=== PATIENT | female | born 1940 | race Caucasian/White ===

== ENCOUNTER 2020-03-24 19:03 | Emergency (ER) | payer MEDICARE, SELFPAY ==
--- NOTE | ~2020-03-24 | XR_ITS ---
EXAMINATION: XR ribs RT 2V w CXR 2V DATE: 03/24/2020 20:25 INDICATION: Right-sided rib pain after fall onto a table TECHNIQUE: PA and lateral views of the chest and 3 views of the right ribs were obtained. COMPARISON: None FINDINGS: Acute appearing mildly displaced fracture at the anterior right eighth and ninth ribs. Right lung is clear with no airspace opacities, pulmonary edema, pleural effusion or pneumothorax. Patchy airspace opacities throughout the left mid to lower lung zone which could represent atelectasis, pneumonia or less likely asymmetric pulmonary edema. No left-sided pleural effusion or pneumothorax. Cardiomediast inal silhouette is within normal limits for AP technique. Mild thoracic kyphosis with mild anterior w edging of a few mid thoracic vertebral bodies. Severe lumbar spondylosis. IMPRESSION: 1. Mildly displaced anterior right eighth and ninth rib fractures. No associated right pleural effusi on or pneumothorax. 2. Patchy airspace opacities in the left mid and lower lung zones which could represent atelectasis, pneumonia or less likely asymmetric pulmonary edema. Reviewed, dictated and finalized at location A. IMPRESSION: 1. Mildly displaced anterior right eighth and ninth rib fractures. No associate d right pleural effusion or pneumothorax. 2. Patchy airspace opacities in the left mid and lower lung zones which could r epresent atelectasis, pneumonia or less likely asymmetric pulmonary edema.
[2020-03-24 19:08] VITALS: BP 140/64; PULSE 70; RESP 21; TEMP 36.6; O2SAT 96
--- NOTE | 2020-03-24 19:33 | ED.GENADULT ---
HPI - General Adult General Chief complaint: Fall Stated complaint: fall/ rib pain Time Seen by Provider: 03/24/20 19:20 Source: patient Mode of arrival: EMS Limitations: no limitations History of Present Illness HPI narrative: Patient is 79-year-old female who presents to emergency department after having a ground-level fall after miss stepping at home today patient fell into a dresser injuring the right ribs where she has moderate aching pain for which she has taken Tylenol with relief. Patient denies other injuries or complaints. Patient denies dyspnea or URI symptoms. Patient presents per EMS in no distress Review of Systems Review of Systems: All systems reviewed & are unremarkable except as noted in HPI and below PMFSH Past Medical History Medical History (Updated 03/24/20 @ 20:40 by Horacio Biswas PA-C) COPD (chronic obstructive pulmonary disease) Obese Surgical History Surgical History (Updated 03/24/20 @ 19:36 by Horacio Biswas PA-C) History of orthopedic surgery Social History Social History (Updated 03/24/20 @ 19:36 by Horacio Biswas PA-C) Smoking status: Never smoker Exam Narrative: Exam Narrative: GENERAL: Well-appearing, obese, and in no acute distress. HEAD: Normocephalic, atraumatic. EYES: PERRLA and EOMI. ENT: Nares clear, no rhinorrhea or epistaxis. Mucous membranes moist. NECK: Supple. No adenopathy or masses. CHEST: Clear to auscultation. No respiratory distress. No wheezes rales or rhonchi. Right lateral rib pain no deformity noted HEART: Regular rate and rhythm. No murmur heard. Normal peripheral pulses. ABDOMEN: Soft, nontender, nondistended EXTREMITIES: Normal range of motion. No edema. No cervical thoracic or lumbar tenderness SKIN: Warm, dry, no rash. NEURO: No focal deficits. Alert and oriented x3. Cranial nerves II through XII grossly intact PSYCH: Normal mood and affect. Course Course Emergency Course: Patient in the room at this time aware of case findings treatment plan and diagnosis family present patient is following with primary care and specialist and is felt appropriate to be discharged home family feels comfortable with this plan provided with reasons to return Vital Signs Vital signs: Vital Signs Temperature 98 F 03/24/20 19:08 Pulse Rate 70 03/24/20 19:08 Respiratory Rate 21 H 03/24/20 19:08 Blood Pressure 140/64 03/24/20 19:08 Pulse Oximetry 96 03/24/20 19:08 Temperature 98 F 03/24/20 19:08 Pulse Rate 70 03/24/20 19:08 Respiratory Rate 21 H 03/24/20 19:08 Blood Pressure 140/64 03/24/20 19:08 Pulse Oximetry 96 03/24/20 19:08 Medical Decision Making MDM Narrative Medical decision making narrative: Patient with rib fractures seen on x-ray no other high risk changes or findings in the room in no distress pain well-tolerated hemodynamically stable will be discharged home with follow-up with primary care family feels comfortable with this plan Vital Signs Vital Signs: Vital Signs Temperature 98 F 03/24/20 19:08 Pulse Rate 70 03/24/20 19:08 Respiratory Rate 21 H 03/24/20 19:08 Blood Pressure 140/64 03/24/20 19:08 Pulse Oximetry 96 03/24/20 19:08 Temperature 98 F 03/24/20 19:08 Pulse Rate 70 03/24/20 19:08 Respiratory Rate 21 H 03/24/20 19:08 Blood Pressure 140/64 03/24/20 19:08 Pulse Oximetry 96 03/24/20 19:08 Lab Data Result diagrams: 03/24/20 20:16 03/24/20 20:16 Labs: Lab Results 03/24/20 03/24/20 Range/Units 20:16 20:16 WBC 11.4 H (4.5-10.0) K/mm3 RBC 3.28 L (4.2-5.4) M/mm3 Hgb 10.5 L (12.0-15.0) g/dL Hct 32.8 L (37.0-47.0) % MCV 100.0 (80-100) fl MCH 32.0 (26-34) pg MCHC 32.0 (32-36) g/dl RDW 15.5 H (11.5-14.5) % Plt Count 128 L (150-375) k/mm3 MPV 12.1 H (7.4-10.4) fl Immature Gran % (Auto) 0.5 (0-0.5) % Neut % (Auto) 85.2 H (45.5-73.1) % Lymph % (Auto) 6.5 L (18.3-44.2) %
[2020-03-24 20:25] LABS: Basophils Percent Auto 0.4 % (0.2-1.2); Eosinophils Absolute Auto 0.1 K/mm3 (0-0.3); Eosinophils Percent Auto 0.9 % (0-4.4); Hematocrit 32.8 % (37.0-47.0); Hemoglobin 10.5 g/dL (12.0-15.0); Immature Granulocyte Absolute 0.06 K/mm3 (0.00-0.031); Immature Granulocyte Percent A 0.5 % (0-0.5); Lymphocytes Absolute Auto 0.74 K/mm3 (0.9-3.2); Lymphocytes Percent Auto 6.5 % (18.3-44.2); Mean Platelet Volume 12.1 fl (7.4-10.4); Monocytes Absolute Auto 0.7 K/mm3 (0.1-0.6); Monocytes Percent Auto 6.5 % (2.6-8.5); Neutrophils Absolute Auto 9.7 K/mm3 (1.3-6.7); Neutrophils Percent Auto 85.2 % (45.5-73.1); Platelet Count Result 128 k/mm3 (150-375); Red Blood Count 3.28 M/mm3 (4.2-5.4); Red Cell Distribution Width 15.5 % (11.5-14.5); White Blood Count 11.4 K/mm3 (4.5-10.0)
[2020-03-24 20:34] LABS: Alanine Aminotransferase 15 U/L (4-35); Albumin Level 3.9 g/dL (3.5-5.1); Alkaline Phosphatase 89 U/L (38-126); Anion Gap 8 mmol/L (8-16); Aspartate Amino Transferase 21 U/L (14-36); Bilirubin,Total 0.4 mg/dL (0.2-1.3); Blood Urea Nitrogen 48 mg/dL (7-17); Calcium 8.7 mg/dL (8.4-10.2); Carbon Dioxide 20 mmol/L (22-30); Chloride 108 mmol/L (98-107); Estimated CRCL calculation 24 ml/min; Estimated Glomerular Filt Rate 26; Glucose 86 mg/dL (65-105); Sodium 136 mmol/L (137-145)
[2020-03-24 20:40] VITALS: BP 136/57; PULSE 78; RESP 19; O2SAT 96
[2020-03-24 21:00] LABS: Add Urine Microscopic? NO; Appearance Urine Clear (Clear); Bilirubin Urine Negative (Negative); Blood Urine Negative (Negative); Color Urine Yellow (Yellow); Glucose Urine UA Negative (Negative); Ketones Urine Negative (Negative); Leukocyte Esterase Ur Negative LEU/UL (Negative); Nitrate Urine Negative (Negative); Protein Urine Negative (Negative); Specific Grav Ur 1.012 (1.001-1.035); Urobilinogen Urine Negative mg/dL (<2.0)
[2020-03-24 21:35] VITALS: BP 119/51; PULSE 77; RESP 20; TEMP 36.8; O2SAT 96
== END 2020-03-24 21:46 | disposition home or self-care (01) ==
PROVIDERS: Emergency Medicine Emergency Medical Services; Emergency Provider Emergency Medicine; PCP Internal Medicine
DX: J44.9 Chronic obstructive pulmonary disease, unspecified (principal); E66.9 Obesity, unspecified; Z68.39 Body mass index [BMI] 39.0-39.9, adult; S22.41XA Multiple fractures of ribs, right side, initial encounter for closed fracture; R91.8 Other nonspecific abnormal finding of lung field; W01.190A Fall on same level from slipping, tripping and stumbling with subsequent striking against furniture, initial encounter
CPT/HCPCS: 36415; 51701; 71046; 71100; 80053; 81003; 85025; 99284

== ENCOUNTER 2020-08-08 05:55 | Emergency (ER) | payer MEDICARE, SELFPAY ==
--- NOTE | ~2020-08-08 | XR_ITS ---
[XR ribs LT 2V w CXR 2V ] INDICATION: Left rib pain TECHNIQUE: Frontal projection of the upper left ribs, frontal projection of the lower left ribs, obli que projection of all the left ribs, frontal inspiratory chest x-ray for interpretation. FINDINGS: There is a probable age-indeterminate left eighth rib fracture seen on one image only. Patc hy bilateral airspace disease. There are no soft tissue abnormality seen. The lungs are clear. IMPRESSION: 1: Probable age-indeterminate left eighth rib fracture. 2: Bilateral patchy airspace disease, compatible with pneumonia Reviewed, dictated and finalized at location A. [employer]
[2020-08-08 05:54] VITALS: TEMP 36.5
[2020-08-08 06:00] VITALS: BP 147/76; PULSE 67; RESP 21; O2SAT 96
--- NOTE | 2020-08-08 06:32 | ED.FALL ---
HPI - Fall General Chief Complaint: Fall <Antonino Bowles MD - Last Filed: 08/08/20 07:29> Stated Complaint: Fall, Chest pain <Antonino Bowles MD - Last Filed: 08/08/20 07:29> Time Seen by Provider: 08/08/20 06:10 <Antonino Bowles MD - Last Filed: 08/08/20 07:29> History of Present Illness HPI Narrative: Patient is a 79-year-old female who presents ER with left anterior chest wall pain. Patient had a trip and fall this morning and struck her chest. Did not strike her head or lose consciousness. Has history of rib fracture in the past and is concerned she may have suffered the same fate. She is not having any difficulty breathing at this time. No cough. Has minor discomfort when twisting or moving. Mild discomfort with palpation. <Antonino Bowles MD - Last Filed: 08/08/20 07:29> Related Data Allergies/Adverse Reactions: Allergies Allergy/AdvReac Type Severity Reaction Status Date / Time Sulfa (Sulfonamide Allergy Hives Verified 08/08/20 06:02 Antibiotics) codeine AdvReac Other Verified 08/08/20 06:02 <Antonino Bowles MD - Last Filed: 08/08/20 07:29> Review of Systems Cardiovascular: Cardiovascular: Reports chest pain (chest wall), Denies diaphoresis and Denies palpitations <Antonino Bowles MD - Last Filed: 08/08/20 07:29> Respiratory: Respiratory: Denies cough, Denies pain on inspiration and Denies dyspnea <Antonino Bowles MD - Last Filed: 08/08/20 07:29> Neurologic: Denies syncope, Denies focal weakness, Denies numbness and Denies tingling <Antonino Bowles MD - Last Filed: 08/08/20 07:29> [facility] Past Medical History Medical History: Medical History (Updated 08/08/20 @ 08:21 by Primitivo Cadena MD) COPD (chronic obstructive pulmonary disease) Obese <Antonino Bowles MD - Last Filed: 08/08/20 07:29> Surgical History Surgical History: Surgical History (Updated 03/24/20 @ 19:36 by Horacio Biswas PA-C) History of orthopedic surgery <Antonino Bowles MD - Last Filed: 08/08/20 07:29> Social History Social History: Social History (Updated 03/24/20 @ 19:36 by Horacio Biswas PA-C) Smoking status: Never smoker <Antonino Bowles MD - Last Filed: 08/08/20 07:29> Exam Narrative: Exam Narrative: GENERAL: Well-appearing, well-nourished, and in no acute distress. HEAD: Normocephalic, atraumatic. CHEST: Clear to auscultation. No respiratory distress. Mild tenderness inferior to the left breast. HEART: Regular rate and rhythm. Normal peripheral pulses. ABDOMEN: Soft, nontender, nondistended. EXTREMITIES: Normal range of motion. No edema. SKIN: Warm, dry, no rash. NEURO: Alert and oriented x3. <Antonino Bowles MD - Last Filed: 08/08/20 07:29> Course Vital Signs Vital signs: Vital Signs Temperature 36.5 C 08/08/20 05:54 Temperature 36.6 C 08/08/20 07:54 Pulse Rate 57 L 08/08/20 07:54 Respiratory Rate 14 08/08/20 07:54 Blood Pressure 126/62 08/08/20 07:54 Pulse Oximetry 98 08/08/20 07:54 <Antonino Bowles MD - Last Filed: 08/08/20 07:29> Vital Signs Temperature 36.5 C 08/08/20 05:54 Temperature 36.6 C 08/08/20 07:54 Pulse Rate 57 L 08/08/20 07:54 Respiratory Rate 14 08/08/20 07:54 Blood Pressure 126/62 08/08/20 07:54 Pulse Oximetry 98 08/08/20 07:54 <Primitivo Cadena MD - Last Filed: 08/08/20 08:21> MDM - Fall MDM Narrative Medical decision making narrative: CXR shows no new fracture. Bilateral infiltrates, no significant change from previous x-ray 4 months ago. She denies cough, congestion, fever, SOB. Pneumonia unlikely. <Primitivo Cadena MD - Last Filed: 08/08/20 08:21> Imaging Data Radiologist's impression: ITS Impressions Ribs w/Chest X-Ray 08/08/20 07:42 IMPRESSION: 1: Probable age-indeterminate left eighth rib fracture. 2: Bilateral patchy airspace disease, compatible with pneumonia <Gran
[2020-08-08 07:54] VITALS: BP 126/62; PULSE 57; RESP 14; TEMP 36.6; O2SAT 98
[2020-08-08 08:28] VITALS: BP 117/56; PULSE 60; RESP 18
== END 2020-08-08 08:30 | disposition home or self-care (01) ==
PROVIDERS: Emergency Provider Emergency Medicine; PCP Internal Medicine
DX: S20.212A Contusion of left front wall of thorax, initial encounter (principal); W01.0XXA Fall on same level from slipping, tripping and stumbling without subsequent striking against object, initial encounter; J44.9 Chronic obstructive pulmonary disease, unspecified
CPT/HCPCS: 71046; 71100; 99283

== ENCOUNTER 2020-10-24 10:02 | Observation (INO) | payer MEDICARE, SELFPAY ==
[2020-10-24] VITALS (12 sets, daily range): BP systolic 104–151; BP diastolic 61–96; PULSE 51–66; RESP 11–31; TEMP 34.9–36.7; O2SAT 91–98
--- NOTE | ~2020-10-24 | XR_ITS ---
EXAMINATION: XR chest 2V DATE: 10/24/2020 11:00 INDICATION: Congestive heart failure with weakness and bilateral lower limb swelling TECHNIQUE: frontal and lateral views of the chest were obtained. COMPARISON: Chest radiograph dated 08/08/2020 and 03/24/2020 FINDINGS: Bandlike discoid atelectasis at the medial left lung base. No other airspace opacities, pulmonary marlo ma, pleural effusion or pneumothorax. Heart size is normal with prominent left paracardial fat pad. S uggestion of a small to moderate hiatal hernia. Atherosclerotic and tortuous thoracic aorta. Osteopen ia with mild thoracic kyphosis and moderate spondylosis. IMPRESSION: 1. Mild discoid atelectasis at the left lung base. No other acute cardiopulmonary disease. 2. Possible small to moderate hiatal hernia. Reviewed, dictated and finalized at location A. IMPRESSION: 1. Mild discoid atelectasis at the left lung base. No other acute cardiopulmona ry disease. 2. Possible small to moderate hiatal hernia.
--- NOTE | ~2020-10-24 | CT_ITS ---
EXAMINATION: CT brain wo con DATE: 10/24/2020 11:06 INDICATION: Weakness for 3 days. Tremors. TECHNIQUE: Computed tomography (CT) of the head was performed without intravenous contrast. The dose- length product was 605.33 mGy-cm. The mA was adjusted according to patient size. Iterative reconstruc tion technique was employed. COMPARISON: None FINDINGS: No acute intracranial hemorrhage, infarction, mass or mass effect. Mild generalized atrophy . There is intracranial atherosclerosis. No ventriculomegaly or midline shift. Basilar cisterns are p atent. There is mild mucosal thickening of the ethmoid and left maxillary sinuses. Mastoids are pneum atized. There are scattered mild periventricular and subcortical white matter changes, most likely re lated to small vessel ischemic disease (microangiopathy). IMPRESSION: 1. No acute intracranial abnormality. 2: Mild chronic age-related findings. Reviewed, dictated and finalized at location A.
--- NOTE | ~2020-10-24 | CT_ITS ---
EXAMINATION: CT abdomen pelvis wo con EXAM DATE: 10/25/2020 13:42 INDICATION: Hypothermia, pancytopenia. TECHNIQUE: Spiral CT of the abdomen and pelvis was performed without contrast. Axial, coronal and s agittal images were reviewed. The dose-length product (DLP) for this examination was 1232.49 mGy-cm. The exposure was tailored according to patient size (auto mA exposure control), and iterative recon struction (ASIR) was used as additional dose reduction technique. There is no prior study for compar titus. 0 FINDINGS: Nearly complete fatty infiltration of the pancreas. The liver, spleen, adrenal glands are unremarkable. Gallbladder is unremarkable. No biliary obstruction. There is no nephrolithiasis or hydronephrosis. There is mild to moderate bilateral renal atrophy. There is a 2 cm right renal cyst i nferiorly. The uterus is retroverted and morphologically normal. The bladder is collapsed with Fol ey catheter balloon anchor inside. There is no retroperitoneal or pelvic lymphadenopathy. There is mild scattered arteriosclerotic disease. The appendix is normal. There is moderate-sized gastroesophageal hiatal hernia. There is expected a mount of colonic stool. No free intraperitoneal gas. The heart is normal in size. There are no p ericardial or pleural effusions. There is segmental lingular atelectasis. There are no osteoblastic or osteolytic lesions identified. There are right rib fractures of varying ages from subacute to chr onic. Advanced lumbar spondylosis. 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 IMPRESSION: 1. No acute intra-abdominal findings. 2. Lingular subsegmental atelectasis. 3. Moderate hiatal hernia. 4. Chronic bone and other findings. Reviewed, dictated and finalized at location A.
--- NOTE | ~2020-10-24 | MR_ITS ---
EXAMINATION: MR brain/brain stem wo/w con EXAM DATE: 10/27/2020 15:57 INDICATION: Extremity paresthesias, weak, hypothermia, hypoglycemia. TECHNIQUE: Magnetic resonance imaging (MRI) of the brain/brain stem obtained without contrast. Sagit ed T1, axial diffusion, gradient echo (T2*), T1, T2, FLAIR sequences obtained. Patient was then inj ected with 19 cc intravenous Multihance contrast. Axial and coronal postcontrast T1 weighted sequence s obtained. There is no prior study for comparison. FINDINGS: There are no areas of restricted diffusion to suggest acute infarction. There is no acute hemorrhage seen on the T2*, a hemosiderin sensitive sequence. No intraparenchymal brain mass lesion. There is mild prominence of the sulci and ventricles related to cerebral atrophy. There are no e xtra-axial collections. Flow voids are seen in the cerebral arteries on the T2-weighted sequences co nsistent with their expected patency. Patient has had bilateral ocular lens surgery. Soft tissue is unremarkable. IMPRESSION: Unremarkable brain MR exam. Reviewed, dictated and finalized at location A. IMPRESSION: Unremarkable brain MR exam.
--- NOTE | ~2020-10-24 | MR_ITS ---
EXAMINATION: MR lumbar spine wo/w con EXAM DATE: 10/27/2020 15:58 INDICATION: Low back pain, weakness. TECHNIQUE: Multi-sequential, multiplanar MR images of the lumbar spine were obtained without contrast . Sagittal T1, T2, T2 fat saturation images. Axial T2 weighted images. Axial T1 weighted sequence. Patient was then injected with 19 mL Multihance intravenous contrast and reimaged. Postcontrast axi al and sagittal T1-weighted fat saturation sequences were obtained. There are no prior studies for co mparison. FINDINGS: Study is limited due to patient motion. No evidence of epidural abscess or discitis. The co nus medullaris terminates at the T12-L1 level and has normal signal intensity and morphology. There are no prior studies for comparison. There is moderate to severe disc disease L1-2, and L3-S1, modera te at L2-3. There is 3 mm retrolisthesis L5 on S1. No spondylolysis suspected. Mild diffuse loss of v ertebral body height. Right renal fluid signal intensity lesions most likely cysts. Level by level evaluation: T12-L1: There is a mild diffuse disc bulge. Facet arthropathy: Mild. Neural foraminal stenosis: No stenosis. Central canal stenosis: No stenosis. L1-L2: There is a moderate diffuse disc bulge. Facet arthropathy: Mild to moderate. Neural foraminal stenosis: Mild to moderate bilateral. Central canal stenosis: Mild to moderate. L2-L3: There is a mild to moderate diffuse disc bulge. Facet arthropathy: Mild to moderate. Neural foraminal stenosis: Moderate left, mild right. Central canal stenosis: Mild to moderate. L3-L4: There is a moderate diffuse disc bulge. Facet arthropathy: Moderate to severe. Ligamentum flavum enlargement. Neural foraminal stenosis: Moderate left, mild to moderate right. Central canal stenosis: Moderate to severe. L4-L5: There is a moderate diffuse disc bulge. Facet arthropathy: Severe right, moderate left. Neural foraminal stenosis: Moderate right, mild to moderate left. Central canal stenosis: Moderate. L5-S1: There is a moderate diffuse disc bulge. Facet arthropathy: Mild to moderate. Neural foraminal stenosis: Moderate bilateral. Central canal stenosis: Mild to moderate. IMPRESSION: 1. Advanced lumbar spondylosis, with L3-4 moderate to severe central canal stenosis. 2. No acute findings. Reviewed, dictated and finalized at location A. IMPRESSION: 1. Advanced lumbar spondylosis, with L3-4 moderate to severe central canal kylie nosis. 2. No acute findings.
--- NOTE | 2020-10-24 10:09 | ECG_ITS ---
Measurements Intervals Welch Rate: 60 P: 46 [place]: 188 QRS: -3 QRSD: 85 T: 31 QT: 397 QTc: 400 Interpretive Statements SINUS RHYTHM BORDERLINE R WAVE PROGRESSION, ANTERIOR LEADS BASELINE ARTIFACT- I, II, III, AVR, AVL, AVF, V1-V6 BORDERLINE ECG Electronically Signed On 10-24-2020 11:19:54 CDT by Morgan Pruett D.O.
--- NOTE | 2020-10-24 10:52 | ED.WEAKNESS ---
HPI - Weakness General Chief complaint: Weakness Stated complaint: tremors, weakness Time Seen by Provider: 10/24/20 10:12 Source: RN notes reviewed History of Present Illness HPI Narrative: Patient presents to emergency department from home for weakness. Patient states over the past 3 days she has been having weakness with tremors she states that that she has had no unilateral deficits. She denies any fevers or chills vision changes chest pain, shortness breath, abdominal pain, nausea, vomiting, diarrhea or any other symptoms. Patient denies any other symptoms at this time patient states she was having a difficult time getting up and walking with her walker today Related Data Allergies Allergy/AdvReac Type Severity Reaction Status Date / Time Sulfa (Sulfonamide Allergy Hives Verified 08/08/20 06:02 Antibiotics) codeine AdvReac Other Verified 08/08/20 06:02 Review of Systems Review of Systems: Narrative: Gen.: Denies fevers or chills Eyes: Denies eye pain or visual change ENT: Denies congestion Respiratory: Denies shortness of breath or cough CV: Denies chest pain or palpitations GI: Denies abdominal pain nausea, emesis or diarrhea denies burning, urgency, frequency or hematuria Musculoskeletal: Denies back pain or muscle pain Neuro: See HPI Skin: Denies rash Except as documented, all other systems reviewed and negative [facility] Past Medical History Medical History COPD (chronic obstructive pulmonary disease) Obese Surgical History Surgical History (Updated 03/24/20 @ 19:36 by Horacio Biswas PA-C) History of orthopedic surgery Social History Social History Smoking status: Never smoker Exam Narrative: Exam Narrative: APPEARANCE: No acute distress, nontoxic, resting in bed EYES: EOMI HEENT: Normocephalic, atraumatic, OMM RESPIRATORY: No respiratory distress Clear to auscultation bilaterally with no rhonchi wheezing or rales. CARDIOVASCULAR: Regular rate and rhythm without murmurs rubs or gallops. ABDOMINAL: Soft, nontender, nondistended, no rebound or guarding MUSCULOSKELETAl: Moves all extremities. No clubbing, cyanosis or edema. NEURO: Awake and alert x 4. Following commands, speech normal, no focal deficits muscle strength 5 out of 5 bilateral upper and lower extremities SKIN:: Warm, dry. No rashes lesions or abrasions PSYCHIATRIC: Normal affect/mood, Course Course Emergency Course: Discussed with patient states she is followed by a coordinator of health services Dr. Major Discussed with KATELYN De Los Santos for Dr. Ling presentation work-up agrees with admission at this time Discussed with patient and family results of workup and diagnosis. Discussed need for admission. Patient and family understand and agree to current treatment plan Vital Signs Vital signs: Vital Signs Temperature 98.0 F 10/24/20 10:04 Pulse Rate 65 10/24/20 10:04 Respiratory Rate 24 H 10/24/20 10:04 Blood Pressure 128/69 10/24/20 10:04 Pulse Oximetry 95 10/24/20 10:04 Temperature 98.0 F 10/24/20 10:04 Pulse Rate 51 L 10/24/20 12:46 Respiratory Rate 12 10/24/20 12:46 Blood Pressure 116/61 10/24/20 12:46 Pulse Oximetry 91 10/24/20 12:03 MDM - Weakness Lab Data Result diagrams: 10/24/20 10:43 10/24/20 10:43 Labs: Lab Results 10/24/20 10/24/20 10/24/20 Range/Units 10:43 10:43 12:09 WBC 3.4 L (4.5-10.0) K/mm3 RBC 3.18 L (4.2-5.4) M/mm3 Hgb 10.1 L (12.0-15.0) g/dL Hct 32.1 L (37.0-47.0) % MCV 100.9 H (80-100) fl MCH 31.8 (26-34) pg MCHC 31.5 L (32-36) g/dl RDW 15.1 H (11.5-14.5) % Plt Count 90 L (150-375) k/mm3 MPV 11.5 H (7.4-10.4) fl Immature Gran % (Auto) 0.3 (0-0.5) % Neut % (Auto) 57.2 (45.5-73.1) % Lymph % (Auto) 24.9 (18.3-44.2) % [place] % (Auto) 12.3 H (2.6-8.5) % Eos % (Auto) 4.7 H (0
[2020-10-24 10:56] LABS: Basophils Percent Auto 0.6 % (0.2-1.2); Eosinophils Absolute Auto 0.2 K/mm3 (0-0.3); Eosinophils Percent Auto 4.7 % (0-4.4); Hematocrit 32.1 % (37.0-47.0); Hemoglobin 10.1 g/dL (12.0-15.0); Immature Granulocyte Absolute 0.01 K/mm3 (0.00-0.031); Immature Granulocyte Percent A 0.3 % (0-0.5); Lymphocytes Absolute Auto 0.85 K/mm3 (0.9-3.2); Lymphocytes Percent Auto 24.9 % (18.3-44.2); Mean Corpuscular HGB Conc 31.5 g/dl (32-36); Mean Corpuscular Hemoglobin 31.8 pg (26-34); Mean Corpuscular Volume 100.9 fl (80-100); Mean Platelet Volume 11.5 fl (7.4-10.4); Monocytes Absolute Auto 0.4 K/mm3 (0.1-0.6); Monocytes Percent Auto 12.3 % (2.6-8.5); Neutrophils Percent Auto 57.2 % (45.5-73.1); Platelet Count Result 90 k/mm3 (150-375); Red Blood Count 3.18 M/mm3 (4.2-5.4); Red Cell Distribution Width 15.1 % (11.5-14.5); White Blood Count 3.4 K/mm3 (4.5-10.0)
[2020-10-24 11:04] LABS: Alanine Aminotransferase 18 U/L (4-35); Albumin Level 3.6 g/dL (3.5-5.1); Alkaline Phosphatase 109 U/L (38-126); Anion Gap 6 mmol/L (8-16); Aspartate Amino Transferase 21 U/L (14-36); Bilirubin,Total 0.3 mg/dL (0.2-1.3); Blood Urea Nitrogen 48 mg/dL (7-17); Calcium 8.7 mg/dL (8.4-10.2); Carbon Dioxide 23 mmol/L (22-30); Chloride 111 mmol/L (98-107); Estimated CRCL calculation 24 ml/min; Estimated Glomerular Filt Rate 27; Glucose 87 mg/dL (65-105); Potassium 5.4 mmol/L (3.4-5.0); Sodium 140 mmol/L (137-145)
--- NOTE | 2020-10-24 11:20 | PC.NURSE ---
Report received from VANESSA Bradshaw. Note pt snoring loudly on stretcher. Sp02 decreases to 88%. When pt awoken goes back up to 93-95%. Pt states does not wear cpap at night at home and doesn't have h/o sleep apnea.
[2020-10-24] MEDS: SODIUM CHLORIDE 0.9% IV 1,000 ML 999 ML IV CONT (12:19)
[2020-10-24 12:27] LABS: Alveolar/Arterial O2 Gradient 8.2 mmHg; Base Excess ABG -3.6 mEq/l (+/-2.0); Fractional Inspired Oxygen 21 %; Oxygen Content ABG 13.7 %vol (16.0-22.0); Oxygen Saturation ABG 94.9 % (95.0-100.0); PO2 ABG 82.9 mmHg (80.0-100.0); PO2 FiO2 Ratio Arterial Blood 3.95 %; Total Hemoglobin 10.4 g/dL (12.0-18.0)
[2020-10-24 12:29] LABS: Device ROOM AIR; Site Drawn LEFT BRACHIAL
[2020-10-24 12:32] LABS: Add Urine Microscopic? NO; Appearance Urine Clear (Clear); Bilirubin Urine Negative (Negative); Blood Urine Negative (Negative); Color Urine Yellow (Yellow); Glucose Urine UA Negative (Negative); Ketones Urine Negative (Negative); Leukocyte Esterase Ur Negative LEU/UL (Negative); Nitrate Urine Negative (Negative); Protein Urine Negative (Negative); Specific Grav Ur 1.011 (1.001-1.035); Urobilinogen Urine Negative mg/dL (<2.0)
--- NOTE | 2020-10-24 13:56 | PC.NURSE ---
Family at bedside visiting with patient. Patient talking and appears to be in no distress.
--- NOTE | 2020-10-24 14:01 | PM.CNNEP ---
Assessment and Plan Assessment and plan (1) Renal insufficiency: Code(s): N28.9 - Disorder of kidney and ureter, unspecified Status: Chronic Assessment and Plan: known CKD but baseline creatinine/GFR not known will try to get old records from primary diesel roller operator's office no critical electrolytes aside from mildly elevated K+ follow trend of labs for now (2) Weakness: Code(s): R53.1 - Weakness Status: Acute Assessment and Plan: not clear on what precipitated this issue PT/OT consultation ambulation as tolerated (3) Pancytopenia: Code(s): D61.818 - Other pancytopenia Status: Acute Assessment and Plan: acute versus chronic? follow trend Hem/Onc consultation? Will continue to follow. History of Present Illness Reason for Consult Consult date: 10/24/20 Reason for consult: chronic renal failure Chief Complaint Chief complaint: Renal insufficiency, hyperkalemia, weakness History of Present Illness Narrative: The patient is a 79-year-old female with a past medical history as outlined below who presented to [facility] Emergency room due to complaints of increased weakness and shakiness. The patient states that for the last 3-4 days prior to admission she has been having increased weakness and tremulousness which seems to have progressively worsened. She normally walks /ambulates with a walker but even when she does that, she shakes in association with a walker itself. Given her weakness and shakiness, she was terrified that she would fall over today and because the symptoms have been getting worse in the last few days, she came to the ER for further evaluation via ambulance. Workup and evaluation emergency room demonstrated the patient to be hemodynamically stable and routine blood test demonstrated pancytopenia as well as an elevated BUN and creatinine presumed to be consistent with her known history of chronic kidney disease. Her urinalysis was negative as well. Given these new laboratory findings as well as her constellation of symptoms as mentioned already, she was admitted the hospital for observation and closer monitoring. Renal consultation was requested due to her known history of chronic kidney disease. The patient states that she normally follows with Dr. Simpson for management of her chronic kidney disease but she could not give me specifics in terms of what her last creatinine was. All she could tell me was that the last time she saw Dr. Simpson, she was told that her kidney function was stable. Presumably, her kidney disease is due to hypertension and age-related change. Currently, patient appears to be doing reasonably well at the time of my visit. Review of Systems Review of Systems: Narrative: As per HPI. [facility] Past Medical History Medical History (Updated 10/25/20 @ 15:24 by Jewel Hernandez MD) BPV (benign positional vertigo) Chronic GERD COPD (chronic obstructive pulmonary disease) Depression Essential and other specified forms of tremor History of DVT (deep vein thrombosis) Hypertension Hypothyroidism Neuropathy Feet Obese Renal insufficiency Chronic Rib fracture TIA (transient ischemic attack) Surgical History Surgical History (Updated 10/25/20 @ 15:24 by Jewel Hernandez MD) H/O elbow surgery History of bilateral knee arthroplasty History of orthopedic surgery Hx of dilation and curettage Family History Family History Sibling Congestive heart failure Sibling Congestive heart failure Sibling Lymphoma Daughter Myocardial infarction Mother Cerebrovascular accident Father Lupus Cerebrovascular accident Social History Social History (Updated 10/24/20 @ 19:52 by Magali Teresa NP) Social History: The patient is . She has 2 sons and a daughter. She would like for her daughter to be the durable power attorn
--- NOTE | 2020-10-24 16:06 | ADMGEN ---
This patient, Tanesha Dubon, was admitted to 2 Medical Room 241-01. Patient/family oriented to hospital policies and general routines including ID bracelet, bed and alarms, visiting hours, pain management, procedures, bathroom and other care routines, personal items, smoking policy, room service/diet, and visiting hours. Information on how to activate the Rapid Response Team has been discussed. Patient/Family are encouraged to report perceived risks to care and to ask questions if they do not understand what they are told or what they should do.
[2020-10-24] MEDS: SODIUM CHLORIDE 0.9% IV 1,000 ML 100 ML IV CONT (16:51)
[2020-10-24 16:59] LABS: Anion Gap 8 mmol/L (8-16); Blood Urea Nitrogen 47 mg/dL (7-17); Calcium 8.8 mg/dL (8.4-10.2); Carbon Dioxide 22 mmol/L (22-30); Chloride 113 mmol/L (98-107); Estimated CRCL calculation 27 ml/min; Estimated Glomerular Filt Rate 31; Glucose 96 mg/dL (65-105); Potassium 5.4 mmol/L (3.4-5.0); Sodium 143 mmol/L (137-145)
--- NOTE | 2020-10-24 19:37 | PM.IMHP ---
H&P: HPI History of Present Illness Date/Time: 10/24/20 19:37 this is a 79 year old female patient has a past medical history of vertigo. The patient lives with her son but was home alone today. The patient stated that she felt very shaky and weak today. She typically ambulates with a walker but stated when she was trying to walk her walker shook as well. The patient has a history of falling and she was afraid she would fall today. The patient stated that she has been weak and tremulous for at least 3 days but today was worse. She stated that she was able to get a cup of coffee today but after she drink her coffee she could not get up and had to call the ambulance to come get her. She stated that she does have chronic kidney disease in that she sees a nephrologists. She denied any fever chills. Her urine was negative for UTI. The patient has pancytopenia.. At 10.1 and 32.1. Platelets were 90 today previous admission there 128. And CO2 is 49.0. Potassium 5.4. Creatinine 1.8 and then 1.6. Previous creatinine is 1.9. Nephrology has been consulted. IV fluids were started in the emergency room. Patient is being admitted for observation status on 10/24/2020. Chief Complaint: weakness Review of Systems Review of Systems: All systems reviewed & are unremarkable except as noted in HPI and below Constitutional: Constitutional: Reports as per HPI and Reports no additional constitutional complaints Eyes: Eyes: Reports as per HPI and Reports no additional eye complaints ENT: Reports system reviewed and no additional complaints, except as documented and Reports Normal hearing present Cardiovascular: Cardiovascular: Reports no additional cardiovascular complaints Respiratory: Respiratory: Reports no additional respiratory complaints and Reports no additional respiratory complaints Gastrointestinal: Gastrointestinal: Reports as per HPI and Reports no additional gastrointestinal complaints Musculoskeletal: Musculoskeletal: Reports no additional musculoskeletal complaints Integumentary/Breasts: Skin/Breast: Reports system reviewed and no additional complaints, except as docu and Reports as per HPI Neurologic: Reports system reviewed and no additional complaints, except as documented, Reports as per HPI and Reports Normal hearing present Psychiatric: Psychiatric: Reports no additional psychiatric complaints and Reports as per HPI Endocrine: Endocrine: Reports no additional endocrine complaints Hematologic/Lymphatic: Hematologic/Lymphatic: Reports no additional hematologic/lymphatic complaints Allergic/Immunologic: Allergic/Immunologic: Reports no additional allergic/immunologic complaints [facility] Past Medical History Medical History (Updated 10/24/20 @ 20:04 by Magali Teresa NP) BPV (benign positional vertigo) Chronic GERD COPD (chronic obstructive pulmonary disease) Depression Essential and other specified forms of tremor History of DVT (deep vein thrombosis) Hypertension Hypothyroidism Neuropathy Feet Obese Renal insufficiency Chronic Rib fracture TIA (transient ischemic attack) Surgical History Surgical History (Updated 10/24/20 @ 19:49 by Magali Teresa NP) H/O elbow surgery History of bilateral knee arthroplasty History of orthopedic surgery Hx of dilation and curettage Family History Family History Sibling Congestive heart failure Sibling Congestive heart failure Sibling Lymphoma Daughter Myocardial infarction Mother Cerebrovascular accident Father Lupus Cerebrovascular accident Social History Social History (Updated 10/24/20 @ 19:52 by Magali Teresa NP) Social History: The patient is . She has 2 sons and a daughter. She would like for her daughter to be the durable power collections attorney for healthcare. The patient desires to be a full code but does not want to exist in a vegetative state. The patient is retired from [employer]
[2020-10-24] MEDS: PREGABALIN (*CRX) 50 MG CAPSULE PO (20:38)
[2020-10-24] MEDS: PRAMIPEXOLE 0.125 MG TABLET PO (20:39)
[2020-10-24] MEDS: buPROPion HCL 100 MG TABLET PO (20:39)
[2020-10-24 21:38] LABS: Anion Gap 8 mmol/L (8-16); Blood Urea Nitrogen 47 mg/dL (7-17); Calcium 8.9 mg/dL (8.4-10.2); Carbon Dioxide 23 mmol/L (22-30); Chloride 112 mmol/L (98-107); Estimated CRCL calculation 27 ml/min; Estimated Glomerular Filt Rate 31; Glucose 115 mg/dL (65-105); Potassium 5.5 mmol/L (3.4-5.0); Sodium 143 mmol/L (137-145)
[2020-10-25] VITALS (20 sets, daily range): BP systolic 114–151; BP diastolic 41–65; PULSE 56–89; RESP 16–21; TEMP 33.8–36.4; O2SAT 93–100
[2020-10-25 05:58] LABS: Basophils Percent Auto 0.8 % (0.2-1.2); Eosinophils Absolute Auto 0.2 K/mm3 (0-0.3); Eosinophils Percent Auto 4.2 % (0-4.4); Hemoglobin 10.1 g/dL (12.0-15.0); Immature Granulocyte Absolute 0.01 K/mm3 (0.00-0.031); Immature Granulocyte Percent A 0.3 % (0-0.5); Lymphocytes Absolute Auto 0.66 K/mm3 (0.9-3.2); Lymphocytes Percent Auto 17.2 % (18.3-44.2); Mean Corpuscular HGB Conc 30.6 g/dl (32-36); Mean Corpuscular Hemoglobin 31.9 pg (26-34); Mean Corpuscular Volume 104.1 fl (80-100); Mean Platelet Volume 12.3 fl (7.4-10.4); Monocytes Absolute Auto 0.4 K/mm3 (0.1-0.6); Monocytes Percent Auto 10.4 % (2.6-8.5); Neutrophils Absolute Auto 2.6 K/mm3 (1.3-6.7); Neutrophils Percent Auto 67.1 % (45.5-73.1); Platelet Count Result 95 k/mm3 (150-375); Red Blood Count 3.17 M/mm3 (4.2-5.4); Red Cell Distribution Width 15.1 % (11.5-14.5); White Blood Count 3.8 K/mm3 (4.5-10.0)
[2020-10-25] MEDS: LEVOTHYROXINE SODIUM 125 MCG TABLET PO (06:03)
[2020-10-25] MEDS: SODIUM CHLORIDE 0.9% IV 1,000 ML 100 ML IV CONT (06:05)
[2020-10-25 06:12] LABS: Lactic Acid Reflex 0.7 mmol/L (0.7-2.1)
[2020-10-25 06:17] LABS: Anion Gap 6 mmol/L (8-16); Blood Urea Nitrogen 42 mg/dL (7-17); Calcium 8.9 mg/dL (8.4-10.2); Carbon Dioxide 22 mmol/L (22-30); Chloride 117 mmol/L (98-107); Estimated CRCL calculation 29 ml/min; Estimated Glomerular Filt Rate 33; Glucose 68 mg/dL (65-105); Potassium 5.3 mmol/L (3.4-5.0); Sodium 145 mmol/L (137-145)
[2020-10-25 06:43] LABS: Thyroid Stimulating Hormone Reflex 0.919 uIU/mL (0.465-4.68)
--- NOTE | 2020-10-25 06:49 | PC.NURSE ---
Dr Saxena was called to report rectal temperature of 93.5F and skin temperature of 95.8F. Dr Saxena said to leave patient on the floor at this time to see what day doctors suggest.
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
[2020-10-25] MEDS: SERTRALINE HCL 50 MG TABLET PO (09:00)
[2020-10-25] MEDS: MECLIZINE HCL 12.5 MG TABLET PO (09:00)
[2020-10-25] MEDS: OLMESARTAN MEDOXOMIL 20 MG TABLET PO (09:00)
[2020-10-25] MEDS: CYANOCOBALAMIN 1,000 MCG TABLET 1000 MCG PO (09:00)
[2020-10-25] MEDS: buPROPion HCL 100 MG TABLET PO ×2 (09:00→20:51)
[2020-10-25 09:45] LABS: Glucose Point of Care 125 (65-105)
[2020-10-25 10:20] LABS: Immature Reticulocyte Fraction 14.8 % (3.0-15.9); Reticulocyte Hemoglobin Conten 28.4 pg (28.2-35.7); Reticulocyte Percent 2.33 % (0.7-4.3); Reticulocytes Absolute 0.07 B/L (32.2-175.7)
[2020-10-25 10:30] LABS: Lactate Dehydrogenase 416 U/L (313-618)
[2020-10-25 10:36] LABS: INR 1.1; Partial Thromboplastin Time 34.2 SECONDS (22.3-36.8); Prothrombin Time 14.6 Seconds (11.1-14.7)
[2020-10-25 10:59] LABS: Iron 68 ug/dL (37-170)
[2020-10-25 11:02] LABS: Total Triiodothyronine (T3) 0.78 NG/ML (0.97-1.69)
[2020-10-25 11:09] LABS: Percent Iron Saturation 21 % (20-50)
[2020-10-25 11:13] LABS: Uric Acid 6.7 mg/dL (2.5-7.5)
[2020-10-25 11:17] LABS: Free T4 Free Thyroxine 1.48 ng/mL (0.78-2.19)
--- NOTE | 2020-10-25 11:28 | PM.IMPN ---
Progress Note: A&P Assessment and Plan (1) Hypothermia: Qualifiers: Encounter type: initial encounter Qualified Code(s): T68.XXXA - Hypothermia, initial encounter Code(s): T68.XXXA - Hypothermia, initial encounter Status: Acute Assessment and Plan: Patient presents with weakness and shakiness x1 day, was walking with her walker then got progressively weaker and could not get off her couch, activated EMS. She otherwise denies other symptoms and feels better this morning. No shortness of breath, cough, chest pain, abd pain, dysuria. Etiology unclear; no infectious process is evident up to this point. Lactic normal 0.7. TSH normal on home levothyroxine. Blood sugar low 68 this morning, improved to 120s after eating breakfast. UA is unremarkable. Chest XR shows atelectasis LLL otherwise clear, lungs clear on exam. CT brain unremarkable. No wounds or rashes noted on exam. Afebrile. ABG yesterday 7.29/49.0/82.9 on room air - no respiratory distress. Robertson catheter placed last night for urinary retention. She reports chronic back pain no worse than her normal. She gets intermittent numbness/tingling to MARIAMA legs for years, none today. No saddle anesthesia or bowel/urinary incontinence. Kelly Casanova applied this AM - temps improving. Will monitor closely however the patient at present is well-appearing. Will order blood cultures, CT abd/pel to evaluate for any other source of infection. (2) Pancytopenia: Code(s): D61.818 - Other pancytopenia Status: Acute Assessment and Plan: Pancytopenia - etiology unclear. Differentials include splenic sequestration from hypothermia, bone marrow dysfunction? Trend CBCd. Oncologist consulted - appreciate any input if able. 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 Shakiness may have been related to low body temperature. Obtain blood cultures. (4) Neuropathy: Code(s): G62.9 - Polyneuropathy, unspecified Status: Chronic Assessment and Plan: Patient describes a peripheral neuropathy to all 4 extremities for years. Denies leg paresthesias today but notes intermittent left arm numbness/tingling. Continue her home pregabalin. Unclear if this has any relation to issues above. (5) Hypertension: Qualifiers: Hypertension type: unspecified Qualified Code(s): I10 - Essential (primary) hypertension Code(s): I10 - Essential (primary) hypertension Status: Chronic Assessment and Plan: Stable maintained on her home Benicar, continue. Monitor BP and adjust treatment as needed. (6) Hypothyroidism: Qualifiers: Hypothyroidism type: unspecified Qualified Code(s): E03.9 - Hypothyroidism, unspecified Code(s): E03.9 - Hypothyroidism, unspecified Status: Chronic Assessment and Plan: TSH is within normal limits this morning on her home levothyroxine. Continue levothyroxine. (7) Renal insufficiency: Code(s): N28.9 - Disorder of kidney and ureter, unspecified Status: Chronic Assessment and Plan: Appears to be at baseline. She is a patient of Dr Simpson. Monitor renal function and urine output. Nephrology was consulted by ED - appreciate input. (8) BPV (benign positional vertigo): Qualifiers: Laterality: unspecified laterality Qualified Code(s): H81.10 - Benign paroxysmal vertigo, unspecified ear Code(s): H81.10 - Benign paroxysmal vertigo, unspecifie
--- NOTE | 2020-10-25 12:10 | PM.PNNEP ---
Progress Note: A&P Assessment and Plan (1) Renal insufficiency: Code(s): N28.9 - Disorder of kidney and ureter, unspecified Status: Chronic Assessment and Plan: known CKD but baseline creatinine/GFR not known unable to get old records from primary lawn service supervisor's office at this time no critical electrolytes aside from mildly elevated K+ follow trend of labs for now (2) Hypothermia: Qualifiers: Encounter type: initial encounter Qualified Code(s): T68.XXXA - Hypothermia, initial encounter Code(s): T68.XXXA - Hypothermia, initial encounter Status: Acute Assessment and Plan: as noted by temperature curve in the last 24 hours etiology?? follow-up on blood cultures and CT scan (3) Weakness: Code(s): R53.1 - Weakness Status: Acute Assessment and Plan: not clear on what precipitated this issue PT/OT consultation ambulation as tolerated (4) Pancytopenia: Code(s): D61.818 - Other pancytopenia Status: Acute Assessment and Plan: acute versus chronic? follow trend Hem/Onc recommendations noted Will continue to follow. Subjective Date/time seen: 10/25/20 12:10 States she feels a bit better after administration of IVFs; issues with hypothermia noted in the last 24 hours; cultures done and CT scan of abdomen/pelvis ordered to rule an occult infection given low temperature readings; no other acute issues or problems voiced. Exam Narrative: Exam Narrative: General: WD/WN female in NAD Heart: normal S1 and S2; no rub Lungs: clear to auscultation Abdomen: soft, nontender, nondistended, positive bowel sounds Extremities: no cyanosis or clubbing; no edema Skin: warm and dry Objective Data Vital Signs Vital Signs: Vital Signs Temp Pulse Resp BP Pulse Ox 10/25/20 11:14 36.1 C L 10/25/20 11:00 36.0 C L 10/25/20 10:49 35.8 C L 10/25/20 10:00 35.8 C L 10/25/20 09:50 36.1 C L 10/25/20 09:35 36.1 C L 79 20 114/41 L 100 10/25/20 09:29 36.1 C L 10/25/20 09:05 35.3 C L 10/25/20 09:04 35.8 C L 79 20 118/54 L 96 10/25/20 08:28 35.3 C L 10/25/20 06:27 35.2 C L 10/25/20 06:05 34.3 C L 10/25/20 06:02 33.8 C L 10/25/20 06:00 35.2 C L 10/25/20 04:58 34.0 C L 57 L 20 144/65 H 95 10/24/20 20:05 34.9 C L 63 22 H 129/96 H 98 10/24/20 17:20 56 L 18 151/64 H 96 10/24/20 13:46 60 141/74 H 96 10/24/20 12:46 51 L 12 116/61 10/24/20 12:34 52 L 14 Intake/Output Intake/Output: Intake & Output 10/22/20 10/23/20 10/24/20 10/25/20 23:59 23:59 23:59 23:59 Intake Total 1170 1670 Output Total 1600 Balance 1170 70 Meds/Results Medications: Active Medications Generic Name Dose Route Start Last Admin Trade Name Fritz PRN Reason Stop Dose Admin Bupropion HCl 100 mg 10/24/20 21:00 10/25/20 09:00 Bupropion Hcl 100 Mg Tablet PO 100 mg Q12HR AISHA Administration Cyanocobalamin 1,000 mcg 10/25/20 09:00 10/25/20 09:00 Cyanocobalamin 1,000 Mcg Tablet PO 1,000 mcg DAILY AISHA Administration Docusate Sodium 50 mg 10/31/20 09:00 Docusate Sodium Liq 100 Mg/10 Ml Udc PO We@0900 AISHA Sodium Chloride 1,000 mls @ 100 mls/hr 10/24/20 13:25 10/25/20 06:05 Normal Saline Iv IV CONT 100 mls/hr .Q10H AISHA Administration Levothyroxine Sodium 125 mcg 10/25/20 06:30 10/25/20 06:03 Levothyroxine Sodium 125 Mcg Tablet PO 125 mcg DAILY@0630 AISHA Administration Meclizine HCl 12.5 mg 10/25/20 09:00 10/25/20 09:00 Meclizine Hcl 12.5 Mg Tablet PO 12.5 mg DAILY AISHA Administration Miconazole Nitrate 1 applic 10/24/20 21:00 10/25/20 09:01 Miconazole 2% Antifungal Ointment 56 Gm TOPICAL 1 applic Q12HR AISHA Administration Olmesartan 20 mg 10/25/20 09:00 10/25/20 09:00 Olmesartan Medoxomil 20 Mg Tablet PO 20 mg DAILY AISHA Administration Pramipexole Di
[2020-10-25 12:24] LABS: Folic Acid 4.3 ng/mL (2.76->20); Vitamin B12 > 1000.0 pg/mL (239-931)
[2020-10-25 14:11] LABS: Glucose Point of Care 91 (65-105)
--- NOTE | 2020-10-25 14:54 | PDONCCN ---
HPI - Date of Consult Date/Time: 10/25/20 14:54 Requesting Physician: ERIC Martin Primary Care Provider: Rohan Sharma, - Consult Narrative Reason for consult: Pancytopenia Narrative: Tanesha Dubon is a 79 year old female with history of peripheral neuropathy, spinal stenosis, COPD, HTN, benign tremor, hypothyroidism and CKD, presenting yesterday to the ED with report of acute-onset weakness and worsening tremors and dizziness/vertigo, brought in by EMS. Admitted for further workup. Found to be pancytopenic, hematology/oncology called for further evaluation. Patient reports neuropathy of unknown etiology for many years, started with loss of balance and proprioception, later leading to falls and dropping objects. Walks with a walker at home. Has history of familial benign tremors, takes pramipexole. Also history of spinal stenosis, arthrosis and lower back pain. Taking vitamin B12 orally, patient not sure why. Follows with nephrology for CKD, presumed to be from both HTN and over-use of NSAIDs. Has whiteside catheter in place since ED. Thus far no infectious etiology has been found, but patient today feels stronger and reports being able to lift her legs up, which she could not yesterday. Family wondering about diagnosis of MS. Does not follow with a neurologist outside. CBC on arrival showing WBC of 3.4 with lymphopenia of 66%, Hb=10.1 with AHY=270.9, plts = 90k. Compared to March 2020, WBC had been WNL, but lymphopenia noted at that time as well, Hb stable at 10, with macrocytic pattern, and plts were higher, at 128k. Further workup showed TSH normal, pt is on home levothyroxine. UA is unremarkable. Chest XR shows atelectasis LLL otherwise clear, lungs clear on exam. CT brain unremarkable. CT a/p performed, report pending. Patient denies prior cancer history, but has brother with lymphoma. Denies COVID positive contacts, but is currently pending her second COVID vaccine next week. No fevers, chills, night sweats or other constitutional symptoms. No history of easy bleeding or bruising, LAD or other hematologic conditions. Review of Systems - Review of Systems All systems reviewed & are unremarkable except as noted in HPI and bel - Neurologic Reports system reviewed and no additional complaints, except as documented [facility] Medical History: Medical History (Last Updated 10/24/20 @ 20:04 by Magali Teresa NP) BPV (benign positional vertigo) Chronic GERD COPD (chronic obstructive pulmonary disease) Depression Essential and other specified forms of tremor History of DVT (deep vein thrombosis) Hypertension Hypothyroidism Neuropathy Feet Obese Renal insufficiency Chronic Rib fracture TIA (transient ischemic attack) Surgical History: Surgical History (Last Updated 10/24/20 @ 19:49 by Magali Teresa NP) H/O elbow surgery History of bilateral knee arthroplasty History of orthopedic surgery Hx of dilation and curettage Family History: Family History (Last Reviewed 10/24/20 @ 19:51 by Magali Teresa NP) Sibling Congestive heart failure Sibling Congestive heart failure Sibling Lymphoma Daughter Myocardial infarction Mother Cerebrovascular accident Father Lupus Cerebrovascular accident - Social History Social History: Social History (Last Updated 10/24/20 @ 19:52 by Magali Teresa NP) Gender Identity: Gender identity (if verbalized by the patient): Female Alcohol Use: Alcohol intake: never Substance Use: Substance use: never Substance use type: does not use Others: Spiritual care concerns: No Smoking Status: Smoking status: Never smoker Meds Home Medications Medication Instructions Recorded Confirmed Type aspirin 120 mg PO DAILY 10/24/20 10/24/20 History bupropion HCl 100 mg PO BID 10/24/20 10/24/20 History cyanocobalamin (vitamin B-12) 1,000 mcg PO DAILY 10/24/20 10/24/20 History docusate sodium [Colace] 50 mg PO
[2020-10-25 15:58] LABS: Alanine Aminotransferase 17 U/L (4-35); Albumin Level 4.1 g/dL (3.5-5.1); Alkaline Phosphatase 112 U/L (38-126); Aspartate Amino Transferase 22 U/L (14-36); Bilirubin,Total 0.3 mg/dL (0.2-1.3)
[2020-10-25 19:03] LABS: Glucose Point of Care 89 (65-105)
--- NOTE | 2020-10-25 19:46 | PC.NURSE ---
Pt transferred to 330 by bed to this RN's care at 1455. Pt resting comfortably.
[2020-10-25] MEDS: PRAMIPEXOLE 0.125 MG TABLET PO (20:51)
[2020-10-25] MEDS: PREGABALIN (*CRX) 50 MG CAPSULE PO (20:51)
[2020-10-26] VITALS (13 sets, daily range): BP systolic 89–164; BP diastolic 37–94; PULSE 61–98; RESP 18–20; TEMP 35.8–36.6; O2SAT 94–100
[2020-10-26 01:42] LABS: SARS-CoV-2 RNA PCR Negative
[2020-10-26] MEDS: ACETAMINOPHEN 325 MG TABLET 650 MG PO ×2 (02:06→23:52)
[2020-10-26] MEDS: SODIUM CHLORIDE 0.9% IV 1,000 ML 100 ML IV CONT ×2 (05:16→15:38)
[2020-10-26] MEDS: LEVOTHYROXINE SODIUM 125 MCG TABLET PO (05:59)
[2020-10-26 06:14] LABS: Basophils Percent Auto 0.6 % (0.2-1.2); Eosinophils Absolute Auto 0.2 K/mm3 (0-0.3); Eosinophils Percent Auto 4.2 % (0-4.4); Hematocrit 31.3 % (37.0-47.0); Hemoglobin 9.5 g/dL (12.0-15.0); Immature Granulocyte Absolute 0.01 K/mm3 (0.00-0.031); Immature Granulocyte Percent A 0.3 % (0-0.5); Mean Corpuscular HGB Conc 30.4 g/dl (32-36); Mean Corpuscular Hemoglobin 31.5 pg (26-34); Mean Corpuscular Volume 103.6 fl (80-100); Mean Platelet Volume 12.3 fl (7.4-10.4); Monocytes Absolute Auto 0.5 K/mm3 (0.1-0.6); Monocytes Percent Auto 13.1 % (2.6-8.5); Neutrophils Absolute Auto 2.1 K/mm3 (1.3-6.7); Neutrophils Percent Auto 56.8 % (45.5-73.1); Platelet Count Result 91 k/mm3 (150-375); Red Blood Count 3.02 M/mm3 (4.2-5.4); Red Cell Distribution Width 15.5 % (11.5-14.5); White Blood Count 3.6 K/mm3 (4.5-10.0)
[2020-10-26 06:23] LABS: Prothrombin Time 14.1 Seconds (11.1-14.7)
[2020-10-26 06:24] LABS: Partial Thromboplastin Time 35.4 SECONDS (22.3-36.8)
[2020-10-26 06:36] LABS: Glucose Point of Care 80 (65-105)
[2020-10-26 06:36] LABS: Glucose Point of Care 70 (65-105)
[2020-10-26 06:40] LABS: Alanine Aminotransferase 15 U/L (4-35); Albumin Level 3.4 g/dL (3.5-5.1); Alkaline Phosphatase 85 U/L (38-126); Anion Gap 2 mmol/L (8-16); Aspartate Amino Transferase 22 U/L (14-36); Bilirubin,Total 0.2 mg/dL (0.2-1.3); Blood Urea Nitrogen 32 mg/dL (7-17); CRP 0.7 mg/dL (<1.0); Calcium 9.1 mg/dL (8.4-10.2); Carbon Dioxide 24 mmol/L (22-30); Chloride 116 mmol/L (98-107); Creatine Kinase 39 U/L (30-135); Estimated CRCL calculation 31 ml/min; Estimated Glomerular Filt Rate 36; Glucose 78 mg/dL (65-105); Lactate Dehydrogenase 480 U/L (313-618); Phosphorus 3.5 mg/dL (2.5-4.5); Potassium 5.5 mmol/L (3.4-5.0); Sodium 142 mmol/L (137-145)
[2020-10-26 06:46] LABS: Lipase < 10 U/L (23-300)
[2020-10-26] MEDS: buPROPion HCL 100 MG TABLET PO ×2 (09:01→20:54)
[2020-10-26] MEDS: MECLIZINE HCL 12.5 MG TABLET PO (09:02)
[2020-10-26] MEDS: OLMESARTAN MEDOXOMIL 20 MG TABLET PO (09:02)
[2020-10-26] MEDS: CYANOCOBALAMIN 1,000 MCG TABLET 1000 MCG PO (09:02)
[2020-10-26] MEDS: SERTRALINE HCL 50 MG TABLET PO (09:02)
[2020-10-26 12:03] LABS: Glucose Point of Care 66 (65-105)
--- NOTE | 2020-10-26 12:10 | PM.IMPN ---
Progress Note: A&P Assessment and Plan (1) Hypothermia: Qualifiers: Encounter type: initial encounter Qualified Code(s): T68.XXXA - Hypothermia, initial encounter Code(s): T68.XXXA - Hypothermia, initial encounter Status: Acute Assessment and Plan: Patient presents with weakness and shakiness , was walking with her walker then got progressively weaker and could not get off her couch, activated EMS. Family adds she has falls at home and deals with ambulatory dysfunction, but this was worse. She otherwise denies other symptoms and feels better today. No shortness of breath, cough, chest pain, abd pain, dysuria. Etiology unclear; no infectious process is evident up to this point. Lactic normal 0.7. TSH normal on home levothyroxine. UA is unremarkable. Chest XR shows atelectasis LLL otherwise clear, lungs clear on exam. CT brain unremarkable. No wounds or rashes noted on exam. Afebrile. ABG on arrival 7.29/49.0/82.9 on room air - no respiratory distress. Robertson catheter placed for urinary retention. She reports chronic back pain no worse than her normal. She gets intermittent numbness/tingling to MARIAMA legs for years, none today. No saddle anesthesia or bowel/urinary incontinence. Temperatures are improved today. Will monitor closely however the patient at present is well-appearing. Blood cultures are still pending. CT abd/pelvis without acute pathology concerning for infection or malignancy. (2) Pancytopenia: Code(s): D61.818 - Other pancytopenia Status: Acute Assessment and Plan: Pancytopenia - etiology unclear, see above. Differentials include splenic sequestration from hypothermia, bone marrow dysfunction? Trend CBCd. Oncologist consulted - appreciate input. If blood cultures are negative, tentative plan for discharge and follow up with repeat outpatient labs and follow up with Dr Alarcon outpatient. 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 Worsening shakiness may have been related to low body temperature however she may have a chronic tremor. Family wondering if she may have MS. MRI brain a consideration; patient doesn't think she can have MRI due to foreign body metals, will try to obtain more information tomorrow. (4) Neuropathy: Code(s): G62.9 - Polyneuropathy, unspecified Status: Chronic Assessment and Plan: Patient describes a peripheral neuropathy to MARIAMA legs for years. Denies leg paresthesias today but notes intermittent left arm numbness/tingling x 3 days. Continue her home pregabalin. Unclear if this has any relation to issues above. (5) Hypertension: Qualifiers: Hypertension type: unspecified Qualified Code(s): I10 - Essential (primary) hypertension Code(s): I10 - Essential (primary) hypertension Status: Chronic Assessment and Plan: Stable maintained on her home Benicar, continue. Monitor BP and adjust treatment as needed. Nephrology decreased Benicar dose due to hyperkalemia - appreciate input. (6) Hypothyroidism: Qualifiers: Hypothyroidism type: unspecified Qualified Code(s): E03.9 - Hypothyroidism, unspecified Code(s): E03.9 - Hypothyroidism, unspecified Status: Chronic Assessment and Plan: TSH is within normal limits on her home levothyroxine. Continue levothyroxine. (7) Renal insufficiency: Code(s): N28.9 - Disorder of kidney and ureter, unspecified Status: Chronic Assessment and Plan: Appears to be at ba
[2020-10-26 13:16] LABS: Glucose Point of Care 140 (65-105)
--- NOTE | 2020-10-26 14:47 | P.PNNP_ITS ---
Progress Note: A&P Assessment and Plan (1) Renal insufficiency: Code(s): N28.9 - Disorder of kidney and ureter, unspecified Status: Chronic Assessment and Plan: * known CKD but baseline creatinine/GFR not known * unable to get old records from primary scientist immunology's office at this time * however, creatinine stable if not better * no critical electrolytes aside from mildly elevated K+ * follow trend of labs for now (2) Hyperkalemia: Code(s): E87.5 - Hyperkalemia Status: Acute Assessment and Plan: * chronic issue?? * her ARB could be contributing as well * will start low K+ diet * will reduce dose on benicar * follow trend of K+ (3) Hypothermia: Qualifiers: Encounter type: initial encounter Qualified Code(s): T68.XXXA - Hypothermia, initial encounter Code(s): T68.XXXA - Hypothermia, initial encounter Status: Acute Assessment and Plan: * as noted by temperature curve in the last 24 hours * etiology?? * follow-up on blood cultures * CT scan of abd/pelvis noted (4) Weakness: Code(s): R53.1 - Weakness Status: Acute Assessment and Plan: * not clear on what precipitated this issue * PT/OT consultation * ambulation as tolerated (5) Pancytopenia: Code(s): D61.818 - Other pancytopenia Status: Acute Assessment and Plan: * acute versus chronic? * follow trend * Hem/Onc recommendations noted Will continue to follow. Subjective Date/time seen: 10/26/20 14:47 Appears to be doing reasonably well; son at bedside and we discussed the case/situation; no other acute complaints voiced at the time of my visit. Exam Narrative: Exam Narrative: General: WD/WN female in NAD Heart: normal S1 and S2; no rub Lungs: clear to auscultation Abdomen: soft, nontender, nondistended, positive bowel sounds Extremities: no cyanosis or clubbing; no edema Skin: warm and intact Objective Data Vital Signs Vital Signs: Vital Signs Temp Pulse Resp BP Pulse Ox 10/26/20 14:00 36.2 C L 66 18 133/66 100 10/26/20 09:46 97 10/26/20 08:00 70 10/26/20 07:55 87 20 149/78 H 97 10/26/20 07:50 79 18 139/61 95 10/26/20 07:45 36.1 C L 67 18 144/72 H 96 10/26/20 06:03 35.8 C L 68 18 142/59 H 98 10/26/20 04:00 61 10/26/20 00:00 36.4 C 74 18 140/53 L 97 10/25/20 21:58 89 21 H 141/63 H 93 10/25/20 20:00 36.0 C L 66 18 151/55 H 100 10/25/20 16:00 36.2 C L 58 L 16 141/54 H 98 Intake/Output Intake/Output: Intake & Output 10/23/20 10/24/20 10/25/20 10/26/20 23:59 23:59 23:59 23:59 Intake Total 1170 3770 1440 Output Total 2350 1550 Balance 1170 1420 -110 Meds/Results Medications: Active Medications Generic Name Dose Route Start Last Admin Trade Name Fritz PRN Reason Stop Dose Admin Acetaminophen 650 mg 10/26/20 01:57 10/26/20 02:06 Acetaminophen 325 Mg Tablet PO 650 mg Q4H PRN Administration Mild Pain (1-3) or Fever Bupropion HCl 100 mg 10/24/20 21:00 10/26/20 09:01 Bupropion Hcl 100 Mg Tablet PO 100 mg Q12HR AISHA Administration Cyanocobalamin 1,000 mcg 10/25/20 09:00 10/26/20 09:
--- NOTE | 2020-10-26 14:47 | PM.PNNEP ---
Progress Note: A&P Assessment and Plan (1) Renal insufficiency: Code(s): N28.9 - Disorder of kidney and ureter, unspecified Status: Chronic Assessment and Plan: known CKD but baseline creatinine/GFR not known unable to get old records from primary box liner's office at this time however, creatinine stable if not better no critical electrolytes aside from mildly elevated K+ follow trend of labs for now (2) Hyperkalemia: Code(s): E87.5 - Hyperkalemia Status: Acute Assessment and Plan: chronic issue?? her ARB could be contributing as well will start low K+ diet will reduce dose on benicar follow trend of K+ (3) Hypothermia: Qualifiers: Encounter type: initial encounter Qualified Code(s): T68.XXXA - Hypothermia, initial encounter Code(s): T68.XXXA - Hypothermia, initial encounter Status: Acute Assessment and Plan: as noted by temperature curve in the last 24 hours etiology?? follow-up on blood cultures CT scan of abd/pelvis noted (4) Weakness: Code(s): R53.1 - Weakness Status: Acute Assessment and Plan: not clear on what precipitated this issue PT/OT consultation ambulation as tolerated (5) Pancytopenia: Code(s): D61.818 - Other pancytopenia Status: Acute Assessment and Plan: acute versus chronic? follow trend Hem/Onc recommendations noted Will continue to follow. Subjective Date/time seen: 10/26/20 14:47 Appears to be doing reasonably well; son at bedside and we discussed the case/situation; no other acute complaints voiced at the time of my visit. Exam Narrative: Exam Narrative: General: WD/WN female in NAD Heart: normal S1 and S2; no rub Lungs: clear to auscultation Abdomen: soft, nontender, nondistended, positive bowel sounds Extremities: no cyanosis or clubbing; no edema Skin: warm and intact Objective Data Vital Signs Vital Signs: Vital Signs Temp Pulse Resp BP Pulse Ox 10/26/20 14:00 36.2 C L 66 18 133/66 100 10/26/20 09:46 97 10/26/20 08:00 70 10/26/20 07:55 87 20 149/78 H 97 10/26/20 07:50 79 18 139/61 95 10/26/20 07:45 36.1 C L 67 18 144/72 H 96 10/26/20 06:03 35.8 C L 68 18 142/59 H 98 10/26/20 04:00 61 10/26/20 00:00 36.4 C 74 18 140/53 L 97 10/25/20 21:58 89 21 H 141/63 H 93 10/25/20 20:00 36.0 C L 66 18 151/55 H 100 10/25/20 16:00 36.2 C L 58 L 16 141/54 H 98 Intake/Output Intake/Output: Intake & Output 10/23/20 10/24/20 10/25/20 10/26/20 23:59 23:59 23:59 23:59 Intake Total 1170 3770 1440 Output Total 2350 1550 Balance 1170 1420 -110 Meds/Results Medications: Active Medications Generic Name Dose Route Start Last Admin Trade Name Freq PRN Reason Stop Dose Admin Acetaminophen 650 mg 10/26/20 01:57 10/26/20 02:06 Acetaminophen 325 Mg Tablet PO 650 mg Q4H PRN Administration Mild Pain (1-3) or Fever Bupropion HCl 100 mg 10/24/20 21:00 10/26/20 09:01 Bupropion Hcl 100 Mg Tablet PO 100 mg Q12HR AISHA Administration Cyanocobalamin 1,000 mcg 10/25/20 09:00 10/26/20 09:02 Cyanocobalamin 1,000 Mcg Tablet PO 1,000 mcg DAILY AISHA Administration Dextrose 12.5 gm 10/26/20 12:09 Dextrose 50% 25 Gm/50 Ml Syringe IV PUSH PRN PRN Hypoglycemia Protocol Docusate Sodium 50 mg 10/31/20 09:00 Docusate Sodium Liq 100 Mg/10 Ml Udc PO We@0900 AISHA Glucagon 1 mg 10/26/20 12:09 Glucagon For Inj 1 Mg Vial IM PRN PRN Hypoglycemia Protocol Glucose 15 gm 10/26/20 12:09 Glucose Oral Gel 15 Gm Of Glucse In 37.5 Gm Tube PO PRN PRN Hypoglycemia Protocol Sodium Chloride 1,000 mls @ 100 mls/hr 10/24/20 13:25 10/26/20 05:16 Normal Saline Iv IV CONT 100 mls/hr .Q10H AISHA Administration Dextrose 1,000 mls @ 100 mls/hr 10/26/20 12:09 Dextrose 5% 1,000 Ml
[2020-10-26 16:42] LABS: Glucose Point of Care 133 (65-105)
[2020-10-26] MEDS: PRAMIPEXOLE 0.125 MG TABLET PO (20:54)
[2020-10-26] MEDS: PREGABALIN (*CRX) 50 MG CAPSULE PO (20:54)
[2020-10-26 21:57] LABS: Glucose Point of Care 86 (65-105)
[2020-10-27] MEDS: SODIUM CHLORIDE 0.9% IV 1,000 ML 100 ML IV CONT (02:17)
[2020-10-27 05:47] VITALS: BP 140/55; PULSE 70; RESP 20; TEMP 36.3; O2SAT 97
[2020-10-27] MEDS: LEVOTHYROXINE SODIUM 125 MCG TABLET PO (05:47)
[2020-10-27 06:41] LABS: Basophils Percent Auto 0.3 % (0.2-1.2); Eosinophils Absolute Auto 0.1 K/mm3 (0-0.3); Hematocrit 31.5 % (37.0-47.0); Hemoglobin 9.6 g/dL (12.0-15.0); Immature Granulocyte Absolute 0.01 K/mm3 (0.00-0.031); Immature Granulocyte Percent A 0.3 % (0-0.5); Lymphocytes Absolute Auto 0.98 K/mm3 (0.9-3.2); Lymphocytes Percent Auto 28.1 % (18.3-44.2); Mean Corpuscular HGB Conc 30.5 g/dl (32-36); Mean Corpuscular Hemoglobin 31.7 pg (26-34); Mean Platelet Volume 12.2 fl (7.4-10.4); Monocytes Absolute Auto 0.4 K/mm3 (0.1-0.6); Neutrophils Absolute Auto 1.9 K/mm3 (1.3-6.7); Neutrophils Percent Auto 55.3 % (45.5-73.1); Platelet Count Result 88 k/mm3 (150-375); Red Blood Count 3.03 M/mm3 (4.2-5.4); Red Cell Distribution Width 15.2 % (11.5-14.5); White Blood Count 3.5 K/mm3 (4.5-10.0)
[2020-10-27 07:00] LABS: Potassium 5.3 mmol/L (3.4-5.0)
[2020-10-27 07:29] LABS: Anion Gap 3 mmol/L (8-16); Blood Urea Nitrogen 23 mg/dL (7-17); Calcium 9.3 mg/dL (8.4-10.2); Carbon Dioxide 23 mmol/L (22-30); Chloride 117 mmol/L (98-107); Estimated CRCL calculation 33 ml/min; Estimated Glomerular Filt Rate 40; Glucose 69 mg/dL (65-105); Sodium 143 mmol/L (137-145)
[2020-10-27 08:04] LABS: Glucose Point of Care 65 (65-105)
[2020-10-27 08:15] LABS: Glucose Point of Care 70 (65-105)
[2020-10-27] MEDS: MECLIZINE HCL 12.5 MG TABLET PO (08:16)
[2020-10-27] MEDS: buPROPion HCL 100 MG TABLET PO ×2 (08:16→20:25)
[2020-10-27] MEDS: CYANOCOBALAMIN 1,000 MCG TABLET 1000 MCG PO (08:16)
[2020-10-27] MEDS: SERTRALINE HCL 50 MG TABLET PO (08:16)
[2020-10-27 12:27] LABS: Glucose Point of Care 94 (65-105)
--- NOTE | 2020-10-27 12:34 | P.PNNP_ITS ---
Progress Note: A&P Assessment and Plan (1) Renal insufficiency: Code(s): N28.9 - Disorder of kidney and ureter, unspecified Status: Chronic Assessment and Plan: * known CKD but baseline creatinine/GFR not known * unable to get old records from primary tub attendant's office at this time * however, creatinine stable if not better since admission * no critical electrolytes aside from mildly elevated K+ * follow trend of labs for now (2) Hyperkalemia: Code(s): E87.5 - Hyperkalemia Status: Acute Assessment and Plan: * chronic issue?? * her ARB could be contributing to this issue * started on low K+ diet * benicar on hold -- consider restart tomorrow at lower dose if K+ better * follow trend of K+ (3) Hypothermia: Qualifiers: Encounter type: initial encounter Qualified Code(s): T68.XXXA - Hypothermia, initial encounter Code(s): T68.XXXA - Hypothermia, initial encounter Status: Acute Assessment and Plan: * doing better * etiology?? * follow-up on blood cultures * CT scan of abd/pelvis noted (4) Weakness: Code(s): R53.1 - Weakness Status: Acute Assessment and Plan: * not clear on what precipitated this issue * PT/OT * follow-up on cosyntropin stimulation test * ambulation as tolerated (5) Pancytopenia: Code(s): D61.818 - Other pancytopenia Status: Acute Assessment and Plan: * acute versus chronic? * follow trend * Hem/Onc recommendations noted Will continue to follow. Subjective Date/time seen: 10/27/20 12:34 No apparent distress voiced at the time of my visit; overall, she states she feels better in comparison to admission; no acute events/issues overnight or earlier this AM; working with PT/OT as tolerated. Exam Narrative: Exam Narrative: General: WD/WN female in NAD Heart: normal S1 and S2; no rub Lungs: clear to auscultation Abdomen: soft, nontender, nondistended, positive bowel sounds Extremities: no cyanosis or clubbing; no edema Skin: no rash or nodules Objective Data Vital Signs Vital Signs: Vital Signs Temp Pulse Resp BP Pulse Ox 10/27/20 05:47 36.3 C L 70 20 140/55 L 97 10/26/20 22:07 84 20 154/94 H 98 10/26/20 22:05 82 20 89/37 L 96 10/26/20 22:00 36.6 C 98 18 164/76 H 94 10/26/20 20:00 84 20 98 10/26/20 14:00 36.2 C L 66 18 133/66 100 Intake/Output Intake/Output: Intake & Output 10/24/20 10/25/20 10/26/20 10/27/20 23:59 23:59 23:59 23:59 Intake Total 1170 3770 3540 2074 Output Total 2350 2600 2400 Balance 1170 1420 940 -326 Meds/Results Medications: Active Medications Generic Name Dose Route Start Last Admin Trade Name Fritz PRN Reason Stop Dose Admin Acetaminophen 650 mg 10/26/20 01:57 10/26/20 23:52 Acetaminophen 325 Mg Tablet PO 650 mg Q4H PRN Administration Mild Pain (1-3) or Fever Bupropion HCl 100 mg 10/24/20 21:00 10/27/20 08:16 Bupropion Hcl 100 Mg Tablet PO 100 mg Q12HR AISHA Administration Cyanocobalamin 1,000 mcg 10/25/20 09:00 10/27/20 08:16 Cyanocobalamin 1,000 Mcg Tablet PO 1,000 mcg DAILY AISHA Administration Dextrose 12.5 gm 10/26/20 12:09
--- NOTE | 2020-10-27 12:34 | PM.PNNEP ---
Progress Note: A&P Assessment and Plan (1) Renal insufficiency: Code(s): N28.9 - Disorder of kidney and ureter, unspecified Status: Chronic Assessment and Plan: known CKD but baseline creatinine/GFR not known unable to get old records from primary battery technician's office at this time however, creatinine stable if not better since admission no critical electrolytes aside from mildly elevated K+ follow trend of labs for now (2) Hyperkalemia: Code(s): E87.5 - Hyperkalemia Status: Acute Assessment and Plan: chronic issue?? her ARB could be contributing to this issue started on low K+ diet benicar on hold -- consider restart tomorrow at lower dose if K+ better follow trend of K+ (3) Hypothermia: Qualifiers: Encounter type: initial encounter Qualified Code(s): T68.XXXA - Hypothermia, initial encounter Code(s): T68.XXXA - Hypothermia, initial encounter Status: Acute Assessment and Plan: doing better etiology?? follow-up on blood cultures CT scan of abd/pelvis noted (4) Weakness: Code(s): R53.1 - Weakness Status: Acute Assessment and Plan: not clear on what precipitated this issue PT/OT follow-up on cosyntropin stimulation test ambulation as tolerated (5) Pancytopenia: Code(s): D61.818 - Other pancytopenia Status: Acute Assessment and Plan: acute versus chronic? follow trend Hem/Onc recommendations noted Will continue to follow. Subjective Date/time seen: 10/27/20 12:34 No apparent distress voiced at the time of my visit; overall, she states she feels better in comparison to admission; no acute events/issues overnight or earlier this AM; working with PT/OT as tolerated. Exam Narrative: Exam Narrative: General: WD/WN female in NAD Heart: normal S1 and S2; no rub Lungs: clear to auscultation Abdomen: soft, nontender, nondistended, positive bowel sounds Extremities: no cyanosis or clubbing; no edema Skin: no rash or nodules Objective Data Vital Signs Vital Signs: Vital Signs Temp Pulse Resp BP Pulse Ox 10/27/20 05:47 36.3 C L 70 20 140/55 L 97 10/26/20 22:07 84 20 154/94 H 98 10/26/20 22:05 82 20 89/37 L 96 03/27/21 22:00 36.6 C 98 18 164/76 H 94 10/26/20 20:00 84 20 98 10/26/20 14:00 36.2 C L 66 18 133/66 100 Intake/Output Intake/Output: Intake & Output 10/24/20 10/25/20 10/26/20 10/27/20 23:59 23:59 23:59 23:59 Intake Total 1170 3770 3540 2074 Output Total 2350 2600 2400 Balance 1170 1420 940 -326 Meds/Results Medications: Active Medications Generic Name Dose Route Start Last Admin Trade Name Freq PRN Reason Stop Dose Admin Acetaminophen 650 mg 10/26/20 01:57 10/26/20 23:52 Acetaminophen 325 Mg Tablet PO 650 mg Q4H PRN Administration Mild Pain (1-3) or Fever Bupropion HCl 100 mg 10/24/20 21:00 10/27/20 08:16 Bupropion Hcl 100 Mg Tablet PO 100 mg Q12HR AISHA Administration Cyanocobalamin 1,000 mcg 10/25/20 09:00 10/27/20 08:16 Cyanocobalamin 1,000 Mcg Tablet PO 1,000 mcg DAILY AISHA Administration Dextrose 12.5 gm 10/26/20 12:09 Dextrose 50% 25 Gm/50 Ml Syringe IV PUSH PRN PRN Hypoglycemia Protocol Docusate Sodium 50 mg 10/31/20 09:00 Docusate Sodium Liq 100 Mg/10 Ml Udc PO We@0900 AISHA Glucagon 1 mg 10/26/20 12:09 Glucagon For Inj 1 Mg Vial IM PRN PRN Hypoglycemia Protocol Glucose 15 gm 10/26/20 12:09 Glucose Oral Gel 15 Gm Of Glucse In 37.5 Gm Tube PO PRN PRN Hypoglycemia Protocol Dextrose 1,000 mls @ 100 mls/hr 10/26/20 12:09 Dextrose 5% 1,000 Ml IVPB PRN PRN Hypoglycemia Protocol Levothyroxine Sodium 125 mcg 10/25/20 06:30 10/27/20 05:47 Levothyroxine Sodium 125 Mcg Tablet PO 125 mcg DAILY@0630 AISHA Administration Meclizine HCl 12.5 mg 10/25/20 09:00 10/01
[2020-10-27] MEDS: COSYNTROPIN 0.25 MG/ML VIAL IV PUSH (12:40)
[2020-10-27 14:00] VITALS: BP 152/67; PULSE 67; RESP 18; TEMP 36.6; O2SAT 100
[2020-10-27 16:00] VITALS: BP 171/69
[2020-10-27 16:03] VITALS: BP 169/68
[2020-10-27 16:07] VITALS: BP 171/71
--- NOTE | 2020-10-27 16:10 | PM.IMPN ---
Progress Note: A&P Assessment and Plan (1) Weakness: Code(s): R53.1 - Weakness Status: Acute Assessment and Plan: PT/OT evaluations appreciated. Lives at home with her son. Walked some with PT today. Will work with case management to arrange dc planning. Obtain MRI brain and MRI L spine given her concomitant hypoglycemia, pancytopenia, hypothermia, neuropathy. (2) Hypothermia: Qualifiers: Encounter type: initial encounter Qualified Code(s): T68.XXXA - Hypothermia, initial encounter Code(s): T68.XXXA - Hypothermia, initial encounter Status: Acute Assessment and Plan: Patient presents with weakness and shakiness , was walking with her walker then got progressively weaker and could not get off her couch, activated EMS. Family adds she has falls at home and deals with ambulatory dysfunction, but this was worse. Etiology unclear; no infectious process is evident up to this point. Lactic normal 0.7. TSH normal on home levothyroxine. UA is unremarkable. Chest XR shows atelectasis LLL otherwise clear, lungs clear on exam. CT brain unremarkable. No wounds or rashes noted on exam. Afebrile. ABG on arrival 7.29/49.0/82.9 on room air - no respiratory distress. Robertson catheter placed for urinary retention, removed today and has voided without difficulty now. She reports chronic back pain no worse than her normal. She gets intermittent numbness/tingling to MARIAMA legs for years, none today. No saddle anesthesia or bowel/urinary incontinence. She reports new left arm numbness/tingling over last 2 days. Temperatures are improved today. Will monitor closely. Blood cultures show no growth to date. CT abd/pelvis without acute pathology concerning for infection or malignancy. ACTH stim testing today is normal. (3) Pancytopenia: Code(s): D61.818 - Other pancytopenia Status: Acute Assessment and Plan: Pancytopenia - etiology unclear, see above. Differentials include secondary to hypothermia, myelodysplastic syndrome? Various testing to rule out infectious etiology are unrevealing thus far. Trend CBCd. Oncologist consulted - appreciate input. Follow up with Dr Alarcon outpatient and may need bone marrow biopsy. (4) Hypoglycemia: Code(s): E16.2 - Hypoglycemia, unspecified Status: Acute Assessment and Plan: She has had blood sugars in 60s. She is eating all of her meals. Etiology unclear. Will continue to monitor with accu-cheks and initiate hypoglycemia protocol. She will probably benefit from glucose monitoring at discharge and eating multiple snacks/meals throughout the day. Check C peptide to evaluate for insulinoma. 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 Family notes this is what she takes the Mirapex for. (6) Neuropathy: Code(s): G62.9 - Polyneuropathy, unspecified Status: Chronic Assessment and Plan: Patient describes a peripheral neuropathy to MARIAMA legs for years. Denies leg paresthesias today but notes intermittent left arm numbness/tingling x 3 days. Continue her home pregabalin. Unclear if this has any relation to issues above. (7) Hypertension: Qualifiers: Hypertension type: unspecified Qualified Code(s): I10 - Essential (primary) hypertension Code(s): I10 - Essential (primary) hypertension Status: Chronic Assessment and Plan: Benicar discontinued due to renal failure and hyperkalemia. Monitor BP and adjust treatment as needed. May add amlodipi
[2020-10-27 17:29] LABS: Glucose Point of Care 127 (65-105)
[2020-10-27] MEDS: PRAMIPEXOLE 0.125 MG TABLET PO (20:25)
[2020-10-27] MEDS: PREGABALIN (*CRX) 50 MG CAPSULE PO (20:25)
[2020-10-27 20:58] LABS: Glucose Point of Care 137 (65-105)
[2020-10-27 22:00] VITALS: BP 176/75; PULSE 60; RESP 18; TEMP 36.8; O2SAT 96
[2020-10-28 02:00] VITALS: BP 156/74; PULSE 57; RESP 18; TEMP 36.7; O2SAT 97
[2020-10-28 02:01] VITALS: BP 151/72
[2020-10-28 04:05] VITALS: BP 154/102
[2020-10-28] MEDS: LEVOTHYROXINE SODIUM 125 MCG TABLET PO (05:36)
[2020-10-28 06:00] VITALS: BP 163/60; PULSE 60; RESP 18; TEMP 36.5; O2SAT 99
[2020-10-28 06:13] LABS: Alanine Aminotransferase 16 U/L (4-35); Albumin Level 3.8 g/dL (3.5-5.1); Alkaline Phosphatase 91 U/L (38-126); Anion Gap 5 mmol/L (8-16); Aspartate Amino Transferase 21 U/L (14-36); Bilirubin,Total 0.4 mg/dL (0.2-1.3); Blood Urea Nitrogen 24 mg/dL (7-17); Calcium 9.7 mg/dL (8.4-10.2); Carbon Dioxide 25 mmol/L (22-30); Chloride 114 mmol/L (98-107); Estimated CRCL calculation 36 ml/min; Estimated Glomerular Filt Rate 43; Glucose 75 mg/dL (65-105); Magnesium 1.5 mg/dL (1.6-2.3); Potassium 5.3 mmol/L (3.4-5.0); Sodium 144 mmol/L (137-145)
[2020-10-28 06:30] LABS: Basophils Percent Auto 0.2 % (0.2-1.2); Eosinophils Absolute Auto 0.2 K/mm3 (0-0.3); Eosinophils Percent Auto 4.9 % (0-4.4); Hemoglobin 10.4 g/dL (12.0-15.0); Immature Granulocyte Absolute 0.02 K/mm3 (0.00-0.031); Immature Granulocyte Percent A 0.5 % (0-0.5); Lymphocytes Absolute Auto 1.02 K/mm3 (0.9-3.2); Lymphocytes Percent Auto 23.9 % (18.3-44.2); Mean Corpuscular HGB Conc 31.5 g/dl (32-36); Mean Corpuscular Hemoglobin 32.5 pg (26-34); Mean Corpuscular Volume 103.1 fl (80-100); Mean Platelet Volume 12.4 fl (7.4-10.4); Monocytes Absolute Auto 0.4 K/mm3 (0.1-0.6); Monocytes Percent Auto 10.3 % (2.6-8.5); Neutrophils Absolute Auto 2.6 K/mm3 (1.3-6.7); Neutrophils Percent Auto 60.2 % (45.5-73.1); Platelet Count Result 96 k/mm3 (150-375); White Blood Count 4.3 K/mm3 (4.5-10.0)
[2020-10-28 08:02] LABS: Glucose Point of Care 72 (65-105)
[2020-10-28] MEDS: MAGNESIUM SULF 2 GM/WATER 50ML 2 GM/50 ML BAG IVPB (08:30)
[2020-10-28 08:34] LABS: Albumin 3.7 g/dL (3.8-4.8); Alpha 1 Globulin 0.5 g/dL (0.2-0.3); Alpha 2 Globulin 0.9 g/dL (0.5-0.9); Beta 1 Globulin 0.4 g/dL (0.4-0.6); Protein, Total 6.7 g/dL (6.1-8.1)
[2020-10-28] MEDS: SERTRALINE HCL 50 MG TABLET PO (08:34)
[2020-10-28] MEDS: MECLIZINE HCL 12.5 MG TABLET PO (08:34)
[2020-10-28] MEDS: buPROPion HCL 100 MG TABLET PO (08:34)
[2020-10-28] MEDS: CYANOCOBALAMIN 1,000 MCG TABLET 1000 MCG PO (08:34)
--- NOTE | 2020-10-28 09:36 | PM.DS ---
DS: Admitting Diagnosis Admitting Diagnosis Admitting Diagnosis: Generalized weakness DS: Discharge Diagnosis Discharge Diagnosis (1) Weakness: Code(s): R53.1 - Weakness Status: Acute Assessment and Plan: Date of Admission 10/24/20 Date of Discharge/DOS 10/28/20 Ms. Dubon is a 79yo F with history of hypertension, hypothyroidism, CKD, vertigo who presented to the ED for evaluation of shaking and generalized weakness. She was up walking around performing her normal morning routine, tried to get up off the couch and was unable to stand from the couch or walk secondary to weakness. CT brain on arrival showed no acute intracranial abnormality to explain her symptoms. MRI brain was also normal. Shortly after arrival she was found to have low body temperatures as low as 93.8F oral, 95.6F rectal which improved with Kelly Hugger. Patient did not appear to be septic, was well-appearing and no source of infection is identified. At the etiologies for pancytopenia hypothermia were evaluated and detailed below. Routine labs demonstrated a pancytopenia and hematology was consulted. It is recommended that she follow-up with Hematology outpatient for evaluation of possible bone marrow biopsy. Patient was having hypoglycemia with blood sugars in the 60s despite eating 100% of every meal with good appetite. She was educated on monitoring her blood glucose levels at home, how to treat low blood sugars as needed, and encouraged to follow-up with her PCP this week for further outpatient evaluation as she is hemodynamically stable and does not require hospitalization at this point. Patient worked with PT/OT and is felt to be a good candidate to continue therapy at home with home health which has been arranged prior to discharge. Discussed testing and findings at length with patient as well as her daughter and encouraged close, short-interval follow-up with her PCP and Hematology for further outpatient evaluation. She may benefit from outpatient endocrinology evaluation if hypoglycemia continues. Her home Benicar was discontinued due to CKD and hyperkalemia, amlodipine 5 mg daily added for blood pressure control. She is feeling well today and is hemodynamically stable for discharge on 10/28/2020 and patient and family are comfortable with discharge plan. PT/OT evaluations appreciated. Lives at home with her son. Walked some with PT today. Will work with case management to arrange dc planning. MRI brain normal. MRI L-spine shows advanced lumbar spondylosis with L 3-4 moderate to severe central canal stenosis, no acute findings. Consistent with her history of chronic low back pain. Discussed with radiologist and my collaborating physician. (2) Hypothermia: Qualifiers: Encounter type: initial encounter Qualified Code(s): T68.XXXA - Hypothermia, initial encounter Code(s): T68.XXXA - Hypothermia, initial encounter Status: Acute Assessment and Plan: Patient presents with weakness and shakiness , was walking with her walker then got progressively weaker and could not get off her couch, activated EMS. Family adds she has falls at home and deals with ambulatory dysfunction, but this was worse. Etiology unclear; no infectious process is evident up to this point. Lactic normal 0.7. TSH normal on home levothyroxine. UA is unremarkable. Chest XR shows atelectasis LLL otherwise clear, lungs clear on exam. CT brain unremarkable. No wounds or rashes noted on exam. Afebrile. ABG on arrival 7.29/49.0/82.9 on room air - no respiratory distress. Robertson catheter placed for urinary retention, removed prior to discharge and has voided without difficulty now. She reports chronic back pain no worse than her normal. She gets intermittent numbness/tingling to MARIAMA legs for years, none today. No saddle anesthesia or bowel/urinary incontinence. She reports
[2020-10-28] MEDS: amLODIPine BESYLATE 5 MG TABLET PO (10:14)
--- NOTE | 2020-10-28 12:31 | WPDONCPN ---
Progress Note: A/P (1) Pancytopenia Code(s): D61.818 - Other pancytopenia Status: Acute Assessment and plan: Acute on chronic Pancytopenia in the context of macrocytic anemia, lymphopenia, hypothyroidism and CKD: CBC on arrival showing WBC of 3.4 with lymphopenia of 66%, Hb=10.1 with ADD=162.9, plts = 90k. Compared to March 2020, WBC had been WNL, but lymphopenia noted at that time as well, Hb stable at 10, with macrocytic pattern, and plts were higher, at 128k. Workup for possible etiologies included: - Thyroid function, normal. - Kidneys at baseline, although hyperkalemic, which also appears to be near her baseline. Nephro consulted. - Retic count, results are normal to slightly low with correction for Hb/Hct, so no hemolysis. Haptoglobin pending. - B12 level elevated (taking oral B12) and folate level WNL. - Fe, ferritin, TIBC WNL. - LFTs, albumin and total protein in the serum WNL. - COVID test negative - Coags, PT/PTT normal. No suspicion for DIC. - Asked patient regarding HIV and hepatitis exposure, patient denies history of these illnesses. - Patient only occasional drinker, so ethanol unlikely cause. - Ordered SPEP, UPEP and immunofixation to r/o multiple myeloma. These are pending and will be reviewed with the patient in oncology clinic after discharge. - LDH WNL. - This is an ongoing issue, (at least since March 2020) - Have asked patient to make an appointment with Dr. Alarcon to follow-up results of MM workup and consider whether BM bx appropriate at that time. Patient manifests understanding and will make an appointment in oncology clinic. - Time Spent With Patient Total time spent is greater than 50% in coordination of care (as documented) at patient's floor/unit and/or counseling patient: less than 15 minutes Subjective Interval history: Patient feeling better after spending the weekend inpatient. No complaints. Going home today. Review of Systems - Review of Systems All systems reviewed & are unremarkable except as noted in HPI and bel - Neurologic Reports system reviewed and no additional complaints, except as documented Exam Vital signs: Temp Pulse Resp BP Pulse Ox 36.5 C 60 18 163/60 H 99 10/28/20 06:00 10/28/20 06:00 10/28/20 06:00 10/28/20 06:00 10/28/20 06:00 - Constitutional no acute distress - Routine Respiratory Exam Present: CTAB - Routine Cardiovascular Exam Cardiovascular: Present: RRR - Routine Extremities Exam Present: pulses intact PN: Objective Data - Labs CBC & Chem 7: 10/28/20 05:29 10/28/20 05:29 Labs: Laboratory Results - last 24 hr 10/25/20 10/27/20 10/27/20 15:28 12:41 13:14 WBC RBC Hgb Hct MCV MCH MCHC RDW Plt Count MPV Immature Gran % (Auto) Neut % (Auto) Lymph % (Auto) [place] % (Auto) Eos % (Auto) Baso % (Auto) Lymph # (Auto) [place] # (Auto) Eos # (Auto) Baso # (Auto) Abs Immat Gran (auto) Absolute Neuts (auto) Absolute Nucleated RBC Nucleated RBC % Sodium Potassium Chloride Carbon Dioxide Anion Gap BUN Creatinine Estim Creat Clear Calc Estimated GFR Glucose POC Capillary Glucose Calcium Magnesium Total Bilirubin AST ALT Alkaline Phosphatase Total Protein 6.7 Albumin 3.7 L Hzhaj-2-Pbkbbtehr 0.5 H Xcmsp-3-Qedqjqogn 0.9 Siyc-8-Ehurphds 0.4 Vlqp-9-Ggvrucve 0.3 Gamma Globulins 1.0 Abnorm Protein Band 1 see below Abnorm Protein Band 3 Not Reportable PEP Interpretation see below A Cortisol Baseline 12.00 Cortisol Resp 30 Min 26.00 Cortisol Resp 60 Min 10/27/20 10/27/20 10/27/20 13:43 17:19 20:23 WBC RBC Hgb Hct MCV MCH MCHC RDW Plt Count MPV Immature Gran % (Auto) Neut % (Auto) Lymph % (Auto) [place] % (Auto) Eos % (Auto) Baso % (Auto) Lymph # (Auto) [place] # (Auto) Eos # (Auto)
[2020-10-28 12:33] LABS: Glucose Point of Care 119 (65-105)
[2020-10-29 20:59] LABS: C-Peptide 3.97 ng/mL (0.80-3.85)
[2020-10-30 12:14] LABS: Haptoglobin 124 mg/dL (43-212)
--- NOTE | 2020-10-31 13:21 | PC.NURSE ---
Blood cx are negative. C peptide is elevated at 3.97. Results faxed to Dr. Sharma.
[2020-11-02 02:51] LABS: Creatinine, Random Urine 41 mg/dL (20-275); Total Protein/Creatinine Ratio 415 mg/g creat (21-161)
== END 2020-10-28 13:30 | disposition home health service (06) ==
LOC: ANHED 10:24 → ANH2MED 13:44 → ANH3MEDSUR 10-28 10:00 → ANH2MED 10-29 10:57
PROVIDERS: Internal Medicine; Internal Medicine Medical Oncology; Nurse Practitioner; Physician Assistant; Admitting Provider Family Medicine; Emergency Provider Emergency Medicine; PCP Internal Medicine; Visit Provider Internal Medicine
DX: R53.1 Weakness (principal); T68.XXXA Hypothermia, initial encounter; D61.818 Other pancytopenia; E16.2 Hypoglycemia, unspecified; G25.0 Essential tremor; G62.9 Polyneuropathy, unspecified; E87.5 Hyperkalemia; D64.9 Anemia, unspecified; J44.9 Chronic obstructive pulmonary disease, unspecified; I12.9 Hypertensive chronic kidney disease with stage 1 through stage 4 chronic kidney disease, or unspecified chronic kidney disease; N18.9 Chronic kidney disease, unspecified; E03.9 Hypothyroidism, unspecified; K21.9 Gastro-esophageal reflux disease without esophagitis; F32.9 Major depressive disorder, single episode, unspecified; H81.10 Benign paroxysmal vertigo, unspecified ear; Z79.82 Long term (current) use of aspirin; E66.9 Obesity, unspecified; Z68.39 Body mass index [BMI] 39.0-39.9, adult; Z86.73 Personal history of transient ischemic attack (TIA), and cerebral infarction without residual deficits; Z86.718 Personal history of other venous thrombosis and embolism; Z20.822 Contact with and (suspected) exposure to COVID-19
CPT/HCPCS: 36415; 36600; 51701; 70450; 70553; 71046; 72158; 74176; 80048; 80053; 81003; 82040; 82247; 82533; 82550; 82570; 82607; 82728; 82746; 82805; 82948; 83010; 83540; 83550; 83605; 83615; 83690; 83735; 84075; 84100; 84155; 84156; 84165; 84166; 84439; 84443; 84450; 84460; 84480; 84550; 84681; 85025; 85046; 85610; 85730; 86140; 86334; 87040; 93005; 96360; 96361; 96365; 96375; 97110; 97116; 97161; 97165; 97530; 97535; 99285; A9270; A9577; C9803; G0378; J0834; J3475; J7030; U0003; U0005

== ENCOUNTER 2020-11-13 11:18 | Observation (INO) | payer MEDICARE, SELFPAY ==
[2020-11-13] VITALS (13 sets, daily range): BP systolic 115–141; BP diastolic 53–85; PULSE 54–74; RESP 14–29; TEMP 36.3–37.1; O2SAT 91–98; BMI 38.8
--- NOTE | ~2020-11-13 | CT_ITS ---
EXAMINATION: CT brain wo con DATE: 11/13/2020 11:53 INDICATION: Dizziness. Weakness. TECHNIQUE: Computed tomography (CT) of the head was performed without intravenous contrast. The mA wa s adjusted according to patient size. Iterative reconstruction technique was employed. The dose-lengt h product was 605.33 mGy-cm. COMPARISON: Head CT 10/24/2020 FINDINGS: There is no intracranial hemorrhage, acute infarction, or abnormal intracranial mass lesion . There is chronic periventricular volume loss in left parietal lobe. The ventricles are normal in si ze. There are likely changes of ocular lens replacement surgeries. There is mild mucosal thickening i n the paranasal sinuses. The mastoid air cells are normal. IMPRESSION: 1. No acute intracranial pathology. Reviewed, dictated and finalized at location A.
--- NOTE | ~2020-11-13 | XR_ITS ---
EXAMINATION: XR chest 1V DATE: 11/13/2020 12:02 INDICATION: Dizziness. TECHNIQUE: A single frontal view of the chest was obtained. COMPARISON: Chest 2 views 10/24/2020, CT abdomen and pelvis 10/25/2020 FINDINGS: There is mild atelectasis in the lingula. No pleural effusion or pneumothorax. The heart si ze is normal. There is a moderate-sized hiatal hernia. IMPRESSION: 1. Mild atelectasis in the lingula. 2. Moderate-sized hiatal hernia. Reviewed, dictated and finalized at location A.
--- NOTE | 2020-11-13 11:30 | ED.WEAKNESS ---
HPI - Weakness General Chief complaint: Weakness Stated complaint: WEAKNESS Time Seen by Provider: 11/13/20 11:24 Source: RN notes reviewed History of Present Illness HPI Narrative: Patient presents to emergency department from home for dizziness. Patient states that this morning upon awaking she was dizzy worse with ambulation and unable to fully ambulate secondary to the dizziness states it feels like the room is spinning. States she had a similar episode approximately 2 weeks ago and was admitted to the hospital with work-up that was normal at that time she denies any fevers or chills vision changes numbness or tingling in the extremities chest pain shortness of breath or any other symptoms Related Data Home Medications Medication Instructions Recorded Confirmed aspirin 120 mg PO DAILY 10/24/20 10/24/20 bupropion HCl 100 mg PO BID 10/24/20 10/24/20 cyanocobalamin (vitamin B-12) 1,000 mcg PO DAILY 10/24/20 10/24/20 docusate sodium 50 mg PO WEEKLY 10/24/20 10/24/20 levothyroxine 125 mcg PO DAILY 10/24/20 10/24/20 meclizine 12.5 mg PO DAILY 10/24/20 10/24/20 pramipexole 0.125 mg PO HS 10/24/20 10/24/20 pregabalin 50 mg PO HS 10/24/20 10/24/20 sertraline 50 mg PO DAILY 10/24/20 10/24/20 Allergies Allergy/AdvReac Type Severity Reaction Status Date / Time Sulfa (Sulfonamide Allergy Hives Verified 11/13/20 13:02 Antibiotics) codeine AdvReac Other Verified 11/13/20 13:02 Review of Systems Review of Systems: Narrative: Gen.: Denies fevers or chills ENT: Denies congestion Respiratory: Denies shortness of breath or cough CV: Denies chest pain or palpitations GI: Denies abdominal pain nausea, emesis or diarrhea Musculoskeletal: Denies back pain or muscle pain Neuro: See HPI Skin: Denies rash Except as documented, all other systems reviewed and negative [facility] Past Medical History Medical History BPV (benign positional vertigo) Chronic GERD COPD (chronic obstructive pulmonary disease) Depression Essential and other specified forms of tremor History of DVT (deep vein thrombosis) Hypertension Hypothyroidism Neuropathy Feet Obese Renal insufficiency Chronic Rib fracture TIA (transient ischemic attack) Surgical History Surgical History (Updated 10/25/20 @ 15:24 by Jewel Hernandez MD) H/O elbow surgery History of bilateral knee arthroplasty History of orthopedic surgery Hx of dilation and curettage Family History Family History Sibling Congestive heart failure Sibling Congestive heart failure Sibling Lymphoma Daughter Myocardial infarction Mother Cerebrovascular accident Father Lupus Cerebrovascular accident Social History Social History Social History: The patient is . She has 2 sons and a daughter. She would like for her daughter to be the durable power trademark attorney for healthcare. The patient desires to be a full code but does not want to exist in a vegetative state. The patient is retired from [employer] as a cook. Lifelong nonsmoker. She occasionally has a wine cooler. Smoking status: Never smoker Alcohol intake: never Substance use: never Substance use type: does not use Gender identity (if verbalized by the patient): Female Spiritual care concerns: No Exam Narrative: Exam Narrative: APPEARANCE: No acute distress, nontoxic, resting in bed HEENT: Normocephalic, atraumatic, OMM, EYES: PERRL, EOMI NECK: Supple, nontender, full range of motion without pain, no meningismus RESPIRATORY: No respiratory distress, clear to auscultation bilaterally with no rhonchi wheezing or rales CARDIOVASCULAR: RRR s murmur ABDOMINAL: Soft, nontender, nondistended MUSCULOSKELETAL: Moves all extremities. No clubbing, cyanosis or edema. NEURO: A and O ?3, following commands, speech normal, no
--- NOTE | 2020-11-13 11:33 | ECG_ITS ---
Measurements Intervals [place] Rate: 60 P: 35 RI: 164 QRS: -6 QRSD: 85 T: 31 QT: 390 QTc: 390 Interpretive Statements SINUS RHYTHM DELAYED PRECORDIAL R/S TRANSITION BORDERLINE ECG Electronically Signed On 11-13-2020 12:13:34 CDT by Morgan Pruett D.O.
[2020-11-13 12:20] LABS: Basophils Percent Auto 0.5 % (0.2-1.2); Eosinophils Absolute Auto 0.1 K/mm3 (0-0.3); Eosinophils Percent Auto 3.6 % (0-4.4); Hematocrit 31.6 % (37.0-47.0); Immature Granulocyte Absolute 0.02 K/mm3 (0.00-0.031); Immature Granulocyte Percent A 0.5 % (0-0.5); Lymphocytes Absolute Auto 0.93 K/mm3 (0.9-3.2); Lymphocytes Percent Auto 23.7 % (18.3-44.2); Mean Corpuscular HGB Conc 31.6 g/dl (32-36); Mean Corpuscular Hemoglobin 31.8 pg (26-34); Mean Corpuscular Volume 100.6 fl (80-100); Mean Platelet Volume 11.5 fl (7.4-10.4); Monocytes Absolute Auto 0.5 K/mm3 (0.1-0.6); Monocytes Percent Auto 11.7 % (2.6-8.5); Neutrophils Absolute Auto 2.4 K/mm3 (1.3-6.7); Platelet Count Result 145 k/mm3 (150-375); Red Blood Count 3.14 M/mm3 (4.2-5.4); Red Cell Distribution Width 14.8 % (11.5-14.5); White Blood Count 3.9 K/mm3 (4.5-10.0)
[2020-11-13 12:29] LABS: Prothrombin Time 13.6 Seconds (11.1-14.7)
[2020-11-13 12:30] LABS: Partial Thromboplastin Time 33.2 SECONDS (22.3-36.8)
[2020-11-13 12:32] LABS: Alanine Aminotransferase 15 U/L (4-35); Alkaline Phosphatase 110 U/L (38-126); Anion Gap 8 mmol/L (8-16); Aspartate Amino Transferase 20 U/L (14-36); Bilirubin,Total 0.3 mg/dL (0.2-1.3); Blood Urea Nitrogen 32 mg/dL (7-17); Calcium 8.8 mg/dL (8.4-10.2); Carbon Dioxide 26 mmol/L (22-30); Chloride 107 mmol/L (98-107); Estimated CRCL calculation 31 ml/min; Estimated Glomerular Filt Rate 36; Glucose 88 mg/dL (65-105); Potassium 4.5 mmol/L (3.4-5.0); Sodium 141 mmol/L (137-145)
[2020-11-13] MEDS: MECLIZINE HCL 25 MG TABLET PO (12:35)
[2020-11-13] MEDS: SODIUM CHLORIDE 0.9% IV 1,000 ML 999 ML IV CONT (12:35)
[2020-11-13 12:42] LABS: Troponin I < 0.012 ng/mL (0.000-0.034)
[2020-11-13 15:01] LABS: Add Urine Microscopic? YES; Appearance Urine Clear (Clear); Bacteria Urine Trace /hpf; Bilirubin Urine Negative (Negative); Blood Urine Negative (Negative); Color Urine Straw (Yellow); Glucose Urine UA Negative (Negative); Ketones Urine Negative (Negative); Leukocyte Esterase Ur 2+ LEU/UL (Negative); Nitrate Urine Positive (Negative); Protein Urine Negative (Negative); RBC Urine 0-2 /hpf (0-2); Specific Grav Ur 1.006 (1.001-1.035); Urobilinogen Urine Negative mg/dL (<2.0); WBC Urine 31-50 /hpf
[2020-11-13] MEDS: diazePAM (*CRX) 2 MG TABLET PO (15:06)
--- NOTE | 2020-11-13 18:24 | ADMGEN ---
This patient, Tanesha Dubon, was admitted to [facility] Surg Room 311-01 at 1730. Patient oriented to hospital policies and general routines including ID bracelet, bed and alarms, visiting hours, pain management, procedures, bathroom and other care routines, personal items, smoking policy, room service/diet, and visiting hours. Information on how to activate the Rapid Response Team has been discussed. Patient/Family are encouraged to report perceived risks to care and to ask questions if they do not understand what they are told or what they should do.
[2020-11-13 19:01] LABS: Troponin I < 0.012 ng/mL (0.000-0.034)
[2020-11-13] MEDS: SODIUM CHLORIDE 0.9% IV 1,000 ML 80 ML IV CONT (21:05)
[2020-11-13 22:02] LABS: Troponin I < 0.012 ng/mL (0.000-0.034)
[2020-11-14] VITALS (9 sets, daily range): BP systolic 126–145; BP diastolic 59–84; PULSE 52–73; RESP 20; TEMP 36.4–36.6; O2SAT 97–99
--- NOTE | 2020-11-14 06:07 | PM.IMHP ---
H&P: HPI History of Present Illness Date/Time: 11/14/20 06:07 Chief Complaint: Dizziness and shakiness++ Narrative: This is a pleasant 79 year old obese female with known history of HTN, hypothyroidism, CKD, and vertigo who was just admitted to our Hospitalist service two weeks ago for weakness and dizziness now returned to the hospital yesterday with a complaint of dizziness upon standing up. The patient remarks to me that on her previous hospitalization she was hypoglycemic and now has a glucometer. Yesterday she became very dizzy and shaky upon standing up. She is known to walk with a walker and was previously living with her son but he in a car accident over a week ago. She described her dizziness as a sensation of the room spinning. Associated symptoms included nausea but no vomiting. She denies any headache, blurry vision, double vision, seizure like activity, head trauma, chest pain, shortness of breath, fevers, chills, cough, abdominal pain, dysuria, hematuria, diarrhea or rectal bleeding. She is known to wear hearing aids. She has not had any ringing in her ears or new hearing loss. The patient has chronic LE swelling. She does report a bruise on her left thigh which occurred when she bumped into a table due to her dizziness. The patient just had a recent extensive workup two weeks ago which included a brain MRI which was negative. Tonight she tells me that her dizziness subsided after she was admitted and has not returned. She denies any focal neurological symptoms. No other complaints. Review of Systems Review of Systems: All systems reviewed & are unremarkable except as noted in HPI and below PMFSH Past Medical History Medical History BPV (benign positional vertigo) Chronic GERD COPD (chronic obstructive pulmonary disease) Depression Essential and other specified forms of tremor History of DVT (deep vein thrombosis) Hypertension Hypothyroidism Neuropathy Feet Obese Renal insufficiency Chronic Rib fracture TIA (transient ischemic attack) Surgical History Surgical History H/O elbow surgery History of bilateral knee arthroplasty History of orthopedic surgery Hx of dilation and curettage Family History Family History Sibling Congestive heart failure Sibling Congestive heart failure Sibling Lymphoma Daughter Myocardial infarction Mother Cerebrovascular accident Father Lupus Cerebrovascular accident Social History Social History Social History: The patient is . She has 2 sons and a daughter. She would like for her daughter to be the durable power insurance attorney for healthcare. The patient desires to be a full code but does not want to exist in a vegetative state. 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 She occasionally has a wine cooler. Smoking status: Never smoker Second hand tobacco smoke exposure: Yes (family smokes in house when visiting) Alcohol intake: former Substance use: never Substance use type: does not use Gender identity (if verbalized by the patient): Female Spiritual care concerns: No Meds Home Medications and Allergies Home Medications Medication Instructions Recorded Confirmed Type aspirin 120 mg PO DAILY 10/24/20 11/13/20 History bupropion HCl 100 mg PO BID 10/24/20 11/13/20 History cyanocobalamin (vitamin B-12) 1,000 mcg PO DAILY 10/24/20 11/13/20 History docusate sodium 50 mg PO WEEKLY 10/24/20 11/13/20 History levothyroxine 125 mcg PO DAILY 10/24/20 11/13/20 History meclizine 12.5 mg PO DAILY 10/24/20 11/13/20 History pregabalin 50 mg PO HS 10/24/20 11/13/20 History sertraline 50 mg PO DAILY 10/24/20 11/13/20 History amlodipine [Norvasc] 5 mg PO QAM 30 Days #30 tablet
[2020-11-14 06:52] LABS: Anion Gap 6 mmol/L (8-16); Blood Urea Nitrogen 29 mg/dL (7-17); Calcium 8.7 mg/dL (8.4-10.2); Carbon Dioxide 28 mmol/L (22-30); Chloride 110 mmol/L (98-107); Estimated CRCL calculation 34 ml/min; Estimated Glomerular Filt Rate 40; Glucose 77 mg/dL (65-105); Potassium 4.4 mmol/L (3.4-5.0); Sodium 144 mmol/L (137-145)
[2020-11-14 07:07] LABS: Basophils Absolute Auto 0.1 K/mm3 (0.0-0.1); Basophils Percent Auto 1.2 % (0.2-1.2); Eosinophils Absolute Auto 0.2 K/mm3 (0-0.3); Eosinophils Percent Auto 5.2 % (0-4.4); Hematocrit 33.2 % (37.0-47.0); Hemoglobin 10.1 g/dL (12.0-15.0); Immature Granulocyte Absolute 0.01 K/mm3 (0.00-0.031); Immature Granulocyte Percent A 0.2 % (0-0.5); Lymphocytes Absolute Auto 1.05 K/mm3 (0.9-3.2); Lymphocytes Percent Auto 26.1 % (18.3-44.2); Mean Corpuscular HGB Conc 30.4 g/dl (32-36); Mean Corpuscular Volume 101.8 fl (80-100); Mean Platelet Volume 11.6 fl (7.4-10.4); Monocytes Absolute Auto 0.5 K/mm3 (0.1-0.6); Monocytes Percent Auto 12.2 % (2.6-8.5); Neutrophils Absolute Auto 2.2 K/mm3 (1.3-6.7); Neutrophils Percent Auto 55.1 % (45.5-73.1); Platelet Count Result 150 k/mm3 (150-375); Red Blood Count 3.26 M/mm3 (4.2-5.4); Red Cell Distribution Width 14.6 % (11.5-14.5)
[2020-11-14] MEDS: buPROPion HCL 100 MG TABLET PO ×2 (09:15→16:37)
[2020-11-14] MEDS: ENOXAPARIN 40 MG/0.4 ML SYRINGE SUB-Q (09:15)
[2020-11-14] MEDS: MECLIZINE HCL 12.5 MG TABLET PO (09:15)
[2020-11-14] MEDS: CYANOCOBALAMIN 1,000 MCG TABLET 1000 MCG PO (09:15)
[2020-11-14] MEDS: SERTRALINE HCL 50 MG TABLET PO (09:15)
[2020-11-14] MEDS: SODIUM CHLORIDE 0.9% IV 1,000 ML 80 ML IV CONT (09:17)
--- NOTE | 2020-11-14 13:21 | PM.IMPN ---
Progress Note: A&P Assessment and Plan (1) Dizziness: Code(s): R42 - Dizziness and giddiness <Renu T. DARIEL Hancock - Last Filed: 11/14/20 13:43> Status: Acute <Renu Hampton DARIEL Hancock - Last Filed: 11/14/20 13:43> Assessment and Plan: Orthostatic vitals negative Continue symptomatic therapy w/ meclizine BG wnl when she was dizzy ?Dehydration Monitor <DARIEL Cruz - Last Filed: 11/14/20 13:43> (2) Abnormal urinalysis: Code(s): R82.90 - Unspecified abnormal findings in urine <Renu RangelAnneliese DARIEL Hancock - Last Filed: 11/14/20 13:43> Status: Acute <Renu RangelAnneliese DARIEL Hancock - Last Filed: 11/14/20 13:43> Assessment and Plan: r/o UTI Continue IV antibiotics Follow UC <DARIEL Cruz - Last Filed: 11/14/20 13:43> (3) Pancytopenia: Code(s): D61.818 - Other pancytopenia <DARIEL Cruz - Last Filed: 11/14/20 13:43> Status: Chronic <DARIEL Cruz - Last Filed: 11/14/20 13:43> Assessment and Plan: The patient is supposed to follow up with hematology to have a possible bone marrow aspiration vs. biopsy. <DARIEL Cruz - Last Filed: 11/14/20 13:43> (4) Renal insufficiency: Code(s): N28.9 - Disorder of kidney and ureter, unspecified <DARIEL Cruz - Last Filed: 11/14/20 13:43> Status: Chronic <DARIEL Cruz - Last Filed: 11/14/20 13:43> Assessment and Plan: Cr appears to be close to baseline. Monitor renal function Avoid nephrotoxic agents Renally dose medications <DARIEL Cruz - Last Filed: 11/14/20 13:43> (5) Hypothyroidism: Qualifiers: Hypothyroidism type: unspecified Qualified Code(s): E03.9 - Hypothyroidism, unspecified <DARIEL Cruz - Last Filed: 11/14/20 13:43> Code(s): E03.9 - Hypothyroidism, unspecified <DARIEL Cruz - Last Filed: 11/14/20 13:43> Status: Chronic <DARIEL Cruz - Last Filed: 11/14/20 13:43> Assessment and Plan: Continue levothyroxine. <DARIEL Cruz - Last Filed: 11/14/20 13:43> (6) Hypertension: Qualifiers: Hypertension type: unspecified Qualified Code(s): I10 - Essential (primary) hypertension <DARIEL Cruz - Last Filed: 11/14/20 13:43> Code(s): I10 - Essential (primary) hypertension <DARIEL Cruz - Last Filed: 11/14/20 13:43> Status: Chronic <DARIEL Cruz - Last Filed: 11/14/20 13:43> Assessment and Plan: Stable Resume home meds Monitor blood pressure <DARIEL Cruz - Last Filed: 11/14/20 13:43> (7) COPD (chronic obstructive pulmonary disease): Qualifiers: COPD type: unspecified COPD Qualified Code(s): J44.9 - Chronic obstructive pulmonary disease, unspecified <DARIEL Cruz - Last Filed: 11/14/20 13:43> Code(s): J44.9 - Chronic obstructive pulmonary disease, unspecified <DARIEL Cruz - Last Filed: 11/14/20 13:43> Status: Acute <DARIEL Cruz - Last Filed: 11/14/20 13:43> Assessment and Plan: No acute exacerbation Continue bronchodilators <DARIEL rCuz - Last Filed: 11/14/20 13:43> Additional Plan Date of service was 11/14/2020 at 5:30 hrs. <DARIEL Cruz - Last Filed: 11/14/20 13:43> Subjective Date/time seen: 11/14/20 13:21 <DARIEL Cruz - Last Filed: 11/14/20 13:43> Review of Systems Review of Systems: All systems reviewed & are unremarkable except as noted in HPI and below <DARIEL Cruz - Last Filed: 11/14/20 13:43> Exam Const: General: cooperative, healthy appearing, no acute distress, alert and awake <Renu Muñiz
[2020-11-14 17:07] LABS: Anion Gap 6 mmol/L (8-16); Blood Urea Nitrogen 28 mg/dL (7-17); Calcium 8.9 mg/dL (8.4-10.2); Carbon Dioxide 26 mmol/L (22-30); Chloride 109 mmol/L (98-107); Estimated CRCL calculation 37 ml/min; Estimated Glomerular Filt Rate 43; Glucose 91 mg/dL (65-105); Potassium 4.5 mmol/L (3.4-5.0); Sodium 141 mmol/L (137-145)
[2020-11-14] MEDS: PREGABALIN (*CRX) 50 MG CAPSULE PO (21:38)
[2020-11-15] VITALS: PULSE 70
[2020-11-15 04:00] VITALS: PULSE 58
[2020-11-15 06:00] VITALS: BP 129/67; PULSE 62; RESP 18; TEMP 36.4; O2SAT 95
[2020-11-15] MEDS: LEVOTHYROXINE SODIUM 125 MCG TABLET PO (06:33)
[2020-11-15 06:38] LABS: Anion Gap 4 mmol/L (8-16); Blood Urea Nitrogen 25 mg/dL (7-17); Carbon Dioxide 29 mmol/L (22-30); Chloride 108 mmol/L (98-107); Estimated CRCL calculation 37 ml/min; Estimated Glomerular Filt Rate 43; Glucose 79 mg/dL (65-105); Potassium 4.1 mmol/L (3.4-5.0); Sodium 141 mmol/L (137-145)
[2020-11-15 08:00] VITALS: PULSE 80
[2020-11-15] MEDS: ASPIRIN 81 MG CHEWABLE TABLET PO (08:24)
[2020-11-15] MEDS: buPROPion HCL 100 MG TABLET PO (08:24)
[2020-11-15] MEDS: MECLIZINE HCL 12.5 MG TABLET PO (08:24)
[2020-11-15] MEDS: CYANOCOBALAMIN 1,000 MCG TABLET 1000 MCG PO (08:24)
[2020-11-15] MEDS: ENOXAPARIN 40 MG/0.4 ML SYRINGE SUB-Q (08:24)
[2020-11-15] MEDS: SERTRALINE HCL 50 MG TABLET PO (08:24)
[2020-11-15 12:00] VITALS: PULSE 70
[2020-11-15 14:00] VITALS: BP 143/72; PULSE 59; RESP 20; TEMP 36.4; O2SAT 96
--- NOTE | 2020-11-15 14:13 | PCPTNOTE ---
The PT treatment was unable to be completed today due to patient refusal. Will continue per plan of care frequency and duration.
--- NOTE | 2020-11-15 14:46 | PM.DS ---
DS: Admitting Diagnosis Admitting Diagnosis Admitting Diagnosis: Diziness DS: Discharge Diagnosis Discharge Diagnosis (1) Dizziness: Code(s): R42 - Dizziness and giddiness Status: Acute (2) Pancytopenia: Code(s): D61.818 - Other pancytopenia Status: Chronic (3) Renal insufficiency: Code(s): N28.9 - Disorder of kidney and ureter, unspecified Status: Chronic (4) Hypothyroidism: Qualifiers: Hypothyroidism type: unspecified Qualified Code(s): E03.9 - Hypothyroidism, unspecified Code(s): E03.9 - Hypothyroidism, unspecified Status: Chronic (5) Hypertension: Qualifiers: Hypertension type: unspecified Qualified Code(s): I10 - Essential (primary) hypertension Code(s): I10 - Essential (primary) hypertension Status: Chronic (6) COPD (chronic obstructive pulmonary disease): Qualifiers: COPD type: unspecified COPD Qualified Code(s): J44.9 - Chronic obstructive pulmonary disease, unspecified Code(s): J44.9 - Chronic obstructive pulmonary disease, unspecified Status: Acute (7) Acute UTI: Code(s): N39.0 - Urinary tract infection, site not specified Status: Acute DS: Summary Hospital Course Reason for hospitalization: 79yo femael here for dizziness and shaking. Please see H&P for details. Hospital Course: Patient was admitted to medical floor. CT of the brain was negative. Chest x-ray showing atelectasis. EKG showed delayed transition. White count was low at 3900 but this is been noted in the past. Hemoglobin was low in the 10 range but stable. Platelet count slightly low on admission but normalized on repeat testing. She is being evaluated for pancytopenia. Creatinine was elevated 1.4. She was started on IV fluids and her creatinine trended down to 1.2. Troponin is negative x3. Urinalysis was consistent with UTI and urine culture growing E coli that is relatively pansensitive. Therapy worked with her. She did well. Her symptoms resolved. She was able to be discharged home on 11/16/2019. Status at Discharge Cognitive/behavioral status at discharge: Stable Time Spent with Patient Time attestation: Total time spent providing and/or coordinating discharge services: 38 minutes Time spent: Greater than 30 minutes Exam Narrative: Exam Narrative: Slept well. Eating ok. No n/v. No further dizziness. Walking well with walker. She states her legs are less edematous today. AF 97.5 129/67 70 18 95% ra Gen - NARD Chest - CTA bilaterally, nml RR CV - RRR S1/S2 Abd - Soft, NT/ND, Positive BS Ext - 1+ pitting pedal edema Psych - Nml mood and affect Skin - Warm and dry DS: Data Data Completed and Pending Labs on day of discharge: Labs from last 24 hours 11/15/20 11/14/20 05:44 16:37 Sodium 141 141 Potassium 4.1 4.5 Chloride 108 H 109 H Carbon Dioxide 29 26 Anion Gap 4 L 6 L BUN 25 H 28 H Creatinine 1.20 H 1.20 H Estim Creat Clear Calc 37 37 Estimated GFR 43 L 43 L Glucose 79 91 Calcium 9.0 8.9 Discharge Plan Discharge Attending physician on discharge: Kulwinder Bangura Discharging Clinician: Kulwinder Bangura Anticipated Discharge Date/Time: 11/15/20 14:52 Patient Disposition: Home Health Service Activity: as tolerated Diet: heart healthy Discharge Instructions: Per Care Coordination Pt is current with [facility] and Home Health services to resume at discharge. [phone]. RN please fax completed discharge instructions to [phone] Patient to live with her daughter Winnie [address] [place], [place], phone number [phone] Per Care Coordination Patient to call Department of Aging to arrange an appointment to do an assessment on you to determine if you qualify for any services in your home. [phone] Please avoid large gathering, wear face coverings in public and practice social distance.
== END 2020-11-15 15:38 | disposition home health service (06) ==
LOC: ANHED 15:56 → ANH3MEDSUR 16:27
PROVIDERS: Nurse Practitioner Adult Health; Admitting Provider Family Medicine; Emergency Provider Emergency Medicine; PCP Internal Medicine; Visit Provider Internal Medicine
DX: R42 Dizziness and giddiness (principal); D61.818 Other pancytopenia; N39.0 Urinary tract infection, site not specified; B96.20 Unspecified Escherichia coli [E. coli] as the cause of diseases classified elsewhere; R53.1 Weakness; D64.9 Anemia, unspecified; N28.9 Disorder of kidney and ureter, unspecified; I10 Essential (primary) hypertension; E03.9 Hypothyroidism, unspecified; M48.061 Spinal stenosis, lumbar region without neurogenic claudication; G62.9 Polyneuropathy, unspecified; K21.9 Gastro-esophageal reflux disease without esophagitis; Z86.73 Personal history of transient ischemic attack (TIA), and cerebral infarction without residual deficits; Z86.718 Personal history of other venous thrombosis and embolism; E66.9 Obesity, unspecified; Z68.38 Body mass index [BMI] 38.0-38.9, adult; Z79.82 Long term (current) use of aspirin
CPT/HCPCS: 36415; 70450; 71045; 80048; 80053; 81001; 84484; 85025; 85610; 85730; 87077; 87086; 87088; 87186; 93005; 96361; 96365; 96372; 97161; 97165; 99285; A9270; G0378; J0696; J1650; J7030

== ENCOUNTER 2021-03-04 13:53 | Emergency (ER) | payer MEDICARE, SELFPAY ==
--- NOTE | ~2021-03-04 | XR_ITS ---
EXAMINATION: XR chest 2V DATE: 03/04/2021 14:55 INDICATION: Shortness of breath. TECHNIQUE: Frontal and lateral views of the chest were obtained. COMPARISON: Chest single view 11/13/2020 FINDINGS: There is mild atelectasis in the lower lung zones. No pleural effusion or pneumothorax. The heart size is normal. There is a moderate-sized hiatal hernia. IMPRESSION: 1. Mild atelectasis in the lower lung zones. 2. Moderate-sized hiatal hernia. Reviewed, dictated and finalized at location A.
--- NOTE | ~2021-03-04 | CT_ITS ---
EXAMINATION: CTA brain carotid DATE: 03/04/2021 15:39 INDICATION: Dizziness. TECHNIQUE: Computed tomographic angiography (CTA) of the head was performed without and with 100 mL O mnipaque-350 intravenous contrast. CTA of the neck was performed with intravenous contrast. Automated exposure control and iterative reconstruction technique were employed. The dose-length product was 1 692.04 mGy-cm. Maximum intensity projection and volume rendered 3D-reconstructions were created by yolanda arevalo technologist on a separate workstation. COMPARISON: Head CT 11/13/2020, brain MRI 10/27/2020 FINDINGS: HEAD CTA: There is chronic volume loss of the left parietal lobe periventricular white matter with ex vacuo dilatation of posterior body of left lateral ventricle. There is no intracranial hemorrhage, a cute infarction, or abnormal intracranial mass lesion. There is mild mucosal thickening in the parana richi sinuses. There is a trace right mastoid effusion. There are likely changes of ocular lens replace ment surgeries. Right vertebral artery is dominant. There is no significant stenosis of basilar arter y or the posterior cerebral arteries. There is no significant stenosis of the intracranial internal c arotid arteries or anterior or middle cerebral arteries. Anterior communicating artery is normal. Lef t posterior communicating artery is normal. A right posterior communicating artery is not identified. There is no aneurysm. NECK CTA: There are no pathologically enlarged lymph nodes. There is no significant stenosis of the v ertebral arteries. There is minimal plaque in the proximal internal carotid arteries. There is 0% st enosis of the proximal right internal carotid artery relative to normal distal artery lumen diameter (NASCET criteria). There is 0% stenosis of the proximal left internal carotid artery relative to norm al distal artery lumen diameter. There is moderate cervical spondylosis. IMPRESSION: 1. Chronic volume loss of the left parietal lobe periventricular white matter. 2. No aneurysm or significant intracranial arterial stenosis. 3. 0% stenosis of the proximal internal carotid arteries relative to normal distal artery lumen diame ters (NASCET criteria). Reviewed, dictated and finalized at location A. IMPRESSION: 1. Chronic volume loss of the left parietal lobe periventricular white matter. 2. No aneurysm or significant intracranial arterial stenosis. 3. 0% stenosis of the proximal internal carotid arteries relative to normal dis ed artery lumen diameters (NASCET criteria).
[2021-03-04 14:01] VITALS: BP 129/71; PULSE 90; RESP 17; TEMP 37.2; O2SAT 94
--- NOTE | 2021-03-04 14:05 | ECG_ITS ---
Measurements Intervals [place] Rate: 75 P: 30 MA: 157 QRS: -2 QRSD: 84 T: 27 QT: 358 QTc: 400 Interpretive Statements SINUS RHYTHM DELAYED PRECORDIAL R/S TRANSITION BORDERLINE ECG Electronically Signed On 03-04-2021 14:32:53 CDT by Morgan Pruett D.O.
[2021-03-04 14:31] VITALS: BP 127/60; PULSE 73
[2021-03-04 14:32] LABS: Basophils Percent Auto 0.7 % (0.2-1.2); Eosinophils Absolute Auto 0.2 K/mm3 (0-0.3); Eosinophils Percent Auto 5.6 % (0-4.4); Hematocrit 35.5 % (37.0-47.0); Hemoglobin 11.1 g/dL (12.0-15.0); Immature Granulocyte Absolute 0.01 K/mm3 (0.00-0.031); Immature Granulocyte Percent A 0.2 % (0-0.5); Immature Platelet Fraction Pct 5.1 % (0.9-11.2); Lymphocytes Absolute Auto 1.14 K/mm3 (0.9-3.2); Lymphocytes Percent Auto 27.9 % (18.3-44.2); Mean Corpuscular HGB Conc 31.3 g/dl (32-36); Mean Corpuscular Volume 99.2 fl (80-100); Mean Platelet Volume 11.4 fl (7.4-10.4); Monocytes Absolute Auto 0.5 K/mm3 (0.1-0.6); Monocytes Percent Auto 11.5 % (2.6-8.5); Neutrophils Absolute Auto 2.2 K/mm3 (1.3-6.7); Neutrophils Percent Auto 54.1 % (45.5-73.1); Platelet Count Result 145 k/mm3 (150-375); Red Blood Count 3.58 M/mm3 (4.2-5.4); Red Cell Distribution Width 16.3 % (11.5-14.5); White Blood Count 4.1 K/mm3 (4.5-10.0)
[2021-03-04 14:34] VITALS: BP 127/69; PULSE 80
[2021-03-04 14:36] VITALS: BP 137/73; PULSE 90
[2021-03-04 14:40] LABS: Anion Gap 9 mmol/L (8-16); Blood Urea Nitrogen 32 mg/dL (7-17); Calcium 9.4 mg/dL (8.4-10.2); Carbon Dioxide 26 mmol/L (22-30); Chloride 106 mmol/L (98-107); Estimated CRCL calculation 29 ml/min; Estimated Glomerular Filt Rate 33; Glucose 84 mg/dL (65-110); Potassium 4.6 mmol/L (3.4-5.0); Sodium 141 mmol/L (137-145)
--- NOTE | 2021-03-04 15:13 | ED.GENADULT ---
HPI - General Adult General Chief complaint: Dizziness Stated complaint: Dizzy Time Seen by Provider: 03/04/21 14:52 Source: patient History of Present Illness HPI narrative: Patient is a 80 y/o female complaining severe dizziness starting 2-3 hours ago when she was waiting for a ride outside of [facility]. She describes her dizziness as room spinning sensation. There is no alleviating or exacerbating factor. She also felt sweaty and nauseated. She denies any headache, chest pain or abdominal pain. She has some chronic bilateral leg numbness due to neuropathy. Related Data Home Medications Medication Instructions Recorded Confirmed bupropion HCl 100 mg PO BID 10/24/20 11/13/20 cyanocobalamin (vitamin B-12) 1,000 mcg PO DAILY 10/24/20 11/13/20 docusate sodium 50 mg PO WEEKLY 10/24/20 11/13/20 levothyroxine 125 mcg PO DAILY 10/24/20 11/13/20 meclizine 12.5 mg PO DAILY 10/24/20 11/13/20 pregabalin 50 mg PO HS 10/24/20 11/13/20 sertraline 50 mg PO DAILY 10/24/20 11/13/20 furosemide 40 mg PO DAILY 11/13/20 11/13/20 pramipexole 0.125 mg PO HS 11/13/20 11/13/20 aspirin 81 mg PO DAILY 11/14/20 11/14/20 Allergies Allergy/AdvReac Type Severity Reaction Status Date / Time Sulfa (Sulfonamide Allergy Hives Verified 11/13/20 19:42 Antibiotics) codeine AdvReac Other Verified 11/13/20 19:42 Review of Systems Constitutional: Constitutional: Denies chills, Reports excessive sweating, Denies fever(s), Denies headache(s) and Denies weakness Eyes: Eyes: Denies blurry vision ENT: Denies headache(s) and Denies neck pain Cardiovascular: Cardiovascular: Denies chest pain and Denies dyspnea Respiratory: Respiratory: Denies cough and Denies dyspnea Gastrointestinal: Gastrointestinal: Denies abdominal pain, Denies diarrhea, Reports nausea and Denies vomiting Genitourinary: Genitourinary: Denies hematuria and Denies dysuria Musculoskeletal: Musculoskeletal: Denies back pain and Denies neck pain Neurologic: Reports dizziness, Denies headache(s) and Denies weakness PMFSH Past Medical History Medical History BPV (benign positional vertigo) Chronic GERD COPD (chronic obstructive pulmonary disease) Depression Essential and other specified forms of tremor History of DVT (deep vein thrombosis) Hypertension Hypothyroidism Neuropathy Feet Obese Renal insufficiency Chronic Rib fracture TIA (transient ischemic attack) Surgical History Surgical History H/O elbow surgery History of bilateral knee arthroplasty History of orthopedic surgery Hx of dilation and curettage Family History Family History Sibling Congestive heart failure Sibling Congestive heart failure Sibling Lymphoma Daughter Myocardial infarction Mother Cerebrovascular accident Father Lupus Cerebrovascular accident Social History Social History Social History: The patient is . She has 2 sons and a daughter. She would like for her daughter to be the durable power bankruptcy attorney for healthcare. The patient desires to be a full code but does not want to exist in a vegetative state. The patient is retired from [employer] as a cook. Lifelong nonsmoker. She occasionally has a wine cooler. Smoking status: Never smoker Second hand tobacco smoke exposure: Yes (family smokes in house when visiting) Alcohol intake: former Substance use: never Substance use type: does not use Gender identity (if verbalized by the patient): Female Spiritual care concerns: No Exam Const: General: no acute distress and well developed Orientation/consciousness: oriented to person, oriented to place, oriented to time and patient oriented x3 HENMT: Head: normocephalic Ears: external ears normal General nose exam: Normal external nose pr
[2021-03-04] MEDS: MECLIZINE HCL 25 MG TABLET PO (16:37)
[2021-03-04 17:30] VITALS: BP 132/78; PULSE 87; RESP 16; O2SAT 94
== END 2021-03-04 17:31 | disposition home or self-care (01) ==
PROVIDERS: Emergency Provider Emergency Medicine; PCP Internal Medicine
DX: R42 Dizziness and giddiness (principal); K21.9 Gastro-esophageal reflux disease without esophagitis; J44.9 Chronic obstructive pulmonary disease, unspecified; F32.9 Major depressive disorder, single episode, unspecified; I10 Essential (primary) hypertension; E03.9 Hypothyroidism, unspecified
CPT/HCPCS: 36415; 70496; 70498; 71046; 80048; 85025; 85055; 93005; 99284; A9270; Q9967

== ENCOUNTER 2024-01-08 11:33 | Observation (INO) | payer MEDICARE, SELFPAY ==
[2024-01-08] VITALS (18 sets, daily range): BP systolic 114–159; BP diastolic 55–121; PULSE 69–86; RESP 13–26; TEMP 36.4–37.4; O2SAT 90–100
--- NOTE | 2024-01-08 | ECHO_ITS ---
Patient Info Name: Tanesha Dubon Age: 83 years : 1940 Gender: Female Ht: 64 in Wt: 169 lbs BSA: 1.88 m2 HR: 72 bpm BP: 126 / 55 mmHg Technical Quality: Fair Exam Date: 01/08/2024 3:42 PM Exam Location: Echo Lab Patient Status: Inpatient Admit Date: 01/08/2024 Staff Ordering Physician: Keila Martinez APRN Road Mixer Operator: Dallas Lockwood RDCS Attending Provider: Kulwinder Bangura MD Referring Physician: Michelle HOGAN; Exam Type: CA echo doppler color flow Study Info Indications - BNP elevated - pulmonary edema Complete two-dimensional, color flow and Doppler transthoracic echocardiogram is performed. Summary 1. Complete two-dimensional, color flow and Doppler transthoracic echocardiogram is performed. 2. Left ventricular chamber dimension is normal. 3. Left ventricular systolic function is normal, estimated at 65-70%. 4. Basal inferior wall is thin and akinetic. 5. The left ventricular diastolic function is grade I diastolic dysfunction. 6. E/e' 11 is mildly elevated. 7. There is mild aortic valve sclerosis. 8. There is trace mitral valve regurgitation. 9. There is trace tricuspid valve regurgitation. 10. No pulmonary hypertension, estimated pulmonary arterial systolic pressure is 27 mmHg. Left Ventricle E/e' 11 is mildly elevated. Basal inferior wall is thin and akinetic. Left ventricular chamber dimension is normal. Left ventricular systolic function is normal, estimated at 65-70%. The left ventricular diastolic function is grade I diastolic dysfunction. Right Ventricle Right ventricular systolic function is normal and with normal TAPSE 2.5 cm. Right ventricular chamber dimension is normal. Left Atria Left atrial chamber dimension is normal. Right Atria Right atrial chamber dimension is normal. Aortic Valve The aortic valve is trileaflet. There is mild aortic valve sclerosis. There is no aortic valve stenosis. There is no aortic valve regurgitation. Pulmonic Valve There is no pulmonic regurgitation. Mitral Valve There is no mitral valve stenosis. There is trace mitral valve regurgitation. Tricuspid Valve There is trace tricuspid valve regurgitation. No pulmonary hypertension, estimated pulmonary arterial systolic pressure is 27 mmHg. Pericardium/Pleural There is no pericardial effusion. Inferior Vena Cava Normal inferior vena cava with >50% collapse upon inspiration consistent with normal right atrial pressure, 5 mmHg. Aorta The aortic root size at the sinus of Valsalva is normal. Left Ventricular Outflow Tract Name Value Normal LVOT 2D LVOT Diameter 2.0 cm LVOT Doppler LVOT Peak Gradient 8 mmHg LVOT Mean Gradient 5 mmHg LVOT VTI 34 cm LVOT VTI/AV VTI Ratio 1.0 LVOT Stroke Volume 109 ml LVOT CO 7.9 l/min LVOT CI 4.2 l/min/m2 Pulmonic Valve Name Value Normal
--- NOTE | ~2024-01-08 | XR_ITS ---
XR chest 1V portable DATE: 01/08/2024 12:22 INDICATION: Cough, shortness of breath TECHNIQUE: Portable upright AP chest on 01/08/2024 at 1219 hours COMPARISON: 11/13/2020 PA chest FINDINGS: Pulmonary vascular prominence and redistribution. Curly B lines are noted. Mild infiltrate and/or atelectasis in the lower lung zones primarily. No pleural fluid collection is noted. No pneumothorax is detected. Aortic arch calcification. Heart size is not optimally evaluated on AP projection because of magnification. Osteopenia. IMPRESSION: Prominent ossific congestion, pulmonary interstitial edema, consistent with congestive ch anges Mild infiltrate or atelectasis in the lower lung zones Aortic atherosclerosis Osteopenia Reviewed, dictated and finalized at location A. IMPRESSION: Prominent ossific congestion, pulmonary interstitial edema, consist ent with congestive changes Mild infiltrate or atelectasis in the lower lung zones Aortic atherosclerosis Osteopenia
--- NOTE | 2024-01-08 11:44 | ECG_ITS ---
[facility] [address] Test Date: 2024-01-08 Pat Name: Tanesha Dubon Department: Room: Gender: F Cad Designer: : 1940 Requested By: Dwight Núñez Order Number: [id number] Teofilo MD: Viktor Denson M.D. Measurements Intervals [place] Rate: 81 P: 45 RI: 143 QRS: 14 QRSD: 84 T: 32 QT: 324 QTc: 377 Interpretive Statements SINUS RHYTHM WITHIN NORMAL LIMITS No previous ECG available for comparison Electronically Signed On 01-09-2024 07:43:31 CDT by Viktor Denson M.D.
--- NOTE | 2024-01-08 11:48 | ED.GENADULT ---
HPI - General Adult General Chief complaint: Shortness of Breath/Dyspnea Stated complaint: SOB History of Present Illness HPI narrative: this is an 83-year-old female presenting with shortness of breath x2 days. patient has associated cough and generalized weakness. She denies fevers, chest pain, abdominal pain, nausea vomiting diarrhea or URI symptoms. No sick contacts at home. No history of COPD. No history CHF however she is on Lasix 40 mg per day. Related Data Home Medications Medication Instructions Recorded Confirmed bupropion HCl 100 mg tablet 100 mg PO BID 10/24/20 11/13/20 cyanocobalamin (vitamin B-12) 1,000 mcg PO DAILY 10/24/20 11/13/20 1,000 mcg capsule docusate sodium 50 mg capsule 50 mg PO WEEKLY 10/24/20 11/13/20 levothyroxine 125 mcg tablet 125 mcg PO DAILY 10/24/20 11/13/20 meclizine 12.5 mg tablet 12.5 mg PO DAILY 10/24/20 11/13/20 pregabalin 50 mg capsule 50 mg PO HS 10/24/20 11/13/20 sertraline 50 mg tablet 50 mg PO DAILY 10/24/20 11/13/20 furosemide 40 mg tablet 40 mg PO DAILY 11/13/20 11/13/20 pramipexole 0.125 mg tablet 0.125 mg PO HS 11/13/20 11/13/20 aspirin 81 mg chewable tablet 81 mg PO DAILY 11/14/20 11/14/20 Allergies Allergy/AdvReac Type Severity Reaction Status Date / Time Sulfa (Sulfonamide Allergy Hives Verified 11/13/20 19:42 Antibiotics) codeine AdvReac Other Verified 11/13/20 19:42 [facility] Past Medical History Medical History BPV (benign positional vertigo) Chronic GERD COPD (chronic obstructive pulmonary disease) Depression Essential and other specified forms of tremor History of DVT (deep vein thrombosis) Hypertension Hypothyroidism Neuropathy Feet Obese Renal insufficiency Chronic Rib fracture TIA (transient ischemic attack) Surgical History Surgical History H/O elbow surgery History of bilateral knee arthroplasty History of orthopedic surgery Hx of dilation and curettage Family History Family History Sibling Congestive heart failure Sibling Congestive heart failure Sibling Lymphoma Daughter Myocardial infarction Mother Cerebrovascular accident Father Lupus Cerebrovascular accident Social History Social History Social History: The patient is . She has 2 sons and a daughter. She would like for her daughter to be the durable power employee benefits attorney for healthcare. The patient desires to be a full code but does not want to exist in a vegetative state. The patient is retired from [employer] as a cook. Lifelong nonsmoker. She occasionally has a wine cooler. Smoking status: Never smoker Second hand tobacco smoke exposure: Yes (family smokes in house when visiting) Alcohol intake: former Substance use: never Substance use type: does not use Gender identity (if verbalized by the patient): Female Spiritual care concerns: No Exam Narrative: APPEARANCE: No apparent distress. Head: atraumatic. EYES: EOMI, NOSE: Atraumatic NECK: Trachea midline RESPIRATORY: No increased rate of breathing, 99% on room, scattered rhonchi CARDIOVASCULAR: RRR, No peripheral edema point of care cardiothoracic echo showed a normal EF and an IVC with respiratory variation. Not consistent with CHF/fluid overload. ABDOMINAL: Non-distended MUSCULOSKELETAl: No obvious deformities NEURO: Alert. Moving 4/4 extremities SKIN:: Warm, dry. Normal color PSYCHIATRIC: Normal affect Course Vital Signs Vital signs: Vital Signs Temperature 99.4 F 01/08/24 11:33 Pulse Rate 83 01/08/24 11:33 Respiratory Rate 23 H 01/08/24 11:33 Blood Pressure 153/104 H 01/08/24 11:33 Pulse Oximetry 100 01/08/24 11:33 Oxygen Delivery Room Air 01/08/24 11:33 Temperature 97.6 F 01/08/24 11:45 Pulse Rate 82
[2024-01-08 12:30] LABS: Basophils Percent Auto 0.3 % (0.2-1.2); Eosinophils Absolute Auto 0.1 K/mm3 (0-0.3); Hematocrit 36.2 % (37.0-47.0); Hemoglobin 11.5 g/dL (12.0-15.0); Immature Granulocyte Absolute 0.03 K/mm3 (0.00-0.031); Immature Granulocyte Percent A 0.4 % (0-0.5); Lymphocytes Absolute Auto 1.11 K/mm3 (0.9-3.2); Lymphocytes Percent Auto 15.3 % (18.3-44.2); Mean Corpuscular HGB Conc 31.8 g/dl (32-36); Mean Corpuscular Hemoglobin 31.4 pg (26-34); Mean Corpuscular Volume 98.9 fl (80-100); Mean Platelet Volume 11.7 fl (7.4-10.4); Monocytes Percent Auto 13.5 % (2.6-8.5); Neutrophils Percent Auto 69.5 % (45.5-73.1); Platelet Count Result 132 k/mm3 (150-375); Red Blood Count 3.66 M/mm3 (4.2-5.4); Red Cell Distribution Width 13.9 % (11.5-14.5); White Blood Count 7.3 K/mm3 (4.5-10.0)
[2024-01-08 12:36] LABS: Glucose Point of Care 75 mg/dl (65-105)
[2024-01-08 12:41] LABS: Lactic Acid Reflex 1.1 mmol/L (0.7-2.0)
[2024-01-08 12:49] LABS: Alanine Aminotransferase 13 U/L (6-35); Alkaline Phosphatase 126 U/L (38-126); Anion Gap 8 mmol/L (4-12); Aspartate Amino Transferase 20 U/L (14-36); Bilirubin,Total 0.6 mg/dL (0.2-1.3); Blood Urea Nitrogen 25 mg/dL (7-17); Calcium 8.9 mg/dL (8.4-10.2); Carbon Dioxide 24 mmol/L (22-30); Chloride 102 mmol/L (98-107); Estimated CRCL calculation 35 ml/min; Estimated Glomerular Filt Rate 47; Glucose 87 mg/dL (65-110); Potassium 4.3 mmol/L (3.4-5.0); Sodium 134 mmol/L (137-145)
[2024-01-08 13:02] LABS: NT Pro B Type Natriuretic Pept 1860 pg/mL (19.9-100)
[2024-01-08 13:04] LABS: Influenza A QL RT-PCR Negative (Negative); Influenza B QL RT-PCR Negative (Negative); RSV RNA, RT-PCR Negative (Negative); SARS-CoV-2 RNA PCR Negative (Negative)
[2024-01-08 14:02] LABS: Appearance Urine Cloudy (Clear); Bacteria Urine 4+ /hpf; Bilirubin Urine Negative (Negative); Blood Urine 1+ (Negative); Color Urine Yellow (Yellow); Glucose Urine UA Negative (Negative); Ketones Urine Negative (Negative); Leukocyte Esterase Ur 3+ LEU/UL (Negative); Nitrate Urine Positive (Negative); Protein Urine Negative (Negative); Squamous Epithelial Cell Urine None Seen /hpf (Few); WBC Clumps Urine Present /HPF; WBC Urine >100 /hpf (0-3); pH Urine 6.5 (5.0-9.0)
[2024-01-08 14:03] LABS: Add Urine Microscopic? YES
--- NOTE | 2024-01-08 14:36 | PM.IMHP ---
H&P: HPI History of Present Illness Date/Time: 01/08/24 14:36 Chief Complaint: SOB, Cough Narrative: 83 y/o F presents here with shortness of breath and cough with PMH of GERD, essential tremor, HTN, hypothyroidism, renal insufficiency, and TIA. The patient presents here via EMS from home for further evaluation of shortness of breath and a cough. The patient reports quick onset of shortness of breath 2 days ago on 01/05. Shortness of breath is accompanied by generalized weakness, and a cough that is nonproductive. No associated chest pain, abdominal pain, fever, chills, body aches, nausea, vomiting, diarrhea, or rhinorrhea. No prior history of CHF and currently on a diuretic, has previously been prescribed Lasix. Denies history of COPD or asthma, previously documented that patient has hx of COPD. Reviewed outside med rec and no home inhalers. Reports previous hx of pneumonia with last occurrence was 2 years ago. Reports chronic swelling in her LLE, states it hasnt been as swollen as usual lately. Denies previous hx of smoking. Initial VS at presentation: 99.4? F, HR 83, RR 23, 153/104, and 100% on RA. ED workup showed: No leukocytosis, hemoglobin 11.5, sodium 134, creatinine 1.1 and GFR 47 (previously 1.5 and GFR 33 in 2020), lactic acid 1.1, and BNP 1860. UA consistent with UTI. CXR showed prominent ossific congestion, pulmonary interstitial edema, mild infiltrate in the lower lung zone, aortic atherosclerosis, and osteopenia. Review of Systems Review of Systems: All systems reviewed & are unremarkable except as noted in HPI and below [facility] Past Medical History Medical History (Updated 01/08/24 @ 18:09 by Keila Martinez APRN) BPV (benign positional vertigo) Chronic GERD Depression Essential and other specified forms of tremor Hypertension Hypothyroidism Neuropathy Feet Obese Renal insufficiency Chronic TIA (transient ischemic attack) Surgical History Surgical History H/O elbow surgery History of bilateral knee arthroplasty History of orthopedic surgery Hx of dilation and curettage Family History Family History Sibling Congestive heart failure Sibling Congestive heart failure Sibling Lymphoma Daughter Myocardial infarction Mother Cerebrovascular accident Father Lupus Cerebrovascular accident Social History Social History Social History: The patient is . She has 2 sons and a daughter. She would like for her daughter to be the durable power defense attorney for healthcare. The patient desires to be a full code but does not want to exist in a vegetative state. 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 She occasionally has a wine cooler. Smoking status: Never smoker Second hand tobacco smoke exposure: Yes (family smokes in house when visiting) Alcohol intake: former Substance use: never Substance use type: does not use Do You Feel Safe in your Home?: Yes Lack of Transportation: No Lack of Food: Never True Current Housing: I Have Housing Concerned About Future Housing: No Difficulty Paying Gas/Electric Bills: No Difficulty Paying for Meds: No Currently Unemployed: No Education: High School Diploma/GED Difficulty w/ Childcare or Family Care: No Gender identity (if verbalized by the patient): Female Spiritual care concerns: No Meds Home Medications and Allergies Home Medications Medication Instructions Recorded Confirmed Type bupropion HCl 100 mg tablet 100 mg PO BID 10/24/20 01/08/24 History pregabalin 50 mg capsule 50 mg PO HS 10/24/20 01/08/24 History sertraline 50 mg tablet 100 mg PO DAILY 10/24/20 01/08/24 History pramipexole 0.125 mg tablet 0.125 mg PO HS 11/13/20 01/08/24 History aspirin 81 mg chewable tablet 81 mg PO DAILY 11/14
[2024-01-08] MEDS: AZITHROMYCIN 500 MG/NS 250 ML 500 MG/250 ML BAG 250 MG IVPB (14:48)
--- NOTE | 2024-01-08 15:15 | ADMGEN ---
This patient, Tanesha Dubon, was admitted to Medical Room 349-01. Patient/family oriented to hospital policies and general routines including ID bracelet, bed and alarms, visiting hours, pain management, procedures, bathroom and other care routines, personal items, smoking policy, room service/diet, and visiting hours. Information on how to activate the Rapid Response Team has been discussed. Patient/Family are encouraged to report perceived risks to care and to ask questions if they do not understand what they are told or what they should do.
[2024-01-08] MEDS: LACTATED RINGERS 1,000 ML 100 ML IV CONT (16:51)
[2024-01-08] MEDS: PRAMIPEXOLE 0.125 MG TABLET PO (21:10)
[2024-01-08] MEDS: TOLNAFTATE 1% POWDER 45 GM BTL 1 APPLIC TOPICAL (21:10)
[2024-01-08] MEDS: PREGABALIN (*CRX) 50 MG CAPSULE PO (21:10)
[2024-01-08] MEDS: guaiFENesin 12 HR 600 MG TABCR PO (21:10)
[2024-01-09] MEDS: LACTATED RINGERS 1,000 ML 100 ML IV CONT (03:04)
[2024-01-09 05:59] LABS: Basophils Percent Auto 0.6 % (0.2-1.2); Eosinophils Absolute Auto 0.2 K/mm3 (0-0.3); Eosinophils Percent Auto 3.4 % (0-4.4); Hematocrit 35.7 % (37.0-47.0); Hemoglobin 10.4 g/dL (12.0-15.0); Immature Granulocyte Absolute 0.02 K/mm3 (0.00-0.031); Immature Granulocyte Percent A 0.4 % (0-0.5); Lymphocytes Absolute Auto 1.43 K/mm3 (0.9-3.2); Lymphocytes Percent Auto 28.3 % (18.3-44.2); Mean Corpuscular HGB Conc 29.1 g/dl (32-36); Mean Corpuscular Hemoglobin 31.6 pg (26-34); Mean Corpuscular Volume 108.5 fl (80-100); Mean Platelet Volume 11.1 fl (7.4-10.4); Monocytes Absolute Auto 0.7 K/mm3 (0.1-0.6); Monocytes Percent Auto 14.7 % (2.6-8.5); Neutrophils Absolute Auto 2.7 K/mm3 (1.3-6.7); Neutrophils Percent Auto 52.6 % (45.5-73.1); Platelet Count Result 108 k/mm3 (150-375); Red Blood Count 3.29 M/mm3 (4.2-5.4); White Blood Count 5.1 K/mm3 (4.5-10.0)
[2024-01-09 06:00] VITALS: BP 112/48; PULSE 65; RESP 16; TEMP 36.2; O2SAT 94
[2024-01-09] MEDS: LEVOTHYROXINE SODIUM 100 MCG TABLET 200 MCG PO (06:06)
[2024-01-09 07:31] LABS: Anisocytosis 1+; Hypochromasia 1+; Platelet Estimate Slightly Decreased (Adequate); Schistocytes None Seen
[2024-01-09 08:24] LABS: Alanine Aminotransferase 11 U/L (6-35); Albumin Level 3.4 g/dL (3.5-5.1); Alkaline Phosphatase 102 U/L (38-126); Anion Gap 5 mmol/L (4-12); Aspartate Amino Transferase 20 U/L (14-36); Bilirubin,Total 0.5 mg/dL (0.2-1.3); Blood Urea Nitrogen 24 mg/dL (7-17); Calcium 8.6 mg/dL (8.4-10.2); Carbon Dioxide 25 mmol/L (22-30); Chloride 106 mmol/L (98-107); Estimated CRCL calculation 37 ml/min; Estimated Glomerular Filt Rate 47; Glucose 80 mg/dL (65-110); Magnesium 2.1 mg/dL (1.6-2.3); Phosphorus 3.2 mg/dL (2.5-4.5); Potassium 3.9 mmol/L (3.4-5.0); Sodium 136 mmol/L (137-145)
[2024-01-09 08:28] VITALS: O2SAT 94
--- NOTE | 2024-01-09 09:36 | PM.IMPN ---
Progress Note: A&P Assessment and Plan (1) Shortness of breath: Code(s): R06.02 - Shortness of breath Status: Acute Assessment and Plan: - did not meet SIRS criteria: blood cultures were obtained. - lactic acid: 1.1 - EKG, initial: sinus rhythm, rate 81 - CXR: Prominent ossific congestion, pulmonary interstitial edema, consistent with congestive changes Mild infiltrate or atelectasis in the lower lung zones Aortic atherosclerosis Osteopenia - viral PCR negative - BNP 1860 - echo ordered - Lasix 40 mg IVP - daily weights and monitor I&Os - suspect SOB is multifactorial: Pna/chf - echo- ef 65-70% (2) Pneumonia: Code(s): J18.9 - Pneumonia, unspecified organism Status: Acute Assessment and Plan: - CXR: Mild infiltrate or atelectasis in the lower lung zones - risk factors: none - complicating factors: COPD, possible new onset CHF - started on CAP tx: azithromycin and ceftriaxone on 01/07 - supportive care - Viral PCR negative - sputum culture if obtainable - no supplemental O2 requirement - started on gentle fluids given possibility of new CHF- will stop fluids (3) Acute UTI: Code(s): N39.0 - Urinary tract infection, site not specified Status: Acute Assessment and Plan: - UA: Cloudy, 1+ blood, positive nitrates, 3+ leuks, 6-10 RBC, greater than 100 WBC, WBC clumps present, no epithelial cells, 4+ bacteria. - UC pending, obtained on 01/07 - previous micro reviewed, no significant resistances - started on Ceftriaxone on 01/07 (4) Renal insufficiency: Code(s): N28.9 - Disorder of kidney and ureter, unspecified Status: Chronic Assessment and Plan: - creatinine 1.1 and GFR 47 - previously 1.5 and GFR 33 on 04/01/2021 - hx of chronic renal insufficiency - trend renal function - trend electrolytes, correct as needed Plan Patient here with shortness of breath and cough. CXR suggestive of pneumonia and possible new CHF. Echo ordered. Azithromycin and ceftriaxone on 01/07. Started on Lasix 40 mg IVP. Sputum culture ordered if obtainable. Did not meet SIRS criteria. Gentle fluids in place at 100 mL/hour. Concurrent UTI, urine culture pending. Diet: Heart healthy GI Prophylaxis: Not currently indicated DVT Prophylaxis: SCDs Lines: Peripheral Code Status: Full code, emergency contact Winnie Carey (daughter) Time Spent With Patient Time with patient: 25 - 35 minutes Subjective Date/time seen: 01/09/24 09:36 Interval history: 83 y.o female with PMH of GERD, essential tremor, HTN, hypothyroidism, renal insufficiency, and TIA admitted from for sob and cough. She reports a quick onset of shortness of breath 2 days ago on 01/05. C/o generalized weakness,nonproductive cough. NO chest pain, abdominal pain, fever, chills, body aches, nausea, vomiting, diarrhea, or rhinorrhea. No prior history of CHF and currently on a diuretic, has previously been prescribed Lasix. Denies history of COPD or asthma but previously documented that patient has hx of COPD. No home inhalers. Reports hx of pneumonia 2 years ago. Chronic swelling in her LLE, states it hasnt been as swollen as usual lately. Denies hx of smoking. In ed:t 99.4? F, HR 83, RR 23, 153/104, and 100% on RA. ED workup showed: No leukocytosis, hemoglobin 11.5, sodium 134, creatinine 1.1 and GFR 47 (previously 1.5 and GFR 33 in 2020), lactic acid 1.1, and BNP 1860. UA consistent with UTI. CXR showed prominent ossific congestion, pulmonary interstitial edema, mild infiltrate in the lower lung zone, aortic atherosclerosis, and osteopenia. Daughter is her durable power lug breaker and wire puller for healthcare. 01/08 echo today. Lasix IV. Started on CAP tx: azithromycin and ceftriaxone on 01/07. Pt is resting in bed- alert, oriented, pleasant. Denies chest pain Review of Systems Review of Systems: All systems reviewed & are unremarkable except as noted in HPI and below Exam Narrative:
[2024-01-09] MEDS: SERTRALINE HCL 50 MG TABLET 100 MG PO (09:49)
[2024-01-09] MEDS: FUROSEMIDE INJ 40 MG/4 ML VIAL IV PUSH (09:49)
[2024-01-09] MEDS: TOLNAFTATE 1% POWDER 45 GM BTL 1 APPLIC TOPICAL ×2 (09:49→21:42)
[2024-01-09] MEDS: ASPIRIN 81 MG CHEWABLE TABLET PO (09:49)
[2024-01-09] MEDS: guaiFENesin 12 HR 600 MG TABCR PO ×2 (09:49→21:37)
[2024-01-09 09:50] VITALS: BP 121/54
[2024-01-09] MEDS: buPROPion HCL 100 MG TABLET PO ×2 (09:52→16:15)
[2024-01-09] MEDS: ACETAMINOPHEN 325 MG TABLET 650 MG PO (12:35)
[2024-01-09 14:00] VITALS: BP 112/51; PULSE 57; RESP 18; TEMP 36.2; O2SAT 93
[2024-01-09] MEDS: AZITHROMYCIN 500 MG/NS 250 ML 500 MG/250 ML BAG 250 MG IVPB (15:02)
[2024-01-09] MEDS: PRAMIPEXOLE 0.125 MG TABLET PO (21:37)
[2024-01-09] MEDS: PREGABALIN (*CRX) 50 MG CAPSULE PO (21:37)
[2024-01-09 22:00] VITALS: BP 132/49; PULSE 57; RESP 18; TEMP 36.1; O2SAT 97
[2024-01-10 06:00] VITALS: BP 122/71; PULSE 68; RESP 18; TEMP 36.3; O2SAT 96
[2024-01-10] MEDS: LEVOTHYROXINE SODIUM 100 MCG TABLET 200 MCG PO (06:54)
--- NOTE | 2024-01-10 08:59 | PM.IMPN ---
Progress Note: A&P Assessment and Plan (1) Shortness of breath: Code(s): R06.02 - Shortness of breath Status: Acute Assessment and Plan: - did not meet SIRS criteria: blood cultures were obtained. - lactic acid: 1.1 - EKG, initial: sinus rhythm, rate 81 - CXR: Prominent ossific congestion, pulmonary interstitial edema, consistent with congestive changes Mild infiltrate or atelectasis in the lower lung zones Aortic atherosclerosis Osteopenia - viral PCR negative - BNP 1860 - echo ordered- EF 65-70% - Lasix 40 mg IVP - daily weights and monitor I&Os - suspect SOB is multifactorial: Pna/chf (2) Pneumonia: Code(s): J18.9 - Pneumonia, unspecified organism Status: Acute Assessment and Plan: - CXR: Mild infiltrate or atelectasis in the lower lung zones - risk factors: none - complicating factors: COPD, possible new onset CHF - started on CAP tx: azithromycin and ceftriaxone on 01/07 - supportive care - Viral PCR negative - sputum culture collected 01/08 - no supplemental O2 requirement (3) Acute UTI: Code(s): N39.0 - Urinary tract infection, site not specified Status: Acute Assessment and Plan: - UA: Cloudy, 1+ blood, positive nitrates, 3+ leuks, 6-10 RBC, greater than 100 WBC, WBC clumps present, no epithelial cells, 4+ bacteria. - previous micro reviewed, no significant resistances - started on Ceftriaxone on 01/07 - - UC obtained on 01/07- showing e.coli- will continue antibiotics (4) Renal insufficiency: Code(s): N28.9 - Disorder of kidney and ureter, unspecified Status: Chronic Assessment and Plan: - trend creatinine and GFR -improving - previously 1.5 and GFR 33 on 04/01/2021 - hx of chronic renal insufficiency - trend renal function - trend electrolytes, correct as needed - oral PO Plan Patient here with shortness of breath and cough. CXR suggestive of pneumonia and possible new CHF. Echo ordered. Azithromycin and ceftriaxone on 01/07. Started on Lasix 40 mg IVP. Sputum culture ordered if obtainable. Did not meet SIRS criteria. Gentle fluids in place at 100 mL/hour. Concurrent UTI, urine culture pending. Diet: Heart healthy GI Prophylaxis: Not currently indicated DVT Prophylaxis: SCDs Lines: Peripheral Code Status: Full code, emergency contact Winnie Carey (daughter) Time Spent With Patient Time with patient: 25 - 35 minutes Subjective Date/time seen: 01/10/24 08:59 Interval history: 83 y.o female with PMH of GERD, essential tremor, HTN, hypothyroidism, renal insufficiency, and TIA admitted from for sob and cough. She reports a quick onset of shortness of breath 2 days ago on 01/05. C/o generalized weakness,nonproductive cough. NO chest pain, abdominal pain, fever, chills, body aches, nausea, vomiting, diarrhea, or rhinorrhea. No prior history of CHF and currently on a diuretic, has previously been prescribed Lasix. Denies history of COPD or asthma but previously documented that patient has hx of COPD. No home inhalers. Reports hx of pneumonia 2 years ago. Chronic swelling in her LLE, states it hasnt been as swollen as usual lately. Denies hx of smoking. In ed:t 99.4? F, HR 83, RR 23, 153/104, and 100% on RA. ED workup showed: No leukocytosis, hemoglobin 11.5, sodium 134, creatinine 1.1 and GFR 47 (previously 1.5 and GFR 33 in 2020), lactic acid 1.1, and BNP 1860. UA consistent with UTI. CXR showed prominent ossific congestion, pulmonary interstitial edema, mild infiltrate in the lower lung zone, aortic atherosclerosis, and osteopenia. Daughter is her durable power bagman/woman for healthcare. 01/08 echo today. Lasix IV. Started on CAP tx: azithromycin and ceftriaxone on 01/07. Pt is resting in bed- alert, oriented, pleasant. Denies chest pain 01/09- stopped IV fluids yesterday. Continue diuresis. IS/duoneb. will order PT/OT Review of Systems Review of Systems: All systems reviewed & are unremar
[2024-01-10 09:41] VITALS: BP 129/56; PULSE 73; RESP 16; TEMP 36.3; O2SAT 95
[2024-01-10] MEDS: buPROPion HCL 100 MG TABLET PO ×2 (09:42→17:37)
[2024-01-10] MEDS: FUROSEMIDE INJ 40 MG/4 ML VIAL IV PUSH (09:42)
[2024-01-10] MEDS: guaiFENesin 12 HR 600 MG TABCR PO ×2 (09:42→20:25)
[2024-01-10] MEDS: ASPIRIN 81 MG CHEWABLE TABLET PO (09:42)
[2024-01-10] MEDS: SERTRALINE HCL 50 MG TABLET 100 MG PO (09:44)
[2024-01-10] MEDS: ACETAMINOPHEN 325 MG TABLET 650 MG PO (11:02)
[2024-01-10] MEDS: TOLNAFTATE 1% POWDER 45 GM BTL 1 APPLIC TOPICAL ×2 (11:02→20:26)
[2024-01-10] MEDS: AZITHROMYCIN 250 MG TABLET 500 MG PO (12:30)
[2024-01-10 13:43] VITALS: BP 113/56; PULSE 64; RESP 18; TEMP 36.4; O2SAT 95
[2024-01-10 19:54] VITALS: BP 150/58; PULSE 68; RESP 20; TEMP 36.2; O2SAT 100
[2024-01-10] MEDS: PREGABALIN (*CRX) 50 MG CAPSULE PO (20:25)
[2024-01-10] MEDS: PRAMIPEXOLE 0.125 MG TABLET PO (20:25)
[2024-01-11 06:00] VITALS: BP 134/78; PULSE 61; RESP 18; TEMP 36.1; O2SAT 96
[2024-01-11] MEDS: LEVOTHYROXINE SODIUM 100 MCG TABLET 200 MCG PO (06:03)
[2024-01-11] MEDS: SERTRALINE HCL 50 MG TABLET 100 MG PO (09:31)
[2024-01-11] MEDS: AZITHROMYCIN 250 MG TABLET 500 MG PO (09:31)
[2024-01-11] MEDS: FUROSEMIDE INJ 40 MG/4 ML VIAL IV PUSH (09:31)
[2024-01-11] MEDS: guaiFENesin 12 HR 600 MG TABCR PO (09:31)
[2024-01-11] MEDS: buPROPion HCL 100 MG TABLET PO (09:31)
[2024-01-11] MEDS: ASPIRIN 81 MG CHEWABLE TABLET PO (09:31)
[2024-01-11] MEDS: TOLNAFTATE 1% POWDER 45 GM BTL 1 APPLIC TOPICAL (09:32)
[2024-01-11] MEDS: DICLOFENAC SODIUM 1% 100 GM GEL (*BKC) 1 APPLIC TOPICAL (09:38)
[2024-01-11 09:42] VITALS: O2SAT 93
--- NOTE | 2024-01-11 10:15 | PM.IMPN ---
Progress Note: A&P Assessment and Plan (1) Shortness of breath: Code(s): R06.02 - Shortness of breath Status: Acute Assessment and Plan: - did not meet SIRS criteria: blood cultures were obtained. - lactic acid: 1.1 - EKG, initial: sinus rhythm, rate 81 - CXR: Prominent ossific congestion, pulmonary interstitial edema, consistent with congestive changes Mild infiltrate or atelectasis in the lower lung zones Aortic atherosclerosis Osteopenia - viral PCR negative - BNP 1860 - echo ordered- EF 65-70% - Lasix 40 mg IVP - daily weights and monitor I&Os - suspect SOB is multifactorial: Pna/chf (2) Pneumonia: Code(s): J18.9 - Pneumonia, unspecified organism Status: Acute Assessment and Plan: - CXR: Mild infiltrate or atelectasis in the lower lung zones - risk factors: none - complicating factors: COPD, possible new onset CHF - started on CAP tx: azithromycin and ceftriaxone on 01/07 - supportive care - Viral PCR negative - sputum culture collected 01/08 - no supplemental O2 requirement (3) Acute UTI: Code(s): N39.0 - Urinary tract infection, site not specified Status: Acute Assessment and Plan: - UA: Cloudy, 1+ blood, positive nitrates, 3+ leuks, 6-10 RBC, greater than 100 WBC, WBC clumps present, no epithelial cells, 4+ bacteria. - previous micro reviewed, no significant resistances - started on Ceftriaxone on 01/07 - - UC obtained on 01/07- showing e.coli- will continue antibiotics (4) Renal insufficiency: Code(s): N28.9 - Disorder of kidney and ureter, unspecified Status: Chronic Assessment and Plan: - trend creatinine and GFR -improving - previously 1.5 and GFR 33 on 04/01/2021 - hx of chronic renal insufficiency - trend renal function - trend electrolytes, correct as needed - oral PO Plan Patient here with shortness of breath and cough. CXR suggestive of pneumonia and possible new CHF. Echo ordered. Azithromycin and ceftriaxone on 01/07. Started on Lasix 40 mg IVP. Sputum culture ordered if obtainable. Did not meet SIRS criteria. Gentle fluids in place at 100 mL/hour. Concurrent UTI, urine culture pending. Diet: Heart healthy GI Prophylaxis: Not currently indicated DVT Prophylaxis: SCDs Lines: Peripheral Code Status: Full code, emergency contact Winnie Carey (daughter) Subjective Date/time seen: 01/11/24 10:15 Interval history: 83 y.o female with PMH of GERD, essential tremor, HTN, hypothyroidism, renal insufficiency, and TIA admitted from for sob and cough. She reports a quick onset of shortness of breath 2 days ago on 01/05. C/o generalized weakness,nonproductive cough. NO chest pain, abdominal pain, fever, chills, body aches, nausea, vomiting, diarrhea, or rhinorrhea. No prior history of CHF and currently on a diuretic, has previously been prescribed Lasix. Denies history of COPD or asthma but previously documented that patient has hx of COPD. No home inhalers. Reports hx of pneumonia 2 years ago. Chronic swelling in her LLE, states it hasnt been as swollen as usual lately. Denies hx of smoking. In ed:t 99.4? F, HR 83, RR 23, 153/104, and 100% on RA. ED workup showed: No leukocytosis, hemoglobin 11.5, sodium 134, creatinine 1.1 and GFR 47 (previously 1.5 and GFR 33 in 2020), lactic acid 1.1, and BNP 1860. UA consistent with UTI. CXR showed prominent ossific congestion, pulmonary interstitial edema, mild infiltrate in the lower lung zone, aortic atherosclerosis, and osteopenia. Daughter is her durable power rare/endangered species specialist for healthcare. 01/08 echo today. Lasix IV. Started on CAP tx: azithromycin and ceftriaxone on 01/07. Pt is resting in bed- alert, oriented, pleasant. Denies chest pain 01/09- stopped IV fluids yesterday. Continue diuresis. IS/duoneb. will order PT/OT 01/10- de escalate IV antibiotics today as sensitives are back. Review of Systems Review of Systems: All systems reviewed & are unr
--- NOTE | 2024-01-11 12:14 | PM.DS ---
DS: Admitting Diagnosis Discharge Date 01/10 Admitting Diagnosis pneumonia, uti DS: Discharge Diagnosis Discharge Diagnosis (1) Shortness of breath: Code(s): R06.02 - Shortness of breath Status: Acute Assessment and Plan: - did not meet SIRS criteria: blood cultures were obtained. - lactic acid: 1.1 - EKG, initial: sinus rhythm, rate 81 - CXR: Prominent ossific congestion, pulmonary interstitial edema, consistent with congestive changes Mild infiltrate or atelectasis in the lower lung zones Aortic atherosclerosis Osteopenia - viral PCR negative - BNP 1860 - echo ordered- EF 65-70% - Lasix 40 mg IVP - daily weights and monitor I&Os - suspect SOB is multifactorial: Pna/chf (2) Pneumonia: Code(s): J18.9 - Pneumonia, unspecified organism Status: Acute Assessment and Plan: - CXR: Mild infiltrate or atelectasis in the lower lung zones - risk factors: none - complicating factors: COPD, possible new onset CHF - started on CAP tx: azithromycin and ceftriaxone on 01/07 - supportive care - Viral PCR negative - sputum culture collected 01/08 - no supplemental O2 requirement (3) Acute UTI: Code(s): N39.0 - Urinary tract infection, site not specified Status: Acute Assessment and Plan: - UA: Cloudy, 1+ blood, positive nitrates, 3+ leuks, 6-10 RBC, greater than 100 WBC, WBC clumps present, no epithelial cells, 4+ bacteria. - previous micro reviewed, no significant resistances - started on Ceftriaxone on 01/07 - - UC obtained on 01/07- showing e.coli- will continue antibiotics (4) Renal insufficiency: Code(s): N28.9 - Disorder of kidney and ureter, unspecified Status: Chronic Assessment and Plan: - trend creatinine and GFR -improving - previously 1.5 and GFR 33 on 04/01/2021 - hx of chronic renal insufficiency - trend renal function - trend electrolytes, correct as needed - oral PO Plan Final dx: UTI, PNEUMONIA Patient here with shortness of breath and cough. CXR suggestive of pneumonia and possible new CHF. Echo ordered. Azithromycin and ceftriaxone on 01/07. Started on Lasix 40 mg IVP. Sputum culture ordered if obtainable. Did not meet SIRS criteria. Gentle fluids in place at 100 mL/hour. Concurrent UTI, urine culture pending. Diet: Heart healthy GI Prophylaxis: Not currently indicated DVT Prophylaxis: SCDs Lines: Peripheral Code Status: Full code, emergency contact Winnie Carey (daughter) DS: Summary Hospital Course Hospital Course: 83 y.o female with PMH of GERD, essential tremor, HTN, hypothyroidism, renal insufficiency, and TIA admitted from for sob and cough. She reports a quick onset of shortness of breath 2 days ago on 01/05. C/o generalized weakness,nonproductive cough. NO chest pain, abdominal pain, fever, chills, body aches, nausea, vomiting, diarrhea, or rhinorrhea. No prior history of CHF and currently on a diuretic, has previously been prescribed Lasix. Denies history of COPD or asthma but previously documented that patient has hx of COPD. No home inhalers. Reports hx of pneumonia 2 years ago. Chronic swelling in her LLE, states it hasnt been as swollen as usual lately. Denies hx of smoking. In ed:t 99.4? F, HR 83, RR 23, 153/104, and 100% on RA. ED workup showed: No leukocytosis, hemoglobin 11.5, sodium 134, creatinine 1.1 and GFR 47 (previously 1.5 and GFR 33 in 2020), lactic acid 1.1, and BNP 1860. UA consistent with UTI. CXR showed prominent ossific congestion, pulmonary interstitial edema, mild infiltrate in the lower lung zone, aortic atherosclerosis, and osteopenia. Daughter is her durable power district attorney for healthcare. 01/08 echo today. Lasix IV. Started on CAP tx: azithromycin and ceftriaxone on 01/07. Pt is resting in bed- alert, oriented, pleasant. Denies chest pain 01/09- stopped IV fluids yesterday. Continue diuresis. IS/duoneb. will order PT/OT Time Spent with Patient Time attestatio
== END 2024-01-11 13:00 | disposition home health service (06) ==
LOC: ANHED 14:18 → ANH3MED 15:37
PROVIDERS: Student in an Organized Health Care Education/Training Program; Admitting Provider Internal Medicine; Emergency Provider Emergency Medicine; PCP Internal Medicine; Visit Provider Internal Medicine
DX: J18.9 Pneumonia, unspecified organism (principal); J44.0 Chronic obstructive pulmonary disease with (acute) lower respiratory infection; N39.0 Urinary tract infection, site not specified; B96.20 Unspecified Escherichia coli [E. coli] as the cause of diseases classified elsewhere; E03.9 Hypothyroidism, unspecified; F32.A Depression, unspecified; I12.9 Hypertensive chronic kidney disease with stage 1 through stage 4 chronic kidney disease, or unspecified chronic kidney disease; N18.9 Chronic kidney disease, unspecified; K21.9 Gastro-esophageal reflux disease without esophagitis; G62.9 Polyneuropathy, unspecified; Z20.822 Contact with and (suspected) exposure to COVID-19; Z86.73 Personal history of transient ischemic attack (TIA), and cerebral infarction without residual deficits; Z86.718 Personal history of other venous thrombosis and embolism; E66.9 Obesity, unspecified; Z68.34 Body mass index [BMI] 34.0-34.9, adult; Z79.82 Long term (current) use of aspirin
CPT/HCPCS: 36415; 71045; 80053; 81001; 82948; 83605; 83735; 83880; 84100; 85025; 85055; 87040; 87070; 87077; 87086; 87088; 87186; 87205; 87637; 93005; 93306; 96365; 96375; 97161; 97166; 99285; A9270; G0378; J0456; J0696; J1940; J7120

== ENCOUNTER 2024-05-31 19:39 | Inpatient (IN) | payer MEDICARE, SELFPAY ==
--- NOTE | ~2024-05-31 | NM_ITS ---
EXAMINATION: NM lung vent and perfusion DATE: 06/05/2024 12:40 INDICATION: Shortness of breath. Hypoxia. TECHNIQUE: 10.33 mCi Xenon-133 was given for ventilation images. 5.2 mCi Tc-99m MAA was administered intravenously for perfusion images. Scintigraphic images of the chest were obtained. COMPARISON: Chest 2 views 06/05/2024, chest CT 06/02/2024 FINDINGS: The ventilation images demonstrate small and moderate sized defects in the lower lobes. No retention. Perfusion images demonstrate small defects in the lower lobes. IMPRESSION: 1. Low probability for pulmonary embolism. Reviewed, dictated and finalized at location A. ALLERGY
--- NOTE | ~2024-05-31 | CT_ITS ---
CT diagnostic chest wo con Ordering provider: Beronica Ernandez History: 83 years Female with . resp failure . Comparison: None. Technique: CT chest without IV contrast. Radiation reduction technique utilized. The dose-length product was 523.6 mGy-cm. FINDINGS: VISUALIZED THORACIC INLET: Normal. MEDIASTINUM: Aorta/coronary arteries: Mild atheromatous disease. Heart/other: The heart is not enlarged. Prominent pulmonary artery is seen measuring 3.9 cm suggesti ve of pulmonary hypertension. Lymph nodes: No mediastinal or hilar adenopathy. Sliding hiatus hernia is noted. LUNGS: Atelectatic changes seen in the right lung base with minimal effusion. Atelectatic changes seen in the left lung base. Subsegmental atelectasis in the left upper lobe. No pulmonary nodules or masses. . No pneumothorax. VISUALIZED UPPER ABDOMEN: Small cyst in the left kidney Otherwise, the visualized upper abdomen is no rmal. MUSCULOSKELETAL: Soft tissues: Air is seen in the subcutaneous tissues. The superficial soft tissues are normal. Bones: Fracture of the left ninth rib. Kyphosis is noted. Age appropriate degenerative changes of the spine. IMPRESSION: 1. Sliding hiatus hernia. 2. Atelectasis in the lung bases and left upper lobe. 3. Fracture of the left ninth rib with air in the subcutaneous tissues. Reviewed, dictated and finalized at location A.
--- NOTE | ~2024-05-31 | CT_ITS ---
CT of the Abdomen and Pelvis: Indication: Abdominal pain Technique: 2.5 mm axial scans were obtained through the abdomen and pelvis following intravenous adm inistration of 100 cc of Omnipaque 350. Dose reduction technique was used on this scan by utilizing a utomated exposure control and iterative reconstruction technique. The dose-length product (DLP) was 1 005.66 mGy-cm. COMPARISON: 10/25/2020 Findings: Scans through the lung bases demonstrate moderate hiatal hernia. The liver, spleen, gallbladder, adrenals and kidneys are within normal limits. There is marked fatty atrophy of the pancreas. There are atherosclerotic calcifications of the aorta. No lymphadenopathy. No bowel obstruction or bowel wall thickening. Appendix is dilated to 10 mm with right lower quadrant inflammatory change, most compatible with acute appendicitis. No abscess or free air. Small fat-cont aining umbilical hernia noted. Images through the pelvis were performed. Urinary bladder collapsed around a Robertson catheter. No pelvi c mass seen. Impression: Acute appendicitis, as detailed above. No abscess or free air. Moderate hiatal hernia. Reviewed, dictated and finalized at location . Impression: Acute appendicitis, as detailed above. No abscess or free air. Moderate hiatal hernia.
--- NOTE | ~2024-05-31 | US_ITS ---
BILATERAL LOWER EXTREMITY VENOUS ULTRASOUND Ordering provider: Beronica Ernandez MD History: . resp failure r/o DVT . Comparison: None. FINDINGS: RIGHT LOWER EXTREMITY VEINS: --COMMON FEMORAL: Patent and free of thrombus. Normal compressibility, phasic flow and augmentation. --PROXIMAL SUPERFICIAL FEMORAL: Patent and free of thrombus. Normal compressibility, phasic flow and augmentation. --DISTAL SUPERFICIAL FEMORAL: Patent and free of thrombus. Normal compressibility, phasic flow and au gmentation. --POPLITEAL: Patent and free of thrombus. Normal compressibility, phasic flow and augmentation. --POSTERIOR TIBIAL: Patent and free of thrombus. Normal compressibility, phasic flow and augmentation . LEFT LOWER EXTREMITY VEINS: --COMMON FEMORAL: Patent and free of thrombus. Normal compressibility, phasic flow and augmentation. --PROXIMAL SUPERFICIAL FEMORAL: Patent and free of thrombus. Normal compressibility, phasic flow and augmentation. --DISTAL SUPERFICIAL FEMORAL: Patent and free of thrombus. Normal compressibility, phasic flow and au gmentation. --POPLITEAL: Patent and free of thrombus. Normal compressibility, phasic flow and augmentation. --POSTERIOR TIBIAL: Patent and free of thrombus. Normal compressibility, phasic flow and augmentation . IMPRESSION: Negative bilateral lower extremity venous US. No deep vein thrombosis. Reviewed, dictated and finalized at location A.
--- NOTE | ~2024-05-31 | XR_ITS ---
EXAMINATION: XR chest 1V portable DATE: 06/02/2024 12:56 INDICATION: Pneumonia. TECHNIQUE: A single frontal view of the chest was obtained. COMPARISON: Chest single view 06/01/2024, CT abdomen and pelvis 05/31/2024 FINDINGS: There is mild atelectasis in the mid and lower lung zones. No pleural effusion or pneumotho rax. The heart size is normal. There is a large hiatal hernia. IMPRESSION: 1. Mild atelectasis in the mid and lower lung zones. 2. Large hiatal hernia. Reviewed, dictated and finalized at location B.
--- NOTE | ~2024-05-31 | XR_ITS ---
XR chest 2V Ordering provider: Beronica Ernadnez MD History: 83 years Female with . SOB . Comparison: June 02, 2024 FINDINGS: MEDIASTINUM: The cardiac silhouette is not enlarged. Sliding hiatus hernia unchanged. Prominent denilson. LUNGS: No infiltrates or pneumothorax. Underlying emphysematous changes. Blunting of the posterior co stophrenic angles which may indicate minimal effusion. Prominent bronchovascular markings in the lower lobes which may indicate atelectasis. OTHER: No free air under the diaphragm. IMPRESSION: Prominent bronchovascular markings in the lower lobes which may indicate the atelectasis. Early pneum onia cannot be excluded. Follow-up advised. Blunting of the posterior costophrenic angle suggestive of minimal effusion. Follow-up advised. Sliding hiatus hernia. Reviewed, dictated and finalized at location A. K INSERTER IMPRESSION: Prominent bronchovascular markings in the lower lobes which may indicate the at electasis. Early pneumonia cannot be excluded. Follow-up advised. Blunting of the posterior costophrenic angle suggestive of minimal effusion. Fo llow-up advised. Sliding hiatus hernia.
--- NOTE | ~2024-05-31 | XR_ITS ---
Portable chest x-ray Comparison: 01/08/2024 Clinical History: Preoperative evaluation Findings: Stable linear scar left lung base. There is underlying COPD and/or mild chronic interstiti al disease. Cardiomediastinal silhouette is stable. Bones and soft tissues are unremarkable. Impression: No acute abnormality. COPD/chronic mild interstitial disease. Reviewed, dictated and finalized at [facility]. Impression: No acute abnormality. COPD/chronic mild interstitial disease.
[2024-05-31 19:50] VITALS: BP 144/66; PULSE 81; RESP 20; TEMP 36.7; O2SAT 98
--- NOTE | 2024-05-31 20:02 | ED_ITS ---
HPI - Abdominal Pain General Chief Complaint: Abdominal Pain <Ariela Mccurdy APRN - Last Filed: 05/31/24 20:04> Stated Complaint: rlq abd pain x 12 hours, worse when walking, bm ye <Ariela Mccurdy APRN - Last Filed: 05/31/24 20:04> Time Seen by Provider: 05/31/24 19:50 <Ariela Mccurdy APRN - Last Filed: 05/31/24 20:04> Focused HPI: patient is an 83-year-old female who presents to the ER with sudden onset right lower quadrant pain. She reports she was at home and had a bowel movement earlier this evening. Her bowel movement was regular for her, but her pain started immediately afterwards. Patient denies any fevers, diarrhea or urinary symptoms. Her son reports she has a history of urinary tract infections. GENERAL: Well-appearing, well-nourished, and in no acute distress. HEAD: Normocephalic, atraumatic. CHEST: Clear to auscultation. ?No respiratory distress. HEART: Regular rate and rhythm.? NEURO: ?Alert and oriented x3. Patient screened in triage and initial orders placed.? ?Additional care and disposition to be based upon?diagnostic testing and treatment. <Ariela Mccurdy APRN - Last Filed: 05/31/24 20:04> Focused HPI: patient is an 83-year-old female who presents to the ER with sudden onset right lower quadrant pain. She reports she was at home and had a bowel movement earlier this evening. Her bowel movement was regular for her, but her pain started immediately afterwards. Patient denies any fevers, diarrhea or urinary symptoms. Her son reports she has a history of uri nary tract infections. GENERAL: Well-appearing, well-nourished, and in no acute distress. HEAD: Normocephalic, atraumatic. CHEST: Clear to auscultation. ?No respiratory distress. HEART: Regular rate and rhythm.? NEURO: ?Alert and oriented x3. Patient screened in triage and initial orders placed.? ?Additional care and disposition to be based upon?diagnostic testing and treatment. <Eleanor Callahan PA-C - Last Filed: 06/01/24 02:54> Source: patient <CLINT Hernandez Last Filed: 06/01/24 02:54> Mode of arrival: ambulatory <CLINT Hernandez Last Filed: 06/01/24 02:54> Limitations: no limitations <CLINT Hernandez Last Filed: 06/01/24 02:54> History of Present Illness HPI narrative: Patient is an 83-year-old female who presents the ED with report of right lower abdominal pain. Patient reports she has had a stomach ache all day but began having worsening pain throughout her R lower abdomen for the last several hours. Has never had pain like this before. Tried taking Pepto-Bismol at home without improvement. Denies any other significant symptoms. Denies nausea, vomiting, diarrhea, constipation. Last bowel movement yesterday. Denies fevers. Denies urinary complaints. <CLINT Hernandez Last Filed: 06/01/24 02:54> Related Data Home Medications: Home Medications Medication Instructions Recorded Confirmed bupropion HCl 100 mg tablet 100 mg PO BID 10/24/20 01/08/24 pregabalin 50 mg capsule 50 mg PO HS 10/24/20 01/08/24 sertraline 50 mg tablet 100 mg PO DAILY 10/24/20 01/08/24 pramipexole 0.125 mg tablet 0.125 mg PO HS 11/13/20 01/08/24 aspirin 81 mg chewable tablet 81 mg PO DAILY 11/14/20 01/08/24 levothyroxine 200 mcg tablet 200 mcg PO DAILY 01/08/24 01/08/24 <Ariela Mccurdy, LOBSTER CATCHER - Last Filed: 05/31/24 20:04> Allergies/Adverse Reactions: Allergies Allergy/AdvReac Type Severity Reaction Status Date / Time Sulfa (Sulfonamide Allergy Hives Verified 11/13/20 19:42 Antibiotics) codeine AdvReac Other Verified 11/13/20 19:42 <Ariela Mccurdy, LOBSTER CATCHER - Last Filed: 05/31/24 20:04> Review of Systems Review of Systems: All systems reviewed & are unremarkable except as noted in HPI. <CLINT Hernandez Last Filed: 06/01/24 02:54> All systems reviewed & are unremarkable except as noted in HPI and below <Eleanor Callahan PA-C - Last Filed: 06/01/24 02:54> FOR[facility]LY [facility] Past Medical History Medical History: Medical History BPV (benign positional vertigo) Chronic GERD Depression Essential and other specified forms of tremor Hypertension Hypothyroidism Neuropathy Feet Obese Renal insufficiency Chronic TIA (transient ischemic attack) <Ariela Mccurdy APRN - Last Filed: 05/31/24 20:04> Surgical History Surgical History: Surgical History H/O elbow surgery History of bilateral knee arthroplasty History of orthopedic surgery Hx of dilation and curettage <Ariela Mccurdy APRN - Last Filed: 05/31/24 20:04> Family History Family History: Family History Sibling Congestive heart failure Sibling Congestive heart failure Sibling Lymphoma Daughter Myocardial infarction Mother Cerebrovascular accident Father Lupus Cerebrovascular accident <Ariela Mccurdy APRN - Last Filed: 05/31/24 20:04> Social History Social History: Social History Social History: The patient is . She has 2 sons and a daughter. She would like for her daughter to be the durable power assistant city attorney for healthcare. The patient desires to be a full code but does not want to exist in a vegetative state. The patient is retired from [employer] as a cook. Lifelong nonsmoker. She occasionally has a wine cooler. Smoking status: Never smoker Second hand tobacco smoke exposure: Yes (family smokes in house when visiting) Alcohol intake: former Substance use: never Substance use type: does not use Do You Feel Safe in your Home?: Yes Lack of Transportation: No Lack of Food: Never True Current Housing: I Have Housing Concerned About Future Housing: No Difficulty Paying Gas/Electric Bills: No Difficulty Paying for Meds: No Currently Unemployed: No Education: High School Diploma/GED Difficulty w/ Childcare or Family Care: No Gender identity (if verbalized by the patient): Female Spiritual care concerns: No <Ariela Mccurdy APRN - Last Filed: 05/31/24 20:04> Exam Narrative: GENERAL: Elderly, well-nourished, non-toxic, in no acute distress. HEAD: Normocephalic, atraumatic. RESPIRATORY: Airway patent, respirations nonlabored. Clear to auscultation bilaterally, no rales, rhonchi, wheezing. CARDIOVASCULAR: Regular rate and rhythm without murmurs, rubs, or gallops. ABDOMINAL: Soft, focal tenderness in right lower, no appreciable rebound, nondistended. Normoactive BS. MUSCULOSKELETAL: Moves all extremities. No gross deformities. SKIN: Warm, dry, normal color. NEURO: A&O X3. Speech clear. PSYCHIATRIC: Appropriate mood and affect. Normal interaction. <Eleanor Callahan PA-C - Last Filed: 06/01/24 02:54> Course Vital Signs Vital signs: Vital Signs Temperature 98.0 F 05/31/24 19:50 Pulse Rate 81 05/31/24 19:50 Respiratory Rate 20 05/31/24 19:50 Blood Pressure 144/66 H 05/31/24 19:50 Pulse Oximetry 98 05/31/24 19:50 Oxygen Delivery Room Air 05/31/24 19:50 Temperature 98.0 F 05/31/24 19:50 Pulse Rate 80 06/01/24 02:02 Respiratory Rate 15 06/01/24 02:02 Blood Pressure 120/56 L 06/01/24 02:02 Pulse Oximetry 100 06/01/24 02:02 Oxygen Delivery Room Air 06/01/24 00:51 <Ariela Mccurdy APRN - Last Filed: 05/31/24 20:04> Vital Signs Temperature 98.0 F 05/31/24 19:50 Pulse Rate 81 05/31/24 19:50 Respiratory Rate 20 05/31/24 19:50 Blood Pressure 144/66 H 05/31/24 19:50 Pulse Oximetry 98 05/31/24 19:50 Oxygen Delivery Room Air 05/31/24 19:50 Temperature 98.0 F 05/31/24 19:50 Pulse Rate 80 06/01/24 02:02 Respiratory Rate 15 06/01/24 02:02 Blood Pressure 120/56 L 06/01/24 02:02 Pulse Oximetry 100 06/01/24 02:02 Oxygen Delivery Room Air 06/01/24 00:51 <CLINT Hernandez Last Filed: 06/01/24 02:54> MDM - Abdominal Pain MDM Narrative Medical decision making narrative: Patient presented to ED with several hour onset of right lower abdominal pain. Vital signs are stable upon arrival. Patient afebrile here. In no acute distress. CBC with white blood cell count of 11.3. CMP with stable electrolytes. Kidney function at baseline. Lactic acid 1.1. Normal LFTs and lipase. Urinalysis is clear. CT scan of abdomen/pelvis was obtained and showing acute appendicitis. Dilated appendix. Wall thickening with surrounding inflammation. No abscess or perforation. No other significant concerning findings. Discussed case with Dr. Fuentes, general surgery, accepted consult. Zosyn started in the ED. Will keep NPO. Fluids given. Discussed case with Dr. Saxena, hospitalist, accepted patient for admission. Recommended to add on EKG and chest x-ray for pre-op. Patient is in agreement with plan and need for admission. Patient did drop her oxygen into the 70s after receiving 2 mg of morphine. Placed on 2 L nasal cannula. Will continue to monitor. Admitted to tele. <Eleanor Callahan PA-C - Last Filed: 06/01/24 02:54> Medical Records Attestation: I reviewed the patient's medical records. <Eleanor Callahan PA-C - Last Filed: 06/01/24 02:54> Lab Data Attestation: I reviewed the patient's lab results. <CLINT Hernandez F iled: 06/01/24 02:54> Result diagrams: 05/31/24 23:28 05/31/24 23:28 <Areila Mccurdy APRN - Last Filed: 05/31/24 20:04> Labs: Lab Results 05/31/24 05/31/24 06/01/24 Range/Units 23:11 23:28 00:20 WBC 11.3 H (4.5-10.0) K/mm3 RBC 3.87 L (4.2-5.4) M/mm3 Hgb 12.6 (12.0-15.0) g/dL Hct 38.8 (37.0-47.0) % MCV 100.3 H (80-100) fl MCH 32.6 (26-34) pg MCHC 32.5 (32-36) g/dl RDW 14.4 (11.5-14.5) % Plt Count 142 L (150-375) k/mm3 MPV 11.1 H (7.4-10.4) fl Immature Gran % (Auto) 0.3 (0-0.5) % Neut % (Auto) 82.2 H (45.5-73.1) % Lymph % (Auto) 9.4 L (18.3-44.2) % Richardson % (Auto) 7.8 (2.6-8.5) % Eos % (Auto) 0.1 (0-4.4) % Baso % (Auto) 0.2 (0.2-1.2) % Lymph # (Auto) 1.06 (0.9-3.2) K/mm3 Richardson # (Auto) 0.9 H (0.1-0.6) K/mm3 Eos # (Auto) 0.0 (0-0.3) K/mm3 Baso # (Auto) 0.0 (0.0-0.1) K/mm3 Abs Immat Gran (auto) 0.03 (0.00-0.031) K/mm3 Absolute Neuts (auto) 9.3 H (1.3-6.7) K/mm3 Absolute Nucleated RBC 0.000 (0.0-0.012) K/mm3 Nucleated RBC % 0.0 (0.0-0.2) % PT 15.0 H (11.1-14.7) Seconds INR 1.1 APTT 30.2 (22.3-36.8) Seconds Sodium 140 (137-145) mmol/L Potassium 4.1 (3.4-5.0) mmol/L Chloride 102 (98-107) mmol/L Carbon Dioxide 30 (22-30) mmol/L Anion Gap 8 (4-12) mmol/L BUN 30 H (7-17) mg/dL Creatinine 1.20 H (0.7-1.0) mg/dL Estim Creat Clear Calc 30 ml/min Estimated GFR 43 L (59 - ) Glucose 96 (65-110) mg/dL Lactic Acid 1.1 (0.7-2.0) mmol/L Calcium 9.2 (8.4-10.2) mg/dL Total Bilirubin 0.7 (0.2-1.3) mg/dL AST 18 (14-36) U/L ALT 16 (6-35) U/L Alkaline Phosphatase 139 H (38-126) U/L Total Protein 8.0 (6.3-8.2) g/dL Albumin 4.5 (3.5-5.1) g/dL Lipase 12 L (23-300) U/L Urine Color Yellow (Yellow) Urine Appearance Clear (Clear) Urine pH 6.5 (5.0-9.0) Ur Specific Meredith 1.008 (1.001-1.035) Urine Protein Negative (Negative) mg/dL Urine Glucose (UA) Negative (Negative) mg/dL Urine Ketones Negative (Negative) mg/dL Ur Blood (Man) Negative (Negative) Urine Nitrate Negative (Negative) Urine Bilirubin Negative (Negative) Urine Urobilinogen 0.2 (<2.0) mg/dL Leukocyte Esterase Rfl Negative (Negative) WILLIAM/UL <Ariela Mccurdy, LOBSTER CATCHER - Last Filed: 05/31/24 20:04> Lab Results 05/31/24 05/31/24 06/01/24 Range/Units 23:11 23:28 00:20 WBC 11.3 H (4.5-10.0) K/mm3 RBC 3.87 L (4.2-5.4) M/mm3 Hgb 12.6 (12.0-15.0) g/dL Hct 38.8 (37.0-47.0) % MCV 100.3 H (80-100) fl MCH 32.6 (26-34) pg MCHC 32.5 (32-36) g/dl RDW 14.4 (11.5-14.5) % Plt Count 142 L (150-375) k/mm3 MPV 11.1 H (7.4-10.4) fl Immature Gran % (Auto) 0.3 (0-0.5) % Neut % (Auto) 82.2 H (45.5-73.1) % Lymph % (Auto) 9.4 L (18.3-44.2) % Richardson % (Auto) 7.8 (2.6-8.5) % Eos % (Auto) 0.1 (0-4.4) % Baso % (Auto) 0.2 (0.2-1.2) % Lymph # (Auto) 1.06 (0.9-3.2) K/mm3 Richardson # (Auto) 0.9 H (0.1-0.6) K/mm3 Eos # (Auto) 0.0 (0-0.3) K/mm3 Baso # (Auto) 0.0 (0.0-0.1) K/mm3 Abs Immat Gran (auto) 0.03 (0.00-0.031) K/mm3 Absolute Neuts (auto) 9.3 H (1.3-6.7) K/mm3 Absolute Nucleated RBC 0.000 (0.0-0.012) K/mm3 Nucleated RBC % 0.0 (0.0-0.2) % PT 15.0 H (11.1-14.7) Seconds INR 1.1 APTT 30.2 (22.3-36.8) Seconds Sodium 140 (137-145) mmol/L Potassium 4.1 (3.4-5.0) mmol/L Chloride 102 (98-107) mmol/L Carbon Dioxide 30 (22-30) mmol/L Anion Gap 8 (4-12) mmol/L BUN 30 H (7-17) mg/dL Creatinine 1.20 H (0.7-1.0) mg/dL Estim Creat Clear Calc 30 ml/min Estimated GFR 43 L (59 - ) Glucose 96 (65-110) mg/dL Lactic Acid 1.1 (0.7-2.0) mmol/L Calcium 9.2 (8.4-10.2) mg/dL Total Bilirubin 0.7 (0.2-1.3) mg/dL AST 18 (14-36) U/L ALT 16 (6-35) U/L Alkaline Phosphatase 139 H (38-126) U/L Total Protein 8.0 (6.3-8.2) g/dL Albumin 4.5 (3.5-5.1) g/dL Lipase 12 L (23-300) U/L Urine Color Yellow (Yellow) Urine Appearance Clear (Clear) Urine pH 6.5 (5.0-9.0) Ur Specific Meredith 1.008 (1.001-1.035) Urine Protein Negative (Negative) mg/dL Urine Glucose (UA) Negative (Negative) mg/dL Urine Ketones Negative (Negative) mg/dL Ur Blood (Man) Negative (Negative) Urine Nitrate Negative (Negative) Urine Bilirubin Negative (Negative) Urine Urobilinogen 0.2 (<2.0) mg/dL Leukocyte Esterase Rfl Negative (Negative) WILLIAM/UL <Eleanor Callahan PA-C - Last Filed: 06/01/24 02:54> Imaging Data Attestation: I personally reviewed and interpreted this imaging study as follows: <CLINT Hernandez Last Filed: 06/01/24 02:54> Radiologist's impression: STAT RAD CT abd/pelvis: Impression: Positive for appendicitis, consisting of a distended appendix measuring 11 mm with wall thickening and surrounding inflammation. <Eleanor Callahan PA-C - Last Filed: 06/01/24 02:54> Discharge Plan Discharge Clinical Impression: Acute appendicitis Qualifiers: Acute appendicitis type: with localized peritonitis Appendicitis gangrene presence: without gangrene Appendicitis perforation presence: without perforation Appendicitis abscess presence: without abscess Qualified Code(s): K35.30 - Acute appendicitis with localized peritonitis, without perforation or gangrene <Ariela Mccurdy APRN - Last Filed: 05/31/24 20:04> Patient Disposition: Still a Patient <ISAK Barajas Last Filed: 05/31/24 20:04> Condition: Stable <Ariela Mccurdy APRN - Last Filed: 05/31/24 20:04> Prescriptions: No Action levothyroxine 200 mcg tablet 200 mcg PO DAILY azithromycin [Zithromax] 250 mg Tablet 500 mg PO DAILY 1 Days Qty: 1 0RF guaifenesin [Mucus Relief ER] 600 mg Tablet Extended Release 12hr 600 mg PO Q12HR Qty: 30 0RF bupropion HCl 100 mg Tablet 100 mg PO BID sertraline 50 mg Tablet 100 mg PO DAILY pregabalin 50 mg Capsule 50 mg PO HS pramipexole 0.125 mg tablet 0.125 mg PO HS aspirin 81 mg Tablet,Chewable 81 mg PO DAILY <Ariela Mccurdy APRN - Last Filed: 05/31/24 20:04> Follow-up/Referrals: Edith,Rohan Drake MD [Primary Care Provider] - <Ariela Mccurdy APRN - Last Filed: 05/31/24 20:04>
[2024-05-31 23:35] LABS: Basophils Percent Auto 0.2 % (0.2-1.2); Eosinophils Percent Auto 0.1 % (0-4.4); Hematocrit 38.8 % (37.0-47.0); Hemoglobin 12.6 g/dL (12.0-15.0); Immature Granulocyte Absolute 0.03 K/mm3 (0.00-0.031); Immature Granulocyte Percent A 0.3 % (0-0.5); Lymphocytes Absolute Auto 1.06 K/mm3 (0.9-3.2); Lymphocytes Percent Auto 9.4 % (18.3-44.2); Mean Corpuscular HGB Conc 32.5 g/dl (32-36); Mean Corpuscular Hemoglobin 32.6 pg (26-34); Mean Corpuscular Volume 100.3 fl (80-100); Mean Platelet Volume 11.1 fl (7.4-10.4); Monocytes Absolute Auto 0.9 K/mm3 (0.1-0.6); Monocytes Percent Auto 7.8 % (2.6-8.5); Neutrophils Absolute Auto 9.3 K/mm3 (1.3-6.7); Neutrophils Percent Auto 82.2 % (45.5-73.1); Platelet Count Result 142 k/mm3 (150-375); Red Blood Count 3.87 M/mm3 (4.2-5.4); Red Cell Distribution Width 14.4 % (11.5-14.5); White Blood Count 11.3 K/mm3 (4.5-10.0)
--- NOTE | 2024-05-31 23:35 | PC.NURSE ---
patient has complaint of abdominal pain. RN obtained labs and urine. Patient is not ambulatory, assist of 2 with walker. Patient is alert and oriented x's 4. Daughter at bedside.
[2024-05-31 23:36] LABS: Add Urine Microscopic? NO; Appearance Urine Clear (Clear); Bilirubin Urine Negative (Negative); Blood Urine Negative (Negative); Color Urine Yellow (Yellow); Glucose Urine UA Negative (Negative); Ketones Urine Negative (Negative); Leukocyte Esterase Ur Negative LEU/UL (Negative); Nitrate Urine Negative (Negative); Protein Urine Negative (Negative); Specific Grav Ur 1.008 (1.001-1.035); Urobilinogen Urine 0.2 mg/dL (<2.0); pH Urine 6.5 (5.0-9.0)
[2024-05-31 23:48] LABS: Alanine Aminotransferase 16 U/L (6-35); Albumin Level 4.5 g/dL (3.5-5.1); Alkaline Phosphatase 139 U/L (38-126); Anion Gap 8 mmol/L (4-12); Aspartate Amino Transferase 18 U/L (14-36); Bilirubin,Total 0.7 mg/dL (0.2-1.3); Blood Urea Nitrogen 30 mg/dL (7-17); Calcium 9.2 mg/dL (8.4-10.2); Carbon Dioxide 30 mmol/L (22-30); Chloride 102 mmol/L (98-107); Estimated CRCL calculation 30 ml/min; Estimated Glomerular Filt Rate 43; Glucose 96 mg/dL (65-110); Lipase 12 U/L (23-300); Potassium 4.1 mmol/L (3.4-5.0); Sodium 140 mmol/L (137-145)
[2024-05-31 23:54] LABS: INR 1.1
[2024-05-31 23:55] LABS: Partial Thromboplastin Time 30.2 Seconds (22.3-36.8)
[2024-06-01] VITALS (27 sets, daily range): BP systolic 89–131; BP diastolic 40–81; PULSE 63–82; RESP 10–21; TEMP 36.3–37; O2SAT 72–100
[2024-06-01] MEDS: MORPHINE SULFATE (*CRX) 2 MG/ML INJ IV PUSH ×2 (00:21→02:02)
[2024-06-01] MEDS: ONDANSETRON INJ 4 MG/2 ML VIAL IV PUSH ×2 (00:22→12:40)
[2024-06-01 00:35] LABS: Lactic Acid Reflex 1.1 mmol/L (0.7-2.0)
--- NOTE | 2024-06-01 01:13 | ED.ABDPAIN ---
HPI - Abdominal Pain General Chief Complaint: Abdominal Pain Stated Complaint: rlq abd pain x 12 hours, worse when walking, bm ye Time Seen by Provider: 05/31/24 19:50 Source: patient Mode of arrival: ambulatory Limitations: no limitations History of Present Illness HPI narrative: Patient is an 83-year-old female who presents the ED with report of right lower abdominal pain. Patient reports she has had a stomach ache all day but began having worsening pain throughout her R lower abdomen for the last several hours. Has never had pain like this before. Tried taking Pepto-Bismol at home without improvement. Denies any other significant symptoms. Denies nausea, vomiting, diarrhea, constipation. Last bowel movement yesterday. Denies fevers. Denies urinary complaints. Related Data Home Medications Medication Instructions Recorded Confirmed bupropion HCl 100 mg tablet 100 mg PO BID 10/24/20 01/08/24 pregabalin 50 mg capsule 50 mg PO HS 10/24/20 01/08/24 sertraline 50 mg tablet 100 mg PO DAILY 10/24/20 01/08/24 pramipexole 0.125 mg tablet 0.125 mg PO HS 11/13/20 01/08/24 aspirin 81 mg chewable tablet 81 mg PO DAILY 11/14/20 01/08/24 levothyroxine 200 mcg tablet 200 mcg PO DAILY 01/08/24 01/08/24 Allergies Allergy/AdvReac Type Severity Reaction Status Date / Time Sulfa (Sulfonamide Allergy Hives Verified 11/13/20 19:42 Antibiotics) codeine AdvReac Other Verified 11/13/20 19:42 Review of Systems Review of Systems: All systems reviewed & are unremarkable except as noted in HPI. All systems reviewed & are unremarkable except as noted in HPI and below PMFSH Past Medical History Medical History BPV (benign positional vertigo) Chronic GERD Depression Essential and other specified forms of tremor Hypertension Hypothyroidism Neuropathy Feet Obese Renal insufficiency Chronic TIA (transient ischemic attack) Surgical History Surgical History H/O elbow surgery History of bilateral knee arthroplasty History of orthopedic surgery Hx of dilation and curettage Family History Family History Sibling Congestive heart failure Sibling Congestive heart failure Sibling Lymphoma Daughter Myocardial infarction Mother Cerebrovascular accident Father Lupus Cerebrovascular accident Social History Social History Social History: The patient is . She has 2 sons and a daughter. She would like for her daughter to be the durable power insurance attorney for healthcare. The patient desires to be a full code but does not want to exist in a vegetative state. The patient is retired from [employer] as a cook. Lifelong nonsmoker. She occasionally has a wine cooler. Smoking status: Never smoker Second hand tobacco smoke exposure: Yes (family smokes in house when visiting) Alcohol intake: former Substance use: never Substance use type: does not use Do You Feel Safe in your Home?: Yes Lack of Transportation: No Lack of Food: Never True Current Housing: I Have Housing Concerned About Future Housing: No Difficulty Paying Gas/Electric Bills: No Difficulty Paying for Meds: No Currently Unemployed: No Education: High School Diploma/GED Difficulty w/ Childcare or Family Care: No Gender identity (if verbalized by the patient): Female Spiritual care concerns: No Exam Narrative: GENERAL: Elderly, well-nourished, non-toxic, in no acute distress. HEAD: Normocephalic, atraumatic. RESPIRATORY: Airway patent, respirations nonlabored. Clear to auscultation bilaterally, no rales, rhonchi, wheezing. CARDIOVASCULAR: Regular rate and rhythm without murmurs, rubs, or gallops. ABDOMINAL: Soft, focal tenderness in right lower quadrant, no appreciable rebound, nondistended. Normoactive BS. MUSCULOSKELETAL: Moves all extremities. No gross deformities. SKIN: Warm, dry, normal color. NEURO: A&O X3. Speech clear. PSYCHIATRIC: Appropriate mood and affect. Normal interaction. Course Vital Signs Vital signs: Vital Signs Temperature 98.0 F 05/31/24 19:50 Pulse Rate 81 05/31/24 19:50 Respiratory Rate 20 05/31/24 19:50 Blood Pressure 144/66 H 05/31/24 19:50 Pulse Oximetry 98 05/31/24 19:50 Oxygen Delivery Room Air 05/31/24 19:50 Temperature 98.0 F 05/31/24 19:50 Pulse Rate 81 05/31/24 19:50 Respiratory Rate 20 05/31/24 19:50 Blood Pressure 144/66 H 05/31/24 19:50 Pulse Oximetry 71 L 06/01/24 00:51 Oxygen Delivery Room Air 06/01/24 00:51 MDM - Abdominal Pain Lab Data 05/31/24 23:28 05/31/24 23:28 Labs: Lab Results 05/31/24 05/31/24 06/01/24 Range/Units 23:11 23:28 00:20 WBC 11.3 H (4.5-10.0) K/mm3 RBC 3.87 L (4.2-5.4) M/mm3 Hgb 12.6 (12.0-15.0) g/dL Hct 38.8 (37.0-47.0) % MCV 100.3 H (80-100) fl MCH 32.6 (26-34) pg MCHC 32.5 (32-36) g/dl RDW 14.4 (11.5-14.5) % Plt Count 142 L (150-375) k/mm3 MPV 11.1 H (7.4-10.4) fl Immature Gran % (Auto) 0.3 (0-0.5) % Neut % (Auto) 82.2 H (45.5-73.1) % Lymph % (Auto) 9.4 L (18.3-44.2) % [place] % (Auto) 7.8 (2.6-8.5) % Eos % (Auto) 0.1 (0-4.4) % Baso % (Auto) 0.2 (0.2-1.2) % Lymph # (Auto) 1.06 (0.9-3.2) K/mm3 [place] # (Auto) 0.9 H (0.1-0.6) K/mm3 Eos # (Auto) 0.0 (0-0.3) K/mm3 Baso # (Auto) 0.0 (0.0-0.1) K/mm3 Abs Immat Gran (auto) 0.03 (0.00-0.031) K/mm3 Absolute Neuts (auto) 9.3 H (1.3-6.7) K/mm3 Absolute Nucleated RBC 0.000 (0.0-0.012) K/mm3 Nucleated RBC % 0.0 (0.0-0.2) % PT 15.0 H (11.1-14.7) Seconds INR 1.1 APTT 30.2 (22.3-36.8) Seconds Sodium 140 (137-145) mmol/L Potassium 4.1 (3.4-5.0) mmol/L Chloride 102 (98-107) mmol/L Carbon Dioxide 30 (22-30) mmol/L Anion Gap 8 (4-12) mmol/L BUN 30 H (7-17) mg/dL Creatinine 1.20 H (0.7-1.0) mg/dL Estim Creat Clear Calc 30 ml/min Estimated GFR 43 L (59 - ) Glucose 96 (65-110) mg/dL Lactic Acid 1.1 (0.7-2.0) mmol/L Calcium 9.2 (8.4-10.2) mg/dL Total Bilirubin 0.7 (0.2-1.3) mg/dL AST 18 (14-36) U/L ALT 16 (6-35) U/L Alkaline Phosphatase 139 H (38-126) U/L Total Protein 8.0 (6.3-8.2) g/dL Albumin 4.5 (3.5-5.1) g/dL Lipase 12 L (23-300) U/L Urine Color Yellow (Yellow) Urine Appearance Clear (Clear) Urine pH 6.5 (5.0-9.0) Ur Specific [place] 1.008 (1.001-1.035) Urine Protein Negative (Negative) mg/dL Urine Glucose (UA) Negative (Negative) mg/dL Urine Ketones Negative (Negative) mg/dL Ur Blood (Man) Negative (Negative) Urine Nitrate Negative (Negative) Urine Bilirubin Negative (Negative) Urine Urobilinogen 0.2 (<2.0) mg/dL Leukocyte Esterase Rfl Negative (Negative) WILLIAM/UL Discharge Plan Discharge Instructions: Antibiotic Form Prescriptions: No Action levothyroxine 200 mcg tablet 200 mcg PO DAILY azithromycin [Zithromax] 250 mg Tablet 500 mg PO DAILY 1 Days Qty: 1 0RF guaifenesin [Mucus Relief ER] 600 mg Tablet Extended Release 12hr 600 mg PO Q12HR Qty: 30 0RF amoxicillin-pot clavulanate 875-125 mg tablet 1 tablet PO Q12H Qty: 7 0RF Rx Instructions: last dose 01/13 9 pm bupropion HCl 100 mg Tablet 100 mg PO BID sertraline 50 mg Tablet 100 mg PO DAILY pregabalin 50 mg Capsule 50 mg PO HS pramipexole 0.125 mg tablet 0.125 mg PO HS aspirin 81 mg Tablet,Chewable 81 mg PO DAILY Follow-up/Referrals: Edith,Rohan Drake MD [Primary Care Provider] -
[2024-06-01] MEDS: PIPERACILLN/TAZ 3.375GM/NS50ML 3.375 GM/50 ML BAG IVPB (02:02)
[2024-06-01] MEDS: SODIUM CHLORIDE 0.9% IV 1,000 ML 999 ML IV CONT ×2 (02:05→02:52)
--- NOTE | 2024-06-01 02:42 | ECG_ITS ---
Test Date: 2024-06-01 03:53:02 Measurements Intervals [place] Rate: 72 P: 49 NV: 163 QRS: -25 QRSD: 76 T: 26 QT: 357 QTc: 391 Interpretive Statements SINUS RHYTHM BORDERLINE LEFT AXIS DEVIATION [QRS AXIS < -20] Compared to ECG 01/08/2024 11:41:06 No significant changes Electronically Signed On 06-01-2024 11:44:13 CDT by Jaden Singh M.D.
[2024-06-01] MEDS: SODIUM CHLORIDE 0.9% IV 1,000 ML 75 ML IV CONT ×2 (04:02→18:44)
--- NOTE | 2024-06-01 04:05 | PC.NURSE ---
this patient is moaning in pain. RN and provider aware. provider decided not to give more pain medication due to patients soft blood pressure. RN to reposition patient in the bed.
--- NOTE | 2024-06-01 04:16 | PC.NURSE ---
ice chips provided to patient. patient appears to be more comfortable after repositioning.
[2024-06-01 06:45] LABS: INR 1.3; Prothrombin Time 16.3 Seconds (11.1-14.7)
[2024-06-01 06:46] LABS: Partial Thromboplastin Time 36.6 Seconds (22.3-36.8)
[2024-06-01] MEDS: fentaNYL CITRATE INJ (*CRX) 100 MCG/2 ML VIAL 12.5 MCG IV PUSH ×3 (08:38→13:56)
[2024-06-01] MEDS: PIPERACILLIN/TAZ 2.25G/NS 50ML 2.25 GM/50 ML BAG IVPB ×3 (08:59→22:08)
--- NOTE | 2024-06-01 13:44 | P.CONGS_ITS ---
Assessment and Plan Assessment and plan (1) Acute appendicitis: Qualifiers: Acute appendicitis type: with localized peritonitis Appendicitis abscess presence: without abscess Appendicitis gangrene presence: without gangrene Appendicitis perforation presence: without perforation Qualified Code(s): K35.30 - Acute appendicitis with localized peritonitis, without perforation or gangrene Code(s): K35.80 - Unspecified acute appendicitis Status: Acute Assessment and Plan: CT scan reviewed and discussed with the patient and her daughter. There is evidence of acute appendicitis. No perforation or abscess evident on CT. We discussed both nonoperative and surgical treatment options. I also discussed the details of a laparoscopic appendectomy, possible open, under general anesthesia that would be done by Dr. Fuentes. Description of the procedure, risks, benefits, alternatives, and expected recovery were discussed. She agrees to proceed with surgery. Keep NPO and continue IV antibiotics, IV fluids, and analgesics as nee ded pre-operatively. She has been added to the surgery schedule for today. (2) COPD (chronic obstructive pulmonary disease): Qualifiers: COPD type: unspecified COPD Qualified Code(s): J44.9 - Chronic obstructive pulmonary disease, unspecified Code(s): J44.9 - Chronic obstructive pulmonary disease, unspecified Status: Acute (3) Renal insufficiency: Code(s): N28.9 - Disorder of kidney and ureter, unspecified Status: Chronic Assessment and Plan: Patient with CKD. In review of her labs it appears that her creatinine is at her baseline. (4) Hypertension: Qualifiers: Hypertension type: unspecified Qualified Code(s): I10 - Essential (primary) hypertension Code(s): I10 - Essential (primary) hypertension Status: Chronic Plan I have discussed the patient's case and plan of care with Dr. Fuentes. Thank you for allowing us to see the patient in consultation and we will continue to follow along with you. History of Present Illness Consult details Consult date: 06/01/24 Reason for consult: other (Acute appendicitis) Requesting physician: Eleanor Callahan PA-C Narrative: This is an 83-year-old woman with PMH of COPD, hypertension, hypothyroidism, and chronic kidney disease, who we have been asked to see in surgical consultation for acute appendicitis. She reportedly woke up yesterday with an ?upset stomach?. She did not feel like eating much. She denies nausea or vomiting. Throughout the day, she began to notice right lower quadrant abdominal pain. Her pain progressed through the afternoon and evening, and she decided to come into the ED last night for evaluation. [place] [address], platelets a 999320, lactic acid 1.1. She has chronic kidney disease with creatinine at baseline around 1.1-1.4 and creatinine was 1.2 on admission. UA negative for UTI. CT scan of the abdomen and pelvis showed acute appendicitis with no abscess or free air. Also incidentally seen is moderate hiatal hernia. Chest x-ray negative for any acute abnormality, but does show evidence of COPD/chronic mild interstitial lung disease. She was admitted to the hospitalist. She has been started on renally-dosed IV Zosyn. She is now seen with her daughter at the bedside in the ED. no previous abdominal surgeries. She appears comfortable, but is still complaining of right lower quadrant abdominal pain. Denies ever having this pain in the past. Review of Systems Review of Systems: All systems reviewed & are unremarkable except as noted in HPI and below PMFSH Past Medical History Medical History BPV (benign positional vertigo) Chronic GERD Depression Essential and other specified forms of tremor Hypertension Hypothyroidism Neuropathy Feet Obese Renal insufficiency Chronic TIA (transient ischemic attack) Surgical History Surgical History H/O elbow surgery History of bilateral knee arthroplasty History of orthopedic surgery Hx of dilation and curettage Family History Family History Sibling Congestive heart failure Sibling Congestive heart failure Sibling Lymphoma Daughter Myocardial infarction Mother Cerebrovascular accident Father Lupus Cerebrovascular accident Social History Social History Social History: The patient is . She has 2 sons and a daughter. She would like for her daughter to be the durable power finance attorney for healthcare. The patient desires to be a full code but does not want to exist in a vegetative state. 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 She occasionally has a wine cooler. Smoking status: Never smoker Second hand tobacco smoke exposure: Yes (family smokes in house when visiting) Alcohol intake: former Substance use: never Substance use type: does not use Do You Feel Safe in your Home?: Yes Lack of Transportation: No Lack of Food: Never True Current Housing: I Have Housing Concerned About Future Housing: No Difficulty Paying Gas/Electric Bills: No Difficulty Paying for Meds: No Currently Unemployed: No Education: High School Diploma/GED Difficulty w/ Childcare or Family Care: No Gender identity (if verbalized by the patient): Female Spiritual care concerns: No Meds Home Medications and Allergies Home Medications Medication Instructions Recorded Confirmed Type bupropion HCl 100 mg tablet 100 mg PO BID 10/24/20 06/01/24 History pregabalin 50 mg capsule 50 mg PO HS 10/24/20 06/01/24 History sertraline 50 mg tablet 100 mg PO DAILY 10/24/20 06/01/24 History pramipexole 0.125 mg tablet 0.125 mg PO HS 11/13/20 06/01/24 History aspirin 81 mg chewable tablet 81 mg PO DAILY 11/14/20 01/08/24 History levothyroxine 200 mcg tablet 200 mcg PO DAILY 01/08/24 06/01/24 History azithromycin 250 mg tablet 500 mg PO DAILY 1 day #1 tablet 01/11/24 Rx (Zithromax) ergocalciferol (vitamin D2) 1,250 1,250 mcg PO WEEKLY 06/01/24 06/01/24 History mcg (50,000 unit) capsule fluticasone propionate 50 50 mcg intranasal DAILY 06/01/24 06/01/24 History mcg/actuation nasal spray,suspension furosemide 40 mg tablet 40 mg PO DAILY 06/01/24 06/01/24 History meclizine 12.5 mg tablet 12.5 mg PO PRN PRN Dizziness Or 06/01/24 06/01/24 History Vertigo Allergies Allergy/AdvReac Type Severity Reaction Status Date / Time Sulfa (Sulfonamide Allergy Hives Verified 06/01/24 09:26 Antibiotics) codeine AdvReac Other Verified 06/01/24 09:26 Vital Signs Vital Signs - 24 hr 05/31/24 19:50 06/01/24 00:51 06/01/24 02:02 Temperature 98.0 F Pulse Rate 81 80 Respiratory Rate 20 15 Blood Pressure 144/66 H 120/56 L Pulse Oximetry 98 72 L 100 Oxygen Delivery Room Air Room Air Oxygen Flow Rate 06/01/24 02:51 06/01/24 03:45 06/01/24 04:03 Temperature 98.0 F Pulse Rate 82 76 77 Respiratory Rate 18 18 18 Blood Pressure 104/42 L 89/44 L 105/81 Pulse Oximetry 99 100 100 Oxygen Delivery Oxygen Flow Rate 06/01/24 07:09 06/01/24 08:40 06/01/24 08:24 Temperature Pulse Rate 75 71 74 Respiratory Rate 21 H 19 13 Blood Pressure 131/63 111/50 L 97/51 L Pulse Oximetry 100 100 100 Oxygen Delivery Oxygen Flow Rate 06/01/24 08:31 06/01/24 08:47 06/01/24 10:16 Temperature Pulse Rate 73 74 70 Respiratory Rate 15 18 19 Blood Pressure 111/50 L 102/46 L 105/50 L Pulse Oximetry 100 100 97 Oxygen Delivery Oxygen Flow Rate 06/01/24 11:38 06/01/24 11:34 Temperature 97.6 F Pulse Rate 69 Respiratory Rate 19 Blood Pressure 111/50 L Pulse Oximetry 96 93 Oxygen Delivery Nasal Cannula Oxygen Flow Rate 2 Exam Const: General: comfortable and no acute distress Nutritional Appearance: average body habitus Orientation/consciousness: patient oriented x3 HENMT: Head: normocephalic and atraumatic Ears: hearing grossly normal bilaterally Mouth: Yes moist mucous membranes Eyes: General: appearance normal, both eyes and all related structures Pupils: Equal, round and reactive pupils present Neck: Neck: normal visual inspection and full ROM Resp: Effort & Inspection: no respiratory distress Auscultation: clear to auscultation bilaterally Cardio: Rate: regular rate Rhythm: regular rhythm Heart sounds: S1 normal heart sound present and S2 normal heart sound present Peripheral pulses: Peripheral pulses 2+ throughout GI: Inspection: non-distended, no scars and no visible herniation GI Palp: Yes Soft to palpation, Yes Tenderness to palpation present (GI) (focal TTP in RLQ, pain in RLQ with palpation in LLQ), No Guarding due to palpation present (GI), Yes No hepatosplenomegaly present and No Rebound tenderness present Percussion: Yes normal to percussion Auscultation: normal bowel sounds Skin: General skin exam: normal color Neuro: General: moves all extremities and no focal motor deficits Speech: normal speech Motor exam (neuro): 5/5 motor strength present throughout Extrem: General: normal to inspection and no edema Psych: Mental Status: mental status grossly normal Attitude: cooperative Insight: Good insight present (Psych) Judgement: Good judgement present (Psych) Results Labs 05/31/24 23:28 05/31/24 23:28 Labs: Abnormal lab results 05/31/24 05/31/24 06/01/24 Range/Units 23:11 23:28 06:16 WBC 11.3 H (4.5-10.0) K/mm3 RBC 3.87 L (4.2-5.4) M/mm3 MCV 100.3 H (80-100) fl Plt Count 142 L (150-375) k/mm3 MPV 11.1 H (7.4-10.4) fl Neut % (Auto) 82.2 H (45.5-73.1) % Lymph % (Auto) 9.4 L (18.3-44.2) % [place] # (Auto) 0.9 H (0.1-0.6) K/mm3 Absolute Neuts (auto) 9.3 H (1.3-6.7) K/mm3 PT 15.0 H 16.3 H (11.1-14.7) Seconds BUN 30 H (7-17) mg/dL Creatinine 1.20 H (0.7-1.0) mg/dL Estimated GFR 43 L (59 - ) Alkaline Phosphatase 139 H (38-126) U/L Lipase 12 L (23-300) U/L Diabetes panel 05/31/24 Range/Units 23:28 Sodium 140 (137-145) mmol/L Potassium 4.1 (3.4-5.0) mmol/L Chloride 102 (98-107) mmol/L Carbon Dioxide 30 (22-30) mmol/L BUN 30 H (7-17) mg/dL Creatinine 1.20 H (0.7-1.0) mg/dL Glucose 96 (65-110) mg/dL Calcium 9.2 (8.4-10.2) mg/dL AST 18 (14-36) U/L ALT 16 (6-35) U/L Alkaline Phosphatase 139 H (38-126) U/L Total Protein 8.0 (6.3-8.2) g/dL Albumin 4.5 (3.5-5.1) g/dL Calcium panel 05/31/24 Range/Units 23:28 Calcium 9.2 (8.4-10.2) mg/dL Albumin 4.5 (3.5-5.1) g/dL Pituitary panel 05/31/24 Range/Units 23:28 Sodium 140 (137-145) mmol/L Potassium 4.1 (3.4-5.0) mmol/L Chloride 102 (98-107) mmol/L Carbon Dioxide 30 (22-30) mmol/L BUN 30 H (7-17) mg/dL Creatinine 1.20 H (0.7-1.0) mg/dL Glucose 96 (65-110) mg/dL Calcium 9.2 (8.4-10.2) mg/dL Adrenal panel 05/31/24 Range/Units 23:28 Sodium 140 (137-145) mmol/L Potassium 4.1 (3.4-5.0) mmol/L Chloride 102 (98-107) mmol/L Carbon Dioxide 30 (22-30) mmol/L BUN 30 H (7-17) mg/dL Creatinine 1.20 H (0.7-1.0) mg/dL Glucose 96 (65-110) mg/dL Calcium 9.2 (8.4-10.2) mg/dL Total Bilirubin 0.7 (0.2-1.3) mg/dL AST 18 (14-36) U/L ALT 16 (6-35) U/L Alkaline Phosphatase 139 H (38-126) U/L Total Protein 8.0 (6.3-8.2) g/dL Albumin 4.5 (3.5-5.1) g/dL All other labs normal. Imaging Additional studies: ITS Impressions Abdomen/Pelvis CT 06/01/24 05:39 Impression: Acute appendicitis, as detailed above. No abscess or free air. Moderate hiatal hernia. Chest X-Ray 06/01/24 05:55 Impression: No acute abnormality. COPD/chronic mild interstitial disease.
--- NOTE | 2024-06-01 15:24 | P.HP_ITS ---
H&P: HPI History of Present Illness Date/Time: 06/01/24 15:24 Chief Complaint: abd perez Narrative: 83 yo female with PMH of peripheral neuropathy, vertigo and hypertension presented to the ER on account of abdominal pain. Patient reports she was in her usual state of health until yesterday morning when she woke up with abdominal pain in right lower region described a sharp worsened to 10/10 the ventrally protruding had presented to ER for perforation care. Denies any vomiting, no diarrhea, no chest pain or shortness of breath, no loss of consciousness no focal weakness. No dysuria. ER evaluation notable for stable vital signs within normal limits, labs notable for WBC 11.3, creatinine 1.2, UA unremarkable. CT abdomen showed acute appendicitis. No abscess or free air noted. Chest x-ray unremarkable. General surgeon was consulted from the ER patient was scheduled for appendectomy today. Review of Systems Review of Systems: All other systems reviewed are negative except as noted in HPI above PMFSH Past Medical History Medical History BPV (benign positional vertigo) Chronic GERD Depression Essential and other specified forms of tremor Hypertension Hypothyroidism Neuropathy Feet Obese Renal insufficiency Chronic TIA (transient ischemic attack) Surgical History Surgical History H/O elbow surgery History of bilateral knee arthroplasty History of orthopedic surgery Hx of dilation and curettage Family History Family History Sibling Congestive heart failure Sibling Congestive heart failure Sibling Lymphoma Daughter Myocardial infarction Mother Cerebrovascular accident Father Lupus Cerebrovascular accident Social History Social History Social History: The patient is . She has 2 sons and a daughter. She would like for her daughter to be the durable power commercial real estate attorney for healthcare. The patient desires to be a full code but does not want to exist in a vegetative state. The patient is retired from [employer] as a cook. Lifelong nonsmoker. She occasionally has a wine cooler. Smoking status: Never smoker Second hand tobacco smoke exposure: Yes (family smokes in house when visiting) Alcohol intake: former Substance use: never Substance use type: does not use Do You Feel Safe in your Home?: Yes Lack of Transportation: No Lack of Food: Never True Current Housing: I Have Housing Concerned About Future Housing: No Difficulty Paying Gas/Electric Bills: No Difficulty Paying for Meds: No Currently Unemployed: No Education: High School Diploma/GED Difficulty w/ Childcare or Family Care: No Gender identity (if verbalized by the patient): Female Spiritual care concerns: No Meds Home Medications and Allergies Home Medications Medication Instructions Recorded Confirmed Type bupropion HCl 100 mg tablet 100 mg PO BID 10/24/20 06/01/24 History pregabalin 50 mg capsule 50 mg PO HS 10/24/20 06/01/24 History sertraline 50 mg tablet 100 mg PO DAILY 10/24/20 06/01/24 History pramipexole 0.125 mg tablet 0.125 mg PO HS 11/13/20 06/01/24 History aspirin 81 mg chewable tablet 81 mg PO DAILY 11/14/20 01/08/24 History levothyroxine 200 mcg tablet 200 mcg PO DAILY 01/08/24 06/01/24 History azithromycin 250 mg tablet 500 mg PO DAILY 1 day #1 tablet 01/11/24 Rx (Zithromax) ergocalciferol (vitamin D2) 1,250 1,250 mcg PO WEEKLY 06/01/24 06/01/24 History mcg (50,000 unit) capsule fluticasone propionate 50 50 mcg intranasal DAILY 06/01/24 06/01/24 History mcg/actuation nasal spray,suspension furosemide 40 mg tablet 40 mg PO DAILY 06/01/24 06/01/24 History meclizine 12.5 mg tablet 12.5 mg PO PRN PRN Dizziness Or 06/01/24 06/01/24 History Vertigo Allergies Allergy/AdvReac Type Severity Reaction Status Date / Time Sulfa (Sulfonamide Allergy Hives Verified 06/01/24 09:26 Antibiotics) codeine AdvReac Other Verified 06/01/24 09:26 Vital Signs Vital Signs - 24 hr 05/31/24 19:50 06/01/24 00:51 06/01/24 02:02 Temperature 98.0 F Pulse Rate 81 80 Respiratory Rate 20 15 Blood Pressure 144/66 H 120/56 L Pulse Oximetry 98 72 L 100 Oxygen Delivery Room Air Room Air Oxygen Flow Rate 06/01/24 02:51 06/01/24 03:45 06/01/24 04:03 Temperature 98.0 F Pulse Rate 82 76 77 Respiratory Rate 18 18 18 Blood Pressure 104/42 L 89/44 L 105/81 Pulse Oximetry 99 100 100 Oxygen Delivery Oxygen Flow Rate 06/01/24 07:09 06/01/24 08:40 06/01/24 08:24 Temperature Pulse Rate 75 71 74 Respiratory Rate 21 H 19 13 Blood Pressure 131/63 111/50 L 97/51 L Pulse Oximetry 100 100 100 Oxygen Delivery Oxygen Flow Rate 06/01/24 08:31 06/01/24 08:47 06/01/24 10:16 Temperature Pulse Rate 73 74 70 Respiratory Rate 15 18 19 Blood Pressure 111/50 L 102/46 L 105/50 L Pulse Oximetry 100 100 97 Oxygen Delivery Oxygen Flow Rate 06/01/24 11:38 06/01/24 11:34 06/01/24 11:46 Temperature 97.6 F Pulse Rate 69 72 Respiratory Rate 19 16 Blood Pressure 111/50 L 118/50 L Pulse Oximetry 96 93 96 Oxygen Delivery Nasal Cannula Oxygen Flow Rate 2 06/01/24 12:31 06/01/24 13:16 06/01/24 14:30 Temperature 98.4 F Pulse Rate 75 74 73 Respiratory Rate 10 L 16 14 Blood Pressure 95/64 L 98/40 L 120/61 Pulse Oximetry 94 99 Oxygen Delivery Room Air Oxygen Flow Rate Exam Narrative: General: alert and comfortable Eyes: EOMI, PERRLA ENNT External ears normal, Neck is supple, no masses, Respiratory systems: Clear to auscultation Cardiovascular S1, S2, normal rhythm, no murmur, rub, or gallop; no thrill or palpable murmurs on palpation. Gastrointestinal: soft, right lower quadrant tenderness., and non-distended abdomen with no masses; BS present Skin: no rash, lesions, ulcerations, subcutaneous nodules or induration Musculoskeletal: no abnormality and no tenderness, normal ROM Neurologic: Alert and oriented x3, non focal Mental Status Exam: normal affect H&P: Results Labs Labs: Short CBC 05/31/24 Range/Units 23:28 WBC 11.3 H (4.5-10.0) K/mm3 Hgb 12.6 (12.0-15.0) g/dL Hct 38.8 (37.0-47.0) % Plt Count 142 L (150-375) k/mm3 BMP 05/31/24 23:28 Sodium 140 Potassium 4.1 Chloride 102 Carbon Dioxide 30 BUN 30 H Creatinine 1.20 H Glucose 96 Calcium 9.2 Liver Function 05/31/24 Range/Units 23:28 Total Bilirubin 0.7 (0.2-1.3) mg/dL AST 18 (14-36) U/L ALT 16 (6-35) U/L Alkaline Phosphatase 139 H (38-126) U/L Albumin 4.5 (3.5-5.1) g/dL Urine 05/31/24 Range/Units 23:28 Urine Color Yellow (Yellow) Urine Appearance Clear (Clear) Urine pH 6.5 (5.0-9.0) Ur Specific [place] 1.008 (1.001-1.035) Urine Protein Negative (Negative) mg/dL Urine Glucose (UA) Negative (Negative) mg/dL Assessment and Plan Assessment and plan (1) Acute appendicitis: Qualifiers: Acute appendicitis type: with localized peritonitis Appendicitis abscess presence: without abscess Appendicitis gangrene presence: without gangrene Appendicitis perforation presence: without perforation Qualified Code(s): K35.30 - Acute appendicitis with localized peritonitis, without perforation or gangrene Code(s): K35.80 - Unspecified acute appendicitis Status: Acute Plan Acute appendicitis Patient presented without acute abdominal pain CT scan showed acute appendicitis Blood cultures, antibiotics For surgery today. NPO pending surgery. Hypertension Hold medications until 2019 clinical course. Next Vertigo Continue home medications plus clindamycin 100. Neuropathy Restart medications once cleared by surgery. Next DVT prophylaxis subQ Lovenox. Patient is a DNR, surrogate decisionmaker is her daughter Winnie Carey [facility] Advance Care Plan I have confirmed that the patient's Advanced Care Plan is present, code status is documented, or surrogate decision maker is listed in patient medical record.: Yes Medication Reconciliation I have utilized all available resources to obtain, update and review the patients current medications (includes all prescriptions, OTC, herbals, cannabis, and nutritional supplements).: Yes
--- NOTE | 2024-06-01 15:25 | P.PNAN_ITS ---
Anes - Initial Pre Proc Eval Procedure: Operation Date: 06/01/24 15:30 Proposed Procedures p Laparoscopic Appendectomy - Dex Fuentes MD Date/Time: 06/01/24 15:25 Surgeon: Yoselyn Saxena DO Pre Op Diagnosis: Acute Appendicitis Patient Data Age: 83 Gender: F Height: 1.57 m Weight: 72.5 kg Last Vital Signs Temp 36.9 C 06/01/24 14:30 Pulse 73 06/01/24 14:30 Resp 14 06/01/24 14:30 BP 120/61 06/01/24 14:30 Pulse Ox 99 06/01/24 14:30 O2 Del Method Room Air 06/01/24 14:30 O2 Flow Rate 2 06/01/24 11:38 Allergies Allergy/AdvReac Type Severity Reaction Status Date / Time Sulfa (Sulfonamide Allergy Hives Verified 06/01/24 09:26 Antibiotics) codeine AdvReac Other Verified 06/01/24 09:26 Home Medications Medication Instructions Recorded Confirmed Type bupropion HCl 100 mg tablet 100 mg PO BID 10/24/20 06/01/24 History pregabalin 50 mg capsule 50 mg PO HS 10/24/20 06/01/24 History sertraline 50 mg tablet 100 mg PO DAILY 10/24/20 06/01/24 History pramipexole 0.125 mg tablet 0.125 mg PO HS 11/13/20 06/01/24 History aspirin 81 mg chewable tablet 81 mg PO DAILY 11/14/20 01/08/24 History levothyroxine 200 mcg tablet 200 mcg PO DAILY 01/08/24 06/01/24 History azithromycin 250 mg tablet 500 mg PO DAILY 1 day #1 tablet 01/11/24 Rx (Zithromax) ergocalciferol (vitamin D2) 1,250 1,250 mcg PO WEEKLY 06/01/24 06/01/24 History mcg (50,000 unit) capsule fluticasone propionate 50 50 mcg intranasal DAILY 06/01/24 06/01/24 History mcg/actuation nasal spray,suspension furosemide 40 mg tablet 40 mg PO DAILY 06/01/24 06/01/24 History meclizine 12.5 mg tablet 12.5 mg PO PRN PRN Dizziness Or 06/01/24 06/01/24 History Vertigo Laboratory Tests 1005/31/24 06/01/24 23:11 23:28 00:20 WBC 11.3 H K/mm3 (4.5-10.0) RBC 3.87 L M/mm3 (4.2-5.4) Hgb 12.6 g/dL (12.0-15.0) Hct 38.8 % (37.0-47.0) MCV 100.3 H fl (80-100) MCH 32.6 pg (26-34) MCHC 32.5 g/dl (32-36) RDW 14.4 % (11.5-14.5) Plt Count 142 L k/mm3 (150-375) MPV 11.1 H fl (7.4-10.4) Immature Gran % (Auto) 0.3 % (0-0.5) Neut % (Auto) 82.2 H % (45.5-73.1) Lymph % (Auto) 9.4 L % (18.3-44.2) [place] % (Auto) 7.8 % (2.6-8.5) Eos % (Auto) 0.1 % (0-4.4) Baso % (Auto) 0.2 % (0.2-1.2) Lymph # (Auto) 1.06 K/mm3 (0.9-3.2) [place] # (Auto) 0.9 H K/mm3 (0.1-0.6) Eos # (Auto) 0.0 K/mm3 (0-0.3) Baso # (Auto) 0.0 K/mm3 (0.0-0.1) Abs Immat Gran (auto) 0.03 K/mm3 (0.00-0.031) Absolute Neuts (auto) 9.3 H K/mm3 (1.3-6.7) Absolute Nucleated RBC 0.000 K/mm3 (0.0-0.012) Nucleated RBC % 0.0 % (0.0-0.2) PT 15.0 H Seconds (11.1-14.7) INR 1.1 APTT 30.2 Seconds (22.3-36.8) Sodium 140 mmol/L (137-145) Potassium 4.1 mmol/L (3.4-5.0) Chloride 102 mmol/L (98-107) Carbon Dioxide 30 mmol/L (22-30) Anion Gap 8 mmol/L (4-12) BUN 30 H mg/dL (7-17) Creatinine 1.20 H mg/dL (0.7-1.0) Estim Creat Clear Calc 30 ml/min Estimated GFR 43 L (59 - ) Glucose 96 mg/dL (65-110) Lactic Acid 1.1 mmol/L (0.7-2.0) Calcium 9.2 mg/dL (8.4-10.2) Total Bilirubin 0.7 mg/dL (0.2-1.3) AST 18 U/L (14-36) ALT 16 U/L (6-35) Alkaline Phosphatase 139 H U/L (38-126) Total Protein 8.0 g/dL (6.3-8.2) Albumin 4.5 g/dL (3.5-5.1) Lipase 12 L U/L (23-300) Urine Color Yellow (Yellow) Urine Appearance Clear (Clear) Urine pH 6.5 (5.0-9.0) Ur Specific [place] 1.008 (1.001-1.035) Urine Protein Negative mg/dL (Negative) Urine Glucose (UA) Negative mg/dL (Negative) Urine Ketones Negative mg/dL (Negative) Ur Blood (Man) Negative (Negative) Urine Nitrate Negative (Negative) Urine Bilirubin Negative (Negative) Urine Urobilinogen 0.2 mg/dL (<2.0) Leukocyte Esterase Rfl Negative WILLIAM/UL (Negative) Blood Type Antibody Screen 06/01/24 06:16 WBC RBC Hgb Hct MCV MCH MCHC RDW Plt Count MPV Immature Gran % (Auto) Neut % (Auto) Lymph % (Auto) [place] % (Auto) Eos % (Auto) Baso % (Auto) Lymph # (Auto) [place] # (Auto) Eos # (Auto) Baso # (Auto) Abs Immat Gran (auto) Absolute Neuts (auto) Absolute Nucleated RBC Nucleated RBC % PT 16.3 H Seconds (11.1-14.7) INR 1.3 APTT 36.6 Seconds (22.3-36.8) Sodium Potassium Chloride Carbon Dioxide Anion Gap BUN Creatinine Estim Creat Clear Calc Estimated GFR Glucose Lactic Acid Calcium Total Bilirubin AST ALT Alkaline Phosphatase Total Protein Albumin Lipase Urine Color Urine Appearance Urine pH Ur Specific [place] Urine Protein Urine Glucose (UA) Urine Ketones Ur Blood (Man) Urine Nitrate Urine Bilirubin Urine Urobilinogen Leukocyte Esterase Rfl Blood Type O Positive Antibody Screen Negative Patient hx anesthesia problems: none Family hx anesthesia problems: none Results Review: All pre-operative results and documents have been reviewed as part of the pre- operative evaluation. [facility] Past Medical History Medical History BPV (benign positional vertigo) Chronic GERD Depression Essential and other specified forms of tremor Hypertension Hypothyroidism Neuropathy Feet Obese Renal insufficiency Chronic TIA (transient ischemic attack) Surgical History Surgical History H/O elbow surgery History of bilateral knee arthroplasty History of orthopedic surgery Hx of dilation and curettage Family History Family History Sibling Congestive heart failure Sibling Congestive heart failure Sibling Lymphoma Daughter Myocardial infarction Mother Cerebrovascular accident Father Lupus Cerebrovascular accident Social History Social History Social History: The patient is . She has 2 sons and a daughter. She would like for her daughter to be the durable power solutions development analyst for healthcare. The patient desires to be a full code but does not want to exist in a vegetative state. 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 She occasionally has a wine cooler. Smoking status: Never smoker Second hand tobacco smoke exposure: Yes (family smokes in house when visiting) Alcohol intake: former Substance use: never Substance use type: does not use Do You Feel Safe in your Home?: Yes Lack of Transportation: No Lack of Food: Never True Current Housing: I Have Housing Concerned About Future Housing: No Difficulty Paying Gas/Electric Bills: No Difficulty Paying for Meds: No Currently Unemployed: No Education: High School Diploma/GED Difficulty w/ Childcare or Family Care: No Gender identity (if verbalized by the patient): Female Spiritual care concerns: No Anes - Eval Final PreProcedure Day of Procedure 06/01/24 15:25 Patient weight: overweight Heart: regular rate and rhythm Lungs: decreased breath sounds Airway: Mallampati scale class III Neurological: other (alert) Last oral intake: >/= 8 hours ASA classification: IV Emergent: no Anesthetic plan: proceed Anesthesia type and monitoring: general ETT and standard monitoring Results Review: All pre-operative results and documents have been reviewed as part of the pre- operative evaluation. Informed Consent: The patient's anesthetic plan and its attendant risks and benefits were discussed with the patient/family/POA. Questions were solicited and answers provided to the satisfaction of the patient/family/POA.
--- NOTE | 2024-06-01 15:27 | WPDHPUPDATE1 ---
History and Physical Update Update Date/Time: 06/01/24 15:27 History and Physical has been reviewed, including an updated exam of the patient. There are NO changes in the patient's condition. Risks, benefits, and alternatives have been discussed and questions answered. Patient agrees to proceed with procedure.
[2024-06-01] MEDS: LIDO 1%/EPINEPHRINE 1:100,000 50 ML VIAL 30 ML INFILTRATE (16:12)
[2024-06-01] MEDS: LACTATED RINGERS 1,000 ML 30 ML IV CONT (16:29)
--- NOTE | 2024-06-01 16:41 | W.PM.PROC2 ---
Procedure Note - Detailed Date of Procedure 06/01/24 Pre-op Diagnosis Acute Appendicitis Post-op Diagnosis Same Procedure Performed Laparoscopic appendectomy Surgeon Dex Fuentes MD Anesthesia General Indications Patient is a 83-year-old female who presented to the emergency room with lower abdominal pain mostly situated the right side. An elevated white blood cell count and a CT scan abdomen pelvis showed a dilated inflamed appendix without perforation or periappendiceal abscess. She presents now for an urgent laparoscopic appendectomy. Findings The appendix was located the right lower quadrant. It was adherent to the lateral abdominal wall on the right side. There is 7 purulent exudate around the appendix but no perforation or gangrene of the appendix. Description of Procedure After informed consent was obtained patient was brought to the operating room she was placed supine position and general endotracheal anesthesia was administered. Robertson catheter was already in place. A time-out was then performed and the patient's name was verified and the procedure to be performed. She was already on scheduled IV antibiotics. I then entered the abdomen left upper quadrant utilizing a 5mm Optiview port. Once inside the abdomen insufflated to adequate pneumoperitoneum of 15mmHg of CO2. The patient was then placed in the head-down Trendelenburg position rotating to the patient's left side. This allowed the bowel to fall away from the right lower quadrant the abdomen. I then placed a suprapubic 5mm trocar port and a 5mm right lower quadrant trocar port and a 12mm periumbilical trocar port all under direct visualization. Working through these ports I was able to bluntly with the tip of the irrigation device separate the cecum from the lateral abdominal wall and peritoneum. This exposed the appendix which was acutely inflamed all the way down to the base but the base was viable there is no gangrene. I was then able to hold the appendix up in the make a defect through the mesoappendix utilizing a [place] dissected. I then used a 45mm Endo-JERI stapler to divide the appendix flush with the cecum. A vascular reload to the Endo-JERI stapler was then used to divide the mesoappendix. The appendix was then placed into an Endo-Catch bag and brought out through the periumbilical trocar port site. It was sent off the table to pathology for examination. I then irrigated out the right lower quadrant the abdomen. Both staple lines were intact without evidence of any bleeding. I then irrigated out and aspirated fluid from the pelvis. I then proceeded to remove all the trocar ports under visualization all port sites appeared hemostatic. I then allowed the abdomen decompressed. I irrigated out the port sites sterile saline solution hemostasis was good. The 12mm periumbilical trocar port fascial defect was then closed utilizing 0 Vicryl suture placed figure-eight fashion. Incisions then closed at the skin level utilizing a running subcuticular 4 Monocryl suture. The incisions were then cleaned the skin glue sterile dressings were applied. The patient tolerated the procedure well no complications. All sponges, needles, and instrument counts were correct at the end procedure. EBL was _20__cc. The patient was awakened and taken to recovery in stable and satisfactory condition. Implants None Estimated Blood Loss 20 Urine Output 500 Drains No Packing No Pathology Yes (Appendix to pathology) Complications No immediate complications Condition Stable Disposition PACU [facility] Billing Surgery - Charge Forward: Surgery Billing
--- NOTE | 2024-06-01 16:41 | SUR.PHASEI ---
PER ANESTHESIOLOGIST, DR PEREZ, PATIENT HAS FACIAL DROOP AT BASELINE.
--- NOTE | 2024-06-01 17:30 | ADMGEN ---
This patient, Tanesha Dubon, was admitted to [facility] Surg Room 332-02. Patient/family oriented to hospital policies and general routines including ID bracelet, bed and alarms, visiting hours, pain management, procedures, bathroom and other care routines, personal items, smoking policy, room service/diet, and visiting hours. Information on how to activate the Rapid Response Team has been discussed. Patient/Family are encouraged to report perceived risks to care and to ask questions if they do not understand what they are told or what they should do.
[2024-06-01] MEDS: HYDROcodone/acetaminophen (*CRX) 5-325 MG TABLET 1 TAB PO (22:42)
[2024-06-02] VITALS (14 sets, daily range): BP systolic 101–112; BP diastolic 43–56; PULSE 74–93; RESP 18–20; TEMP 36.5–37; O2SAT 95–96
[2024-06-02] MEDS: PIPERACILLIN/TAZ 2.25G/NS 50ML 2.25 GM/50 ML BAG IVPB ×4 (03:00→21:00)
[2024-06-02 06:43] LABS: Basophils Percent Auto 0.3 % (0.2-1.2); Eosinophils Percent Auto 0.1 % (0-4.4); Hemoglobin 9.8 g/dL (12.0-15.0); Immature Granulocyte Absolute 0.05 K/mm3 (0.00-0.031); Immature Granulocyte Percent A 0.5 % (0-0.5); Immature Platelet Fraction Pct 5.9 % (0.9-11.2); Lymphocytes Absolute Auto 1.31 K/mm3 (0.9-3.2); Lymphocytes Percent Auto 13.2 % (18.3-44.2); Mean Corpuscular HGB Conc 30.6 g/dl (32-36); Mean Corpuscular Hemoglobin 31.9 pg (26-34); Mean Corpuscular Volume 104.2 fl (80-100); Mean Platelet Volume 11.7 fl (7.4-10.4); Monocytes Absolute Auto 0.9 K/mm3 (0.1-0.6); Monocytes Percent Auto 8.9 % (2.6-8.5); Neutrophils Absolute Auto 7.6 K/mm3 (1.3-6.7); Platelet Count Result 124 k/mm3 (150-375); Red Blood Count 3.07 M/mm3 (4.2-5.4); Red Cell Distribution Width 14.3 % (11.5-14.5); White Blood Count 9.9 K/mm3 (4.5-10.0)
[2024-06-02 06:57] LABS: Alanine Aminotransferase 21 U/L (6-35); Albumin Level 2.9 g/dL (3.5-5.1); Alkaline Phosphatase 92 U/L (38-126); Anion Gap 6 mmol/L (4-12); Aspartate Amino Transferase 29 U/L (14-36); Bilirubin,Total 1.2 mg/dL (0.2-1.3); Blood Urea Nitrogen 27 mg/dL (7-17); Calcium 8.1 mg/dL (8.4-10.2); Carbon Dioxide 25 mmol/L (22-30); Chloride 103 mmol/L (98-107); Estimated CRCL calculation 26 ml/min; Estimated Glomerular Filt Rate 36; Glucose 91 mg/dL (65-110); Potassium 3.6 mmol/L (3.4-5.0); Sodium 134 mmol/L (137-145)
[2024-06-02] MEDS: SODIUM CHLORIDE 0.9% IV 1,000 ML 75 ML IV CONT (07:59)
[2024-06-02] MEDS: ENOXAPARIN 40 MG/0.4 ML SYRINGE SUB-Q (09:27)
[2024-06-02 11:13] LABS: Folic Acid 8.7 ng/mL (2.76->20); Vitamin B12 > 1000.0 pg/mL (239-931)
--- NOTE | 2024-06-02 11:25 | WPDPN ---
Progress Note: A&P Assessment and Plan (1) Acute appendicitis: Qualifiers: Acute appendicitis type: with localized peritonitis Appendicitis abscess presence: without abscess Appendicitis gangrene presence: without gangrene Appendicitis perforation presence: without perforation Qualified Code(s): K35.30 - Acute appendicitis with localized peritonitis, without perforation or gangrene Code(s): K35.80 - Unspecified acute appendicitis Status: Acute Assessment and Plan: Postop day 1 after laparoscopic appendectomy. She is doing well. Oxygen has been weaned off and she is advanced into a heart healthy diet. From a surgical standpoint she is doing okay later today and up at least to a chair and is doing well then she can be discharged home standpoint. Follow-up see Dr. Fuentes in the office in 2 weeks. Subjective Date/time seen: 06/02/24 11:25 Interval history: Patient is doing well today. She is postop day 1 after laparoscopic appendectomy for acute appendicitis which was not perforated. White blood cell count is down to normal today. She states her right lower quadrant pain has resolved. She tolerated full liquids and is now advancing to heart healthy diet. Exam GI: Other: Abdomen is soft and nondistended. Expected minor tenderness around the port site incisions. There is no redness or drainage. No ecchymosis. Objective Data Vital Signs Vital Signs: Vital Signs - 24 hr 06/01/24 11:38 06/01/24 11:34 06/01/24 11:46 Temperature 36.4 C Pulse Rate 69 72 Respiratory Rate 19 16 Blood Pressure 111/50 L 118/50 L Pulse Oximetry 96 93 96 Oxygen Delivery Nasal Cannula Oxygen Flow Rate 2 06/01/24 12:31 06/01/24 13:16 06/01/24 14:30 Temperature 36.9 C Pulse Rate 75 74 73 Respiratory Rate 10 L 16 14 Blood Pressure 95/64 L 98/40 L 120/61 Pulse Oximetry 94 99 Oxygen Delivery Room Air Oxygen Flow Rate 06/01/24 16:29 06/01/24 16:40 06/01/24 16:55 Temperature 36.4 C Pulse Rate 70 63 63 Respiratory Rate 16 12 15 Blood Pressure 120/53 L 126/51 L 119/69 Pulse Oximetry 100 100 95 Oxygen Delivery Simple Face Mask Room Air Room Air Oxygen Flow Rate 8 06/01/24 17:10 06/01/24 17:19 06/01/24 17:30 Temperature 36.4 C Pulse Rate 63 63 Respiratory Rate 12 16 16 Blood Pressure 111/53 L 112/56 L Pulse Oximetry 95 93 93 Oxygen Delivery Room Air Room Air Room Air Oxygen Flow Rate 06/01/24 18:26 06/01/24 14:38 06/01/24 21:41 Temperature 36.3 C L 37.0 C Pulse Rate 67 63 70 Respiratory Rate 16 20 Blood Pressure 108/46 L 103/43 L Pulse Oximetry 91 91 Oxygen Delivery Oxygen Flow Rate 06/01/24 20:00 06/02/24 00:30 06/02/24 05:49 Temperature 36.8 C Pulse Rate 70 78 Respiratory Rate 20 20 Blood Pressure 101/43 L Pulse Oximetry 91 95 95 Oxygen Delivery Room Air Nasal Cannula Oxygen Flow Rate 2 06/01/24 20:00 06/02/24 00:00 06/02/24 04:00 Temperature Pulse Rate 67 84 93 Respiratory Rate Blood Pressure Pulse Oximetry Oxygen Delivery Oxygen Flow Rate Intake/Output Intake/Output: Intake & Output 05/30/24 05/31/24 06/01/24 06/02/24 23:59 23:59 23:59 23:59 Intake Total 3800 2533.8 Output Total 500 800 400 Balance -500 3000 2133.8 Meds/Results Medications: Active Medications Generic Name Dose Route Start Last Admin Trade Name Freq PRN Reason Stop Dose Admin Acetaminophen 1,000 mg 06/01/24 16:37 Acetaminophen 500 Mg Tablet PO Q6H PRN Mild Pain (1-3) or Fever Hydrocodone Bitart/Acetaminophen 1 tab 06/01/24 16:37 06/01/24 22:42 Hydrocodone/Acetaminophen (*Crx) 5-325 Mg Tablet PO 1 tab Q4H PRN Administration Pain Rated 4-6 Dextrose 12.5 gm 06/01/24 02:46 Dextrose 50% 25 Gm/50 Ml Syringe IV PUSH PRN PRN Hypoglycemia Protocol Enoxaparin Sodium 40 mg 06/02/24 09:00 06/02/24 09:27 Enoxaparin 40 Mg/0.4 Ml Syringe SUB-Q 40 mg DAILY AISHA Administration Glucagon 1 mg 06/01/24 02:46 Glucagon For Inj 1 Mg Vial IM PRN PRN Hypoglycemia Protocol Glucose 15 gm 06/01/24 02:46 Glucose Oral Gel 15 Gm Of Glucse In 37.5 Gm Tube PO PRN PRN Hypoglycemia Protocol Piperacillin Sod/Tazobactam Sod 2.25 gm in 50 mls @ 100 mls/hr 06/01/24 08:00 06/02/24 09:27 Zosyn 2.25 Gm/Ns 50 Ml IVPB 100 mls/hr Q6H AISHA Administration Sodium Chloride 1,000 mls @ 75 mls/hr 06/01/24 02:50 06/02/24 07:59 Normal Saline Iv IV CONT 75 mls/hr .[id number] AISHA Administration Dextrose 1,000 mls @ 100 mls/hr 06/01/24 02:46 Dextrose 5% 1,000 Ml IVPB PRN PRN Hypoglycemia Protocol Morphine Sulfate 4 mg 06/01/24 16:37 Morphine Sulfate (*Crx) 4 Mg/Ml Inj IV PUSH Q4H PRN Pain Rated 7-10 Ondansetron HCl 4 mg 06/01/24 02:44 06/01/24 12:40 Ondansetron Inj 4 Mg/2 Ml Vial IV PUSH 4 mg Q4H PRN Administration Nausea Oxycodone HCl 5 mg 06/01/24 16:37 Oxycodone Hcl (*Crx) 5 Mg Tab Ir PO Q6H PRN Pain Rated 7-10 Wound Care/Dressing Products 1 patch 06/02/24 09:00 Hydrocolloid Dressing (Aquacel) Patch TOPICAL DAILY [facility] Radiology Results: ITS Impressions Abdomen/Pelvis CT 06/01/24 05:39 Impression: Acute appendicitis, as detailed above. No abscess or free air. Moderate hiatal hernia. Chest X-Ray 06/01/24 05:55 Impression: No acute abnormality. COPD/chronic mild interstitial disease. Labs Labs: Laboratory Results - last 24 hr 06/02/24 05:56 WBC 9.9 RBC 3.07 L Hgb 9.8 L Hct 32.0 L MCV 104.2 H MCH 31.9 MCHC 30.6 L RDW 14.3 Plt Count 124 L MPV 11.7 H Immature Gran % (Auto) 0.5 Neut % (Auto) 77.0 H Lymph % (Auto) 13.2 L [place] % (Auto) 8.9 H Eos % (Auto) 0.1 Baso % (Auto) 0.3 Lymph # (Auto) 1.31 [place] # (Auto) 0.9 H Eos # (Auto) 0.0 Baso # (Auto) 0.0 Abs Immat Gran (auto) 0.05 H Absolute Neuts (auto) 7.6 H Absolute Nucleated RBC 0.000 Nucleated RBC % 0.0 % Immature Plt Fraction 5.9 Sodium 134 L Potassium 3.6 Chloride 103 Carbon Dioxide 25 Anion Gap 6 BUN 27 H Creatinine 1.40 H Estim Creat Clear Calc 26 Estimated GFR 36 L Glucose 91 Calcium 8.1 L Magnesium 2.0 Total Bilirubin 1.2 AST 29 ALT 21 Alkaline Phosphatase 92 Total Protein 6.0 L Albumin 2.9 L Vitamin B12 > 1000.0 H Folate 8.7
[2024-06-02 12:33] LABS: Alveolar/Arterial O2 Gradient 80.4 mmHg; Base Excess ABG -4.6 mEq/l (+/-2.0); Fractional Inspired Oxygen 28 %; HCO3 ABG 20.8 mEq/l (22.0-26.0); Oxygen Content ABG 14.7 %vol (16.0-22.0); Oxygen Saturation ABG 93.7 % (95.0-100.0); PCO2 ABG 39.7 mmHg (35.0-45.0); PO2 ABG 72.4 mmHg (80.0-100.0); PO2 FiO2 Ratio Arterial Blood 2.59 %; Total Hemoglobin 11.2 g/dL (12.0-18.0); pH ABG 7.337 (7.350-7.450)
[2024-06-02 12:34] LABS: Device NASAL CANNULA; Modified Allen's Test Pass; Site Drawn RIGHT RADIAL
--- NOTE | 2024-06-02 13:34 | WPDANESPN ---
Anes - Prog Note Post-Op Date/Time: 06/02/24 13:34 Cardiovascular status: normal Respiratory status: normal Airway patency: baseline Mental status: baseline Post-Op hydration status: normal Vital Signs: Last Vital Signs Temp 36.8 C 06/02/24 05:49 Pulse 78 06/02/24 05:49 Resp 20 06/02/24 05:49 BP 101/43 L 06/02/24 05:49 Pulse Ox 95 06/02/24 05:49 O2 Del Method Nasal Cannula 06/02/24 00:30 O2 Flow Rate 2 06/02/24 00:30 Pain Score (VAS): 1 I/O: Intake & Output 06/01/24 06/02/24 06/02/24 23:59 07:59 15:59 Intake Total 1650 2413.8 120 Output Total 800 400 Balance 850 2013.8 120 Laboratory Tests 06/02/24 05:56 06/02/24 05:56 06/02/24 06/02/24 05:56 12:29 WBC 9.9 RBC 3.07 L Hgb 9.8 L Hct 32.0 L MCV 104.2 H MCH 31.9 MCHC 30.6 L RDW 14.3 Plt Count 124 L MPV 11.7 H Immature Gran % (Auto) 0.5 Neut % (Auto) 77.0 H Lymph % (Auto) 13.2 L [place] % (Auto) 8.9 H Eos % (Auto) 0.1 Baso % (Auto) 0.3 Lymph # (Auto) 1.31 [place] # (Auto) 0.9 H Eos # (Auto) 0.0 Baso # (Auto) 0.0 Abs Immat Gran (auto) 0.05 H Absolute Neuts (auto) 7.6 H Absolute Nucleated RBC 0.000 Nucleated RBC % 0.0 % Immature Plt Fraction 5.9 Puncture Site Right radial ABG pH 7.337 L ABG pCO2 39.7 ABG pO2 72.4 L ABG PO2/FiO2 Ratio 2.59 ABG HCO3 20.8 L ABG O2 Saturation 93.7 L ABG O2 Content 14.7 L ABG Base Excess -4.6 A-a Gradient 80.4 Oxyhemoglobin 93.0 Total Hemoglobin 11.2 L O2 Delivery Device Nasal cannula O2 Liters/Min 2.0 FiO2 28 Sodium 134 L Potassium 3.6 Chloride 103 Carbon Dioxide 25 Anion Gap 6 BUN 27 H Creatinine 1.40 H Estim Creat Clear Calc 26 Estimated GFR 36 L Glucose 91 Calcium 8.1 L Magnesium 2.0 Total Bilirubin 1.2 AST 29 ALT 21 Alkaline Phosphatase 92 Total Protein 6.0 L Albumin 2.9 L Vitamin B12 > 1000.0 H Folate 8.7 Post-procedural complaints: none Patient Feedback: Patient satisfied with anesthetic care.
[2024-06-02] MEDS: IPRATROPIUM 0.5 MG/ALBUTEROL SULFATE 2.5 MG AMPUL.NEB 3 ML INHALATION ×2 (15:27→20:14)
--- NOTE | 2024-06-02 16:54 | P.PNIM_ITS ---
Progress Note: A&P Assessment and Plan (1) Acute appendicitis: Qualifiers: Acute appendicitis type: with localized peritonitis Appendicitis abscess presence: without abscess Appendicitis gangrene presence: without gangrene Appendicitis perforation presence: without perforation Qualified Code(s): K35.30 - Acute appendicitis with localized peritonitis, without perforation or gangrene Code(s): K35.80 - Unspecified acute appendicitis Status: Acute Plan Acute appendicitis Patient presented without acute abdominal pain CT scan showed acute appendicitis S/p Appendectomy and now tolerating diet Appreciate surgery input Acute hypoxemic respiratory failure r/o PNA, PE and pulm edema CT chest, Venous doppler, V/Q scan titrate oxygen, on 2 liters oxygen Hypertension Hold medications until 2019 clinical course. Vertigo Continue home medications Neuropathy Restart medications once cleared by surgery. Next DVT prophylaxis subQ Lovenox. Patient is a DNR, surrogate decision maker is her daughter Winnie Carey Subjective Date/time seen: 06/02/24 16:54 Interval history: Patient comfortable at bedside. Requiring oxygen today, ABG showed hypoxia further workup pending Review of Systems Review of Systems: All other systems reviewed are negative except as noted in HPI above Exam Narrative: General: alert and comfortable Eyes: EOMI, PERRLA ENNT External ears normal, Neck is supple, no masses, Respiratory systems: Clear to auscultation Cardiovascular S1, S2, normal rhythm, no murmur, rub, or gallop; no thrill or palpable murmurs on palpation. Gastrointestinal: soft, non-tender, and non-distended abdomen with no masses; BS present Skin: no rash, lesions, ulcerations, subcutaneous nodules or induration Musculoskeletal: no abnormality and no tenderness, normal ROM Neurologic: Alert and oriented x3, non focal Mental Status Exam: normal affect Objective Data Vital Signs Vital Signs: Vital Signs - 24 hr 06/01/24 16:55 06/01/24 17:10 06/01/24 17:19 Temperature 97.6 F Pulse Rate 63 63 63 Respiratory Rate 15 12 16 Blood Pressure 119/69 111/53 L 112/56 L Pulse Oximetry 95 95 93 Oxygen Delivery Room Air Room Air Room Air Oxygen Flow Rate 06/01/24 17:30 06/01/24 18:26 06/01/24 21:41 Temperature 98.6 F Pulse Rate 67 70 Respiratory Rate 16 20 Blood Pressure 103/43 L Pulse Oximetry 93 91 Oxygen Delivery Room Air Oxygen Flow Rate 06/01/24 20:00 06/02/24 00:30 06/02/24 05:49 Temperature 98.3 F Pulse Rate 70 78 Respiratory Rate 20 20 Blood Pressure 101/43 L Pulse Oximetry 91 95 95 Oxygen Delivery Room Air Nasal Cannula Oxygen Flow Rate 2 06/01/24 20:00 06/02/24 00:00 06/02/24 04:00 Temperature Pulse Rate 67 84 93 Respiratory Rate Blood Pressure Pulse Oximetry Oxygen Delivery Oxygen Flow Rate 06/02/24 14:00 06/02/24 08:00 06/02/24 12:00 Temperature 98.6 F Pulse Rate 84 79 86 Respiratory Rate 19 Blood Pressure 112/56 L Pulse Oximetry 96 Oxygen Delivery Oxygen Flow Rate 06/02/24 16:09 06/02/24 16:00 Temperature Pulse Rate 74 Respiratory Rate Blood Pressure Pulse Oximetry 96 Oxygen Delivery Nasal Cannula Oxygen Flow Rate 2 Intake/Output Intake/Output: Intake & Output 05/30/24 05/31/24 06/01/24 06/02/24 23:59 23:59 23:59 23:59 Intake Total 3800 2823.8 Output Total 500 800 675 Balance -500 3000 2148.8 Meds/Results Medications: Active Medications Generic Name Dose Route Start Last Admin Trade Name Freq PRN Reason Stop Dose Admin Acetaminophen 1,000 mg 06/01/24 16:37 Acetaminophen 500 Mg Tablet PO Q6H PRN Mild Pain (1-3) or Fever Hydrocodone Bitart/Acetaminophen 1 tab 06/01/24 16:37 06/01/24 22:42 Hydrocodone/Acetaminophen (*Crx) 5-325 Mg Tablet PO 1 tab Q4H PRN Administration Pain Rated 4-6 Albuterol/Ipratropium 3 ml 06/02/24 16:00 06/02/24 15:27 Ipratropium 0.5 Mg/Albuterol Sulfate 2.5 Mg Ampul.Neb 3 Ml INHALATION 3 ml Q4HRT AISHA Administration Dextrose 12.5 gm 06/01/24 02:46 Dextrose 50% 25 Gm/50 Ml Syringe IV PUSH PRN PRN Hypoglycemia Protocol Enoxaparin Sodium 40 mg 06/02/24 09:00 06/02/24 09:27 Enoxaparin 40 Mg/0.4 Ml Syringe SUB-Q 40 mg DAILY AISHA Administration Glucagon 1 mg 10/31/24 02:46 Glucagon For Inj 1 Mg Vial IM PRN PRN Hypoglycemia Protocol Glucose 15 gm 06/01/24 02:46 Glucose Oral Gel 15 Gm Of Glucse In 37.5 Gm Tube PO PRN PRN Hypoglycemia Protocol Piperacillin Sod/Tazobactam Sod 2.25 gm in 50 mls @ 100 mls/hr 06/01/24 08:00 06/02/24 14:41 Zosyn 2.25 Gm/Ns 50 Ml IVPB 100 mls/hr Q6H AISHA Administration Sodium Chloride 1,000 mls @ 75 mls/hr 06/01/24 02:50 06/02/24 07:59 Normal Saline Iv IV CONT 75 mls/hr .[id number] AISHA Administration Dextrose 1,000 mls @ 100 mls/hr 06/01/24 02:46 Dextrose 5% 1,000 Ml IVPB PRN PRN Hypoglycemia Protocol Morphine Sulfate 4 mg 06/01/24 16:37 Morphine Sulfate (*Crx) 4 Mg/Ml Inj IV PUSH Q4H PRN Pain Rated 7-10 Ondansetron HCl 4 mg 06/01/24 02:44 06/01/24 12:40 Ondansetron Inj 4 Mg/2 Ml Vial IV PUSH 4 mg Q4H PRN Administration Nausea Oxycodone HCl 5 mg 06/01/24 16:37 Oxycodone Hcl (*Crx) 5 Mg Tab Ir PO Q6H PRN Pain Rated 7-10 Wound Care/Dressing Products 1 patch 06/02/24 09:00 06/02/24 12:22 Hydrocolloid Dressing (Aquacel) Patch TOPICAL Not Given DAILY [facility] Radiology Results: ITS Impressions Abdomen/Pelvis CT 06/01/24 05:39 Impression: Acute appendicitis, as detailed above. No abscess or free air. Moderate hiatal hernia. Chest X-Ray 06/02/24 14:00 IMPRESSION: 1. Mild atelectasis in the mid and lower lung zones. 2. Large hiatal hernia. Labs Labs: Laboratory Results - last 24 hr 06/02/24 06/02/24 05:56 12:29 WBC 9.9 RBC 3.07 L Hgb 9.8 L Hct 32.0 L MCV 104.2 H MCH 31.9 MCHC 30.6 L RDW 14.3 Plt Count 124 L MPV 11.7 H Immature Gran % (Auto) 0.5 Neut % (Auto) 77.0 H Lymph % (Auto) 13.2 L [place] % (Auto) 8.9 H Eos % (Auto) 0.1 Baso % (Auto) 0.3 Lymph # (Auto) 1.31 [place] # (Auto) 0.9 H Eos # (Auto) 0.0 Baso # (Auto) 0.0 Abs Immat Gran (auto) 0.05 H Absolute Neuts (auto) 7.6 H Absolute Nucleated RBC 0.000 Nucleated RBC % 0.0 % Immature Plt Fraction 5.9 Puncture Site Right radial ABG pH 7.337 L ABG pCO2 39.7 ABG pO2 72.4 L ABG PO2/FiO2 Ratio 2.59 ABG HCO3 20.8 L ABG O2 Saturation 93.7 L ABG O2 Content 14.7 L ABG Base Excess -4.6 A-a Gradient 80.4 Oxyhemoglobin 93.0 Total Hemoglobin 11.2 L O2 Delivery Device Nasal cannula O2 Liters/Min 2.0 FiO2 28 Sodium 134 L Potassium 3.6 Chloride 103 Carbon Dioxide 25 Anion Gap 6 BUN 27 H Creatinine 1.40 H Estim Creat Clear Calc 26 Estimated GFR 36 L Glucose 91 Calcium 8.1 L Magnesium 2.0 Total Bilirubin 1.2 AST 29 ALT 21 Alkaline Phosphatase 92 Total Protein 6.0 L Albumin 2.9 L Vitamin B12 > 1000.0 H Folate 8.7
[2024-06-02] MEDS: HYDROcodone/acetaminophen (*CRX) 5-325 MG TABLET 1 TAB PO (21:31)
[2024-06-03] VITALS (14 sets, daily range): BP systolic 103–118; BP diastolic 44–58; PULSE 72–87; RESP 16–22; TEMP 36.6–36.8; O2SAT 90–95
--- NOTE | 2024-06-03 | ECHO_ITS ---
Patient Info Name: Tanesha Dubon Age: 83 years : 1940 Gender: Female Ht: 62 in Wt: 169 lbs BSA: 1.86 m2 HR: 75 bpm Heart Rhythm: Sinus Rhythm Technical Quality: Good Exam Date: 06/03/2024 3:17 PM Exam Location: Echo Lab Patient Status: Inpatient Admit Date: 06/01/2024 Staff Ordering Physician: Beronica Ernandez MD [employer] [place] Clerk: Laura Sam RDCS Attending Provider: Yoselyn Saxena DO Exam Type: CA echo doppler color flow Study Info Indications - hypoxia Complete two-dimensional, color flow and Doppler transthoracic echocardiogram is performed. Summary 1. Complete two-dimensional, color flow and Doppler transthoracic echocardiogram is performed. 2. Left ventricular systolic function is normal, estimated at 55-60%. 3. The left ventricular diastolic function is grade II diastolic dysfunction. 4. There is mild tricuspid valve regurgitation. 5. Mild pulmonary hypertension, estimated pulmonary arterial systolic pressure is 43 mmHg. Left Ventricle Left ventricular chamber dimension is normal. Left ventricular systolic function is normal, estimated at 55-60%. There is no increased left ventricular wall thickness. Left ventricular septal wall motion is normal. The left ventricular diastolic function is grade II diastolic dysfunction. Right Ventricle Right ventricular chamber dimension is normal. Right ventricular systolic function is normal. Left Atria Left atrial chamber dimension is normal. Right Atria Right atrial chamber dimension is normal. Atrial Septum Intact interatrial septum visualized by color flow imaging. Aortic Valve The aortic valve is trileaflet. There is mild aortic valve sclerosis. There is no aortic valve stenosis. There is no aortic valve regurgitation. Pulmonic Valve The pulmonic valve is normal. There is no pulmonic valve stenosis. There is no pulmonic regurgitation. Mitral Valve The mitral valve has normal leaflets. There is no mitral valve stenosis. There is no mitral valve regurgitation. Tricuspid Valve The tricuspid valve leaflets are normal. There is no significant tricuspid valve stenosis. There is mild tricuspid valve regurgitation. Mild pulmonary hypertension, estimated pulmonary arterial systolic pressure is 43 mmHg. Pericardium/Pleural The pericardium appears normal. There is no pericardial effusion. Inferior Vena Cava Normal inferior vena cava with >50% collapse upon inspiration consistent with normal right atrial pressure, 5 mmHg. Aorta The aortic root size at the sinus of Valsalva is normal. The prox ascending aorta size is normal. Left Ventricular Outflow Tract Name Value Normal LVOT 2D LVOT Diameter 1.9 cm LVOT Doppler LVOT Peak Gradient 5 mmHg LVOT Mean Gradient 3 mmHg LVOT VTI 26 cm LVOT VTI/AV VTI Ratio 0.8 LVOT Stroke Volume 71 ml LVOT CO 5.0 l/min LVOT CI 2.7 l/min/m2 Mitral Valve Name Value Normal MV Doppler MV Decel [place] 491 cm/s2 MV PHT 51 ms MV Area (PHT) 4.4 cm2 4.0-5.0 MV Diastolic Function MV E Peak Velocity 86 cm/s MV A Peak Velocity 87 cm/s MV E/A 1.0 MV Decel Time 174 ms MV Annular TDI MV E/e' (Septal) 11.6 <=8.0 MV E/e' (Lateral) 9.2 <=8.0 MV E/e' (Average) 10.4 Tricuspid Valve Name Value Normal TV Regurgitation Doppler TR Peak Velocity 309 cm/s TR Peak Gradient 15 mmHg Estimated PAP/RSVP RA Pressure 5 mmHg <=5 PA Systolic Pressure 43 mmHg <36 RV Systolic Pressure 43 mmHg <36 Aortic Valve Name Value Normal AV Doppler AV Peak Velocity 144 cm/s AV Peak Gradient 8 mmHg AV Mean Gradient 5 mmHg AV VTI 34 cm AV Area (Cont Eq VTI) 2.1 cm2 >=3.0 AV Area (Cont Eq Micky) 2.1 cm2 AV Regurgitation 2D LVOT Area 2.8 cm2 Ventricles Name Value Normal LV Dimensions 2D/MM IVS Diastolic Thickness (2D) 0.9 cm 0.6-1.0 LVID Diastole (2D) 3.8 cm 3.8-5.2 LVIW Diastolic Thickness (2D) 0.9 cm 0.6-0.9 LVID Systole (2D) 2.5 cm 2.2-3.5 LVOT Diameter 1.9 cm LV Mass (2D Cubed) 102.35 g 67.00-162.00 LV Mass Index (2D Cubed) 55 g/m2 43-95 Relative Wall Thickness (2D) 0.48 LV Fractional Shortening/Ejection Fraction 2D/MM LV Fractional Shortening (2D) 34 % 27-45 LV EF (2D Teicholz) 64 % 54-74 LV Diastolic Volume (4C MOD) 75 ml LV EF (4C MOD) 64 % LV Diastolic Volume (2C MOD) 83 ml LV EF (2C MOD) 70 % LV Diastolic Volume (BP MOD) 79 ml 46-106 LV Diastolic Volume Index (BP MOD) 43 ml/m2 29-61 LV Systolic Volume (BP MOD) 26 ml 14-42 LV Systolic Volume Index (BP MOD) 14 ml/m2 8-24 LV EF (BP MOD) 67 % 54-74 LV Diastolic Length (4C) 6.8 cm LV Systolic Length (4C) 5.0 cm LV Stroke Volume (4C MOD) 48 ml Atria Name Value Normal LA Dimensions LA Volume (4C A-L) 26 ml LA Volume (BP A-L) 21 ml Report Signatures
[2024-06-03] MEDS: PIPERACILLIN/TAZ 2.25G/NS 50ML 2.25 GM/50 ML BAG IVPB ×4 (01:27→20:16)
[2024-06-03] MEDS: HYDROcodone/acetaminophen (*CRX) 5-325 MG TABLET 1 TAB PO ×2 (02:11→21:25)
--- NOTE | 2024-06-03 02:18 | PCRCNOTE ---
Window of time for administration has passed. See next scheduled administration.
[2024-06-03] MEDS: IPRATROPIUM 0.5 MG/ALBUTEROL SULFATE 2.5 MG AMPUL.NEB 3 ML INHALATION ×3 (04:14→13:00)
[2024-06-03 07:35] LABS: Basophils Percent Auto 0.3 % (0.2-1.2); Eosinophils Absolute Auto 0.1 K/mm3 (0-0.3); Eosinophils Percent Auto 1.4 % (0-4.4); Hematocrit 29.8 % (37.0-47.0); Hemoglobin 9.3 g/dL (12.0-15.0); Immature Granulocyte Absolute 0.03 K/mm3 (0.00-0.031); Immature Granulocyte Percent A 0.4 % (0-0.5); Immature Platelet Fraction Pct 5.4 % (0.9-11.2); Lymphocytes Absolute Auto 0.98 K/mm3 (0.9-3.2); Lymphocytes Percent Auto 13.8 % (18.3-44.2); Mean Corpuscular HGB Conc 31.2 g/dl (32-36); Mean Corpuscular Hemoglobin 31.8 pg (26-34); Mean Corpuscular Volume 102.1 fl (80-100); Mean Platelet Volume 11.6 fl (7.4-10.4); Monocytes Absolute Auto 0.7 K/mm3 (0.1-0.6); Monocytes Percent Auto 9.4 % (2.6-8.5); Neutrophils Absolute Auto 5.3 K/mm3 (1.3-6.7); Neutrophils Percent Auto 74.7 % (45.5-73.1); Platelet Count Result 106 k/mm3 (150-375); Red Blood Count 2.92 M/mm3 (4.2-5.4); Red Cell Distribution Width 13.9 % (11.5-14.5); White Blood Count 7.1 K/mm3 (4.5-10.0)
[2024-06-03 07:57] LABS: Alanine Aminotransferase 17 U/L (6-35); Alkaline Phosphatase 91 U/L (38-126); Anion Gap 9 mmol/L (4-12); Aspartate Amino Transferase 20 U/L (14-36); Bilirubin,Total 0.6 mg/dL (0.2-1.3); Blood Urea Nitrogen 27 mg/dL (7-17); Calcium 8.2 mg/dL (8.4-10.2); Carbon Dioxide 22 mmol/L (22-30); Chloride 104 mmol/L (98-107); Estimated CRCL calculation 24 ml/min; Estimated Glomerular Filt Rate 33; Glucose 105 mg/dL (65-110); Potassium 3.9 mmol/L (3.4-5.0); Sodium 135 mmol/L (137-145)
[2024-06-03 08:04] LABS: Iron 26 ug/dL (37-170)
[2024-06-03 08:13] LABS: Percent Iron Saturation 13 % (20-50)
[2024-06-03 09:41] LABS: Alveolar/Arterial O2 Gradient 41.8 mmHg; Fractional Inspired Oxygen 21 %; HCO3 ABG 21.7 mEq/l (22.0-26.0); Oxygen Content ABG 13.3 %vol (16.0-22.0); Oxygen Saturation ABG 88.3 % (95.0-100.0); Oxyhemoglobin 88.7 % THb (90.0-100.0); PCO2 ABG 41.9 mmHg (35.0-45.0); PO2 ABG 57.8 mmHg (80.0-100.0); PO2 FiO2 Ratio Arterial Blood 2.75 %; Total Hemoglobin 10.6 g/dL (12.0-18.0); pH ABG 7.332 (7.350-7.450)
[2024-06-03 09:42] LABS: Device ROOM AIR; Modified Allen's Test Pass; Site Drawn LEFT RADIAL
[2024-06-03] MEDS: ENOXAPARIN 40 MG/0.4 ML SYRINGE SUB-Q (09:42)
[2024-06-03] MEDS: FLUTICASONE PROPIONATE 0.05% NA SPR 16 GM BTL (*BKC) 1 SPRAY NASAL (09:44)
[2024-06-03] MEDS: ACETAMINOPHEN 500 MG TABLET 1000 MG PO (12:38)
--- NOTE | 2024-06-03 14:03 | PM.IMPN ---
Progress Note: A&P Assessment and Plan (1) Acute appendicitis: Qualifiers: Acute appendicitis type: with localized peritonitis Appendicitis abscess presence: without abscess Appendicitis gangrene presence: without gangrene Appendicitis perforation presence: without perforation Qualified Code(s): K35.30 - Acute appendicitis with localized peritonitis, without perforation or gangrene Code(s): K35.80 - Unspecified acute appendicitis Status: Acute Plan Acute appendicitis Patient presented without acute abdominal pain CT scan showed acute appendicitis S/p Appendectomy and now tolerating diet Appreciate surgery input Acute hypoxemic respiratory failure etiology unclear r/o PE CT chest negative for PE or pneumonia , Venous doppler negative ECHO and , V/Q scan pending now on room air Iron deficiency anemia Hb 9.3 down from 12.6 , Isat 13 IV iron 500/1000 FOBT pending monitor Hypertension Hold medications until 2019 clinical course. Urinary retention patient appears to be retaining Urine bladder scan [address] AP on admission no obstruction monitor Vertigo Continue home medications Neuropathy Restart medications once cleared by surgery. DVT prophylaxis subQ Lovenox. Patient is a DNR, surrogate decision maker is her daughter Winnie Carey Subjective Date/time seen: 06/03/24 14:03 Interval history: Patient comfortable at bedside. Patient on room air however abg still shows pO2 53 reinstated ECHo and V/q scan Review of Systems Review of Systems: All other systems reviewed are negative except as noted in HPI above Exam Narrative: General: alert and comfortable Eyes: EOMI, PERRLA ENNT External ears normal, Neck is supple, no masses, Respiratory systems: Clear to auscultation Cardiovascular S1, S2, normal rhythm, no murmur, rub, or gallop; no thrill or palpable murmurs on palpation. Gastrointestinal: soft, non-tender, and non-distended abdomen with no masses; BS present Skin: no rash, lesions, ulcerations, subcutaneous nodules or induration Musculoskeletal: no abnormality and no tenderness, normal ROM Neurologic: Alert and oriented x3, non focal Mental Status Exam: normal affect Objective Data Vital Signs Vital Signs: Vital Signs - 24 hr 06/02/24 16:09 06/02/24 16:00 06/02/24 15:20 Temperature Pulse Rate 74 74 Respiratory Rate 20 Blood Pressure Pulse Oximetry 96 Oxygen Delivery Nasal Cannula Oxygen Flow Rate 2 Fraction of Inspired Oxygen 06/02/24 20:15 06/02/24 20:25 06/02/24 20:32 Temperature 97.7 F Pulse Rate 77 79 78 Respiratory Rate 20 20 18 Blood Pressure 110/55 L Pulse Oximetry 95 Oxygen Delivery Oxygen Flow Rate Fraction of Inspired Oxygen 06/02/24 20:00 06/02/24 20:00 06/03/24 00:00 Temperature Pulse Rate 86 82 Respiratory Rate Blood Pressure Pulse Oximetry 95 Oxygen Delivery Nasal Cannula Oxygen Flow Rate 2 Fraction of Inspired Oxygen 06/03/24 04:00 06/03/24 04:10 06/03/24 04:00 Temperature Pulse Rate 72 75 74 Respiratory Rate 20 20 Blood Pressure Pulse Oximetry Oxygen Delivery Oxygen Flow Rate Fraction of Inspired Oxygen 06/03/24 06:00 06/03/24 07:44 06/03/24 07:44 Temperature 98.1 F Pulse Rate 78 76 Respiratory Rate 22 H 20 Blood Pressure 103/44 L Pulse Oximetry 94 95 Oxygen Delivery Nasal Cannula Oxygen Flow Rate 1 Fraction of Inspired Oxygen 06/03/24 07:53 06/03/24 09:10 06/03/24 08:00 Temperature Pulse Rate 77 74 Respiratory Rate 20 Blood Pressure Pulse Oximetry Oxygen Delivery Nasal Cannula Oxygen Flow Rate 2 Fraction of Inspired Oxygen 06/03/24 09:45 06/03/24 13:00 06/03/24 13:12 Temperature Pulse Rate 78 75 Respiratory Rate 20 20 Blood Pressure Pulse Oximetry Oxygen Delivery Room Air Oxygen Flow Rate Fraction of Inspired Oxygen Intake/Output Intake/Output: Intake & Output 05/31/24 06/01/24 06/02/24 06/03/24 23:59 23:59 23:59 23:59 Intake Total 3800 3593.8 390 Output Total 500 800 675 550 Balance -500 3000 2918.8 -160 Meds/Results Medications: Active Medications Generic Name Dose Route Start Last Admin Trade Name Freq PRN Reason Stop Dose Admin Acetaminophen 1,000 mg 06/01/24 16:37 06/03/24 12:38 Acetaminophen 500 Mg Tablet PO 1,000 mg Q6H PRN Administration Mild Pain (1-3) or Fever Hydrocodone Bitart/Acetaminophen 1 tab 06/01/24 16:37 06/03/24 02:11 Hydrocodone/Acetaminophen (*Crx) 5-325 Mg Tablet PO 1 tab Q4H PRN Administration Pain Rated 4-6 Albuterol/Ipratropium 3 ml 06/02/24 16:00 06/03/24 13:00 Ipratropium 0.5 Mg/Albuterol Sulfate 2.5 Mg Ampul.Neb 3 Ml INHALATION 3 ml Q4HRT AISHA Administration Dextrose 12.5 gm 06/01/24 02:46 Dextrose 50% 25 Gm/50 Ml Syringe IV PUSH PRN PRN Hypoglycemia Protocol Enoxaparin Sodium 40 mg 06/02/24 09:00 06/03/24 09:42 Enoxaparin 40 Mg/0.4 Ml Syringe SUB-Q 40 mg DAILY AISHA Administration Fluticasone Propionate 1 spray 06/03/24 09:00 06/03/24 09:44 Fluticasone Propionate 0.05% Na Spr 16 Gm Btl (*Bkc) NASAL 1 spray DAILY AISHA Administration Glucagon 1 mg 06/01/24 02:46 Glucagon For Inj 1 Mg Vial IM PRN PRN Hypoglycemia Protocol Glucose 15 gm 06/01/24 02:46 Glucose Oral Gel 15 Gm Of Glucse In 37.5 Gm Tube PO PRN PRN Hypoglycemia Protocol Piperacillin Sod/Tazobactam Sod 2.25 gm in 50 mls @ 100 mls/hr 06/01/24 08:00 06/03/24 09:43 Zosyn 2.25 Gm/Ns 50 Ml IVPB 100 mls/hr Q6H AISHA Administration Dextrose 1,000 mls @ 100 mls/hr 06/01/24 02:46 Dextrose 5% 1,000 Ml IVPB PRN PRN Hypoglycemia Protocol Morphine Sulfate 4 mg 06/01/24 16:37 Morphine Sulfate (*Crx) 4 Mg/Ml Inj IV PUSH Q4H PRN Pain Rated 7-10 Ondansetron HCl 4 mg 06/01/24 02:44 06/01/24 12:40 Ondansetron Inj 4 Mg/2 Ml Vial IV PUSH 4 mg Q4H PRN Administration Nausea Oxycodone HCl 5 mg 06/01/24 16:37 Oxycodone Hcl (*Crx) 5 Mg Tab Ir PO Q6H PRN Pain Rated 7-10 Perflutren Lipid Microsphere 0 ml 06/02/24 17:04 Perflutren Lipid Microspheres 1.5 Ml Vial Diluted To 10 Ml Total Volume IV PUSH 06/05/24 17:04 ONCE PRN adequate visualization Protocol Pramipexole Dihydrochloride 0.125 mg 06/02/24 22:20 06/02/24 22:21 Pramipexole 0.125 Mg Tablet PO Not Given HS [facility] Pregabalin 50 mg 06/02/24 22:20 06/02/24 22:21 Pregabalin (*Crx) 50 Mg Capsule PO Not Given HS [facility] Wound Care/Dressing Products 1 patch 06/02/24 09:00 06/03/24 09:46 Hydrocolloid Dressing (Aquacel) Patch TOPICAL Not Given DAILY [facility] Radiology Results: ITS Impressions Abdomen/Pelvis CT 06/01/24 05:39 Impression: Acute appendicitis, as detailed above. No abscess or free air. Moderate hiatal hernia. Chest X-Ray 06/02/24 14:00 IMPRESSION: 1. Mild atelectasis in the mid and lower lung zones. 2. Large hiatal hernia. Venous Doppler Study 06/02/24 20:11 IMPRESSION: Negative bilateral lower extremity venous US. No deep vein thrombosis. Chest CT 06/02/24 20:31 IMPRESSION: 1. Sliding hiatus hernia. 2. Atelectasis in the lung bases and left upper lobe. 3. Fracture of the left ninth rib with air in the subcutaneous tissues. Labs Labs: Laboratory Results - last 24 hr 06/03/24 06/03/24 07:20 09:35 WBC 7.1 RBC 2.92 L Hgb 9.3 L Hct 29.8 L MCV 102.1 H MCH 31.8 MCHC 31.2 L RDW 13.9 Plt Count 106 L MPV 11.6 H Immature Gran % (Auto) 0.4 Neut % (Auto) 74.7 H Lymph % (Auto) 13.8 L [place] % (Auto) 9.4 H Eos % (Auto) 1.4 Baso % (Auto) 0.3 Lymph # (Auto) 0.98 [place] # (Auto) 0.7 H Eos # (Auto) 0.1 Baso # (Auto) 0.0 Abs Immat Gran (auto) 0.03 Absolute Neuts (auto) 5.3 Absolute Nucleated RBC 0.000 Nucleated RBC % 0.0 % Immature Plt Fraction 5.4 Puncture Site Left radial ABG pH 7.332 L ABG pCO2 41.9 ABG pO2 57.8 L ABG PO2/FiO2 Ratio 2.75 ABG HCO3 21.7 L ABG O2 Saturation 88.3 L ABG O2 Content 13.3 L ABG Base Excess -4.0 A-a Gradient 41.8 Oxyhemoglobin 88.7 L Total Hemoglobin 10.6 L O2 Delivery Device Room air O2 Liters/Min Not Reportable FiO2 21 Sodium 135 L Potassium 3.9 Chloride 104 Carbon Dioxide 22 Anion Gap 9 BUN 27 H Creatinine 1.50 H Estim Creat Clear Calc 24 Estimated GFR 33 L Glucose 105 Calcium 8.2 L Magnesium 2.0 Iron 26 L TIBC 200 L % Saturation 13 L Ferritin 174.00 Total Bilirubin 0.6 AST 20 ALT 17 Alkaline Phosphatase 91 Total Protein 6.0 L Albumin 3.0 L
--- NOTE | 2024-06-03 14:49 | P.PN_ITS ---
Progress Note: A&P Assessment and Plan (1) Acute appendicitis: Qualifiers: Acute appendicitis type: with localized peritonitis Appendicitis abscess presence: without abscess Appendicitis gangrene presence: without gangrene Appendicitis perforation presence: without perforation Qualified Code(s): K35.30 - Acute appendicitis with localized peritonitis, without perforation or gangrene Code(s): K35.80 - Unspecified acute appendicitis Status: Acute Assessment and Plan: Postop day 2 after a uncomplicated laparoscopic appendectomy. She is eating well. Patient can be discharged when she is medically optimized from a surgery standpoint. According to family the patient is going to be [facility] [place] [facility]hab when she is discharged. (2) Hypoxemia: Code(s): R09.02 - Hypoxemia Status: Acute Assessment and Plan: Hospitalist is initiating workup. Echo has been ordered as well as a V/Q scan to evaluate possible etiologies for the hypoxemia. Subjective Date/time seen: 06/03/24 14:49 Interval history: Patient is postop day 2 after laparoscopic appendectomy. From a postsurgical standpoint she seems to be doing pretty well. However she still has low oxygen saturations and still need supplemental oxygen. Hospitalist has ordered echo and V/Q scan to make sure she does not pulmonary embolus or severe diastolic dysfunction heart failure. Results are pending. Patient tells me she does not have any significant abdominal pain. She is eating well. Exam GI: Other: Abdomen is soft and nondistended. Port site incisions are healing well. No redness or drainage. Exam is benign. Objective Data Vital Signs Vital Signs: Vital Signs - 24 hr 06/02/24 16:09 06/02/24 16:00 06/02/24 15:20 Temperature Pulse Rate 74 74 Respiratory Rate 20 Blood Pressure Pulse Oximetry 96 Oxygen Delivery Nasal Cannula Oxygen Flow Rate 2 Fraction of Inspired Oxygen 06/02/24 20:15 06/02/24 20:25 06/02/24 20:32 Temperature 36.5 C Pulse Rate 77 79 78 Respiratory Rate 20 20 18 Blood Pressure 110/55 L Pulse Oximetry 95 Oxygen Delivery Oxygen Flow Rate Fraction of Inspired Oxygen 06/02/24 20:00 06/02/24 20:00 06/03/24 00:00 Temperature Pulse Rate 86 82 Respiratory Rate Blood Pressure Pulse Oximetry 95 Oxygen Delivery Nasal Cannula Oxygen Flow Rate 2 Fraction of Inspired Oxygen 06/03/24 04:00 06/03/24 04:10 06/03/24 04:00 Temperature Pulse Rate 72 75 74 Respiratory Rate 20 20 Blood Pressure Pulse Oximetry Oxygen Delivery Oxygen Flow Rate Fraction of Inspired Oxygen 06/03/24 06:00 06/03/24 07:44 06/03/24 07:44 Temperature 36.7 C Pulse Rate 78 76 Respiratory Rate 22 H 20 Blood Pressure 103/44 L Pulse Oximetry 94 95 Oxygen Delivery Nasal Cannula Oxygen Flow Rate 1 Fraction of Inspired Oxygen 06/03/24 07:53 06/03/24 09:10 06/03/24 08:00 Temperature Pulse Rate 77 74 Respiratory Rate 20 Blood Pressure Pulse Oximetry Oxygen Delivery Nasal Cannula Oxygen Flow Rate 2 Fraction of Inspired Oxygen 06/03/24 09:45 06/03/24 13:00 06/03/24 13:12 Temperature Pulse Rate 78 75 Respiratory Rate 20 20 Blood Pressure Pulse Oximetry Oxygen Delivery Room Air Oxygen Flow Rate Fraction of Inspired Oxygen 06/03/24 12:00 Temperature Pulse Rate 75 Respiratory Rate Blood Pressure Pulse Oximetry Oxygen Delivery Oxygen Flow Rate Fraction of Inspired Oxygen Intake/Output Intake/Output: Intake & Output 05/31/24 06/01/24 06/02/24 06/03/24 23:59 23:59 23:59 23:59 Intake Total 3800 3593.8 390 Output Total 500 800 675 900 Balance -500 3000 2918.8 -510 Meds/Results Medications: Active Medications Generic Name Dose Route Start Last Admin Trade Name Freq PRN Reason Stop Dose Admin Acetaminophen 1,000 mg 06/01/24 16:37 06/03/24 12:38 Acetaminophen 500 Mg Tablet PO 1,000 mg Q6H PRN Administration Mild Pain (1-3) or Fever Hydrocodone Bitart/Acetaminophen 1 tab 06/01/24 16:37 06/03/24 02:11 Hydrocodone/Acetaminophen (*Crx) 5-325 Mg Tablet PO 1 tab Q4H PRN Administration Pain Rated 4-6 Albuterol/Ipratropium 3 ml 06/02/24 16:00 06/03/24 13:00 Ipratropium 0.5 Mg/Albuterol Sulfate 2.5 Mg Ampul.Neb 3 Ml INHALATION 3 ml Q4HRT AISHA Administration Dextrose 12.5 gm 06/01/24 02:46 Dextrose 50% 25 Gm/50 Ml Syringe IV PUSH PRN PRN Hypoglycemia Protocol Enoxaparin Sodium 40 mg 06/02/24 09:00 06/03/24 09:42 Enoxaparin 40 Mg/0.4 Ml Syringe SUB-Q 40 mg DAILY AISHA Administration Fluticasone Propionate 1 spray 06/03/24 09:00 06/03/24 09:44 Fluticasone Propionate 0.05% Na Spr 16 Gm Btl (*Bkc) NASAL 1 spray DAILY AISHA Administration Glucagon 1 mg 06/01/24 02:46 Glucagon For Inj 1 Mg Vial IM PRN PRN Hypoglycemia Protocol Glucose 15 gm 06/01/24 02:46 Glucose Oral Gel 15 Gm Of Glucse In 37.5 Gm Tube PO PRN PRN Hypoglycemia Protocol Piperacillin Sod/Tazobactam Sod 2.25 gm in 50 mls @ 100 mls/hr 06/01/24 08:00 06/03/24 09:43 Zosyn 2.25 Gm/Ns 50 Ml IVPB 100 mls/hr Q6H AISHA Administration Dextrose 1,000 mls @ 100 mls/hr 06/01/24 02:46 Dextrose 5% 1,000 Ml IVPB PRN PRN Hypoglycemia Protocol Iron Sucrose 400 mg/ Iron 275 mls @ 78.571 mls/hr 06/03/24 14:45 Sucrose 100 mg/ Sodium IVPB 06/03/24 18:14 Chloride ONCE ONE Morphine Sulfate 4 mg 06/01/24 16:37 Morphine Sulfate (*Crx) 4 Mg/Ml Inj IV PUSH Q4H PRN Pain Rated 7-10 Ondansetron HCl 4 mg 06/01/24 02:44 06/01/24 12:40 Ondansetron Inj 4 Mg/2 Ml Vial IV PUSH 4 mg Q4H PRN Administration Nausea Oxycodone HCl 5 mg 06/01/24 16:37 Oxycodone Hcl (*Crx) 5 Mg Tab Ir PO Q6H PRN Pain Rated 7-10 Perflutren Lipid Microsphere 0 ml 06/02/24 17:04 Perflutren Lipid Microspheres 1.5 Ml Vial Diluted To 10 Ml Total Volume IV PUSH 06/05/24 17:04 ONCE PRN adequate visualization Protocol Perflutren Lipid Microsphere 0 ml 06/03/24 14:05 Perflutren Lipid Microspheres 1.5 Ml Vial Diluted To 10 Ml Total Volume IV PUSH 06/06/24 14:05 ONCE PRN adequate visualization Protocol Pramipexole Dihydrochloride 0.125 mg 06/02/24 22:20 06/02/24 22:21 Pramipexole 0.125 Mg Tablet PO Not Given HS [facility] Pregabalin 50 mg 06/02/24 22:20 06/02/24 22:21 Pregabalin (*Crx) 50 Mg Capsule PO Not Given HS [facility] Tamsulosin HCl 0.4 mg 06/03/24 14:05 Tamsulosin Hcl 0.4 Mg Capsule PO QAM [facility] Wound Care/Dressing Products 1 patch 06/02/24 09:00 06/03/24 09:46 Hydrocolloid Dressing (Aquacel) Patch TOPICAL Not Given DAILY [facility] Radiology Results: ITS Impressions Abdomen/Pelvis CT 06/01/24 05:39 Impression: Acute appendicitis, as detailed above. No abscess or free air. Moderate hiatal hernia. Chest X-Ray 06/02/24 14:00 IMPRESSION: 1. Mild atelectasis in the mid and lower lung zones. 2. Large hiatal hernia. Venous Doppler Study 06/02/24 20:11 IMPRESSION: Negative bilateral lower extremity venous US. No deep vein thrombosis. Chest CT 06/02/24 20:31 IMPRESSION: 1. Sliding hiatus hernia. 2. Atelectasis in the lung bases and left upper lobe. 3. Fracture of the left ninth rib with air in the subcutaneous tissues. Labs Labs: Laboratory Results - last 24 hr 06/03/24 06/03/24 07:20 09:35 WBC 7.1 RBC 2.92 L Hgb 9.3 L Hct 29.8 L MCV 102.1 H MCH 31.8 MCHC 31.2 L RDW 13.9 Plt Count 106 L MPV 11.6 H Immature Gran % (Auto) 0.4 Neut % (Auto) 74.7 H Lymph % (Auto) 13.8 L [place] % (Auto) 9.4 H Eos % (Auto) 1.4 Baso % (Auto) 0.3 Lymph # (Auto) 0.98 [place] # (Auto) 0.7 H Eos # (Auto) 0.1 Baso # (Auto) 0.0 Abs Immat Gran (auto) 0.03 Absolute Neuts (auto) 5.3 Absolute Nucleated RBC 0.000 Nucleated RBC % 0.0 % Immature Plt Fraction 5.4 Puncture Site Left radial ABG pH 7.332 L ABG pCO2 41.9 ABG pO2 57.8 L ABG PO2/FiO2 Ratio 2.75 ABG HCO3 21.7 L ABG O2 Saturation 88.3 L ABG O2 Content 13.3 L ABG Base Excess -4.0 A-a Gradient 41.8 Oxyhemoglobin 88.7 L Total Hemoglobin 10.6 L O2 Delivery Device Room air O2 Liters/Min Not Reportable FiO2 21 Sodium 135 L Potassium 3.9 Chloride 104 Carbon Dioxide 22 Anion Gap 9 BUN 27 H Creatinine 1.50 H Estim Creat Clear Calc 24 Estimated GFR 33 L Glucose 105 Calcium 8.2 L Magnesium 2.0 Iron 26 L TIBC 200 L % Saturation 13 L Ferritin 174.00 Total Bilirubin 0.6 AST 20 ALT 17 Alkaline Phosphatase 91 Total Protein 6.0 L Albumin 3.0 L
[2024-06-03] MEDS: TAMSULOSIN HCL 0.4 MG CAPSULE PO (14:54)
[2024-06-03] MEDS: IRON SUCROSE COMPLEX 400 MG, IRON SUCROSE COMPLEX 100 MG in SODIUM CHLORIDE 0.9% IV 250 ML 78.57 MG IVPB (15:40)
[2024-06-03] MEDS: PREGABALIN (*CRX) 50 MG CAPSULE PO (20:20)
[2024-06-03] MEDS: PRAMIPEXOLE 0.125 MG TABLET PO (20:20)
--- NOTE | 2024-06-03 21:26 | PC.NURSE ---
pt up to [facility], and only voided ~20mL. Bladder scan showed 450mL. PRN straight cath order exists, so patient was straight cathed and 500mL dark yellow urine came out. pt also states that a few weeks ago she felt a pop in her ankle, and it has been hurting ever since. patient required a dose of norco to get pain under control.
[2024-06-04] VITALS (9 sets, daily range): BP systolic 112–124; BP diastolic 54–58; PULSE 67–80; RESP 18–20; TEMP 36.2–36.8; O2SAT 92–98
--- NOTE | 2024-06-04 01:41 | PC.NURSE ---
Daylight Savings Time For Daylight Savings Time Ending in the Fall - Clocks are moved back. For Daylight Savings Time Beginning in the Spring - Clocks are moved ahead. For [facility], the time of change occurs at 0200 hrs. Time is taken from the seam stayer. This entry on the patient's chart recognizes the change in time reflected during documentation. Example: 2 entries for vital signs may be charted for 0200 hrs.
[2024-06-04] MEDS: PIPERACILLIN/TAZ 2.25G/NS 50ML 2.25 GM/50 ML BAG IVPB ×4 (02:52→20:15)
[2024-06-04 08:12] LABS: Basophils Percent Auto 0.3 % (0.2-1.2); Eosinophils Absolute Auto 0.2 K/mm3 (0-0.3); Eosinophils Percent Auto 3.6 % (0-4.4); Hematocrit 29.5 % (37.0-47.0); Hemoglobin 9.5 g/dL (12.0-15.0); Immature Granulocyte Absolute 0.02 K/mm3 (0.00-0.031); Immature Granulocyte Percent A 0.3 % (0-0.5); Immature Platelet Fraction Pct 5.2 % (0.9-11.2); Lymphocytes Absolute Auto 0.56 K/mm3 (0.9-3.2); Lymphocytes Percent Auto 9.6 % (18.3-44.2); Mean Corpuscular HGB Conc 32.2 g/dl (32-36); Mean Corpuscular Hemoglobin 32.3 pg (26-34); Mean Corpuscular Volume 100.3 fl (80-100); Mean Platelet Volume 11.4 fl (7.4-10.4); Monocytes Absolute Auto 0.6 K/mm3 (0.1-0.6); Monocytes Percent Auto 10.3 % (2.6-8.5); Neutrophils Absolute Auto 4.4 K/mm3 (1.3-6.7); Neutrophils Percent Auto 75.9 % (45.5-73.1); Platelet Count Result 129 k/mm3 (150-375); Red Blood Count 2.94 M/mm3 (4.2-5.4); Red Cell Distribution Width 13.7 % (11.5-14.5); White Blood Count 5.8 K/mm3 (4.5-10.0)
[2024-06-04 08:33] LABS: Alanine Aminotransferase 16 U/L (6-35); Albumin Level 2.8 g/dL (3.5-5.1); Alkaline Phosphatase 88 U/L (38-126); Anion Gap 8 mmol/L (4-12); Aspartate Amino Transferase 19 U/L (14-36); Bilirubin,Total 0.7 mg/dL (0.2-1.3); Blood Urea Nitrogen 22 mg/dL (7-17); Calcium 8.3 mg/dL (8.4-10.2); Carbon Dioxide 23 mmol/L (22-30); Chloride 107 mmol/L (98-107); Estimated CRCL calculation 27 ml/min; Estimated Glomerular Filt Rate 39; Glucose 89 mg/dL (65-110); Potassium 3.9 mmol/L (3.4-5.0); Sodium 138 mmol/L (137-145)
[2024-06-04 08:45] LABS: Glucose Point of Care 100 mg/dl (65-105)
[2024-06-04] MEDS: FLUTICASONE PROPIONATE 0.05% NA SPR 16 GM BTL (*BKC) 1 SPRAY NASAL (09:22)
[2024-06-04] MEDS: TAMSULOSIN HCL 0.4 MG CAPSULE PO (09:23)
[2024-06-04] MEDS: ENOXAPARIN 30 MG/0.3 ML SYRINGE SUB-Q (09:23)
[2024-06-04] MEDS: SERTRALINE HCL 50 MG TABLET 100 MG PO (10:09)
[2024-06-04] MEDS: buPROPion HCL 100 MG TABLET PO ×2 (10:09→16:17)
[2024-06-04 12:05] LABS: Glucose Point of Care 124 mg/dl (65-105)
[2024-06-04] MEDS: ERGOCALCIFEROL 50,000 UNITS CAPSULE 50000 UNITS PO (13:51)
--- NOTE | 2024-06-04 14:41 | PM.IMPN ---
Progress Note: A&P Assessment and Plan (1) Acute appendicitis: Qualifiers: Acute appendicitis type: with localized peritonitis Appendicitis abscess presence: without abscess Appendicitis gangrene presence: without gangrene Appendicitis perforation presence: without perforation Qualified Code(s): K35.30 - Acute appendicitis with localized peritonitis, without perforation or gangrene Code(s): K35.80 - Unspecified acute appendicitis Status: Acute Plan Acute appendicitis Patient presented without acute abdominal pain CT scan showed acute appendicitis S/p Appendectomy and now tolerating diet Appreciate surgery input Acute hypoxemic respiratory failure etiology unclear r/o PE CT chest negative for PE or pneumonia , Venous doppler negative ECHO and , V/Q scan pending now on room air Iron deficiency anemia Hb 9.5 down from 12.6 , Isat 13 IV iron 1000/1000 FOBT pending monitor Hypertension Hold medications until 2019 clinical course. Urinary retention patient appears to be retaining Urine bladder scan [address] AP on admission no obstruction Outpatient urology referral monitor Vertigo Continue home medications Neuropathy Restart medications once cleared by surgery. DVT prophylaxis subQ Lovenox. Patient is a DNR, surrogate decision maker is her daughter Winnie Carey Subjective Date/time seen: 06/04/24 14:41 Interval history: Patient comfortable at bedside and on room air Review of Systems Review of Systems: All other systems reviewed are negative except as noted in HPI above Exam Narrative: General: alert and comfortable Eyes: EOMI, PERRLA ENNT External ears normal, Neck is supple, no masses, Respiratory systems: Clear to auscultation Cardiovascular S1, S2, normal rhythm, no murmur, rub, or gallop; no thrill or palpable murmurs on palpation. Gastrointestinal: soft, non-tender, and non-distended abdomen with no masses; BS present Skin: no rash, lesions, ulcerations, subcutaneous nodules or induration Musculoskeletal: no abnormality and no tenderness, normal ROM Neurologic: Alert and oriented x3, non focal Mental Status Exam: normal affect Objective Data Vital Signs Vital Signs: Vital Signs - 24 hr 06/03/24 16:00 06/03/24 16:01 06/03/24 21:36 Temperature 97.8 F 98.2 F Pulse Rate 83 75 76 Respiratory Rate 16 20 Blood Pressure 116/54 L 118/58 L Pulse Oximetry 90 93 Oxygen Delivery 06/03/24 20:00 06/03/24 20:00 06/04/24 00:00 Temperature Pulse Rate 87 72 Respiratory Rate Blood Pressure Pulse Oximetry Oxygen Delivery Room Air 06/04/24 04:00 06/04/24 06:00 06/04/24 08:02 Temperature 98.3 F Pulse Rate 69 72 75 Respiratory Rate 20 Blood Pressure 112/55 L Pulse Oximetry 94 Oxygen Delivery 06/04/24 12:03 Temperature Pulse Rate 76 Respiratory Rate Blood Pressure Pulse Oximetry Oxygen Delivery Intake/Output Intake/Output: Intake & Output 06/01/24 06/02/24 06/03/24 06/04/24 23:59 23:59 23:59 22:59 Intake Total 3800 3593.8 880 860 Output Total 483 120 4357 550 Balance 3000 2918.8 -520 310 Meds/Results Medications: Active Medications Generic Name Dose Route Start Last Admin Trade Name Freq PRN Reason Stop Dose Admin Acetaminophen 1,000 mg 06/01/24 16:37 06/03/24 12:38 Acetaminophen 500 Mg Tablet PO 1,000 mg Q6H PRN Administration Mild Pain (1-3) or Fever Hydrocodone Bitart/Acetaminophen 1 tab 06/01/24 16:37 06/03/24 21:25 Hydrocodone/Acetaminophen (*Crx) 5-325 Mg Tablet PO 1 tab Q4H PRN Administration Pain Rated 4-6 Albuterol/Ipratropium 3 ml 06/03/24 15:35 Ipratropium 0.5 Mg/Albuterol Sulfate 2.5 Mg Ampul.Neb 3 Ml INHALATION Q6HRT PRN Wheezing Aspirin 81 mg 06/05/24 09:00 Aspirin 81 Mg Chewable Tablet PO DAILY AISHA Bupropion HCl 100 mg 06/04/24 10:00 06/04/24 10:09 Bupropion Hcl 100 Mg Tablet PO 100 mg BID AISHA Administration Dextrose 12.5 gm 06/01/24 02:46 Dextrose 50% 25 Gm/50 Ml Syringe IV PUSH PRN PRN Hypoglycemia Protocol Enoxaparin Sodium 30 mg 06/04/24 09:00 06/04/24 09:23 Enoxaparin 30 Mg/0.3 Ml Syringe SUB-Q 30 mg DAILY AISHA Administration Ergocalciferol 50,000 units 06/04/24 14:00 06/04/24 13:51 Ergocalciferol 50,000 Units Capsule PO 50,000 units Duarte@0900 AISHA Administration Fluticasone Propionate 1 spray 06/03/24 09:00 06/04/24 09:22 Fluticasone Propionate 0.05% Na Spr 16 Gm Btl (*Bkc) NASAL 1 spray DAILY AISHA Administration Furosemide 40 mg 06/05/24 09:00 Furosemide 40 Mg Tablet PO DAILY AISHA Glucagon 1 mg 06/01/24 02:46 Glucagon For Inj 1 Mg Vial IM PRN PRN Hypoglycemia Protocol Glucose 15 gm 06/01/24 02:46 Glucose Oral Gel 15 Gm Of Glucse In 37.5 Gm Tube PO PRN PRN Hypoglycemia Protocol Piperacillin Sod/Tazobactam Sod 2.25 gm in 50 mls @ 100 mls/hr 06/01/24 08:00 06/04/24 13:45 Zosyn 2.25 Gm/Ns 50 Ml IVPB Infused Q6H AISHA Infusion Dextrose 1,000 mls @ 100 mls/hr 06/01/24 02:46 Dextrose 5% 1,000 Ml IVPB PRN PRN Hypoglycemia Protocol Levothyroxine Sodium 200 mcg 06/05/24 06:30 Levothyroxine Sodium 100 Mcg Tablet PO DAILY@0630 AISHA Meclizine HCl 12.5 mg 06/04/24 09:28 Meclizine Hcl 12.5 Mg Tablet PO DAILY PRN Dizziness Or Vertigo Morphine Sulfate 4 mg 06/01/24 16:37 Morphine Sulfate (*Crx) 4 Mg/Ml Inj IV PUSH Q4H PRN Pain Rated 7-10 Ondansetron HCl 4 mg 06/01/24 02:44 06/01/24 12:40 Ondansetron Inj 4 Mg/2 Ml Vial IV PUSH 4 mg Q4H PRN Administration Nausea Oxycodone HCl 5 mg 06/01/24 16:37 Oxycodone Hcl (*Crx) 5 Mg Tab Ir PO Q6H PRN Pain Rated 7-10 Perflutren Lipid Microsphere 0 ml 06/02/24 17:04 Perflutren Lipid Microspheres 1.5 Ml Vial Diluted To 10 Ml Total Volume IV PUSH 06/05/24 17:04 ONCE PRN adequate visualization Protocol Perflutren Lipid Microsphere 0 ml 06/03/24 14:05 Perflutren Lipid Microspheres 1.5 Ml Vial Diluted To 10 Ml Total Volume IV PUSH 06/06/24 14:05 ONCE PRN adequate visualization Protocol Pramipexole Dihydrochloride 0.125 mg 06/02/24 22:20 06/03/24 20:20 Pramipexole 0.125 Mg Tablet PO 0.125 mg HS AISHA Administration Pregabalin 50 mg 06/02/24 22:20 06/03/24 20:20 Pregabalin (*Crx) 50 Mg Capsule PO 50 mg HS AISHA Administration Sertraline HCl 100 mg 06/04/24 10:00 06/04/24 10:09 Sertraline Hcl 50 Mg Tablet PO 100 mg DAILY AISHA Administration Tamsulosin HCl 0.4 mg 06/03/24 14:05 06/04/24 09:23 Tamsulosin Hcl 0.4 Mg Capsule PO 0.4 mg QAM AISHA Administration Wound Care/Dressing Products 1 patch 06/02/24 09:00 06/03/24 09:46 Hydrocolloid Dressing (Aquacel) Patch TOPICAL Not Given DAILY [facility] Radiology Results: ITS Impressions Abdomen/Pelvis CT 06/01/24 05:39 Impression: Acute appendicitis, as detailed above. No abscess or free air. Moderate hiatal hernia. Chest X-Ray 06/02/24 14:00 IMPRESSION: 1. Mild atelectasis in the mid and lower lung zones. 2. Large hiatal hernia. Venous Doppler Study 06/02/24 20:11 IMPRESSION: Negative bilateral lower extremity venous US. No deep vein thrombosis. Chest CT 06/02/24 20:31 IMPRESSION: 1. Sliding hiatus hernia. 2. Atelectasis in the lung bases and left upper lobe. 3. Fracture of the left ninth rib with air in the subcutaneous tissues. Labs Labs: Laboratory Results - last 24 hr 06/04/24 06/04/24 06/04/24 07:42 08:25 12:02 WBC 5.8 RBC 2.94 L Hgb 9.5 L Hct 29.5 L MCV 100.3 H MCH 32.3 MCHC 32.2 RDW 13.7 Plt Count 129 L MPV 11.4 H Immature Gran % (Auto) 0.3 Neut % (Auto) 75.9 H Lymph % (Auto) 9.6 L [place] % (Auto) 10.3 H Eos % (Auto) 3.6 Baso % (Auto) 0.3 Lymph # (Auto) 0.56 L [place] # (Auto) 0.6 Eos # (Auto) 0.2 Baso # (Auto) 0.0 Abs Immat Gran (auto) 0.02 Absolute Neuts (auto) 4.4 Absolute Nucleated RBC 0.000 Nucleated RBC % 0.0 % Immature Plt Fraction 5.2 Sodium 138 Potassium 3.9 Chloride 107 Carbon Dioxide 23 Anion Gap 8 BUN 22 H Creatinine 1.30 H Estim Creat Clear Calc 27 Estimated GFR 39 L Glucose 89 POC Capillary Glucose 100 124 H Calcium 8.3 L Magnesium 2.0 Total Bilirubin 0.7 AST 19 ALT 16 Alkaline Phosphatase 88 Total Protein 6.0 L Albumin 2.8 L
--- NOTE | 2024-06-04 15:11 | PC.NURSE ---
Pt was changed from full code to DNR per pt and family request. Pt is A&O 4 female who has participated and contributed in plan of care. Will continue to monitor pt.
[2024-06-04] MEDS: IRON SUCROSE COMPLEX 400 MG, IRON SUCROSE COMPLEX 100 MG in SODIUM CHLORIDE 0.9% IV 250 ML 78.57 MG IVPB (16:17)
[2024-06-04] MEDS: PRAMIPEXOLE 0.125 MG TABLET PO (20:15)
[2024-06-04] MEDS: PREGABALIN (*CRX) 50 MG CAPSULE PO (20:15)
[2024-06-05] VITALS (7 sets, daily range): BP systolic 105–139; BP diastolic 43–65; PULSE 60–77; RESP 16–20; TEMP 36.3–36.6; O2SAT 91–97
[2024-06-05] MEDS: PIPERACILLIN/TAZ 2.25G/NS 50ML 2.25 GM/50 ML BAG IVPB ×3 (01:10→13:26)
[2024-06-05] MEDS: LEVOTHYROXINE SODIUM 100 MCG TABLET 200 MCG PO (05:28)
[2024-06-05 06:26] LABS: Basophils Percent Auto 0.3 % (0.2-1.2); Eosinophils Absolute Auto 0.2 K/mm3 (0-0.3); Eosinophils Percent Auto 3.5 % (0-4.4); Hematocrit 28.6 % (37.0-47.0); Immature Granulocyte Absolute 0.03 K/mm3 (0.00-0.031); Immature Granulocyte Percent A 0.5 % (0-0.5); Lymphocytes Absolute Auto 1.02 K/mm3 (0.9-3.2); Lymphocytes Percent Auto 16.5 % (18.3-44.2); Mean Corpuscular HGB Conc 31.5 g/dl (32-36); Mean Corpuscular Hemoglobin 31.8 pg (26-34); Mean Corpuscular Volume 101.1 fl (80-100); Mean Platelet Volume 11.5 fl (7.4-10.4); Monocytes Absolute Auto 0.8 K/mm3 (0.1-0.6); Monocytes Percent Auto 12.3 % (2.6-8.5); Neutrophils Absolute Auto 4.2 K/mm3 (1.3-6.7); Neutrophils Percent Auto 66.9 % (45.5-73.1); Platelet Count Result 152 k/mm3 (150-375); Red Blood Count 2.83 M/mm3 (4.2-5.4); Red Cell Distribution Width 13.9 % (11.5-14.5); White Blood Count 6.2 K/mm3 (4.5-10.0)
[2024-06-05 06:32] LABS: Alanine Aminotransferase 15 U/L (6-35); Albumin Level 2.9 g/dL (3.5-5.1); Alkaline Phosphatase 89 U/L (38-126); Anion Gap 5 mmol/L (4-12); Aspartate Amino Transferase 18 U/L (14-36); Bilirubin,Total 0.6 mg/dL (0.2-1.3); Blood Urea Nitrogen 16 mg/dL (7-17); Calcium 8.5 mg/dL (8.4-10.2); Carbon Dioxide 23 mmol/L (22-30); Chloride 109 mmol/L (98-107); Estimated CRCL calculation 32 ml/min; Estimated Glomerular Filt Rate 47; Glucose 78 mg/dL (65-110); Magnesium 2.1 mg/dL (1.6-2.3); Potassium 3.6 mmol/L (3.4-5.0); Sodium 137 mmol/L (137-145)
[2024-06-05] MEDS: SERTRALINE HCL 50 MG TABLET 100 MG PO (08:06)
[2024-06-05] MEDS: ENOXAPARIN 30 MG/0.3 ML SYRINGE SUB-Q (08:06)
[2024-06-05] MEDS: buPROPion HCL 100 MG TABLET PO ×2 (08:06→16:26)
[2024-06-05] MEDS: FUROSEMIDE 40 MG TABLET PO (08:06)
[2024-06-05] MEDS: ASPIRIN 81 MG CHEWABLE TABLET PO (08:06)
[2024-06-05] MEDS: TAMSULOSIN HCL 0.4 MG CAPSULE PO (08:06)
[2024-06-05] MEDS: FLUTICASONE PROPIONATE 0.05% NA SPR 16 GM BTL (*BKC) 1 SPRAY NASAL (09:57)
--- NOTE | 2024-06-05 12:19 | P.PNIM_ITS ---
Progress Note: A&P Assessment and Plan (1) Acute appendicitis: Qualifiers: Acute appendicitis type: with localized peritonitis Appendicitis abscess presence: without abscess Appendicitis gangrene presence: without gangrene Appendicitis perforation presence: without perforation Qualified Code(s): K35.30 - Acute appendicitis with localized peritonitis, without perforation or gangrene Code(s): K35.80 - Unspecified acute appendicitis Status: Acute Plan Acute appendicitis Patient presented without acute abdominal pain CT scan showed acute appendicitis S/p Appendectomy and now tolerating diet Appreciate surgery input Acute hypoxemic respiratory failure likely from CHF exacerbation CT chest negative for PE or pneumonia , Venous doppler negative ECHO grade II diastolic dysfunction, EF 55-60% now on room air CHF, diastolic Continue Home lasix monitor Iron deficiency anemia Hb 9.0 down from 12.6 , Isat 13 IV iron 1000/1000 FOBT pending monitor Hypertension Hold medications until 2019 clinical course. Urinary retention patient appears to be retaining Urine bladder scan [address] AP on admission no obstruction Outpatient urology referral monitor Vertigo Continue home medications Neuropathy On home medications DVT prophylaxis subQ Lovenox. Patient is a DNR, surrogate decision maker is her daughter Winnie Carey Awaiting placement Subjective Date/time seen: 06/05/24 12:19 Interval history: Patient comfortable at bedside and awaiting [employer] Exam Narrative: General: alert and comfortable Eyes: EOMI, PERRLA ENNT External ears normal, Neck is supple, no masses, Respiratory systems: Clear to auscultation Cardiovascular S1, S2, normal rhythm, no murmur, rub, or gallop; no thrill or palpable murmurs on palpation. Gastrointestinal: soft, non-tender, and non-distended abdomen with no masses; BS present Skin: no rash, lesions, ulcerations, subcutaneous nodules or induration Musculoskeletal: no abnormality and no tenderness, normal ROM Neurologic: Alert and oriented x3, non focal Mental Status Exam: normal affect Objective Data Vital Signs Vital Signs: Vital Signs - 24 hr 06/04/24 16:03 06/04/24 14:00 06/04/24 21:18 Temperature 97.9 F 97.2 F L Pulse Rate 80 74 67 Respiratory Rate 20 18 Blood Pressure 115/58 L 124/54 L Pulse Oximetry 98 92 Oxygen Delivery 06/04/24 20:00 06/04/24 20:00 06/05/24 00:00 Temperature Pulse Rate 71 63 Respiratory Rate Blood Pressure Pulse Oximetry Oxygen Delivery Room Air 06/05/24 04:00 06/05/24 05:35 06/05/24 08:00 Temperature 97.4 F L Pulse Rate 73 60 Respiratory Rate 20 Blood Pressure 105/43 L Pulse Oximetry 91 Oxygen Delivery Room Air Intake/Output Intake/Output: Intake & Output 06/03/24 06/04/24 06/04/24 06/05/24 00:59 00:59 23:59 23:59 Intake Total 1160 Output Total 2250 Balance -1090 Meds/Results Medications: Active Medications Generic Name Dose Route Start Last Admin Trade Name Freq PRN Reason Stop Dose Admin Acetaminophen 1,000 mg 06/01/24 16:37 06/03/24 12:38 Acetaminophen 500 Mg Tablet PO 1,000 mg Q6H PRN Administration Mild Pain (1-3) or Fever Hydrocodone Bitart/Acetaminophen 1 tab 06/01/24 16:37 06/03/24 21:25 Hydrocodone/Acetaminophen (*Crx) 5-325 Mg Tablet PO 1 tab Q4H PRN Administration Pain Rated 4-6 Albuterol/Ipratropium 3 ml 06/03/24 15:35 Ipratropium 0.5 Mg/Albuterol Sulfate 2.5 Mg Ampul.Neb 3 Ml INHALATION Q6HRT PRN Wheezing Aspirin 81 mg 06/05/24 09:00 06/05/24 08:06 Aspirin 81 Mg Chewable Tablet PO 81 mg DAILY AISHA Administration Bupropion HCl 100 mg 06/04/24 10:00 06/05/24 08:06 Bupropion Hcl 100 Mg Tablet PO 100 mg BID AISHA Administration Dextrose 12.5 gm 06/01/24 02:46 Dextrose 50% 25 Gm/50 Ml Syringe IV PUSH PRN PRN Hypoglycemia Protocol Enoxaparin Sodium 40 mg 06/06/24 09:00 Enoxaparin 40 Mg/0.4 Ml Syringe SUB-Q DAILY AISHA Ergocalciferol 50,000 units 06/04/24 14:00 06/04/24 13:51 Ergocalciferol 50,000 Units Capsule PO 50,000 units Duarte@0900 AISHA Administration Fluticasone Propionate 1 spray 06/03/24 09:00 06/05/24 09:57 Fluticasone Propionate 0.05% Na Spr 16 Gm Btl (*Bkc) NASAL 1 spray DAILY AISHA Administration Furosemide 40 mg 06/05/24 09:00 06/05/24 08:06 Furosemide 40 Mg Tablet PO 40 mg DAILY AISHA Administration Glucagon 1 mg 06/01/24 02:46 Glucagon For Inj 1 Mg Vial IM PRN PRN Hypoglycemia Protocol Glucose 15 gm 06/01/24 02:46 Glucose Oral Gel 15 Gm Of Glucse In 37.5 Gm Tube PO PRN PRN Hypoglycemia Protocol Piperacillin Sod/Tazobactam Sod 2.25 gm in 50 mls @ 100 mls/hr 06/01/24 08:00 06/05/24 08:00 Zosyn 2.25 Gm/Ns 50 Ml IVPB 100 mls/hr Q6H AISHA Administration Dextrose 1,000 mls @ 100 mls/hr 06/01/24 02:46 Dextrose 5% 1,000 Ml IVPB PRN PRN Hypoglycemia Protocol Levothyroxine Sodium 200 mcg 06/05/24 06:30 06/05/24 05:28 Levothyroxine Sodium 100 Mcg Tablet PO 200 mcg DAILY@0630 AISHA Administration Meclizine HCl 12.5 mg 06/04/24 09:28 Meclizine Hcl 12.5 Mg Tablet PO DAILY PRN Dizziness Or Vertigo Morphine Sulfate 4 mg 06/01/24 16:37 Morphine Sulfate (*Crx) 4 Mg/Ml Inj IV PUSH Q4H PRN Pain Rated 7-10 Ondansetron HCl 4 mg 06/01/24 02:44 06/01/24 12:40 Ondansetron Inj 4 Mg/2 Ml Vial IV PUSH 4 mg Q4H PRN Administration Nausea Oxycodone HCl 5 mg 06/01/24 16:37 Oxycodone Hcl (*Crx) 5 Mg Tab Ir PO Q6H PRN Pain Rated 7-10 Perflutren Lipid Microsphere 0 ml 06/02/24 17:04 Perflutren Lipid Microspheres 1.5 Ml Vial Diluted To 10 Ml Total Volume IV PUSH 06/05/24 17:04 ONCE PRN adequate visualization Protocol Perflutren Lipid Microsphere 0 ml 06/03/24 14:05 Perflutren Lipid Microspheres 1.5 Ml Vial Diluted To 10 Ml Total Volume IV PUSH 06/06/24 14:05 ONCE PRN adequate visualization Protocol Pramipexole Dihydrochloride 0.125 mg 06/02/24 22:20 06/04/24 20:15 Pramipexole 0.125 Mg Tablet PO 0.125 mg HS AISHA Administration Pregabalin 50 mg 06/02/24 22:20 06/04/24 20:15 Pregabalin (*Crx) 50 Mg Capsule PO 50 mg HS AISHA Administration Sertraline HCl 100 mg 06/04/24 10:00 06/05/24 08:06 Sertraline Hcl 50 Mg Tablet PO 100 mg DAILY AISHA Administration Tamsulosin HCl 0.4 mg 06/03/24 14:05 06/05/24 08:06 Tamsulosin Hcl 0.4 Mg Capsule PO 0.4 mg QAM AISHA Administration Radiology Results: ITS Impressions Abdomen/Pelvis CT 06/01/24 05:39 Impression: Acute appendicitis, as detailed above. No abscess or free air. Moderate hiatal hernia. Chest X-Ray 06/02/24 14:00 IMPRESSION: 1. Mild atelectasis in the mid and lower lung zones. 2. Large hiatal hernia. Venous Doppler Study 06/02/24 20:11 IMPRESSION: Negative bilateral lower extremity venous US. No deep vein thrombosis. Chest CT 06/02/24 20:31 IMPRESSION: 1. Sliding hiatus hernia. 2. Atelectasis in the lung bases and left upper lobe. 3. Fracture of the left ninth rib with air in the subcutaneous tissues. Labs Labs: Laboratory Results - last 24 hr 06/05/24 05:53 WBC 6.2 RBC 2.83 L Hgb 9.0 L Hct 28.6 L MCV 101.1 H MCH 31.8 MCHC 31.5 L RDW 13.9 Plt Count 152 MPV 11.5 H Immature Gran % (Auto) 0.5 Neut % (Auto) 66.9 Lymph % (Auto) 16.5 L [place] % (Auto) 12.3 H Eos % (Auto) 3.5 Baso % (Auto) 0.3 Lymph # (Auto) 1.02 [place] # (Auto) 0.8 H Eos # (Auto) 0.2 Baso # (Auto) 0.0 Abs Immat Gran (auto) 0.03 Absolute Neuts (auto) 4.2 Absolute Nucleated RBC 0.000 Nucleated RBC % 0.0 Sodium 137 Potassium 3.6 Chloride 109 H Carbon Dioxide 23 Anion Gap 5 BUN 16 Creatinine 1.10 H Estim Creat Clear Calc 32 Estimated GFR 47 L Glucose 78 Calcium 8.5 Magnesium 2.1 Total Bilirubin 0.6 AST 18 ALT 15 Alkaline Phosphatase 89 Total Protein 6.0 L Albumin 2.9 L
--- NOTE | 2024-06-05 14:24 | P.PNGS_ITS ---
Progress Note: A&P Assessment and Plan (1) Acute appendicitis: Qualifiers: Acute appendicitis type: with localized peritonitis Appendicitis abscess presence: without abscess Appendicitis gangrene presence: without gangrene Appendicitis perforation presence: without perforation Qualified Code(s): K35.30 - Acute appendicitis with localized peritonitis, without perforation or gangrene Code(s): K35.80 - Unspecified acute appendicitis Status: Acute Assessment and Plan: Postop day 4 after an uncomplicated laparoscopic appendectomy. She is surgically stable for discharge when medically stable. Follow-up with Dr. Fuentes in 2 weeks. Patient states she is planning to discharge to SNF in [place] for rehab. (2) Hypoxemia: Code(s): R09.02 - Hypoxemia Status: Acute Plan I have discussed the patient's case and plan of care with Dr. Fuentes. Subjective Subjective Date/Time Seen: 06/05/24 14:24 Post Op day: 4 (Laparoscopic appendectomy) Patient reports: no new complaints, tolerating a regular diet, flatus and afebrile Interval history: Chart reviewed since last seen. Patient denies any pain at this time. Denies abdominal pain, nausea, or vomiting. Tolerating her diet. Bowels are moving. She is planning to go to rehab in [place] after discharge. Exam Const: General: comfortable and no acute distress GI: Inspection: non-distended and incision (incisions dry and intact) GI Palp: Yes Soft to palpation, Yes Tenderness to palpation present (GI) (incisional) and No Guarding due to palpation present (GI) Auscultation: normal bowel sounds Psych: Mental Status: mental status grossly normal Insight: Good insight present (Psych) Objective Data Vital Signs Vital Signs: Vital Signs - 24 hr 06/04/24 16:03 06/04/24 21:18 06/04/24 20:00 Temperature 97.2 F L Pulse Rate 80 67 Respiratory Rate 18 Blood Pressure 124/54 L Pulse Oximetry 92 Oxygen Delivery Room Air 06/04/24 20:00 06/05/24 00:00 06/05/24 04:00 Temperature Pulse Rate 71 63 73 Respiratory Rate Blood Pressure Pulse Oximetry Oxygen Delivery 06/05/24 05:35 06/05/24 08:00 06/05/24 08:03 Temperature 97.4 F L Pulse Rate 60 68 Respiratory Rate 20 Blood Pressure 105/43 L Pulse Oximetry 91 Oxygen Delivery Room Air 06/05/24 12:02 Temperature Pulse Rate 77 Respiratory Rate Blood Pressure Pulse Oximetry Oxygen Delivery Intake/Output Intake/Output: Intake & Output 06/03/24 06/04/24 06/04/24 06/05/24 00:59 00:59 23:59 23:59 Intake Total 1410 Output Total 3150 Balance -1740 Meds/Results Medications: Active Medications Generic Name Dose Route Start Last Admin Trade Name Freq PRN Reason Stop Dose Admin Acetaminophen 1,000 mg 06/01/24 16:37 06/03/24 12:38 Acetaminophen 500 Mg Tablet PO 1,000 mg Q6H PRN Administration Mild Pain (1-3) or Fever Hydrocodone Bitart/Acetaminophen 1 tab 06/01/24 16:37 06/03/24 21:25 Hydrocodone/Acetaminophen (*Crx) 5-325 Mg Tablet PO 1 tab Q4H PRN Administration Pain Rated 4-6 Albuterol/Ipratropium 3 ml 06/03/24 15:35 Ipratropium 0.5 Mg/Albuterol Sulfate 2.5 Mg Ampul.Neb 3 Ml INHALATION Q6HRT PRN Wheezing Aspirin 81 mg 06/05/24 09:00 06/05/24 08:06 Aspirin 81 Mg Chewable Tablet PO 81 mg DAILY AISHA Administration Bupropion HCl 100 mg 06/04/24 10:00 06/05/24 08:06 Bupropion Hcl 100 Mg Tablet PO 100 mg BID AISHA Administration Dextrose 12.5 gm 06/01/24 02:46 Dextrose 50% 25 Gm/50 Ml Syringe IV PUSH PRN PRN Hypoglycemia Protocol Enoxaparin Sodium 40 mg 06/06/24 09:00 Enoxaparin 40 Mg/0.4 Ml Syringe SUB-Q DAILY AISHA Ergocalciferol 50,000 units 06/04/24 14:00 06/04/24 13:51 Ergocalciferol 50,000 Units Capsule PO 50,000 units Duarte@0900 AISHA Administration Fluticasone Propionate 1 spray 06/03/24 09:00 06/05/24 09:57 Fluticasone Propionate 0.05% Na Spr 16 Gm Btl (*Bkc) NASAL 1 spray DAILY AISHA Administration Furosemide 40 mg 06/05/24 09:00 06/05/24 08:06 Furosemide 40 Mg Tablet PO 40 mg DAILY AISHA Administration Glucagon 1 mg 06/01/24 02:46 Glucagon For Inj 1 Mg Vial IM PRN PRN Hypoglycemia Protocol Glucose 15 gm 06/01/24 02:46 Glucose Oral Gel 15 Gm Of Glucse In 37.5 Gm Tube PO PRN PRN Hypoglycemia Protocol Dextrose 1,000 mls @ 100 mls/hr 06/01/24 02:46 Dextrose 5% 1,000 Ml IVPB PRN PRN Hypoglycemia Protocol Levothyroxine Sodium 200 mcg 06/05/24 06:30 06/05/24 05:28 Levothyroxine Sodium 100 Mcg Tablet PO 200 mcg DAILY@0630 AISHA Administration Meclizine HCl 12.5 mg 06/04/24 09:28 Meclizine Hcl 12.5 Mg Tablet PO DAILY PRN Dizziness Or Vertigo Morphine Sulfate 4 mg 06/01/24 16:37 Morphine Sulfate (*Crx) 4 Mg/Ml Inj IV PUSH Q4H PRN Pain Rated 7-10 Ondansetron HCl 4 mg 06/01/24 02:44 06/01/24 12:40 Ondansetron Inj 4 Mg/2 Ml Vial IV PUSH 4 mg Q4H PRN Administration Nausea Oxycodone HCl 5 mg 06/01/24 16:37 Oxycodone Hcl (*Crx) 5 Mg Tab Ir PO Q6H PRN Pain Rated 7-10 Perflutren Lipid Microsphere 0 ml 06/02/24 17:04 Perflutren Lipid Microspheres 1.5 Ml Vial Diluted To 10 Ml Total Volume IV PUSH 06/05/24 17:04 ONCE PRN adequate visualization Protocol Perflutren Lipid Microsphere 0 ml 06/03/24 14:05 Perflutren Lipid Microspheres 1.5 Ml Vial Diluted To 10 Ml Total Volume IV PUSH 06/06/24 14:05 ONCE PRN adequate visualization Protocol Pramipexole Dihydrochloride 0.125 mg 06/02/24 22:20 06/04/24 20:15 Pramipexole 0.125 Mg Tablet PO 0.125 mg HS AISHA Administration Pregabalin 50 mg 06/02/24 22:20 06/04/24 20:15 Pregabalin (*Crx) 50 Mg Capsule PO 50 mg HS AISHA Administration Sertraline HCl 100 mg 06/04/24 10:00 06/05/24 08:06 Sertraline Hcl 50 Mg Tablet PO 100 mg DAILY AISHA Administration Tamsulosin HCl 0.4 mg 06/03/24 14:05 06/05/24 08:06 Tamsulosin Hcl 0.4 Mg Capsule PO 0.4 mg QAM AISHA Administration Radiology Results: ITS Impressions Abdomen/Pelvis CT 06/01/24 05:39 Impression: Acute appendicitis, as detailed above. No abscess or free air. Moderate hiatal hernia. Venous Doppler Study 06/02/24 20:11 IMPRESSION: Negative bilateral lower extremity venous US. No deep vein thrombosis. Chest CT 06/02/24 20:31 IMPRESSION: 1. Sliding hiatus hernia. 2. Atelectasis in the lung bases and left upper lobe. 3. Fracture of the left ninth rib with air in the subcutaneous tissues. Chest X-Ray 06/05/24 12:43 IMPRESSION: Prominent bronchovascular markings in the lower lobes which may indicate the atelectasis. Early pneumonia cannot be excluded. Follow-up advised. Blunting of the posterior costophrenic angle suggestive of minimal effusion. Follow-up advised. Sliding hiatus hernia. Pulmonary Perfusion Imaging 06/05/24 13:37 IMPRESSION: 1. Low probability for pulmonary embolism. Labs Labs: Laboratory Results - last 24 hr 06/05/24 05:53 WBC 6.2 RBC 2.83 L Hgb 9.0 L Hct 28.6 L MCV 101.1 H MCH 31.8 MCHC 31.5 L RDW 13.9 Plt Count 152 MPV 11.5 H Immature Gran % (Auto) 0.5 Neut % (Auto) 66.9 Lymph % (Auto) 16.5 L [place] % (Auto) 12.3 H Eos % (Auto) 3.5 Baso % (Auto) 0.3 Lymph # (Auto) 1.02 [place] # (Auto) 0.8 H Eos # (Auto) 0.2 Baso # (Auto) 0.0 Abs Immat Gran (auto) 0.03 Absolute Neuts (auto) 4.2 Absolute Nucleated RBC 0.000 Nucleated RBC % 0.0 Sodium 137 Potassium 3.6 Chloride 109 H Carbon Dioxide 23 Anion Gap 5 BUN 16 Creatinine 1.10 H Estim Creat Clear Calc 32 Estimated GFR 47 L Glucose 78 Calcium 8.5 Magnesium 2.1 Total Bilirubin 0.6 AST 18 ALT 15 Alkaline Phosphatase 89 Total Protein 6.0 L Albumin 2.9 L
[2024-06-05] MEDS: PRAMIPEXOLE 0.125 MG TABLET PO (20:45)
[2024-06-05] MEDS: PREGABALIN (*CRX) 50 MG CAPSULE PO (20:46)
[2024-06-06] MEDS: LEVOTHYROXINE SODIUM 100 MCG TABLET 200 MCG PO (05:37)
[2024-06-06 05:42] VITALS: BP 133/68; PULSE 74; RESP 16; TEMP 36.4; O2SAT 97
[2024-06-06 06:28] LABS: Basophils Percent Auto 0.5 % (0.2-1.2); Eosinophils Absolute Auto 0.2 K/mm3 (0-0.3); Eosinophils Percent Auto 3.2 % (0-4.4); Hematocrit 30.9 % (37.0-47.0); Hemoglobin 9.9 g/dL (12.0-15.0); Immature Granulocyte Absolute 0.13 K/mm3 (0.00-0.031); Immature Granulocyte Percent A 2.1 % (0-0.5); Lymphocytes Absolute Auto 1.34 K/mm3 (0.9-3.2); Lymphocytes Percent Auto 21.5 % (18.3-44.2); Mean Corpuscular Hemoglobin 32.5 pg (26-34); Mean Corpuscular Volume 101.3 fl (80-100); Monocytes Absolute Auto 0.8 K/mm3 (0.1-0.6); Neutrophils Absolute Auto 3.7 K/mm3 (1.3-6.7); Neutrophils Percent Auto 59.7 % (45.5-73.1); Nucleated Red Blood Cells Perc 0.5 % (0.0-0.2); Platelet Count Result 173 k/mm3 (150-375); Red Blood Count 3.05 M/mm3 (4.2-5.4); Red Cell Distribution Width 14.1 % (11.5-14.5); White Blood Count 6.2 K/mm3 (4.5-10.0)
[2024-06-06 06:43] LABS: Alanine Aminotransferase 20 U/L (6-35); Albumin Level 3.4 g/dL (3.5-5.1); Alkaline Phosphatase 97 U/L (38-126); Anion Gap 10 mmol/L (4-12); Aspartate Amino Transferase 31 U/L (14-36); Bilirubin,Total 0.5 mg/dL (0.2-1.3); Blood Urea Nitrogen 15 mg/dL (7-17); Calcium 8.9 mg/dL (8.4-10.2); Carbon Dioxide 23 mmol/L (22-30); Chloride 106 mmol/L (98-107); Estimated CRCL calculation 32 ml/min; Estimated Glomerular Filt Rate 47; Glucose 81 mg/dL (65-110); Magnesium 1.9 mg/dL (1.6-2.3); Potassium 3.5 mmol/L (3.4-5.0); Sodium 139 mmol/L (137-145)
[2024-06-06] MEDS: SERTRALINE HCL 50 MG TABLET 100 MG PO (09:11)
[2024-06-06] MEDS: buPROPion HCL 100 MG TABLET PO (09:11)
[2024-06-06] MEDS: TAMSULOSIN HCL 0.4 MG CAPSULE PO (09:11)
[2024-06-06] MEDS: ASPIRIN 81 MG CHEWABLE TABLET PO (09:12)
[2024-06-06] MEDS: FUROSEMIDE 40 MG TABLET PO (09:12)
[2024-06-06] MEDS: ENOXAPARIN 40 MG/0.4 ML SYRINGE SUB-Q (09:12)
[2024-06-06] MEDS: FLUTICASONE PROPIONATE 0.05% NA SPR 16 GM BTL (*BKC) 1 SPRAY NASAL (09:13)
--- NOTE | 2024-06-06 13:08 | P.DS_ITS ---
DS: Admitting Diagnosis Discharge Date 06/06/2025 Admitting Diagnosis Abdominal pain DS: Discharge Diagnosis Discharge Diagnosis (1) Acute appendicitis: Qualifiers: Acute appendicitis type: with localized peritonitis Appendicitis abscess presence: without abscess Appendicitis gangrene presence: without gangrene Appendicitis perforation presence: without perforation Qualified Code(s): K35.30 - Acute appendicitis with localized peritonitis, without perforation or gangrene Code(s): K35.80 - Unspecified acute appendicitis Status: Acute Plan Acute appendicitis Patient presented without acute abdominal pain CT scan showed acute appendicitis S/p Appendectomy and now tolerating diet Appreciate surgery input Acute hypoxemic respiratory failure likely from CHF exacerbation CT chest negative for PE or pneumonia , Venous doppler negative ECHO grade II diastolic dysfunction, EF 55-60% now on room air CHF, diastolic Continue Home lasix monitor Iron deficiency anemia Hb 9.0 down from 12.6 , Isat 13 IV iron 1000/1000 FOBT pending monitor Hypertension Hold medications until 2019 clinical course. Urinary retention patient appears to be retaining Urine bladder scan [address] AP on admission no obstruction Outpatient urology referral monitor Vertigo Continue home medications Neuropathy On home medications DVT prophylaxis subQ Lovenox. Patient is a DNR, surrogate decision maker is her daughter Winnie Carey Awaiting placement DS: Summary Hospital Course Hospital Course: 83 yo female with PMH of peripheral neuropathy, vertigo and hypertension presented to the ER on account of abdominal pain. Patient reports she was in her usual state of health until yesterday morning when she woke up with abdominal pain in right lower region described a sharp worsened to 10/10 the ventrally protruding had presented to ER for perforation care. Denies any vomiting, no diarrhea, no chest pain or shortness of breath, no loss of consciousness no focal weakness. No dysuria. ER evaluation notable for stable vital signs within normal limits, labs notable for WBC 11.3, creatinine 1.2, UA unremarkable. CT abdomen showed acute appendicitis. No abscess or free air noted. Chest x-ray unremarkable. General surgeon was consulted from the ER patient was scheduled for appendectomy Patient underwent a laparoscopic appendectomy on 06/01 without any complication. Patient tolerated the diet well. Status at Discharge Cognitive/behavioral status at discharge: Stable Time Spent with Patient Time attestation: Total time spent providing and/or coordinating discharge services: 45 minutes Exam Narrative: General: alert and comfortable Eyes: EOMI, PERRLA ENNT External ears normal, Neck is supple, no masses, Respiratory systems: Clear to auscultation Cardiovascular S1, S2, normal rhythm, no murmur, rub, or gallop; no thrill or palpable murmurs on palpation. Gastrointestinal: soft, non-tender, and non-distended abdomen with no masses; BS present Skin: no rash, lesions, ulcerations, subcutaneous nodules or induration Musculoskeletal: no abnormality and no tenderness, normal ROM Neurologic: Alert and oriented x3, non focal Mental Status Exam: normal affect DS: Data Data Completed and Pending Completed studies during hospitalization: Pending at discharge 06/01/24 16:03 Surgical [PTH] Routine Labs on day of discharge: Labs from last 24 hours 06/06/24 05:52 WBC 6.2 RBC 3.05 L Hgb 9.9 L Hct 30.9 L MCV 101.3 H MCH 32.5 MCHC 32.0 RDW 14.1 Plt Count 173 MPV 11.0 H Immature Gran % (Auto) 2.1 H Neut % (Auto) 59.7 Lymph % (Auto) 21.5 [place] % (Auto) 13.0 H Eos % (Auto) 3.2 Baso % (Auto) 0.5 Lymph # (Auto) 1.34 [place] # (Auto) 0.8 H Eos # (Auto) 0.2 Baso # (Auto) 0.0 Abs Immat Gran (auto) 0.13 H Absolute Neuts (auto) 3.7 Absolute Nucleated RBC 0.030 H Nucleated RBC % 0.5 H Sodium 139 Potassium 3.5 Chloride 106 Carbon Dioxide 23 Anion Gap 10 BUN 15 Creatinine 1.10 H Estim Creat Clear Calc 32 Estimated GFR 47 L Glucose 81 Calcium 8.9 Magnesium 1.9 Total Bilirubin 0.5 AST 31 ALT 20 Alkaline Phosphatase 97 Total Protein 7.0 Albumin 3.4 L Discharge Plan Discharge Attending physician on discharge: Ishmael Chu Consulting providers: Dex Fuentes Discharging Clinician: Ishmael Chu Patient Disposition: SNF Activity: other - see discharge instructions Diet: heart healthy Wound Care Instructions: other - see discharge instructions Discharge Instructions: Follow up with Dr. Fuentes in the office in 2 weeks. Patient to call [phone] for an appointment. May shower in 24hours but do not soak incisions under water for 2 weeks. No lifting more than 10 to 15 lb for 2 weeks. May advance diet as tolerated. No driving for at least 3 days or until no longer taking any narcotic pain medication. Resume all home medications. Prescription for narcotic pain medicines will be sent to the patient's pharmacy if needed. May use Tylenol and/or ibuprofen in addition to or in place of narcotic pain medications for postoperative pain. Patient Instructions: Pain Management in Older Adults (DC) Stand Alone Forms: General Discharge Information Follow-up/Referrals: Dex Fuentes MD [Physician] - Discharge Medications: New hydrocodone-acetaminophen 5-325 mg tablet 1 tablet PO Q6H PRN (Reason: pain) Qty: 12 0RF tamsulosin [Flomax] 0.4 mg capsule 0.4 mg PO HS Qty: 30 0RF Continued levothyroxine 200 mcg tablet 200 mcg PO DAILY furosemide 40 mg tablet 40 mg PO DAILY meclizine 12.5 mg tablet 12.5 mg PO PRN PRN (Reason: Dizziness Or Vertigo) ergocalciferol (vitamin D2) 1,250 mcg (50,000 unit) capsule 1,250 mcg PO WEEKLY fluticasone propionate 50 mcg/actuation spray,suspension 50 mcg INTRANASAL DAILY bupropion HCl 100 mg Tablet 100 mg PO BID sertraline 50 mg Tablet 100 mg PO DAILY pregabalin 50 mg Capsule 50 mg PO HS pramipexole 0.125 mg tablet 0.125 mg PO HS aspirin 81 mg Tablet,Chewable 81 mg PO DAILY Date of admission: 06/01/24 14:06 Primary Care Provider: Edith,Rohan Drake Admitting Provider: Yoselyn Saxena Attending physician on admission: Yoselyn Saxena Condition: Stable
[2024-06-06] MEDS: INFLUENZA VACCINE HIGH DOSE (>64) 180 MCG/0.5 ML SYRINGE IM (14:43)
== END 2024-06-06 15:53 | DRG 397 ==
LOC: ANHED 06-01 01:50 → ANH3MEDSUR 06-01 06:07
PROVIDERS: Emergency Medicine; Internal Medicine; Registered Nurse; Surgery; Admitting Provider Internal Medicine; Emergency Provider Physician Assistant; PCP Internal Medicine; Visit Provider General Practice
PROC: 0DTJ4ZZ Resection of Appendix, Percutaneous Endoscopic Approach (ICD-10-PCS; CPT 44970; principal; 2024-06-01 15:30)
DX: K35.30 Acute appendicitis with localized peritonitis, without perforation or gangrene (principal); I50.31 Acute diastolic (congestive) heart failure; J96.01 Acute respiratory failure with hypoxia; R33.9 Retention of urine, unspecified; I10 Essential (primary) hypertension; K21.9 Gastro-esophageal reflux disease without esophagitis; R42 Dizziness and giddiness; G62.9 Polyneuropathy, unspecified; E03.9 Hypothyroidism, unspecified; Z23 Encounter for immunization; Z79.82 Long term (current) use of aspirin; Z86.73 Personal history of transient ischemic attack (TIA), and cerebral infarction without residual deficits; Z96.653 Presence of artificial knee joint, bilateral; Z66 Do not resuscitate; D50.9 Iron deficiency anemia, unspecified
CPT/HCPCS: 36415; 36600; 71045; 71046; 71250; 74177; 78582; 80053; 81003; 82607; 82728; 82746; 82805; 82948; 83540; 83550; 83605; 83690; 83735; 85018; 85025; 85055; 85610; 85730; 86850; 86900; 86901; 88304; 90471; 90662; 93005; 93306; 93970; 94640; 96361; 96365; 96375; 96376; 97110; 97116; 97161; 97165; 97530; 97535; 99285; A9270; A9540; A9558; G0008; G0378; J1596; J1650; J1756; J2004; J2250; J2270; J2405; J2543; J2704; J2710; J3010; J7030; J7050; J7120; Q9967

== ENCOUNTER 2024-10-27 19:07 | Emergency (ER) | payer MEDICARE, SELFPAY ==
--- NOTE | ~2024-10-27 | CT_ITS ---
EXAMINATION: CT abdomen pelvis w con DATE: 10/28/2024 00:52 INDICATION: Right upper quadrant abdominal pain. Nausea and vomiting. TECHNIQUE: Computed tomography (CT) of the abdomen and pelvis was performed with 100 mL Omnipaque 350 intravenous contrast. Automated exposure control and iterative reconstruction technique were employe d. The dose-length product was 1208.87 mGy-cm. COMPARISON: CT abdomen and pelvis 05/31/2024 FINDINGS: The visualized portions of lung bases demonstrate mild atelectasis. No pleural effusion. Th e heart size is normal. No pericardial effusion. There is a large sliding hiatal hernia. The liver, s pleen, gallbladder, and adrenal glands are normal. There are cysts in the kidneys measuring up to 2.5 cm on the right. There is severe fatty atrophy of the pancreas. There are changes of appendectomy. T here are no dilated loops of bowel. There is possible thickening of the endometrial complex. There ar e no pathologically enlarged lymph nodes. There is no free intraperitoneal fluid. There is osteonecro sis in the femoral heads bilaterally. There is lumbar dextroscoliosis and severe spondylosis. IMPRESSION: 1. Large sliding hiatal hernia. 2. Possible thickening of the endometrial complex. Pelvis ultrasound is recommended to exclude malign zion. Reviewed, dictated and finalized at location A. IMPRESSION: 1. Large sliding hiatal hernia. 2. Possible thickening of the endometrial complex. Pelvis ultrasound is recomme nded to exclude malignancy.
--- OUTSIDE RECORDS SUMMARY | 2024-10-27 19:09 | XMS_ITS | CONTINUITY OF CARE DOCUMENT ---
Author Name korey nair Address Unknown Organization [facility] Address [address] [address] [place] [address] Phone [phone] Care Team Providers Care Numerical Control Operator Name Role Phone Celia TEMPLE, Daryn Unavailable Lolly Sharma MD Unavailable Lolly Sharma MD Unavailable PROBLEMS Condition Status Date Provider Notes Chest pain active Marielena Alfaro Family History of CVA or Stroke: active ? Jens Yang MD Family History of Hypertension: active ? Terrell Yang MD Family History of Sudden Cardiac : active ? Daryn Yang MD HTN essential active Daryn Yang MD Hyperlipidemia active Daryn Yang MD Edema active Daryn Yang MD Hypertension active ? Daryn Yang MD Frequent falls active Daryn Yang MD ENCOUNTERS Date Type Provider Location Encounter Diag nosis - In-person encounter Office Visit Daryn Yang MD [facility] - In-person encounter Office Visit Daryn Yang MD [facility] - In-person encounter Office Visit Daryn Yang MD [facility] - In-person encounter Office Visit Daryn Yang MD [facility] Frequent falls - In-person encounter Office Visit Daryn Yang MD [facility] Hypertension - In-person encounter Office Visit Daryn Yang MD [facility] Family History of CVA or Stroke:Family History of Hypertension:Family History of Sudden Cardiac :HTN essentialHyperlipidemiaEdema VITAL SIGNS Date Observation Value Provider Body Mass Index (Ratio) 26.83 kg/m2 Terrell Yang MD blood pressure, diastolic 71 mm[Hg] Li nkLogic blood pressure, systolic 153 mm[Hg] Stephany kLogic blood pressure, diastolic 71 mm[Hg] Ca therine [place] blood pressure, systolic 153 mm[Hg] Cat herine Nam oxygen saturation, oximetry 96 % Polly [place] respiratory rate E&M 16 /min Catheri ne Nam pulse rate 77 /min Polly [place] weight E&M 187 [lb_av] Polly [place] blood pressure, cuff size regular Ca therine [place] height E&M 70 [in_i] Polly [place] Body Mass Index (Ratio) 28.84 kg/m2 Terrell Yang MD blood pressure, cuff size regular Cy anmol Torres blood pressure, diastolic 70 mm[Hg] Cy anmol Torres blood pressure, systolic 122 mm[Hg] Enedelia Torres oxygen saturation, oximetry 94 % Kylee Torres pulse rate 87 /min Kylee Filipebel pawan respiratory rate E&M 16 /min Kylee Torres weight E&M 201 [lb_av] Kylee Campbel l height E&M 70 [in_i] Kylee Campbel l Body Mass Index (Ratio) 31.56 kg/m2 Terrell Yang MD blood pressure, diastolic 77 mm[Hg] Patrick De Anda blood pressure, systolic 136 mm[Hg] Gloria De Anda oxygen saturation, oximetry 94 % Garrett De Anda respiratory rate E&M 20 /min Nicol De Anda pulse rate 83 /min Garrett calhoun weight E&M 220 [lb_av] Garrett calhoun height E&M 70 [in_i] Garrett Santana nssreekanth Body Mass Index (Ratio) 30.56 kg/m2 Terrell Yang MD blood pressure, diastolic 80 mm[Hg] Da diane Muriel blood pressure, systolic 142 mm[Hg] Dac ia Muriel oxygen saturation, oximetry 95 % Marina Muriel respiratory rate E&M 18 /min Marina V oss pulse rate 75 /min Marina Muriel weight E&M 213 [lb_av] Marina Muriel height E&M 70 [in_i] Marina Muriel Body Mass Index (Ratio) 31.42 kg/m2 Terrell Yang MD blood pressure, cuff size large Ke rri Dain blood pressure, diastolic 86 mm[Hg] Ke rri Dain blood pressure, systolic 132 mm[Hg] Carolyne Gautam oxygen saturation, oximetry 95 % Ana María Gautam respiratory rate E&M 20 /min Ana María montgomery pulse rate 84 /min Ana María Phillips lder weight E&M 219 [lb_av] Ana María Phillips lder height E&M 70 [in_i] Ana María Phillips lder Body Mass Index (Ratio) 31.28 kg/m2 Terrell Yang MD blood pressure, cuff size regular Ke moises Gautam blood pressure, diastolic 100 mm[Hg] Christiano de leon Dain blood pressure, systolic 158 mm[Hg] Carolyne toledo Dain oxygen saturation, oximetry 96 % Ana María Dain respiratory rate E&M 16 /min Ana María Blackman ulises pulse rate 70 /min Ana María Jacqueline alvarado weight E&M 218 [lb_av] Ana María Jacqueline lder height E&M 70 [in_i] Ana María Jacqueline alvarado ALLERGIES Allergy Name Onset Date Reaction Criticality Status SULFA Low Criticality active HISTORY OF MEDICATION USE Medication Status Instructions Dates Provider Indications Com ments VITAMIN D CAPSULE active take 1 cap once a month Kylee Torres PRAMIPEXOLE DIHYDROCHLORIDE 0.125 MG ORAL TABLET active take 1 tab daily Kylee Torres #60, 30 days supply, Prescribed by LOLLY SHARMA, Filled 10/02/2020 BUPROPION HCL ER (SR) 100 MG ORAL TABLET EXTENDED RELEASE 12 HOUR active 1 tab twice daily Garrett De Anda MECLIZINE HCL 12.5 MG ORAL TABLET active 1 tab twice daily Garrett De Anda LEVOTHYROXINE SODIUM 125 MCG ORAL TABLET active ONE TAB. DAILY Grarett De Anda ASPIRIN ADULT LOW DOSE 81 MG ORAL TABLET DELAYED RELEASE active One Tab By Mouth Daily Ana María Gautam CHLORTHALIDONE 50 MG ORAL TABLET active 1 tab once daily Garrett De Anda LOSARTAN POTASSIUM 100 MG ORAL TABLET active Take one tablet daily Ana María Gautam LYRICA 150 MG ORAL CAPSULE active 1 tab twice daily Garrett De Anda ZOLOFT 100 MG ORAL TABLET active take one pill at bedtime Ana María Gautam DITROPAN XL 5 MG ORAL TABLET EXTENDED RELEASE 24 HOUR completed take one pill a day - Ana María Gautam MELOXICAM 7.5 MG ORAL TABLET completed take one pill a day - Marina Muriel SOCIAL HISTORY Date Observation Value Provider social history E&M Marital Statu s: C lenindren: 3 O ccupation: Retired Smoking History: P atient has never smoked. Daryn Yang MD social history reviewed E&M revi ewed - no changes required Daryn Yang MD passive cigarette sm ciro exposure yes Polly Nam smoking status Never smoker Polly Vane s social history reviewed E&M revi ewed - no changes required Daryn Yang MD social history E&M Marital Statu s: C hilen: 3 O ccupation: Retired Smoking History: P atient has never smoked. Daryn Yang MD smoking status Never smoker Kylee Deangelo fritz passive cigarette sm ciro exposure yes Kylee Brian social history E&M Marital Statu s: C leninen: 3 O ccupation: Retired Smoking History: P atient has never smoked. Daryn Yang MD social history reviewed E&M revi ewed - no changes required Daryn Yang MD passive cigarette sm ciro exposure yes Garrett De Anda smoking status Never smoker Garrett Killian purcell social history E&M Marital Statu s: C leninchilango: 3 O ccupation: Retired Smoking History: P atient has never smoked. Daryn Yang MD social history reviewed E&M revi ewed - no changes required Daryn Yang MD alcohol use no Marina Muriel passive cigarette sm ciro exposure yes Marina Muriel smoking status Never smoker Marina Muriel social history E&M Marital Statu s: C leninchilango: 3 O ccupation: Retired Smoking History: P atient has never smoked. Daryn Yang MD social history reviewed E&M revi ewed - no changes required Daryn Yang MD alcohol use no Ana María Phillips jenny passive cigarette sm ciro exposure yes Ana María Castillomika smoking status Never smoker Ana María Mikaylaleydi hao passive cigarette sm ciro exposure yes Daryn Yang MD alcohol use no Daryn Pope social history reviewed E&M revi ewed - no changes required Daryn Yang MD social history E&M Marital Statu s: C hildren: 3 O ccupation: Retired Smoking History: P gideon has never smoked. Daryn Yang MD smoking status Never smoker Ana María Colton bui FAMILY HISTORY Family Member Condition Mother Negative FH of Coron wesley Artery Disease Father Family History of Duarte dden Cardiac : Father Family History of Hy pertension: Father Family History of CV A or Stroke: INSURANCE PROVIDERS Payer name Policy type / Coverage type [place] red democrat ID AARP MEDICARE ADVANTAGE ([facility] COM[facility] PPO) Other [id number] ADVANCE DIRECTIVES Name Date DISCUSSED - NO DECISION MADE TREATMENT PLAN Date Name Performer [id number],S, Daryn holley MD [id number],S, Daryn holley MD [id number],B, Daryn holley MD [id number],S, Daryn holley MD [id number],S, Daryn holley MD Cardiology Daryn Yang MD Cardiology Daryn Yang MD Cardiology Daryn Yang MD Cardiology Daryn Yang MD Cardiology Daryn Yang MD Cardiology follow up Daryn bedoya MD Cardiology follow up Daryn bedoya MD Cardiology follow up Daryn bedoya MD Cardiology follow up Daryn bedoya MD Cardiology Daryn Yang MD Cardiology Daryn Yang MD Cardiology Daryn Yang MD Cardiology Daryn Yang MD Cardiology follow up Daryn bedoya MD Cardiology follow up Daryn bedoya MD Cardiology follow up Daryn bedoya MD Cardiology follow up Daryn bedoya MD Cardiology Follow up Daryn bedoya MD Cardiology Follow up aDryn bedoya MD Cardiology Follow up Daryn bedoya MD Cardiology Follow up Daryn bedoya MD Cardiology Hospital Follow up Ra zachary Yang MD Cardiology Hospital Follow up Ra zachary Yang MD Cardiology Hospital Follow up Ra zachary Yang MD [facility]iology Hospital Follow up Ra zachary Yang MD Date Name Complete Echo Venous Doppler Bilat eral LE - Reflux Complete Echo HISTORY OF PROCEDURES Procedure Date Procedure Name Provider Procedure Notes S tatus EKG Daryn Yang MD complete d EKG Daryn Yang MD complete d EKG Daryn Yang MD complete d SNOMED-CT: [id number] Current Medications Documented Daryn Yang MD completed EKG Daryn Yang MD complete d SNOMED-CT: [id number] Current Medications Documented Daryn Yang MD completed Stress EKG Laura Haro MD complet ed Regadenoson, 4 units Daryn Yang MD completed Cardiolite, 2 units Daryn Yang MD completed SPECT Images Laura Haro MD compl eted
--- OUTSIDE RECORDS SUMMARY | 2024-10-27 19:09 | XMS_ITS | Clinical Summary ---
Author Organization [facility] Address [address] [place] [address] Care Team Providers Care Puff Iron Operator Name Role Phone Rito Thakur MD Primary Care Provider [phone] Source Comments [facility],non-owned Affiliates and Associated Physician Practices is amultiple site organization consisting of ambulatory clinics and hospital sitesin [place], [place], [place] and [place]. This disclosure is being madepursuant to the Care Everywhere program and may not contain all information available regarding this patient. Last updated 18.[facility] [employer] Allergies Active Allergy Reactions Criticality Noted Date Comments Codeine 09/14/2012 Sulfa Drugs 09/14/2012 Medications * Be aware that medications may not be up to date on this document. Alwaysverify current medications with the patient. Medication Sig Dispensed Refills Start Date End Date Status LISINOPRIL PO 10 mg once daily. Acti ve LEVOTHYROXINE SODIUM PO 75 mg once daily. Active pramipexole (MIRAPEX) 0.125 MG tablet once daily. Active aspirin 81 MG tablet once daily. Act sharmila ETODOLAC PO Active Active Problems Problem Noted Date Diagnosed Date Lumbosacral spondylosis without myelopathy 09/20 Spinal stenosis, lumbar madie on, without neurogenic claudication 09/20/2012 HTN (hypertension) 09/14/2012 Hypothyroidism 09/14/2012 Low back pain 09/14/2012 Social History Tobacco Use Types Packs/Day Years Used Date Smoking Tobacco: Never Smokeless Tobacco: Never Alcohol Use Standard Drinks/Week Comments Not Asked 0 (1 standard drink = 0.6 oz pur e alcohol) Sex and Gender Information Value Date Recorded Sex Assigned at Not on file Gender Identity Not on file Sexual Orientation Not on file Last Filed Vital Signs Vital Sign Reading Time Taken Comments Blood Pressure 152/78 09/14/2012 11:16 AM PRODUCT TECHNICIAN Pulse 82 09/14/2012 11:16 AM PRODUCT TECHNICIAN Temperature - - Respiratory Rate 20 09/14/2012 11:16 AM PRODUCT TECHNICIAN Oxygen Saturation - - Inhaled Oxygen Concentration - - Weight 96.2 kg (212 lb) 09/14/2012 11:16 AM PRODUCT TECHNICIAN Height - - Body Mass Index - - Plan of Treatment Health Maintenance Due Date Last Done Comments BONE DENSITY TESTING 1940 DTAP/TDAP/TD VACCINES (1 - Tdap) 12/28/1959 PNEUMOCOCCAL VACCINE 50+ (1 of 1 - PCV) 1990 ZOSTER VACCINE (1 of 2) 1990 Respiratory Syncytial Virus (RSV) Vaccine Pt: or over 60 yrs (1 - 1-dose 75+ series) 12/28/2015 COVID-19 VACCINE ( - 2023-2 5 season) 2024 INFLUENZA VACCINE (#1) 2024 DEPRESSION SCREENING 08/02/2024 MEDICARE AWV CALENDAR YEAR 2024 HEPATITIS B VACCINE Aged Out No longe r eligible based on patient's age to complete this topic HIB VACCINE Aged Out No longer eligi ble based on patient's age to complete this topic HPV VACCINE Aged Out No longer eligi ble based on patient's age to complete this topic MENINGOCOCCAL (Group B) VACC INE SHARED DECISION-MAKING Aged Out No longer eligibl e based on patient's age to complete this topic MENINGOCOCCAL GROUPS A/C/Y/W VACCINE Aged Out No longer eligible b ased on patient's age to complete this topic Care Teams Puff Iron Operator Relationship Specialty Start Date End Date Rito Thakur MD PCP - General Internal Medicine 08/08/12
--- OUTSIDE RECORDS SUMMARY | 2024-10-27 19:09 | XMS_ITS ---
Author Organization [facility] Address [address] [place] [address] [place] [address] Care Team Providers Care Sustainability Executive Director Name Role Phone Cecil Diaz Unavailable [phone] Encounters Encounter Location Date Provider Diagnosis [facility] [address] [facility] [address] [place] [address] 08/25/2024 Cecil Diaz PLAN OF TREATMENT No Information Progress Notes * ELSIE WILLAMSDOB:[birth year] (83 yo F)Acc No.[id number]:08/25/2024 Progress Notes Patient: ELSIE WILLAMS Provider: MD GWEN, Gi.Lillie.P, F.A.S.N. :1940 Age:83 Y Sex:Female Date:08/25/2024 Address:[address] [place] [address] Subjective: * Chief Complaints: * * Medical History: Objective: Assessment: Plan: * Treatment: * Billing Information: * Visit Code: * Procedure Codes: * Sign off status: Pending * Provider: MD GWEN, Tomasz.Brooks.C.P, F.A.S.N. Date: 08/25/2024
--- OUTSIDE RECORDS SUMMARY | 2024-10-27 19:09 | XMS_ITS | Data Portability ---
Author Organization [place] - [facility], Main Office Address [address] [place] [address] Care Team Providers Care Jacquard Loom Fixer Name Role Phone LOLLY SHARMA Primary Care Provider LOLLY SHARMA Referring Provider Assessment Encounter Date Assessment Date Assessment LastModified by Organization Details LastModified Time 05/30/2024 05/30/2024 This note is dictated and transcribed by [employer]. Manufacturing Worker variances may occur. Despite proofreading, typographical errors may occur. Occasional wrong-word or '[id number]' substitutions may have occurred due to the inherent limitations of voice recording. Read the chart carefully and recognize, using context, where substitutions have occurred. [email or web address] Not available 05/30/2024 13:41:32 07/18/2024 07/18/2024 please continue PT/ OT for strength and balance training and generalized weakness after recent surgical procedure she continues to have decreases strength and mobility and uses a wheeled walker to aid her balance. [email or web address] Not available 07/21/2024 11:37:31 08/31/2024 08/31/2024 This note is dictated and transcribed by [employer]. Manufacturing Worker variances may occur. Despite proofreading, typographical errors may occur. Occasional wrong-word or '[id number]' substitutions may have occurred due to the inherent limitations of voice recording. Read the chart carefully and recognize, using context, where substitutions have occurred. [email or web address] Not available 08/31/2024 11:42:04 Plan of Treatment Reminders Order Date Submit Date Provider Last Modified By Organization Details Last Modified Time Details Appointments Establish ed Patient 15 2024 10:30A M Dallas Gracia DPM Not available Not available Not available Any 15 2024 09:00A M Lolly Sharma MD Not available Not available Not available Lab None recorded. Referral occupatio nal therapist referral - please continue PT/ OT for strength and balance trainings he continues to have decreases strength and mobility and uses a wheeled walker to aid her balance. 2023 024 [email or web address] [facility], [address], [address], [place], [address], 08/28/2024 08:36:44 physical therapist referral - please continue PT/ OT for strength and balance trainings he continues to have decreases strength and mobility and uses a wheeled walker to aid her balance. 2023 024 [email or web address] [facility], [address], [address], [place], [address], 08/28/2024 08:36:45 Procedures None recorded. Surgeries None recorded. Imaging None recorded. Medication Orders furosemid e 40 mg tablet 2024 025 [facility]/Pharmacy #[id number], [address] [facility], [place], [address], 09/18/2024 12:53:19 [email or web address] ne propionat e 50 mcg/actua tion nasal spray,polina pension 2023 024 [facility]/Pharmacy #[id number], [address] [facility], [place], [address], 03/23/2024 12:12:36 Patient TargetsNo targets recorded. Patient InstructionsNo instructions recorded. Reason for Referral Occupational Therapist Refer ral for Abnormal gait please continue PT/ OT for strength and balance trainingshe continues to have decreases strength and mobility and uses a wheeled walker to aid her balance. Referring Physician: Susan Prieto, Family Medicine, Encounter Date: 07/18/2024 Physical Therapist Referral for Abnormal gait please continue PT/ OT for strength and balance trainingshe continues to have decreases strength and mobility and uses a wheeled walker to aid her balance. Referring Physician: Susan Prieto, Family Medicine, Encounter Date: 07/18/2024 Results Created Date Observation Date Name Description Value Unit Range Abnormal Flag Note LastModifiedBy Organization Detail LastModifiedTime 06/01/20 24 05/31/2024 CT, abdom en + pelvi s, w/ contr ast No observ ation record ed. BARCODE Not Available 2023 18:09:54 06/01/2006/01/2024 XR, chest , 1 view No observ ation record ed. Not Available 2023 08:35:01 06/02/20 24 06/02/2024 XR, chest , 1 view No observ ation record ed. BARCODE Not Available 2023 18:01:12 06/05/20 24 06/02/2024 US, duple x, venou s, lower extre mity No observ ation record ed. Not Available 2023 08:35:01 06/05/20 24 06/02/2024 CT, chest , w/o contr ast No observ ation record ed. Not Available 2023 08:35:02 Result Notes None recorded. Problems Name Problem SNOMED Code Status Onset Date Resolution Date Notes Provider Name and Address Organization Details Recorded Time Callosity on toe 574263281 Active 2022 Not Available [facility] 3 02:23:52 Onychomyc osis of toenails 634269896 Active 2022 Not Available [facility] 3 02:23:52 Flexion contractu re of toe joint 462365096 Active 2022 Not Available [facility] 3 02:23:52 Pain in toe 938370691 Active 2022 Not Available [facility] 3 02:23:52 Pain in toe 845204153 Active 2022 Not Available [facility] 3 02:23:52 Unable to cut own toenails 877518986 Active 2022 Not Available [facility] 3 02:23:52 Bilateral hearing loss 26012524 Active 2022 Not Available [facility] 3 02:23:52 Abnormal gait 49908320 Active 2022 Not Available [facility] 3 02:23:52 Visual impairmen t 498349833 Active 2022 Not Available [facility] 3 02:23:52 Bypro of toe 35806117 Active 2023 Dallas Gracia DPM [address], [address], [place], [address] , [facility] 4 12:01:26 Cough 99129560 Active 2023 Lolly Sharma MD [address], [address], [place], [address] , [facility] 4 12:06:41 Atypical chest pain 021729640 Completed Not Available [facility] 3 00:50:14 Contusion of breast 353387628 Completed Not Available [facility] 3 00:50:14 Ptosis of eyelid 76550084 Completed Not Available [facility] 3 00:50:14 Hammer toe 029039338 Completed 201704/24/2022 Not Available [facility] 3 00:50:14 Hammer toe 448700802 Active 2020 Not Available [facility] 3 02:23:52 Hammer toe 832864538 Completed 201704/24/2022 Not Available [facility] 3 00:50:15 Injury of knee 630844452 Completed 201702/21/2018 Not Available [facility] 3 00:50:15 Hearing loss 74474303 Active 2021 Not Available [facility] 3 02:23:52 Pain in both feet 77277767232 617909 Completed 202004/24/2022 Not Available [facility] 3 00:50:15 Pain of right shoulder joint 59970485304 420393 Active 2021 Not Available [facility] 3 02:23:52 Hearing difficult y 907808529 Completed Not Available [facility] 3 00:50:15 Heartburn 86033100 Active 2017 Not Available [facility] 3 02:23:52 Radiother apy follow-up 666643495 Active Not Available [facility] 3 02:23:52 Cobalamin deficienc y 240605098 Active Not Available [facility] 3 02:23:52 Callosity on toe Completed 202108/24/2022 Dallas Gracia DPM [address], [address], [place], [address] , [facility] 3 11:17:44 Callosity on toe Completed 201804/24/2022 Dallas Gracia DPM [address], [address], [place], [address] , [facility] 3 11:17:44 Pneumonia 698243153 Completed 201704/24/2022 Not Available [facility] 3 00:50:15 Morbid obesity 304133228 Active Not Available [facility] 3 02:23:52 Contractu re of joint of toe 704585442 Completed 201804/24/2022 Not Available [facility] 3 00:50:16 Contractu re of joint of toe 288242391 Completed 201804/24/2022 Not Available [facility] 3 00:50:16 On examinati on - rash present Completed Not Available [facility] 3 00:50:16 Wax in ear canal 922281642 Completed Not Available [facility] 3 00:50:16 Eruption 075225669 Completed Not Available [facility] 3 00:50:16 Unable to cut own nails 743406986 Completed 201904/24/2022 Not Available [facility] 3 00:50:16 Unable to cut own toenails 737912695 Completed 202208/24/2022 Dallas Gracia DPM [address], [address], [place], [address] , [facility] [employer] [facility] [email or web address] [facility] 3 11:19:34 Pain in toe 724970720 Completed 202208/24/2022 Dallas Gracia DPM [address], [address], [place], [address] , [facility] [employer] [facility] 3 11:18:44 Pain in toe 029203952 Completed 202104/24/2022 Dallas Gracia DPM [address], [address], [place], [address] , [facility] [employer] [facility] 3 11:18:52 Right upper quadrant pain 358595521 Completed Not Available [facility] 3 00:50:17 Osteopeni a 091566057 Active 2016 Not Available [facility] 3 02:23:52 Restless legs 76562376 Active 2021 Not Available [facility] 3 02:23:52 Fracture of rib 87438079 Completed 202004/24/2022 Not Available [facility] 3 00:50:17 Depressiv e disorder 32864408 Active 2017 Not Available [facility] 3 02:23:52 Sinusitis 73379320 Completed Not Available [facility] 3 00:50:17 Arthritis 4656310 Active 2017 Not Available [facility] 3 02:23:52 Hypertens sharmila disorder 99279096 Active 2017 Not Available [facility] 3 02:23:52 Neuropath y 693982219 Active Not Available [facility] 3 02:23:52 Osteoarth ritis 120049032 Active Not Available [facility] 3 02:23:52 Macrocyto sis 838414176 Completed Not Available [facility] 3 00:50:18 Vertigo 205646651 Active Not Available [facility] 3 02:23:52 Onychomyc osis of toenails 231589149 Completed 202108/24/2022 Dallas Gracia DPM [address], [address], [place], [address] , [employer] 3 11:17:56 Onychomyc osis of toenails 973677255 Completed 201704/24/2022 Dallas Gracia DPM [address], [place], [address] , [employer] [facility] [employer] 3 11:17:56 Hypothyro idism 20772656 Active Not Available [facility] 3 02:23:52 Obesity 918727661 Active Not Available [facility] 3 02:23:52 Onychomyc osis 117472681 Completed Not Available [facility] 3 00:50:19 Paronychi a of finger 059870895 Completed Not Available [facility] 3 00:50:19 Shoulder pain 07736638 Completed Not Available [facility] 3 00:50:19 Foot pain 05108443 Completed Not Available [facility] 3 00:50:19 Essential hypertens ion 37085831 Active Not Available [facility] 3 02:23:52 Tinea pedis 6824245 Completed 201904/24/2022 Not Available [facility] 3 00:50:20 Acquired mallet toe 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 Completed 202104/24/2022 Not Available [facility] 3 00:50:20 Neck pain 63192872 Completed Not Available [facility] 3 00:50:20 Perniciou s anemia 65121964 Active Not Available [facility] 3 02:23:52 Vitamin deficienc y 72916217 Completed Not Available [facility] 3 00:50:20 Kidney disease 95417752 Active 2018 Not Available [facility] 3 02:23:52 Pain in limb 51788444 Completed Not Available [facility] 3 00:50:20 Skin lesion 32840735 Completed Not Available [facility] 3 00:50:21 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 Dallas Gracia DPM [address], [address], [place], [address] , [facility] 5 11:42:16 Pain of toes of bilateral feet 45204078616 050757 Active 2024 Dallas Gracia DPM [address], [address], [place], [address] , [facility] 5 11:42:34 Edema 268225931 Active 2024 FRANCISCO Fallon, [employer] [facility] 5 12:21:28 Notes:overactive thyroid, re stless legs, neuropathy, back/neck problems, concussion or spinal trauma, ear problems,, eye problems, balance problems, numbness or tingling, depression, shortness of breath, swelling in arms and legs, wears glasses, vision problems, difficulty hearing, wears a hearing aid Some problems listed in Document: #[id number] could not be added to this patient's chart. Please review this document and add these problems to the patient's chart manually as needed. Problem Notes None recorded. Procedures Surgical History Date Name Laterality Status Provider Name and Address Organization Details Recorded Time 08/31/19 25 Nail Debridement completed Dallas Gracia DPM [address], [address], [place], [address], [facility] 08/31/2024 11:41:59 07/18/20 24 Appendectomy completed Anila Carcamo MA [employer] [facility] 07/24/2024 11:25:40 05/30/20 24 Nail Debridement completed Dallas Gracia DPM [address], [address], [place], [address], [employer] [facility] 05/30/2024 13:41:05 10/21/19 24 Nail Debridement completed Dallas Gracia DPM [address], [address], [place], [address], [employer] [facility] 10/21/2023 12:02:22 10/21/19 24 Callus Debridement, One completed Dallas Gracia DPM [address], [address], [place], [address], [employer] [facility] [facility] 10/21/2023 12:02:18 03/08/20 23 Nail Debridement completed Dallas Gracia DPM [address], [address], [place], [address], [employer] [facility] 03/08/2023 17:31:11 03/08/20 23 Callus Debridement 2-4 completed Dallas Gracia DPM [address], [address], [place], [address], [employer] [facility] 03/08/2023 17:31:05 11/20/19 23 Nail Debridement completed Dallas Gracia DPM [address], [address], [place], [address], [employer] [facility] 11/19/2022 11:17:20 11/20/19 23 Callus Debridement 2-4 completed Dallas Gracia DPM [address], [address], [place], [address], [employer] [facility] 11/19/2022 11:17:13 05/07/20 20 Most Recent Bone Density completed Not Available [facility] 09/30/2022 00:45:30 02/22/20 19 Total knee arthroplasty completed Not Available [facility] 09/30/2022 00:45:34 12/15/19 18 Total knee arthroplasty completed Not Available [facility] 09/30/2022 00:45:34 12/15/19 18 Knee Surgery completed Not Available [facility] 023 00:45:34 08/18/19 13 Date of Last Colonoscopy completed Not Available [facility] 09/30/2022 00:45:30 dilation and curettage completed Not Available [facility] 09/30/2022 00:45:34 Orthopedic Surgery completed Not Available [facility] 09/30/2022 00:45:34 Knee Surgery completed Not Available [facility] 09/30/2022 00:45:34 ENT Surgery completed Not Available [facility] 09/30/2022 00:45:34 Imaging Results Imaging Date Name Status LastModified by Organiz [facility] Details LastModified Time 05/31/2024 CT, abdomen + pelvis, w/ contrast completed [facility] Information not available 06/01/2024 18:09:54 06/01/2024 XR, chest, 1 view completed Information not available 06/06/2024 08:35:01 06/02/2024 XR, chest, 1 view completed [facility] Information not available 06/02/2024 18:01:12 06/02/2024 US, duplex, venous, lower extremity completed Information not available 06/06/2024 08:35:01 06/02/2024 CT, chest, w/o contrast completed Information not available 06/06/2024 08:35:02 Procedure Notes None recorded. Medical Equipment None Reported. Allergies Allergen ID Allergen Name Allergen Category Reaction Reaction Severity Criticality Documentation Date Start Date Code Code System Note Provider Name and Address Organization Details Recorded Time 838 sulfur dioxide medicatio n rash Not available Not available 09/30/2022 11980 79 RxNorm Not Available [facility] 3 00:57:07 839 Substance with sulfonami de structure and antibacte rial mechanism of action (substanc e) medicatio n rash Not available Not available 09/30/2022 14380 8003 SNOMED Not Available [facility] 3 00:57:07 840 codeine medicatio n dizziness Not available Not available 09/30/2022 2670 RxNorm Not Available [facility] 3 00:57:07 841 chlorthal idone medicatio n dizziness Not available Not available 09/30/2022 2409 RxNorm Not Available [facility] 3 00:57:07 842 amlodipin e medicatio n edema Not available Not available 09/30/2022 50568 RxNorm Not Available [facility] 3 00:57:07 Medications Name Sig Start Date Stop Date Status Note LastModified by Organization Details LastModified Time losartan 50 mg tablet TAKE 2 TABLETS (100MG) ONCE DAILY active Not Available Not Available No t Available carisoprodo l 350 mg tablet active Not Available Not Available Not Available celecoxib 200 mg capsule Take 1 capsule twice a day by oral route. 02/21 completed Not Available Not Available Not Available amoxicillin 500 mg capsule TAKE 1 CAPSULE BY MOUTH FOUR TIMES A DAY 07/19 completed Not Available Not Available Not Available furosemide 40 mg tablet TAKE 1 TABLET BY MOUTH EVERY DAY active Not Available Not Available No t Available atorvastati n 40 mg tablet 11/16 completed Not Available Not Available Not Available hydrocodone 7.5 mg-ibuprofe n 200 mg tablet 11/16 completed Not Available Not Available Not Available levothyroxi ne 175 mcg tablet TAKE ONE TABLET BY MOUTH EVERY DAY 08/17 completed Not Available Not Available Not Available prednisone 10 mg tablet Take by oral route. active Not Available Not Available No t Available ammonium lactate 12 % lotion Apply 2 applicati ons every day by topical route as needed for 90 days. 10/20 completed Not Available Not Available Not Available Penlac 8 % topical solution Apply 1 applicati on every day by topical route at bedtime. active Not Available Not Available No t Available azithromyci n 250 mg tablet TAKE 2 TABLETS BY MOUTH ONCE FOR 1 DOSE 03/06 completed Not Available Not Available Not Available tizanidine 4 mg tablet Take 1 tablet every day by oral route at bedtime. active Not Available Not Available No t Available metoprolol succinate ER 50 mg tablet,exte nded release 24 hr Take 1 tablet every day by oral route for 30 days. active Not Available Not Available No t Available hydrocodone 5 mg-acetamin ophen 325 mg tablet 09/18 completed Not Available Not Available Not Available Keflex 500 mg capsule Take 1 capsule 4 times a day by oral route for 10 days. 07/22 completed Not Available Not Available Not Available prednisone 20 mg tablet 02/14 completed Not Available Not Available Not Available sertraline 100 mg tablet TAKE ONE TABLET DAILY active Not Available Not Available No t Available prednisone 5 mg tablet USE DIRECTED PER ATTACHED SHEET 11/28 completed Not Available Not Available Not Available penicillin V potassium 500 mg tablet 02/08 completed Not Available Not Available Not Available meclizine 12.5 mg tablet TAKE 1 TABLET BY MOUTH EVERY DAY NEEDED active Not Available Not Available No t Available acetaminoph en 300 mg-codeine 30 mg tablet TAKE 1 TABLET BY MOUTH FOUR TIMES A DAY NEEDED active Not Available Not Available No t Available chlorthalid one 25 mg tablet TAKE ONE TABLET DAILY 04/29 completed Not Available Not Available Not Available amlodipine 5 mg tablet 12/24 completed Not Available Not Available Not Available chlorthalid one 50 mg tablet TAKE ONE TABLET DAILY active Not Available Not Available No t Available tramadol 50 mg tablet TAKE 1 TABLET BY MOUTH EVERY 8 HOURS NEEDED active Not Available Not Available No t Available amoxicillin 500 mg tablet TAKE 1 TABLET BY MOUTH FOUR TIMES A DAY 10/20 completed Not Available Not Available Not Available levothyroxi ne 75 mcg tablet TAKE ONE TABLET DAILY IN THE MORNING ON AN EMPTY STOMACH active Not Available Not Available No t Available meloxicam 7.5 mg tablet TAKE ONE TABLET DAILY 08/17 completed Not Available Not Available Not Available levothyroxi ne 100 mcg tablet Take 1 tablet every day by oral route. 05/17 completed Not Available Not Available Not Available bupropion HCl 100 mg tablet TAKE 1 TABLET BY MOUTH TWICE A DAY 2024 active JEAN NOV ok to rf Not Available Not Available Not Available terbinafine HCl 250 mg tablet 03/02 completed Not Available Not Available Not Available levothyroxi ne 88 mcg tablet TAKE ONE TABLET DAILY IN THE MORNING ON AN EMPTY STOMACH active Not Available Not Available No t Available hydromorpho ne 2 mg tablet active Not Available Not Available Not Available prednisolon e acetate 1 % eye drops,suspe nsion 12/08 completed Not Available Not Available Not Available lorazepam 0.5 mg tablet Take 1 tablet twice a day by oral route as needed. active Not Available Not Available No t Available tamsulosin 0.4 mg capsule active Not Available Not Available Not Available furosemide 80 mg tablet TAKE 1 TABLETS BY MOUTH ONCE DAILY @ 3:00 PM active Not Available Not Available No t Available Kenalog 10 mg/mL suspension for injection In office injection administe red by the provider 07/16 completed [facility]: 0003- 0494- 20 Not Available Not Available Not Available amlodipine 10 mg tablet TAKE ONE TABLET DAILY 11/16 completed Not Available Not Available Not Available econazole nitrate 1 % topical cream Apply 1 applicati on twice a day by topical route. active Not Available Not Available No t Available pantoprazol e 40 mg tablet,jeff yed release qd 11/30 completed Not Available Not Available Not Available cyanocobala min (vit B-12) 1,000 mcg/mL injection solution Inject 1 mL every month by intramusc ular route. 12/09 completed OTC b12 Not Available Not Available Not Available diclofenac 0.1 % eye drops 12/08 completed Not Available Not Available Not Available levothyroxi ne 125 mcg tablet TAKE ONE TABLET DAILY IN THE MORNING ON AN EMPTY STOMACH active Not Available Not Available No t Available tobramycin 0.3 % eye drops 12/08 completed Not Available Not Available Not Available nystatin 100,000 unit/gram topical cream APPLY TO THE AFFECTED ANA TWICE A DAY active Not Available Not Available No t Available dexamethaso ne 4 mg tablet active Not Available Not Available Not Available lisinopril 10 mg tablet TAKE ONE TABLET DAILY active Not Available Not Available No t Available levothyroxi ne 150 mcg tablet TAKE ONE TABLET BY MOUTH EVERY DAY 05/06 completed Not Available Not Available Not Available pramipexole 0.125 mg tablet TAKE 2 TABLETS BY MOUTH EVERY DAY active Not Available Not Available No t Available sertraline 25 mg tablet TAKE ONE TABLET DAILY active Not Available Not Available No t Available etodolac 400 mg tablet Take 1 tablet twice a day by oral route for 30 days. active Not Available Not Available No t Available levothyroxi ne 200 mcg tablet TAKE 1 TABLET BY MOUTH EVERY DAY 2024 active JEAN NOV ok to rf Not Available Not Available Not Available ergocalcife rol (vitamin D2) 1,250 mcg (50,000 unit) capsule TAKE 1 CAPSULE BY MOUTH ONCE WEEKLY active Not Available Not Available No t Available ibuprofen 600 mg tablet active Not Available Not Available Not Available levofloxaci n 750 mg tablet active Not Available Not Available Not Available methylpredn isolone 4 mg tablets in a dose pack active Not Available Not Available Not Available ketoconazol e 2 % topical cream active Not Available Not Available Not Available oxybutynin chloride 5 mg tablet TAKE ONE TABLET TWICE DAILY active Not Available Not Available No t Available cefdinir 300 mg capsule 12/24 completed Not Available Not Available Not Available losartan 100 mg tablet TAKE ONE TABLET DAILY 03/19 completed Not Available Not Available Not Available fluticasone propionate 50 mcg/actuati on nasal spray,suspe nsion INSTILL 2 SPRAYS INTO THE NOSTRILS ONCE DAILY IN THE EVENING active Not Available Not Available No t Available sertraline 50 mg tablet TAKE 2 TABLETS BY MOUTH EVERY DAY active Not Available Not Available No t Available doxycycline hyclate 100 mg tablet 03/15 completed Not Available Not Available Not Available griseofulvi n ultramicros ize 250 mg tablet 03/25 completed Not Available Not Available Not Available levothyroxi ne 112 mcg tablet 11/26 completed Not Available Not Available Not Available amoxicillin 875 mg-potassiu m clavulanate 125 mg tablet TAKE 1 TABLET BY MOUTH EVERY 12 HOURS WITH LAST DOSE TAKEN ON 01/13 AT 9PM 03/23 completed Not Available Not Available Not Available olmesartan 20 mg tablet TAKE ONE TABLET DAILY -- THIS REPLACES [place]AN 04/29 completed Not Available Not Available Not Available nitrofurant oin monohydrate /macrocryst als 100 mg capsule active Not Available Not Available Not Available pregabalin 50 mg capsule TAKE 1 CAPSULE BY MOUTH EVERY DAY active Not Available Not Available No t Available Zoloft 11/16 completed Not Available Not Available Not Available Aspir-81 2019 active Not Available Not Available Not Avai lable lidocaine (PF) 10 mg/mL (1 %) injection solution In office injection administe red by the provider 07/16 completed [facility]: 0409- 4276- 17 Not Available Not Available Not Available Zostavax (PF) 19,400 unit/0.65 mL subcutaneou s suspension active Not Available Not Available N ot Available Mucus Relief ER 600 mg tablet, extended release TAKE 1 TABLET BY MOUTH EVERY 12 HOURS 03/23 completed Not Available Not Available Not Available Suprep Bowel Prep Kit 17.5 gram-3.13 gram-1.6 gram oral solution active Not Available Not Available Not Available OneTouch Verio test strips Take 1 strip twice a day by miscell. route. active Not Available Not Available No t Available Eliquis 2.5 mg tablet 05/16 completed Not Available Not Available Not Available OneTouch Verio Flex Meter 04/29 completed Not Available Not Available Not Available OneTouch Delica Plus Lancet 33 gauge active Not Available Not Available Not Available Vitals Date Recorded Body height Body mass index (BMI) Body weight Body temperature Heart rate Oxygen saturation Oxygen saturation in Arterial blood by Pulse oximetry Systolic blood pressure Diastolic blood pressure Provider Name and Address Organization Details Last Updated DateTime 4 154.94 cm 34 kg/m2 42995.6 3 g 98.2 [degF] 80 /min 97 % 97 % 124 mm[Hg] 68 mm[Hg] Tyra Manning [employer] 4 11:43:08 Date Recorded Body height Body mass index (BMI) Body weight Heart rate Respiratory rate Oxygen saturation Oxygen saturation in Arterial blood by Pulse oximetry Systolic blood pressure Diastolic blood pressure Provider Name and Address Organization Details Last Updated DateTime 4 154.94 cm 34 kg/m2 41126.6 3 g 94 /min 14 /min 98 % 98 % 118 mm[Hg] 63 mm[Hg] Kristen Espinoza [facility] 4 11:46:13 Date Recorded Body height Body mass index (BMI) Body weight Body temperature Heart rate Oxygen saturation Oxygen saturation in Arterial blood by Pulse oximetry Systolic blood pressure Diastolic blood pressure Provider Name and Address Organization Details Last Updated DateTime 4 154.94 cm 32.3 kg/m2 63106.3 g 97.4 [degF] 84 /min 97 % 97 % 128 mm[Hg] 78 mm[Hg] Kiara john [facility] 4 14:07:50 Date Recorded Body height Body mass index (BMI) Body weight Heart rate Respiratory rate Body temperature Systolic blood pressure Diastolic blood pressure Provider Name and Address Organization Details Last Updated DateTime 5 154.94 cm 32.3 kg/m2 10981.3 g 76 /min 14 /min 98.6 [degF] 126 mm[Hg] 76 mm[Hg] Maral Persaud MA [facility] 5 10:52:37 Date Recorded Body height Body mass index (BMI) Body weight Heart rate Oxygen saturation Oxygen saturation in Arterial blood by Pulse oximetry Body temperature Systolic blood pressure Diastolic blood pressure Provider Name and Address Organization Details Last Updated DateTime 5 154.94 cm 32.5 kg/m2 54048.8 9 g 86 /min 97 % 97 % 97 [degF] 142 mm[Hg] 66 mm[Hg] Kasey bedoya [facility] [place] [facility] [employer] 5 12:20:39 Social History Question Answer Notes LastModified by Organization Details LastModified Time Tobacco Smoking Status Never Smoker Not Available [facility] 09/30/2022 00:43:11 Do You Have An Advance Directive? Yes MIGRATION.030 [id number] Information not available 09/30/2022 What Is Your Level Of Alcohol Consumption? None MIGRATION.030 732237 Information not available 09/30/2022 Do You Wear A Helmet When Biking? No MIGRATION.030 305860 Information not available 09/30/2022 Are You Blind Or Do You Have Difficulty Seeing? No MIGRATION.030 095090 Information not available 09/30/2022 What Is Your Level Of Caffeine Consumption? Moderate MIGRATION.030 442812 Information not available 09/30/2022 How Much Tobacco Do You Chew? None MIGRATION.030 260009 Information not available 09/30/2022 In The 14 Days Before Symptom Onset, Have You Had Close Contact With A Laboratory-confi rmed COVID-19 While That Case Was Ill? No MIGRATION.030 549156 Information not available 09/30/2022 In The 14 Days Before Symptom Onset, Have You Had Close Contact With A Person Who Is Under Investigation For COVID-19 While That Person Was Ill? No MIGRATION.030 546229 Information not available 09/30/2022 Are You Deaf Or Do You Have Serious Difficulty Hearing? Yes Wears Hearing Aids In Both Ears MIGRATION.030 376845 Information not available 09/30/2022 What Type Of Diet Are You Following? REGULAR MIGRATION.[id number] Information not available 09/30/2022 Which Illicit Or Recreational Drugs Have You Used? None MIGRATION.030 272098 Information not available 09/30/2022 What Is The Highest Grade Or Level Of School You Have Completed Or The Highest Degree You Have Received? [id number] MIGRATION.0301 [id number] Information not available 09/30/2022 What Is Your Occupation? Retired MIGRATION.0301 635374 Information not available 09/30/2022 Have There Been Any Changes To Your Family Or Social Situation? No MIGRATION.0301 501547 Information not available 09/30/2022 What Is The Fluoride Status Of Your Home? Unknown MIGRATION.0301 357152 Information not available 09/30/2022 Do You Use Insect Repellent Routinely? No MIGRATION.0301 046691 Information not available 09/30/2022 Where Do You Live? SingleLevelHouse MIGRATION.0301 855330 Information not available 09/30/2022 Do You Have A Medical Power Of Want Ad Supervisor? No MIGRATION.0301 [id number] Information not available 09/30/2022 What Was The Date Of Your Most Recent Tobacco Screening? 04/29/2021 MIGRATION.0301 [id number] Information not available 09/30/2022 Do You Have Any Pets? No MIGRATION.0301 043635 Information not available 09/30/2022 What Is Your Relationship Status? MIGRATION.0301 712096 Information not available 09/30/2022 Do You Use Your Seat Belt Or Car Seat Routinely? Yes MIGRATION.0301 851290 Information not available 09/30/2022 Do You Have Smoke And Carbon Monoxide Detectors In Your Home? Yes MIGRATION.0301 851533 Information not available 09/30/2022 Are You Passively Exposed To Smoke? No MIGRATION.0301 038059 Information not available 09/30/2022 Are There Any Smokers In Your House? No MIGRATION.0301 916629 Information not available 09/30/2022 Do You Feel Stressed (tense, Restless, Nervous, Or Anxious, Or Unable To Sleep At Night)? AU5715-4 MIGRATION.0301 302572 Information not available 09/30/2022 Do You Use Any Illicit Or Recreational Drugs? No MIGRATION.0301 966722 Information not available 09/30/2022 Do You Use Sunscreen Routinely? No MIGRATION.0301 643183 Information not available 09/30/2022 Has Tobacco Cessation Counseling Been Provided? No N/A MIGRATION.0301 678292 Information not available 09/30/2022 Have You Recently Traveled Abroad? No MIGRATION.0301 351778 Information not available 09/30/2022 Do You Have Any Dietary Restrictions? No MIGRATION.0301 466913 Information not available 09/30/2022 Do You Or Have You Ever Used Any Other Forms Of Tobacco Or Nicotine? No MIGRATION.0301 917297 Information not available 09/30/2022 Sex: Female Functional Status Question Answer Note LastModified by Organizat ion Details LastModified Time Do you have difficulty walking or climbing stairs? Yes Uses walker MIGRATION.25477 04675 Information not available 09/30/2022 Do you have transportation difficulties? Yes No longer drives MIGRATION.40308 58715 Information not available 09/30/2022 Are you able to walk? YESASSIST MIGRATION.60289 49518 Information not available 09/30/2022 Do you have difficulty doing errands alone? Yes Patient does not drive. MIGRATION.70792 22386 Information not available 09/30/2022 Are you able to care for yourself? Yes MIGRATION.13544 21110 Information not available 09/30/2022 Do you have difficulty dressing or bathing? No MIGRATION.82461 93124 Information not available 09/30/2022 What is your exercise level? Occasional MIGRATION.36982 09728 Information not available 09/30/2022 Mental Status Question Answer Note LastModified by Organizat ion Details LastModified Time Do you have difficulty concentrating, remembering or making decisions? No MIGRATION.[id number] 6 Information not available 09/30/2022 Family History Relationship Description Onset Age of this Age Resolved Age Notes LastModified by Organization Details LastModified Time Father Cerebrovascu lar accident 63 MIGRATION.312 [id number] Not available 09/30/2022 00:45:35 Father Lupus erythematosu s MIGRATION.526 [id number] Not available 09/30/2022 00:45:35 Mother Cerebrovascu lar accident MIGRATION.103 [id number] Not available 09/30/2022 00:45:35 Mother Fibrositis 79 MIGRATION.358 [id number] Not available 09/30/2022 00:45:35 Brother Essential hypertension MIGRATION.968 [id number] Not available 09/30/2022 00:45:35 Brother Essential hypertension MIGRATION.651 [id number] Not available 09/30/2022 00:45:35 Medical History Condition Response OSTEOPOROSIS Y NERVE DISEASE Y BACK / NECK PROBLEMS Y HYPERTENSION Y DIZZINESS Y STROKE/TIA Y Gynecological History Statement/Question Response Date of Last Pap Date of Last Mammogram 05/07/2020 Date of Last Colonoscopy 08/18/2012 Most Recent Bone Density 05/07/2020 Obstetrics History GPAL:G 0 P 0 0 0 0 Immunizations Vaccine Type Date Status Note Provider Nam e and Address Organization Details Recorded Time COVID-19, mRNA, LNP-S, PF, 100 mcg/0.5mL dose or 50 mcg/0.25mL dose 1 completed Not Available [facility] 06/08/2023 02:23:53 COVID-19, mRNA, LNP-S, PF, 100 mcg/0.5mL dose or 50 mcg/0.25mL dose 1 completed Not Available [facility] 06/08/2023 02:23:53 Influenza, high-dose, quadrivalent, PF 1 completed Not Available [facility] 06/08/2023 02:23:53 Influenza, high-dose, trivalent, PF 3 completed Not Available [facility] 06/08/2023 02:23:53 pneumococcal polysaccharide PPV23 0 completed Not Available [facility] 06/08/2023 02:23:53 Pneumococcal conjugate PCV 13 6 completed Not Available [facility] 06/08/2023 02:23:53 Influenza, high-dose, quadrivalent, PF 3 completed Lolly Sharma MD [address] [place] [address], [place], [address], [facility] [employer] [facility] 07/19/2023 11:52:28 Past Encounters Encounter ID Performer Location Encounter Start Date Encounter Closed Date Diagnosis/Indication Diagnosis SNOMED-CT Code Diagnosis ICD10 Code Diagnosis Note [id number] [facility] [address] [facility], [facility] [address] [place] [address] 09/30/2020 00:00:00 09/30/2020 13:59:39 [id number] [facility] [address] [facility], [place] [address] [place] [address] 10/15/2020 00:00:00 10/15/2020 15:29:36 [id number] [facility] Internal [facility] [address] [place] [address] 11/26/2020 00:00:00 11/26/2020 11:31:01 [id number] [facility] [address] [place] [address] 12/24/2020 00:00:00 12/24/2020 11:31:23 [id number] [facility] [address] [facility], [facility] [address] [place] [address] 01/14/2021 00:00:00 01/14/2021 14:37:39 [id number] [facility] [address] [facility], [facility] [address] [place] [address] 04/17/2021 00:00:00 04/21/2021 09:06:32 [id number] [facility] [address] [facility] [place] [address] 04/29/2021 00:00:00 04/29/2021 12:50:02 [id number] [facility] [address] [facility] [place] [address] 07/03/2021 00:00:00 07/03/2021 12:40:07 [id number] [facility] [address] [facility], [facility] [address] [place] [address] 07/17/2021 00:00:00 07/17/2021 13:49:11 [id number] [facility] [address] [facility] [place] [address] 08/26/2021 00:00:00 08/26/2021 10:58:50 [id number] [facility] [address] [facility], [facility] [address] [place] [address] 10/16/2021 00:00:00 10/16/2021 11:55:50 [id number] [facility] [address] [facility] [place] [address] 12/25/2021 00:00:00 12/25/2021 13:01:38 [id number] [facility] [address] [place] [address] Rd, [facility] [address] [place] [address] 01/29/2022 00:00:00 01/29/2022 13:52:51 [id number] [facility] [address] [place] [address] 04/27/2022 00:00:00 04/27/2022 12:12:04 [id number] [facility] [address] [place] [address] Rd, [address] [address] 04/30/2022 00:00:00 04/30/2022 11:49:19 [id number] [facility] [address] [place] [address] Rd, [address] [address] 08/20/2022 00:00:00 08/20/2022 12:35:11 [id number] [facility] [address] [place] [address] 08/27/2022 00:00:00 08/27/2022 13:46:36 [id number] Dallas Gracia DPM [facility] [address] [place] [address], [address] [address] 11/19/2022 10:37:40 11/19/2022 11:26:25 Callosity on toe 724630467 L84 bilateral 2nd toeDebride d without incidentOf floading all timesConti nue supportive shoe gearFollow -up in 2-3 months Pain in toe 560624393 M7 9.674 M79.675 secondary to calluses and painful toenailsOf floading all timesConti nue wide soft toe box out shoe gear Onychomyco sis of toenails 400418377 B35.1 Patient was educated on treatment options of onychomyco sis. Patient's nails 1 through 10 were debrided without incident. Patient defers pharmacolo gical management due to possible side effects and will continue with conservati ve options. Return to clinic as needed every 3 months for this problem Unable to cut own toenails 169890728 Z74.1 as above Flexion co ntracture of toe joint 236904768 M21.279 2nd 3rd toes bilateralC ontinue conservati ve offloading to prevent wounds infectionF ollow-up in 3 months [id number] Lolly Sharma MD [facility] [address] 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674 M79.675 as above secondary to callus Onychomyco sis of toenails 770380703 B35.1 Nails 1 through 10 were debrided with sharp mechanical debridemen t without incident. Nails were debrided and greater than 50% length and thickness where needed. Flexion co ntracture of toe joint 893069727 M21.279 2nd 3rd toes bilateralC ontinue conservati ve offloading to prevent wounds infectionF ollow-up in 3 months Unable to cut own toenails 304550399 Z74.1 as above [id number] Lolly Sharma MD [facility] [address] [place] [address] 04/29/2023 11:15:03 04/29/2023 11:40:31 Essential hypertension 89803051 I10 under control Neuropathy 517993642 G62 .9 meds help Hypothyroidism 58601897 E03.9 under control Kidney disease 03516107 N08 seeing nephrology and stable Arthritis 8215058 M19.90 tylenol Obesity 267682153 E66.9 advised to watch diet Adult heal th examination 250883058 Z00.00 Colonoscop y- 08/2012Pne umovax- 07/16/2020 Prevnar 13- 11/12/2015M ammogram- 05/07/2020, no moreDexa- 05/07/2020F [place]- 05/22COVID - 09/2020, 10/2020 Vertigo 534211586 R42 meclizine helps Cobalamin deficiency 190 990800 E53.8 on oral Depressive disorder 3548 9007 F32.A under control Bilateral hearing loss 80981160 H91.93 hearing aids Restless legs 64943695 G 25.81 meds help Abnormal gait 40642427 R 26.9 using walker, lives alone, has some help Visual impairment 182324 003 H54.7 seen ophthalmol ogy, needs surgery Osteoarthritis 381172979 M19.90 otc tylenol Osteopenia 081326879 M85 .80 on caltrate [id number] Lolly Sharma MD [facility] [address] [place] [address] 07/19/2023 11:10:54 07/19/2023 12:04:11 Essential hypertension 64507970 I10 watch diet Neuropathy 171748986 G62 .9 meds help Hypothyroidism 88317431 E03.9 under control Kidney disease 82211713 N08 improving Arthritis 3923687 M19.90 tylenol Obesity 425959033 E66.9 advised to watch diet Vertigo 307199149 R42 meclizine helps Cobalamin deficiency 190 221009 E53.8 on oral Depressive disorder 3548 9007 F32.A under control Bilateral hearing loss 89834971 H91.93 hearing aids Restless legs 23988938 G 25.81 meds help Abnormal gait 58216337 R 26.9 using walker, lives alone, has some help Visual impairment 211094 003 H54.7 seen ophthalmol ogy, has MACULAR DEGENERATI ON Adult heal th examination 219887698 Z00.00 Colonoscop y- 08/2012Pne umovax- 07/16/2020 Prevnar 13- 11/12/2015M ammogram- 05/07/2020, no moreDexa- 05/07/2020F [place]- 07/19/2023 COVID- 09/2020, 10/2020 Osteoarthritis 580486807 M19.90 otc tylenol Osteopenia 199471894 M85 .80 on caltrate Administra tion of influenza vaccine 33616488 Z23 [id number] Dallas Gracia DPM [facility] [address] [facility], [place] [address] [place] [address] 10/21/2023 11:18:56 10/21/2023 14:20:33 Onychomycosis of toenails 775868964 B35.1 Nails 1 through 10 were debrided with sharp mechanical debridemen t without incident. Nails were debrided and greater than 50% length and thickness where needed.may continue topical over-the-c ounter medication Bypro of toe 55896179 L84 right 2nd toeDebride d without incidentco ntinue offloading with silicone toe cap Pain in toe 452230068 M7 9.674 M79.675 as above secondary to callus and toenails [id number] Lolly Sharma MD [facility] [address] [facility] [place] [address] 11/18/2023 11:20:38 11/18/2023 11:57:10 Essential hypertension 15403106 I10 under control Neuropathy 691989383 G62 .9 meds help Hypothyroidism 62419170 E03.9 under control Kidney disease 55472053 N08 improving Arthritis 5300361 M19.90 tylenol Obesity 380660672 E66.9 advised to watch diet Vertigo 038682260 R42 meclizine helps Cobalamin deficiency 190 899884 E53.8 on oral Depressive disorder 3548 9007 F32.A under control Bilateral hearing loss 89805541 H91.93 hearing aids Restless legs 03224064 G 25.81 meds help Abnormal gait 21721235 R 26.9 using walker, lives alone, has some help Visual impairment 829916 003 H54.7 seen ophthalmol ogdorcas, has MACULAR DEGENERATI ON Adult heal th examination 147719683 Z00.00 Colonoscop y- 08/2012Pne umovax- 07/16/2020 Prevnar 13- 11/12/2015M ammogram- 05/07/2020, no moreDexa- 05/07/2020F [place]- 07/19/2023 COVID- 09/2020, 10/2020 Osteoarthritis 094917478 M19.90 otc tylenol Osteopenia 993607297 M85 .80 on caltrate [id number] Dallas Gracia DPM [facility] [address] [facility] [place] [address] [place] [address] 01/18/2024 11:25:44 01/18/2024 15:41:13 Onychomycosis of toenails 315003089 B35.1 Nails 1 through 10 were debrided with sharp mechanical debridemen t without incident. Nails were debrided and greater than 50% length and thickness where needed.may continue topical over-the-c ounter medication Bypro of toe 54850348 L84 right 2nd toeDebride d without incidentco ntinue offloading with silicone toe cap Pain in toe 257248025 M7 9.674 M79.675 as above secondary to callus and toenails [id number] Lolly Sharma MD [facility] [address] [facility] [place] [address] 03/23/2024 11:31:58 03/23/2024 12:15:21 Essential hypertension 98007310 I10 under control Neuropathy 440480713 G62 .9 meds help Hypothyroidism 60851195 E03.9 under control Kidney disease 43905108 N08 improving, KEEP DRINKING WATER Arthritis 7740834 M19.90 tylenol Obesity 653011044 E66.9 advised to watch diet Vertigo 128846996 R42 meclizine helps Cobalamin deficiency 190 321760 E53.8 on oral meds Depressive disorder 3548 9007 F32.A under control Bilateral hearing loss 38221635 H91.93 hearing aids Restless legs 38772534 G 25.81 meds help Abnormal gait 00412556 R 26.9 using walker, lives alone, has some help Visual impairment 597569 003 H54.7 seen ophthalmol ogy, has MACULAR DEGENERATI ON Osteoarthritis 922116829 M19.90 otc tylenol Osteopenia 170175227 M85 .80 on caltrate Adult heal th examination 243329460 Z00.00 Colonoscop y- 08/2012Pne umovax- 07/16/2020 Prevnar 13- 11/12/2015M ammogram- 05/07/2020, no moreDexa- 05/07/2020F [place]- 07/19/2023 COVID- 09/2020, 10/2020 Cough 54951975 R05.9 [id number] Dallas Gracia DPM [facility] [address] [facility], [facility] [address] [place] [address] 05/30/2024 11:39:47 05/31/2024 10:58:42 Onychomycosis of toenails 529196290 B35.1 Nails 1 through 10 were debrided with sharp mechanical debridemen t without incident. Nails were debrided and greater than 50% length and thickness where needed.may continue topical over-the-c ounter medication Pain in toe 346013496 M7 9.674 M79.675 as above secondary to callus and toenails Unable to cut own toenails 659155853 Z74.1 as above [id number] Susan Prieto NP [facility] [address] [facility] [place] [address] 07/18/2024 13:59:28 07/18/2024 14:21:59 Neuropathy 706345833 G62.9 Osteoarthritis 881687173 M19.90 Restless legs 64560258 G 25.81 Abnormal gait 85608538 R 26.9 [id number] Dallas Gracia DPM [facility] [address] [place] [address] [place] [address] 08/31/2024 10:34:26 08/31/2024 12:54:21 Pain of toes of bilateral feet 0611787391 8160973 M79.674 M79.675 secondary to toenails Dystrophia unguium 70412 009 L60.3 Nails 1 through 10 were debrided with sharp mechanical debridemen t without incident. Nails were debrided and greater than 50% length and thickness where needed. Unable to cut own toenails 293978720 Z74.1 as above [id number] Lolly Sharma MD [facility] [address] [facility] [place] [address] 09/18/2024 11:59:39 09/18/2024 12:37:42 Essential hypertension 42005874 I10 under control Neuropathy 254842613 G62 .9 meds help Hypothyroidism 65608690 E03.9 under control Kidney disease 08789738 N08 seeing nephrology Arthritis 9754021 M19.90 tylenol Vertigo 711154566 R42 meclizine helps Cobalamin deficiency 190 475103 E53.8 on oral meds Depressive disorder 3548 9007 F32.A under control Bilateral hearing loss 19289619 H91.93 hearing aids Restless legs 38008320 G 25.81 meds help Abnormal gait 92496206 R 26.9 PT/OT HELPED Visual impairment 365506 003 H54.7 seen ophthalmol ogdorcas, has MACULAR DEGENERATI ON Osteoarthritis 821743715 M19.90 otc tylenol Osteopenia 569395966 M85 .80 on caltrate Adult heal th examination 758927805 Z00.00 Colonoscop y- 08/2012Pne umovax- 07/16/2020 Prevnar 13- 11/12/2015M ammogram- 05/07/2020, no moreDexa- 05/07/2020F [place]- 4COVID- 09/2020, 10/2020 Edema 840315994 R60.9 Health Concerns Section Related Observation LastModified by Organization Detai ls LastModified Time None Recorded Concern Status LastModified by Organization Details LastModified Time None Recorded Advance Directives Directive Y: Payers Encounter Date Sequence Insurance Name Policy Number Policy Sher Covered Member ID Sher Member ID Guarantor Name 03/23/2024 1 [facility] (MEDICARE REPLACEMENT/A DVANTAGE - PPO) [id number] Tanesha Oconnornbauer [id number] Tanesha Guy Bronnbauer 05/30/2024 1 [facility] (MEDICARE REPLACEMENT/A DVANTAGE - PPO) [id number] Tanesha Guy Bronnbauer [id number] Tanesha Guy Bronnbauer 07/18/2024 1 [facility] (MEDICARE REPLACEMENT/A DVANTAGE - PPO) [id number] Tanesha Guy Bronnbauer [id number] Tanesha Guy Bronnbauer 08/31/2024 1 [facility] (MEDICARE REPLACEMENT/A DVANTAGE - PPO) [id number] Tanesha Guy Bronnbauer [id number] Tanesha Guy Bronnbauer 09/18/2024 1 [facility] (MEDICARE REPLACEMENT/A DVANTAGE - PPO) [id number] Tanesha Guy Bronnbauer [id number] Tanesha Oconnornbauer Notes Date Note Type Note Provider Name and Address Organization Details Recorded Time 03/23/2024 text/html Doing fine, comp liant to medications, no side affects, here for follow up. HAD PNEUMONIA IN 6 MONTHS AGO, FEELING BETTERUSING HEARING AIDS, does not have good balance, had a fall using walker. HTN-under controlDizziness/ Vertigo, better with meds, still needs meds off and onMeds- meclizine 12.5 mg qd prnPernicious anemia, was on monthly shots. now stopped, levels were more than 1000 , to take otcHypothyroidism- on meds, labs doen at nephrologyMeds- Levothyroxine 200 mcg DAILYDepression - on meds, sleeps fine, symptoms are under control, no anxietyMeds- Sertraline 50 mg daily, Bupropion HCL 100 mg bid,Obesity- has lost 23 lbs since 07/24 Hearing loss- using hearing aids both sidesOveractive bladder- meds did not help in the pastGERD- better with medsNeuropathy better with meds, mostly symptoms are in hands, no side effectsMeds- Pregabalin 50 mg qdOsteopenia- on ca with vit dRestless leg syndrome- under control with meds,Meds- Pramipexole 0.125 mgKnee TKA right and left - no symptomsKidney disease- GFR 43, was 39, seeing nephrology dr johns Edema- Takes Furosemide 40mg in AM and 80 in the PM Lolly Sharma MD [address], [place], [address], [employer] 03/23/2024 12:15:58 05/30/2024 text/html . Patient is an 83-year-old female who presents the office for routine foot care. Patient states she has thickened painful toenails. Patient denies any open wounds or infection of her foot. Patient denies any other complaints. Dallas Gracia DPM [address], [address], [place], [address], [employer] 05/30/2024 13:42:03 07/18/2024 text/html needs a face to face for ins to pay for PT/OTshe recently had surgery for an emergency apendectomy Susan Prieto NP [address], [address], [place], [address], [employer] 07/21/2024 11:37:37 08/31/2024 text/html . Patient is a 83-year-old female who returns the office for pain in her toes secondary to elongated toenails. Patient denies any other complaints. Dallas Gracia DPM [address], [address], [place], [address], [employer] 08/31/2024 11:43:01 09/18/2024 text/html Doing fine, comp liant to medications, no side affects, here for follow up.PT IS FASTING ( [facility] ) USES HEARING AIDS but their broke, does not have good balance, had a fall using walker. HTN-under controlDizziness/ Vertigo, better with meds, still needs meds off and onMeds- Meclizine 12.5 mg qd prnPernicious anemia, was on monthly shots. now stopped, levels were more than 1000 , to take otcHypothyroidism- on meds, labs does at nephrologyMeds- Levothyroxine 200 mcg DAILYDepression - on meds, sleeps fine, symptoms are under control, no anxietyMeds- Sertraline 50 mg daily, Bupropion HCL 100 mg bid,Obesity- has gained 1 lb Hearing loss- using hearing aids both sides ( 1 broke, 1 does not work right )Overactive bladder- meds did not help in the pastGERD- better with medsNeuropathy better with meds, mostly symptoms are in hands, no side effectsMeds- Pregabalin 50 mg qdOsteopenia- on ca with vit dRestless leg syndrome- under control with meds,Meds- Pramipexole 0.125 mgKnee TKA right and left - no symptomsKidney disease- GFR 43, was 39, seeing nephrology dr johns Edema- Takes Furosemide 40mg in AMNEEDS REFILL ON 40mg Lolly Sharma MD [address] [facility], [facility] [address], [place], [address], [place] [facility] [employer] 09/18/2024 12:53:34 OBGyn Episode No OBEpisode recorded.
--- OUTSIDE RECORDS SUMMARY | 2024-10-27 19:09 | XMS_ITS ---
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) Active confirmed Mood disorder (70364002) Encounters Encounter Location Date Provider Diagnosis [place] [facility] [address] [facility] [address] [place] [address] 02/14/2024 Odilon Delvalle Chronic kidney disea se, stage 3a N18.31 ; Edema, unspecified R60.9 ; Anemia, unspecified D64.9 and Mood disorder due to known physiological condition, unspecified F06.30 ASSESSMENTS Encounter Date Diagnosis Assessment Notes Treatment Notes Treatment Clinical Notes Section Notes 02/14/2024 Chronic kidney disease, stage 3a (ICD-10 - N18.31) 02/14/2024 Edema, unspecified (ICD-10 - R60.9) 02/14/2024 Anemia, unspecified (ICD-10 - D64.9) 02/14/2024 Mood disorder due to known physiological condition, unspecified (ICD-10 - F06.30) PLAN OF TREATMENT No Information Progress Notes * ELSIE WILLAMSDOB:[birth year] (83 yo F)Acc No.[id number]:02/14/2024 Progress Notes Patient: ELSIE WILLAMS Provider: ODILON DELVALLE M.D :1940 Age:83 Y Sex:Female Date:02/14/2024 Address:[facility] [place] [address] Subjective: * Chief Complaints: * * Medical History: Objective: Assessment: * Assessment: 1. Chronic kidney disease, stage 3a - N18.31 (Primary) 2. Edema, unspecified - R60.9 3. Anemia, unspecified - D64.9 4. Mood disorder due to known physiological condition, unspecified - F06.30 Plan: * Treatment: * Billing Information: * Visit Code: 53385 Office Visit, Est Pt., Level 3. * Procedure Codes: * Sign off status: Pending * Provider: ODILON DELVALLE M.D Date: 02/14/2024
--- OUTSIDE RECORDS SUMMARY | 2024-10-27 19:09 | XMS_ITS | Continuity of Care Document ---
Author Organization [facility] [place] [address] [facility] [address] [place] [address] Phone Care Team Providers Care Gunnery/Ordnance Officer Name Role Phone Aguero OD, Alden Unavailable Unavailable Procedures Procedure Date Eye Exam & Treatment Eye Exam & Treatment Eye Exam & Treatment Office Consultation Office/outpatient Visit, Est BF Plastic Sphcyl [place] To +/-4d .12-2d Frames Deluxe Tax - Medical Eye Exam & Treatment Refraction Advance Directives Directive Yes / No Effective Date File Name No Information Encounters Encounter Description Practice Location Reason(s) For Visit Diagnoses Date Provider Providers Copied on Encounter [facility], [address] [place] [address] [address], [place], [place], [address], [place] tel:[phone] [facility] No Information 7-201 0 Aguero OD Alden. [address] , [address], [place], [address], [place]. tel:[phone] [facility], [address], [place], [place], [address], [place] tel:[phone] [facility] No Information 1-200 9 Aguero OD Alden. [address], [address], [place], [address], [place]. tel:[phone] [facility], [address], [place], [place], [address], [place] tel:[phone] [facility] No Information 3-200 8 Aguero OD Alden. [facility], [address], [place], [address], [place]. tel:[phone] Office Consultation [facility], [address] [place] [address] [address], [place], [place], [address], [place] tel:[phone] SEC [facility] [address] [address] No Information [address] Junie Romo. [address], [address], [place], [place], [address], [place]. tel:[phone] Referring Provider: [place] Aguero OD A, [address] [place] [address] [address], [place], [address]. tel:[phone] Office/outpati ent Visit, Est [facility], [address] [place] [address] [address], [place], [place], [address], [place] tel:[phone] [facility] No Information 0 8-200 7 Aguero OD Alden. [address] [place] [address] , [address], [place], [address], [place]. tel:[phone] [facility], [address] [place] [address] [address], [place], [place], [address], [place] tel:[phone] [facility] No Information 7-200 7 [employer] . [address] [facility], [address], [place], [place], [address], [place]. tel:[phone] Referring Provider: [place] Aguero OD A, [address] [place] [address] [address], [place], [address]. tel:[phone] sulting Provider: Kee Lloyd, [address] [facility], [place], [address]. tel:[phone] [facility], [address], [place], [place], [address], [place] tel:[phone] [facility] No Information 7-200 7 Aguero OD Alden. [address], [address], [place], [address], [place]. tel:[phone] Family History Family Member Type Diagnosis Age At Onset No Information Payers Payer name Insurance type Covered green party ID Authoriza tion(s) No Information Social History Type Description Quantity Date Captured Comments Sex Female Smoking Status No Information Chief Complaint And Reason For Visit No Information Reason For Referral Reason For Referral No Information History Of Present Illness Encounter Date Complaint History Of Prese nt Illness No Information Functional Status Date Functional Assessmen t No Information Instructions Date Instruction Additional Infor mation No Information Assessments Type Assessment Date No Information Patient Care Teams Name Effective Dates (start - stop) Status Members No Information
--- OUTSIDE RECORDS SUMMARY | 2024-10-27 19:09 | XMS_ITS | Patient Health Record ---
Author Organization [facility] Address [address] [place] [address] Care Team Providers Care Orthopaedic General Name Role Phone CalvinAlice gutierrezhit Unavailable [phone] Cecil Diaz Unavailable [phone] REASON FOR REFERRAL No Information MEDICATIONS Medication SIG (Take, Route, Frequency, Duration) Notes Start Date End Date Status Furosemide 80 MG TAKE 1 1/2 TABLETS B Y MOUTH ONCE DAILY FOR 30 DAYS *TAKE 1/2 TABLET AT 3:00 PM* for 90 Active Furosemide 40 MG TAKE 1 TABLET BY ASHISH TH EVERY DAY for 90 Active Vitamin D (Ergocalciferol) 1.25 MG (18475 UT) TAKE 1 CAPSULE BY MOUTH ONCE WEEKLY for 90 Active PROBLEMS Problem Type ICD Code Onset Dates Problem Status W/U Status Risk SNOMED Code Notes Problem Anemia, unspecified (D64.9) Active confirmed Anemia (244985772) Problem Vitamin D deficiency, unspecified (E55.9) Active confirmed Vitamin D deficiency (20123435) Problem Mood disorder due to known physiological condition, 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) Active confirmed Mood disorder (69021932) Problem Anxiety disorder, unspecified (F41.9) Active confirmed Anxiety disorder (999396920) Problem Urinary tract infection, site not specified (N39.0) Active confirmed Urinary tract infectious disease (disorder) (72549995) Problem Edema, unspecified (R60.9) Active confirmed Edema (43873054) Problem Chronic kidney disease, stage 3a (N18.31) Active confirmed Chronic kidney disease stage 3A (disorder) (557893370) Problem Chronic kidney disease, stage 3b (N18.32) Active confirmed Chronic kidney disease stage 3B (disorder) (223900696) Encounters Encounter Location Date Provider Diagnosis [place] [facility] [address] [address] 02/14/2024 Ju Gusmanema Chronic kidney disease, stage 3a N18.31 ; Edema, unspecified R60.9 ; Anemia, unspecified D64.9 and Mood disorder due to known physiological condition, unspecified F06.30 [facility] [place] [facility] [address] [place], [place] [address] 06/12/[address] [facility] [address] [address] 08/25/2024 Cecil Diaz ASSESSMENTS Encounter Date Diagnosis Assessment Notes Treatment Notes Treatment Clinical Notes Section Notes 02/14/2024 Chronic kidney disease, stage 3a (ICD-10 - N18.31) 02/14/2024 Edema, unspecified (ICD-10 - R60.9) 02/14/2024 Anemia, unspecified (ICD-10 - D64.9) 02/14/2024 Mood disorder due to known physiological condition, unspecified (ICD-10 - F06.30) PLAN OF TREATMENT Pending Test Test Name Order Date URINALYSIS, COMPLETE W/REFLEX TO CULTURE (3020) 03/29/2023
--- OUTSIDE RECORDS SUMMARY | 2024-10-27 19:09 | XMS_ITS ---
Author Organization [facility] Address [address] [place] [address] Care Team Providers Care Tire Fabricator Name Role Phone Odilon Delvalle [phone] Encounters Encounter Location Date Provider Diagnosis [facility] [place] [facility] [address] [place] [address] 06/12/2024 Odilon Delvalle PLAN OF TREATMENT No Information Progress Notes * ELSIE WILLAMSDOB:[birth year] (83 yo F)Acc No.[id number]:06/12/2024 Progress Notes Patient: ELSIE WILLAMS Provider: ODILON DELVALLE M.D :1940 Age:83 Y Sex:Female Date:06/12/2024 Address:[address] [place] [address] Subjective: * Chief Complaints: * * Medical History: Objective: Assessment: Plan: * Treatment: * Billing Information: * Visit Code: * Procedure Codes: * Sign off status: Pending * Provider: ODILON DELVALLE M.D Date: 06/12/2024
[2024-10-27 19:12] VITALS: BP 147/80; PULSE 90; RESP 18; TEMP 36.6; O2SAT 98
--- OUTSIDE RECORDS SUMMARY | 2024-10-27 23:10 | XMS_ITS | CONTINUITY OF CARE DOCUMENT ---
Author Name korey nair Address Unknown Organization [facility] Address [address] [facility] [address] [place] [address] Phone [phone] Care Team Providers Care Sales And Service Officer Name Role Phone Celia TEMPLE, Daryn Unavailable Lolly Sharma MD Unavailable [phone] Lolly Sharma MD Unavailable PROBLEMS Condition Status [...] In-person encounter Office Visit Daryn Yang MD [facility] - In-person encounter Office Visit Daryn Yang MD [facility] - In-person encounter Office Visit Daryn Yang MD [facility] - In-person encounter Office Visit Daryn Yang MD [facility] Frequent falls - In-person encounter Office Visit Daryn Yang MD [facility] Hypertension - In-person encounter Office Visit Daryn Yang MD [facility] Family History of CVA or Stroke:Family History of Hypertension:Family History of Sudden Cardiac :HTN essentialHyperlipidemiaEdema VITAL SIGNS Date Observation Value Provider Body Mass Index (Ratio) 26.83 kg/m2 Terrell Yang MD blood pressure, diastolic 71 mm[Hg] Li [employer]Logic blood pressure, systolic 153 mm[Hg] Stephany [employer]Logic blood pressure, diastolic 71 mm[Hg] Ca therine [place] blood pressure, systolic 153 mm[Hg] Cat herine Nam oxygen saturation, oximetry 96 % Polly [place] respiratory rate E&M 16 /min Catheri ne Nam pulse rate 77 /min Polly [place] weight E&M 187 [lb_av] Polly [place] blood pressure, cuff size regular Ca therine [place] height E&M 70 [in_i] Polly [place] Body Mass Index (Ratio) 28.84 kg/m2 Terrell [...] MCG ORAL TABLET active ONE TAB. DAILY Garrett De Anda ASPIRIN ADULT LOW DOSE 81 [...] Payer name Policy type / Coverage type [place] red republican ID AARP MEDICARE ADVANTAGE ([facility] COMPLETE PPO) Other [id number] ADVANCE DIRECTIVES Name Date DISCUSSED - NO DECISION MADE TREATMENT PLAN Date Name Performer [id number],S, Daryn holley MD [id number],S, Daryn holley MD [id number],B, Daryn holley MD [id number],S, Daryn holley MD [id number],S, Daryn holley MD Cardiology Daryn Yang MD Cardiology Daryn Yang MD Cardiology Daryn Yang MD Cardiology Daryn Yang MD Cardiology Daryn Yang MD Cardiology follow up Daryn bedoya MD Cardiology follow up Daryn bedoya MD Cardiology follow up Daryn bedoya MD Cardiology follow up Daryn bedoay MD Cardiology Daryn Yang MD Cardiology Daryn [...] EKG Daryn Yang MD complete d SNOMED-CT: 453188561 057555 Current Medications Documented Daryn Yang MD completed EKG Daryn Yang MD complete d SNOMED-CT: 242667907 115447 Current Medications Documented Daryn Yang MD completed Stress EKG Laura Haro MD complet ed Regadenoson, 4 units Daryn Yang MD completed Cardiolite, 2 units Drayn Yang MD completed SPECT Images Laura Haro MD compl eted
--- OUTSIDE RECORDS SUMMARY | 2024-10-27 23:10 | XMS_ITS | Clinical Summary ---
Author Organization [facility] Address [address] [place] [address] Care Team Providers Care Pcas Name Role Phone Rito Thakur MD Primary Care Provider [phone] Source Comments [facility],non-owned Affiliates and Associated Physician Practices is amultiple site organization consisting of ambulatory clinics and hospital sitesin [place] and [place]. This disclosure is being madepursuant to the Care Everywhere program and may not contain all information available regarding this patient. Last updated 18.[facility] Accumulate Allergies Active Allergy Reactions Criticality Noted Date [...] Comments Blood Pressure 152/78 09/14/2012 11:16 AM [facility] Pulse 82 09/14/2012 11:16 AM [facility] Temperature - - Respiratory Rate 20 09/14/2012 11:16 AM [facility] Oxygen Saturation - - Inhaled Oxygen Concentration - - Weight 96.2 kg (212 lb) 09/14/2012 11:16 AM [facility] Height - - Body Mass Index - [...] age to complete this topic Care Teams Pcas Relationship Specialty Start Date End Date Rito Thakur MD PCP - General Internal Medicine 08/08/12
--- OUTSIDE RECORDS SUMMARY | 2024-10-27 23:10 | XMS_ITS | Continuity of Care Document ---
Author Organization [facility] [place] [address] [place] [address] Phone Care Team Providers Care Director Of Cardiopulmonary Services Name Role Phone Aguero OD, Alden Unavailable Unavailable Procedures Procedure Date Eye Exam & Treatment Eye Exam & Treatment Eye Exam & Treatment Office Consultation Office/outpatient Visit, Est BF Plastic Sphcyl [place] To +/-4d .12-2d Frames Deluxe Tax - Medical Eye Exam & Treatment Refraction Advance Directives Directive Yes / No Effective Date File Name No Information Encounters Encounter Description Practice Location Reason(s) For Visit Diagnoses Date Provider Providers Copied on Encounter [facility], [address] [place] [address] [address], [place], [place], [address], [place] tel:[phone] [facility] No Information 7-201 0 Aguero OD Alden. [address] , [address], [place], [address], [place]. tel:[phone] [facility], [address], [place], [place], [address], [place] tel:[phone] [facility] No Information 1-200 9 Aguero OD Alden. [address], [address], [place], [address], [place]. tel:[phone] [facility], [address], [place], [place], [address], [place] tel:[phone] SEC [facility] No Information 3-200 8 Aguero OD Alden. [facility] [facility] [address], [address], [place], [address], [place]. tel:[phone] Office Consultation [facility], [address] [place] [address] [address], [place], [place], [address], [place] tel:[phone] [facility] [place] [address] No Information [address] Junie Romo. [address], [address], [place], [place], [address], [place]. tel:[phone] Referring Provider: [place] Aguero OD A, [address] [place] [address] [address], [place], [address]. tel:[phone] Office/outpati ent Visit, Est [facility], [address] [place] [address] [address], [place], [place], [address], [place] tel:[phone] SEC [facility] No Information 0 8-200 7 Aguero OD Alden. [address] [place] [address] , [address], [place], [address], [place]. tel:[phone] [facility], [address] [place] [address] [address], [place], [place], [address], [place] tel:[phone] SEC [facility] No Information 7-200 7 [employer] . [address] [facility], [address], [place], [place], [address], [place]. tel:[phone] Referring Provider: [place] Aguero OD A, [address] [place] [address] [address], [place], [address]. tel:[phone] sulting Provider: Kee Lloyd, [address] [facility], [place], [address]. tel:[phone] [facility], [address], [place], [place], [address], [place] tel:[phone] [facility] No Information 7-200 7 Aguero OD Alden. [address] [facility], [address], [place], [address], [place]. tel:[phone] Family History Family Member Type Diagnosis Age At Onset No Information Payers Payer name Insurance type Covered alliance party ID Authoriza tion(s) No Information Social [...]
[2024-10-27 23:47] VITALS: O2SAT 96
[2024-10-28] VITALS (27 sets, daily range): BP systolic 100–127; BP diastolic 58–70; PULSE 76–91; RESP 11–28; O2SAT 93–99
[2024-10-28] MEDS: SODIUM CHLORIDE 0.9% IV 1,000 ML 999 ML IV CONT (00:06)
[2024-10-28] MEDS: FAMOTIDINE 20 MG/2 ML VIAL IV PUSH (00:07)
[2024-10-28] MEDS: ONDANSETRON INJ 4 MG/2 ML VIAL IV PUSH (00:07)
[2024-10-28] MEDS: HYDROmorphone HCL INJ (*CRX) 1 MG/ML SYR 0.5 MG IV PUSH (00:07)
[2024-10-28 00:17] LABS: Basophils Percent Auto 0.3 % (0.2-1.2); Eosinophils Absolute Auto 0.1 K/mm3 (0-0.3); Eosinophils Percent Auto 1.1 % (0-4.4); Hemoglobin 13.4 g/dL (12.0-15.0); Immature Granulocyte Absolute 0.02 K/mm3 (0.00-0.031); Immature Granulocyte Percent A 0.3 % (0-0.5); Immature Platelet Fraction Pct 3.5 % (0.9-11.2); Lymphocytes Absolute Auto 0.51 K/mm3 (0.9-3.2); Lymphocytes Percent Auto 7.1 % (18.3-44.2); Mean Corpuscular HGB Conc 32.7 g/dl (32-36); Mean Platelet Volume 11.1 fl (7.4-10.4); Monocytes Absolute Auto 0.4 K/mm3 (0.1-0.6); Neutrophils Absolute Auto 6.1 K/mm3 (1.3-6.7); Neutrophils Percent Auto 85.2 % (45.5-73.1); Platelet Count Result 126 k/mm3 (150-375); Red Blood Count 4.06 M/mm3 (4.2-5.4); Red Cell Distribution Width 13.8 % (11.5-14.5); White Blood Count 7.1 K/mm3 (4.5-10.0)
[2024-10-28 00:26] LABS: Alanine Aminotransferase 16 U/L (6-35); Albumin Level 4.2 g/dL (3.5-5.1); Alkaline Phosphatase 114 U/L (38-126); Anion Gap 11 mmol/L (4-12); Aspartate Amino Transferase 20 U/L (14-36); Bilirubin,Total 0.5 mg/dL (0.2-1.3); Blood Urea Nitrogen 35 mg/dL (7-17); Calcium 9.2 mg/dL (8.4-10.2); Carbon Dioxide 27 mmol/L (22-30); Chloride 104 mmol/L (98-107); Estimated Glomerular Filt Rate 46; Glucose 102 mg/dL (65-110); Lipase 15 U/L (23-300); Potassium 4.6 mmol/L (3.4-5.0); Sodium 142 mmol/L (137-145)
--- NOTE | 2024-10-28 00:31 | PC.NURSE ---
Patient placed on 2L via NC for RA sat of 88% on RA after pain med administration.
[2024-10-28 00:50] LABS: Influenza A QL RT-PCR Negative (Negative); Influenza B QL RT-PCR Negative (Negative); RSV RNA, RT-PCR Negative (Negative); SARS-CoV-2 RNA PCR Negative (Negative)
[2024-10-28 05:59] LABS: Add Urine Microscopic? NO; Appearance Urine Clear (Clear); Bilirubin Urine Negative (Negative); Blood Urine Negative (Negative); Color Urine Yellow (Yellow); Glucose Urine UA Negative (Negative); Ketones Urine Negative (Negative); Leukocyte Esterase Ur Negative LEU/UL (Negative); Nitrate Urine Negative (Negative); Protein Urine Negative (Negative); Specific Grav Ur 1.018 (1.001-1.035); Urobilinogen Urine 0.2 mg/dL (<2.0); pH Urine 6.5 (5.0-9.0)
--- NOTE | 2024-10-28 07:00 | ED.GENADULT ---
HPI - General Adult General Chief complaint: Abdominal Pain Stated complaint: Abdominal pain Time Seen by Provider: 10/27/24 22:44 History of Present Illness HPI narrative: This is an 83-year-old female presenting with abdominal pain. The abdominal pain started earlier this morning. Patient woke and had a normal bowel movement. She then had some cereal which made her feel nauseous cause diffuse abdominal pain. She then had pizza later in the day and that made her throw up and she has not been able to keep anything down since then. Patient denies fevers chills chest pain difficulty breathing or urinary symptoms. Related Data Home Medications ?Medication ?Instructions ?Recorded ?Confirmed ?Last Taken ?Type bupropion HCl 100 mg tablet 100 mg PO BID 10/24/20 10/27/24 11/13/20 09:00 History pregabalin 50 mg capsule 50 mg PO HS 10/24/20 10/27/24 11/12/20 19:00 History sertraline 50 mg tablet 100 mg PO DAILY 10/24/20 07/06/24 11/12/20 19:00 History pramipexole 0.125 mg tablet 0.125 mg PO HS 11/13/20 10/27/24 11/12/20 19:00 History aspirin 81 mg chewable tablet 81 mg PO DAILY 11/14/20 10/27/24 Unknown History levothyroxine 200 mcg tablet 200 mcg PO DAILY 01/08/24 10/27/24 Unknown History ergocalciferol (vitamin D2) 1,250 1,250 mcg PO WEEKLY 06/01/24 10/27/24 Unknown History mcg (50,000 unit) capsule fluticasone propionate 50 50 mcg intranasal DAILY 06/01/24 10/27/24 Unknown History mcg/actuation nasal spray,suspension furosemide 40 mg tablet 40 mg PO DAILY 06/01/24 10/27/24 Unknown History meclizine 12.5 mg tablet 12.5 mg PO PRN PRN Dizziness Or 06/01/24 10/27/24 Unknown History Vertigo cyanocobalamin (vitamin B-12) 1,000 mcg PO DAILY 10/27/24 10/27/24 Unknown History 1,000 mcg tablet,extended release (Vitamin B-12 ER) diphenhydramine 25 1 tablet PO HS 10/27/24 10/27/24 Unknown History mg-acetaminophen 500 mg tablet (Acetaminophen PM) vit C 250 mg-vit E 200 unit-zinc cap PO 10/27/24 Unknown History ox 12.5 px-xyffgb-mtqzlz-zeax capsule Allergies Allergy/AdvReac Type Severity Reaction Status Date / Time Sulfa (Sulfonamide Allergy Hives Verified 10/27/24 23:51 Antibiotics) codeine AdvReac Other Verified 10/27/24 23:51 PMFSH Past Medical History Medical History Essential and other specified forms of tremor BPV (benign positional vertigo) Chronic GERD Neuropathy Feet Hypothyroidism TIA (transient ischemic attack) Depression Hypertension Renal insufficiency Chronic Obese Surgical History Surgical History History of laparoscopic appendectomy 06/01/24 Dr. Fuentes H/O elbow surgery Hx of dilation and curettage History of bilateral knee arthroplasty History of orthopedic surgery Family History Family History Sibling Congestive heart failure Sibling Congestive heart failure Sibling Lymphoma Daughter Myocardial infarction Mother Cerebrovascular accident Father Lupus Cerebrovascular accident Social History Social History Social History: The patient is . She has 2 sons and a daughter. She would like for her daughter to be the durable power scalehouse attendant for healthcare. The patient desires to be a full code but does not want to exist in a vegetative state. The patient is retired from [employer] as a cook. Lifelong nonsmoker. She occasionally has a wine cooler. Smoking status: Never smoker Second hand tobacco smoke exposure: Yes (family smokes in house when visiting) Alcohol intake: never Substance use: never Substance use type: does not use Do You Feel Safe in your Home?: Yes Lack of Transportation: No Lack of Food: Never True Current Housing: I Have Housing Concerned About Future Housing: No Difficulty Paying Gas/Electric Bills: No Difficulty Paying for Meds: No Currently Unemployed: No Education: High School Diploma/GED Difficulty w/ Childcare or Family Care: No Gender identity (if verbalized by the patient): Female Spiritual care concerns: No Exam Narrative: APPEARANCE: No apparent distress. Head: atraumatic. EYES: EOMI, NOSE: Atraumatic NECK: Trachea midline RESPIRATORY: No increased rate of breathing clear to auscultation CARDIOVASCULAR: RRR, peripheral edema ABDOMINAL: Non-distended normal soft nontender no guarding rebound MUSCULOSKELETAl: No obvious deformities NEURO: Alert. Moving 4/4 extremities SKIN:: Warm, dry. Normal color PSYCHIATRIC: Normal affect Course Vital Signs Vital signs: Vital Signs Temperature 98 F 10/27/24 19:12 Pulse Rate 90 10/27/24 19:12 Respiratory Rate 18 10/27/24 19:12 Blood Pressure 147/80 H 10/27/24 19:12 Pulse Oximetry 98 10/27/24 19:12 Oxygen Delivery Room Air 10/27/24 19:12 Temperature 98 F 10/27/24 19:12 Pulse Rate 80 10/28/24 05:49 Respiratory Rate 11 L 10/28/24 05:49 Blood Pressure 116/61 10/28/24 05:30 Pulse Oximetry 95 10/28/24 05:49 Oxygen Delivery Nasal Cannula 10/28/24 00:31 Oxygen Flow Rate 2 10/28/24 00:31 Medical Decision Making [facility] Narrative Medical decision making narrative: -Course: 83-year-old female presenting with diffuse abdominal pain and nausea and vomiting laboratory studies within normal limits. CT abdomen pelvis showed a large hiatal hernia but no other acute findings. Patient was given IV fluids, pain medication, and antiemetics. On re-examination patient is resting comfortably in bed. Vital signs are stable. Abdominal exam is benign. She will be p.o. challenged and expected discharge. -DDX includes but is not limited to: Gastroenteritis, small-bowel obstruction, ileus, viral syndrome, dehydration -Co-morbidities complicating care: Dementia, hard of hearing -Social determinants of health: Patient lives with her daughter, denies drugs and etoh -Independent interpretation of studies: Labs imaging reviewed Vital Signs Vital Signs: Vital Signs Temperature 98 F 10/27/24 19:12 Pulse Rate 90 10/27/24 19:12 Respiratory Rate 18 10/27/24 19:12 Blood Pressure 147/80 H 10/27/24 19:12 Pulse Oximetry 98 10/27/24 19:12 Oxygen Delivery Room Air 10/27/24 19:12 Temperature 98 F 10/27/24 19:12 Pulse Rate 80 10/28/24 05:49 Respiratory Rate 11 L 10/28/24 05:49 Blood Pressure 116/61 10/28/24 05:30 Pulse Oximetry 95 10/28/24 05:49 Oxygen Delivery Nasal Cannula 10/28/24 00:31 Oxygen Flow Rate 2 10/28/24 00:31 Lab Data 10/28/24 00:05 10/28/24 00:05 Labs: Lab Results 10/28/24 10/28/24 Range/Units 00:05 05:51 WBC 7.1 (4.5-10.0) K/mm3 RBC 4.06 L (4.2-5.4) M/mm3 Hgb 13.4 D (12.0-15.0) g/dL Hct 41.0 (37.0-47.0) % MCV 101.0 H (80-100) fl MCH 33.0 (26-34) pg MCHC 32.7 (32-36) g/dl RDW 13.8 (11.5-14.5) % Plt Count 126 L (150-375) k/mm3 MPV 11.1 H (7.4-10.4) fl Immature Gran % (Auto) 0.3 (0-0.5) % Neut % (Auto) 85.2 H (45.5-73.1) % Lymph % (Auto) 7.1 L (18.3-44.2) % [place] % (Auto) 6.0 (2.6-8.5) % Eos % (Auto) 1.1 (0-4.4) % Baso % (Auto) 0.3 (0.2-1.2) % Lymph # (Auto) 0.51 L (0.9-3.2) K/mm3 [place] # (Auto) 0.4 (0.1-0.6) K/mm3 Eos # (Auto) 0.1 (0-0.3) K/mm3 Baso # (Auto) 0.0 (0.0-0.1) K/mm3 Abs Immat Gran (auto) 0.02 (0.00-0.031) K/mm3 Absolute Neuts (auto) 6.1 (1.3-6.7) K/mm3 Absolute Nucleated RBC 0.000 (0.0-0.012) K/mm3 Nucleated RBC % 0.0 (0.0-0.2) % % Immature Plt Fraction 3.5 (0.9-11.2) % Sodium 142 (137-145) mmol/L Potassium 4.6 (3.4-5.0) mmol/L Chloride 104 (98-107) mmol/L Carbon Dioxide 27 (22-30) mmol/L Anion Gap 11 (4-12) mmol/L BUN 35 H D (7-17) mg/dL Creatinine 1.13 H (0.7-1.0) mg/dL Estim Creat Clear Calc Not Reportable Estimated GFR 46 L (59 - ) Glucose 102 (65-110) mg/dL Lactic Acid 1.0 (0.7-2.0) mmol/L Calcium 9.2 (8.4-10.2) mg/dL Total Bilirubin 0.5 (0.2-1.3) mg/dL AST 20 (14-36) U/L ALT 16 (6-35) U/L Alkaline Phosphatase 114 (38-126) U/L Total Protein 8.0 (6.3-8.2) g/dL Albumin 4.2 (3.5-5.1) g/dL Lipase 15 L (23-300) U/L Urine Color Yellow (Yellow) Urine Appearance Clear (Clear) Urine pH 6.5 (5.0-9.0) Ur Specific Commodore 1.018 (1.001-1.035) Urine Protein Negative (Negative) mg/dL Urine Glucose (UA) Negative (Negative) mg/dL Urine Ketones Negative (Negative) mg/dL Ur Blood (Man) Negative (Negative) Urine Nitrate Negative (Negative) Urine Bilirubin Negative (Negative) Urine Urobilinogen 0.2 (<2.0) mg/dL Leukocyte Esterase Rfl Negative (Negative) WILLIAM/UL Influenza A (RT-PCR) Negative (Negative) Influenza B (RT-PCR) Negative (Negative) RSV (RT-PCR) Negative (Negative) SARS-CoV-2 RNA (RT-PCR) Negative (Negative) Discharge Plan Discharge Clinical Impression: Nausea & vomiting Patient Disposition: Home, Self-Care Condition: Stable Instructions: Antibiotic Form, Acute Nausea and Vomiting (DC) Additional Instructions: Tanesha was seen in the ED for nausea and vomiting. Her lab work and CT imaging were reassuring. She does have a large hiatal hernia that can cause GI discomfort. Please use Zofran for nausea. Please follow-up with your primary care physician for further management. If she develops intractable nausea vomiting severe abdominal pain or any new or worsening symptoms she can return to the ED for re-evaluation. Patient Language: Bulgarian Prescriptions: New ondansetron 4 mg tablet,disintegrating 4 mg PO Q8H PRN (Reason: nausea and vomiting) Qty: 30 0RF No Action levothyroxine 200 mcg tablet 200 mcg PO DAILY furosemide 40 mg tablet 40 mg PO DAILY meclizine 12.5 mg tablet 12.5 mg PO PRN PRN (Reason: Dizziness Or Vertigo) ergocalciferol (vitamin D2) 1,250 mcg (50,000 unit) capsule 1,250 mcg PO WEEKLY fluticasone propionate 50 mcg/actuation spray,suspension 50 mcg INTRANASAL DAILY cyanocobalamin (vitamin B-12) [Vitamin B-12] 1,000 mcg tablet extended release 1,000 mcg PO DAILY vit C-E-zinc xu-bzmq-frz-zeax 250 mg-200 unit -12.5 mg-1 mg capsule PO diphenhydramine-acetaminophen [Acetaminophen PM] 25-500 mg tablet 1 tablet PO HS bupropion HCl 100 mg Tablet 100 mg PO BID sertraline 50 mg Tablet 100 mg PO DAILY pregabalin 50 mg Capsule 50 mg PO HS pramipexole 0.125 mg tablet 0.125 mg PO HS aspirin 81 mg Tablet,Chewable 81 mg PO DAILY Follow-up/Referrals: Edith,Rohan Drake MD [Primary Care Provider] - 1 Week (Nausea and vomiting)
== END 2024-10-28 07:56 | disposition home or self-care (01) ==
PROVIDERS: Emergency Provider Emergency Medicine; PCP Internal Medicine
DX: R11.2 Nausea with vomiting, unspecified (principal); E03.9 Hypothyroidism, unspecified; I10 Essential (primary) hypertension; Z79.899 Other long term (current) drug therapy; Z79.82 Long term (current) use of aspirin; Z86.73 Personal history of transient ischemic attack (TIA), and cerebral infarction without residual deficits
CPT/HCPCS: 36415; 74177; 80053; 81003; 83605; 83690; 85025; 85055; 87637; 96361; 96374; 96375; 99284; J1171; J2405; J7030; Q9967

== ENCOUNTER 2025-02-07 11:11 | Outpatient (CLI) | payer MEDICARE, SELFPAY ==
--- NOTE | ~2025-02-07 | XR_ITS ---
Left Shoulder Technique: AP and scapular Y views were obtained. Clinical History: Pain Findings: No fracture or dislocation is seen. Osseous alignment is anatomic. The glenohumeral joint d emonstrate moderate degenerative change. AC joint intact. Soft tissues are unremarkable. Impression: Moderate glenohumeral joint degenerative change. Reviewed, dictated and finalized at location . Impression: Moderate glenohumeral joint degenerative change.
--- OUTSIDE RECORDS SUMMARY | 2025-02-07 11:17 | XMS_ITS | Patient Health Record ---
Author Organization [facility] Address [address] [place] [address] Care Team Providers Care Police Lieutenant Patrol Name Role Phone Ju Simpson Unavailable [phone] Cecil Diaz Unavailable [phone] Reason For Referral No Information Medications Medication SIG (Take, Route, Frequency, Duration) Notes Start Date End Date Status Furosemide 80 MG TAKE 1 1/2 TABLETS B Y MOUTH ONCE DAILY FOR 30 DAYS *TAKE 1/2 TABLET AT 3:00 PM*; Duration: 90 Active Furosemide 40 MG TAKE 1 TABLET BY ASHISH TH EVERY DAY; Duration: 90 Active Vitamin D (Ergocalciferol) 1.25 MG (29401 UT) TAKE 1 CAPSULE BY MOUTH ONCE WEEKLY; Duration: 90 Active Social History Sex Assigned At : Social History Observation Description Sex Assigned At Female Problems Problem Type SNOMED Code ICD Code Onset Dates Problem Status W/U Status Risk Notes Problem Anemia (515411088) Anemia, unspecified (D64.9) Active confirmed Problem Hypothyroidism (12104414) Hypothyroidism, unspecified (E03.9) Active confirmed Problem Vitamin D deficiency (09770226) Vitamin D deficiency, unspecified (E55.9) Active confirmed Problem Mood disorder (64941414) Mood disorder due to known physiological condition, 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) Active confirmed Problem Anxiety disorder (751534612) Anxiety disorder, unspecified (F41.9) Active confirmed Problem Urinary tract infectious disease (disorder) (48658641) Urinary tract infection, site not specified (N39.0) Active confirmed Problem Edema (36211745) Edema, unspecified (R60.9) Active confirmed Problem Essential hypertension (07404316) Essential hypertension (I10) Active confirmed Problem Chronic kidney disease stage 3A (disorder) (705122742) Chronic kidney disease, stage 3a (N18.31) Active confirmed Problem Chronic kidney disease stage 3B (disorder) (575155718) Chronic kidney disease, stage 3b (N18.32) Active confirmed Encounters Encounter Location Date Provider Diagnosis [facility] [address] [address] 02/14/2024 Ju Simpson Chronic kidney disea se, stage 3a N18.31 ; Edema, unspecified R60.9 ; Anemia, unspecified D64.9 and Mood disorder due to known physiological condition, unspecified F06.30 [facility] [address] [address] 11/20/2024 Ju Simpson Chronic kidney disea se, stage 3b N18.32 ; Essential hypertension I10 ; Hypothyroidism, unspecified E03.9 and Mood disorder due to known physiological condition, unspecified F06.30 Assessments Encounter Date Diagnosis (ICD Code) Assessment Notes Treatment Notes Treatment Clinical Notes Section Notes 02/14/2024 Chronic kidney disease, stage 3a (ICD-10 - N18.31) 11/20/2024 Chronic kidney disease, stage 3b (ICD-10 - N18.32) 11/20/2024 Essential hypertension (ICD-10 - I10) 02/14/2024 Edema, unspecified (ICD-10 - R60.9) 02/14/2024 Anemia, unspecified (ICD-10 - D64.9) 11/20/2024 Hypothyroidism, unspecified (ICD-10 - E03.9) 11/20/2024 Mood disorder due to known physiological condition, unspecified (ICD-10 - F06.30) 02/14/2024 Mood disorder due to known physiological condition, unspecified (ICD-10 - F06.30) Plan Of Treatment Pending Test Test Name Order Date URINALYSIS, COMPLETE W/REFLEX TO CULTURE (3020) 03/29/2023 Next Appt Details Provider Name:Ju casey, 03/19/2025 04:00:00 PM, [address], [place], [address],
--- OUTSIDE RECORDS SUMMARY | 2025-02-07 11:18 | XMS_ITS ---
Author Organization [facility] Address [address] [place] [address] Care Team Providers Care Architectural Design Professor Name Role Phone CalvinAliceJumaribel Murdock [phone] Social History Sex Assigned At : Social History Observation Description Sex Assigned At Female Problems Problem Type SNOMED Code ICD Code Onset Dates Problem Status W/U Status Risk Notes Problem Essential hypertension (81595902) Essential hypertension (I10) Active confirmed Problem Hypothyroidism (25799708) Hypothyroidism, unspecified (E03.9) Active confirmed Encounters Encounter Location Date Provider Diagnosis [place] [facility] [address] [facility] [address] [place] [address] 11/20/2024 Ju Delvalle Chronic kidney disea se, stage 3b N18.32 ; Essential hypertension I10 ; Hypothyroidism, unspecified E03.9 and Mood disorder due to known physiological condition, unspecified F06.30 Assessments Encounter Date Diagnosis (ICD Code) Assessment Notes Treatment Notes Treatment Clinical Notes Section Notes 11/20/2024 Chronic kidney disease, stage 3b (ICD-10 - N18.32) 11/20/2024 Essential hypertension (ICD-10 - I10) 11/20/2024 Hypothyroidism, unspecified (ICD-10 - E03.9) 11/20/2024 Mood disorder due to known physiological condition, unspecified (ICD-10 - F06.30) Plan Of Treatment Next Appt Details Provider Name:Ju casey, 03/19/2025 04:00:00 PM, [address], [address], [place], [address], Progress Notes * ELSIE WILLAMSDOB:[birth year] (84 yo F)Acc No.[id number]:11/20/2024 Progress Notes Patient: ELSIE ROBBINS Provider: Brooks DELVALLE M.D :1940 A ge:83 Y S ex:Female Date:11/20/2024 Address:[facility] [place] [address] Subjective: * Chief Complaints: * * Medical History: Objective: * Vitals: Assessment: * Assessment: 1. C hronic kidney disease, stage 3b - N18.32 (Primary) 2 . E ssential hypertension - I10 3 . H ypothyroidism, unspecified - E03.9 4 . M ood disorder due to known physiological condition, unspecified - F06.30 Plan: * Treatment: * Billing Information: * Visit Code: 98905 Office Visit, Est Pt., Level 3. * Procedure Codes: * Electronic signature of Jinny Delvalle MD on 02/07/2025 at 11:18 AM CDT Sign off status: Pending * Provider: Brooks DELVALLE M.D Date: 11/20/2024 Generated for Dali trinidad/Amna/eTransmitting on: 0 02/07/2025 11:18 AM CDT
--- OUTSIDE RECORDS SUMMARY | 2025-02-07 11:18 | XMS_ITS ---
Author Organization [facility] Address [address] [place] [address] Care Team Providers Care Straw Hat Washer Operator Name Role Phone Ju Delvalle [phone] Social History Sex Assigned At : Social History Observation Description Sex Assigned At Female Encounters Encounter Location Date Provider Diagnosis [facility] [place] [facility] [address] [place] [address] 06/12/2024 Ju Delvalle Plan Of Treatment Next Appt Details Provider Name:Ju casey, 03/19/2025 04:00:00 PM, [address], [address], [place], [address], Progress Notes * ELSIE WILLAMSDOB:[birth year] (84 yo F)Acc No.[id number]:06/12/2024 Progress Notes Patient: ELSIE ROBBINS Provider: Brooks DELVALLE M.D :1940 A ge:83 Y S ex:Female Date:06/12/2024 Address:[address] [place] [address] Subjective: * Chief Complaints: * * Medical History: Objective: * Vitals: Assessment: Plan: * Treatment: * Billing Information: * Visit Code: * Procedure Codes: * Electronic signature of Jinny Delvalle MD on 02/07/2025 at 11:17 AM CDT Sign off status: Pending * Provider: Brooks DELVALLE M.D Date: 1 08/12/2023 Generated for Dali trinidad/Amna/Dorianitting on: 0 02/07/2025 11:17 AM CDT
--- OUTSIDE RECORDS SUMMARY | 2025-02-07 11:18 | XMS_ITS | Clinical Summary ---
Author Organization [facility] Address [address] [place] [address] Care Team Providers Care Career Placement Specialist Name Role Phone Rito Thakur MD Primary Care Provider [phone] Source Comments [facility],non-owned Affiliates and Associated Physician Practices is amultiple site organization consisting of ambulatory clinics and hospital sitesin [place], [place], [place] and [place]. This disclosure is being madepursuant to the Care Everywhere program and may not contain all information available regarding this patient. Last updated 18.[facility] [employer] Allergies Active Allergy Reactions Criticality Noted Date Comments Codeine 09/14/2012 Sulfa Drugs 09/14/2012 Medications * Be aware that medications may not be up to date on this document. Alwaysverify current medications with the patient. LISINOPRIL PO 10 mg once daily. Active LEVOTHYROXINE SODIUM PO 75 mg once daily. Active pramipexole (MIRAPEX) 0.125 MG tablet once daily. Active aspirin 81 MG tablet once daily. Active ETODOLAC PO Active Active Problems Problem Noted [...] drink = 0.6 oz pur e alcohol) Comments Unknown Sex and Gender Information Value Date Recorded Sex Assigned at Not on file Legal Sex Female 10:26 AM ELECTRICAL TECHNICIAN INSTRUCTOR Gender Identity Not on file Sexual Orientation Not on file Last Filed Vital Signs Vital Sign Reading Time Taken Comments Blood Pressure 152/78 09/14/2012 11:16 AM ELECTRICAL TECHNICIAN INSTRUCTOR Pulse 82 09/14/2012 11:16 AM ELECTRICAL TECHNICIAN INSTRUCTOR Temperature - - Respiratory Rate 20 09/14/2012 11:16 AM ELECTRICAL TECHNICIAN INSTRUCTOR Oxygen Saturation - - Inhaled Oxygen Concentration - - Weight 96.2 kg (212 lb) 09/14/2012 11:16 AM ELECTRICAL TECHNICIAN INSTRUCTOR Height - - Body Mass Index - [...] VACCINE ( - 2023-2 5 season) 2024 DEPRESSION SCREENING 08/02/2024 INFLUENZA VACCINE (Season Ended) 2025 HEPATITIS B VACCINE Aged Out No longe [...] on patient's age to complete this topic Insurance MANAGED MEDICARE ADV Care Teams Career Placement Specialist Relationship Specialty Start Date End Date Rito Thakur MD PCP - General Internal Medicine 08/08/12
--- OUTSIDE RECORDS SUMMARY | 2025-02-07 11:18 | XMS_ITS | Continuity of Care Document ---
Author Organization [place] [facility] [employer], [facility] [address] Address [address] [place] [address] Care Team Providers Care Water Regulator And Valve Repairer Name Role Phone ROHAN SHARMA Primary Care Provider ROHAN SHARMA Referring Provider [phone] Assessment No assessment recorded. Plan of Treatment Reminders Order Date Submit Date Provider Last Modified By Organization Details Last Modified Time Details Appointments Any 15 025 10:00AM ARNULFO Macdonald Not available Not available Not available Any 15 09:45AM Rohan Sharma MD Not available Not available Not available Lab None record ed. Referral None record ed. Procedures None record ed. Surgeries None record ed. Imaging XR, should er, 2 or more view 02/08/20 25 [email or web address] [facility], [address], [place], [address], 02/07/2025 12:04:51 Medication Orders None record ed. Patient TargetsNo targets recorded. Patient Instructions Encounter Date Encounter Id Patient Instructions Last Modified By Organization Details Last Modified Time 02/07/2025 [id number] Will notify patient of shoulder xrays. Continue ice and rest/ pillows for support at this time. Will notify of changes or additional information on DME equipment. [email or web address] Not available 02/07/2025 11:39:04 Reason for Referral None Reported. Problems Name Problem SNOMED Code Status Onset Date Resolution Date Notes Provider Name and Address Organization Details Recorded Time Callosity on toe 450956297 Active 2022 Not Available [facility] 11/07/202 3 02:23:52 Onychomyc osis of toenails 828497363 Active 2022 Not Available [facility] 3 02:23:52 Flexion contractu re of toe joint 942229734 Active 2022 Not Available [facility] 3 02:23:52 Pain in toe 137589046 Active 2022 Not Available [facility] 3 02:23:52 Pain in toe 345235592 Active 2022 Not Available [facility] 3 02:23:52 Unable to cut own toenails 927633077 Active 2022 Not Available [facility] 3 02:23:52 Bilateral hearing loss 23343446 Active 2022 Not Available [facility] 3 02:23:52 Abnormal gait 28283362 Active 2022 Not Available [facility] 3 02:23:52 Visual impairmen t 057187832 Active 2022 Not Available [facility] 3 02:23:52 [place] of toe 83126165 Active 2023 Dallas Gracia DPM [address], [facility] [address], [place], [address] , [facility] [employer] [facility] 4 12:01:26 Cough 97484405 Active 2023 Rohan Sharma MD [address], [facility] [address], [place], [address] , [facility] [employer] [facility] 4 12:06:41 Atypical chest pain 424316831 Completed Not Available [facility] 3 00:50:14 Contusion of breast 580223875 Completed Not Available [facility] 3 00:50:14 Ptosis of eyelid 91506376 Completed Not Available [facility] 3 00:50:14 Hammer toe 482546866 Completed 201704/24/2022 Not Available [facility] 3 00:50:14 Hammer toe 398150958 Active 2020 Not Available [facility] 3 02:23:52 Hammer toe 785680681 Completed 201704/24/2022 Not Available [facility] 3 00:50:15 Injury of knee 978825568 Completed 201702/21/2018 Not Available [facility] 3 00:50:15 Hearing loss 28278473 Active 2021 Not Available [facility] 3 02:23:52 Pain in both feet 42612917364 236633 Completed 202004/24/2022 Not Available [facility] 3 00:50:15 Pain of right shoulder joint 74192180999 461816 Active 2021 Not Available [facility] 3 02:23:52 Hearing difficult y 257183555 Completed Not Available [facility] 3 00:50:15 Heartburn 91846395 Active 2017 Not Available [facility] 3 02:23:52 Radiother apy follow-up 817705679 Active Not Available [facility] 3 02:23:52 Cobalamin deficienc y 674164627 Active Not Available [facility] 3 02:23:52 Callosity on toe 585053474 Completed 202108/24/2022 Dallas Gracia DPM [address], [place], [address] , [employer] 3 11:17:44 Callosity on toe 626553684 Completed 201804/24/2022 Dallas Gracia DPM [address], [place], [address] , [employer] 3 11:17:44 Pneumonia 676506509 Completed 201704/24/2022 Not Available [facility] 3 00:50:15 Morbid obesity 225932374 Active Not Available [facility] 3 02:23:52 Contractu re of joint of toe 598035832 Completed 201804/24/2022 Not Available [facility] 3 00:50:16 Contractu re of joint of toe 220779232 Completed 201804/24/2022 Not Available [facility] 3 00:50:16 On examinati on - rash present Completed Not Available [facility] 3 00:50:16 Wax in ear canal 096940165 Completed Not Available [facility] 3 00:50:16 Eruption 611966177 Completed Not Available [facility] 3 00:50:16 Unable to cut own nails 657362748 Completed 201904/24/2022 Not Available [facility] 3 00:50:16 Unable to cut own toenails 644234422 Completed 202208/24/2022 Dallas Gracia DPM [address], [place], [address] , [employer] 3 11:19:34 Pain in toe 799698248 Completed 202208/24/2022 Dallas Gracia DPM [address], [place], [address] , [facility] 3 11:18:44 Pain in toe 766785912 Completed 202104/24/2022 Dallas Gracia DPM [address], [place], [address] , [facility] 3 11:18:52 Right upper quadrant pain 577368924 Completed Not Available [facility] 3 00:50:17 Osteopeni a 072352675 Active 2016 Not Available [facility] 3 02:23:52 Restless legs 56510515 Active 2021 Not Available [facility] 3 02:23:52 Fracture of rib 67330884 Completed 202004/24/2022 Not Available [facility] 3 00:50:17 Depressiv e disorder 72691066 Active 2017 Not Available [facility] 3 02:23:52 Sinusitis 71874926 Completed Not Available [facility] 3 00:50:17 Arthritis 7947951 Active 2017 Not Available [facility] 3 02:23:52 Hypertens sharmila disorder 97654615 Active 2017 Not Available [facility] 3 02:23:52 Neuropath y 391546497 Active Not Available [facility] 3 02:23:52 Osteoarth ritis 381283974 Active Not Available [facility] 3 02:23:52 Macrocyto sis 753611557 Completed Not Available [facility] 3 00:50:18 Vertigo 966189947 Active Not Available [facility] 3 02:23:52 Onychomyc osis of toenails 140044654 Completed 202108/24/2022 Dallas Gracia DPM [address] [facility], [place], [address] , [employer] [facility] 3 11:17:56 Onychomyc osis of toenails 455877025 Completed 201704/24/2022 Dallas Gracia DPM [address], [facility] [address], [place], [address] , [employer] [facility] 3 11:17:56 Hypothyro idism 48867394 Active Not Available [facility] 3 02:23:52 Obesity 168097745 Active Not Available [facility] 3 02:23:52 Onychomyc osis 783156366 Completed Not Available [facility] 3 00:50:19 Paronychi a of finger 524595767 Completed Not Available [facility] 3 00:50:19 Pain of shoulder region 72431792 Completed Not Available [facility] 3 00:50:19 Foot pain 07930705 Completed Not Available [facility] 3 00:50:19 Essential hypertens ion 81738105 Active Not Available [facility] 3 02:23:52 Tinea pedis 7485992 Completed 201904/24/2022 Not Available [facility] 3 00:50:20 Acquired mallet toe 677350932 Completed 202104/24/2022 Not Available [facility] 3 00:50:20 Neck pain 58570797 Completed Not Available [facility] 3 00:50:20 Perniciou s anemia 21681256 Active Not Available [facility] 3 02:23:52 Vitamin deficienc y 67442702 Completed Not Available [facility] 3 00:50:20 Kidney disease 61934334 Active 2018 Not Available [facility] 3 02:23:52 Pain in limb 71504905 Completed Not Available [facility] 3 00:50:20 Skin lesion 17109240 Completed Not Available [facility] 3 00:50:21 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 2024 Dallas Gracia DPM [address], [place], [address] , [employer] [facility] 5 11:42:16 Pain of toes of bilateral feet 58955585598 180314 Active 2024 Dallas Gracia DPM [address], [place], [address] , [employer] [facility] [employer] [facility] 5 11:42:34 Edema 731434105 Active 2024 Kasey holley, FRANCISCO null, [employer] 5 12:21:28 Endometri um thickened 878293727 Active 2024 Rohan Sharma MD [address], [place], [address] , [employer] [facility] [employer] [facility] 5 10:18:24 Urinary symptoms 122110168 Active 2024 Rohan Sharma MD [address], [place], [address] , [facility] [employer] [facility] [employer] 5 10:21:22 Acute urinary tract infection 201606288 Active 2024 ARNULFO Macdonald [address], [place], [address] , [facility] [employer] 5 10:16:34 Chronic pain of left upper limb 57012847372 780603 Active 2024 ARNULFO Macdonald [address], [place], [address] , [facility] [employer] [facility] [employer] 11:20:32 Notes:overactive thyroid, re stless legs, neuropathy, back/neck problems, concussion or spinal trauma, ear problems,, eye problems, balance problems, numbness or tingling, depression, shortness of breath, swelling in arms and legs, wears glasses, vision problems, difficulty hearing, wears a hearing aid Some problems listed in Document: #[id number] could not be added to this patient's chart. Please review this document and add these problems to the patient's chart manually as needed. Problem Notes None recorded. Procedures Surgical History Date Name Laterality Status Provider Name and Address Organization Details Recorded Time 08/31/19 25 Nail Debridement completed Dallas Gracia DPM [address], [address], [place], [address], [facility] [employer] [facility] [employer] 08/31/2024 11:41:59 07/18/20 24 Appendectomy completed Anila Carcamo MA [facility] [employer] [facility] 07/24/2024 11:25:40 05/30/20 24 Nail Debridement completed Dallas Gracia DPM [address], [place], [address], [facility] [employer] 05/30/2024 13:41:05 10/21/19 24 Nail Debridement completed Dallas Gracia DPM [address], [place], [address], [facility] [employer] 10/21/2023 12:02:22 10/21/19 24 Callus Debridement, One completed Dallas Gracia DPM [address], [place], [address], [employer] 10/21/2023 12:02:18 03/08/20 23 Nail Debridement completed Dallas Gracia DPM [address], [place], [address], [employer] 03/08/2023 17:31:11 03/08/20 23 Callus Debridement 2-4 completed Dallas Gracia DPM [address], [place], [address], [employer] 03/08/2023 17:31:05 11/20/19 23 Nail Debridement completed Dallas Gracia DPM [address], [place], [address], [employer] [facility] 11/19/2022 11:17:20 11/20/19 23 Callus Debridement 2-4 completed Dallas Gracia DPM [address], [place], [address], [employer] [facility] 11/19/2022 11:17:13 05/07/20 20 Most Recent Bone Density completed Not Available [facility] 09/30/2022 00:45:30 02/22/20 19 Total knee arthroplasty completed Not Available [facility] 09/30/2022 00:45:34 12/15/19 18 Total knee arthroplasty completed Not Available [facility] 09/30/2022 00:45:34 12/15/19 18 Knee Surgery completed Not Available [facility] 023 00:45:34 08/18/19 13 Date of Last Colonoscopy completed Not Available [facility] 09/30/2022 00:45:30 dilation and curettage completed Not Available [facility] 09/30/2022 00:45:34 Orthopedic Surgery completed Not Available [facility] 09/30/2022 00:45:34 Knee Surgery completed Not Available [facility] 09/30/2022 00:45:34 ENT Surgery completed Not Available [facility] 09/30/2022 00:45:34 Imaging Results None recorded. Procedure Notes None recorded. Medical Equipment None Reported. Allergies Allergen ID Allergen Name Allergen Category Reaction Reaction Severity Criticality Documentation Date Start Date Code Code System Note Provider Name and Address Organization Details Recorded Time 838 sulfur dioxide medicatio n rash Not available Not available 09/30/2022 74005 79 RxNorm Not Available [facility] 3 00:57:07 839 Substance with sulfonami de structure and antibacte rial mechanism of action (substanc e) medicatio n rash Not available Not available 09/30/2022 42530 8003 SNOMED Not Available [facility] 3 00:57:07 840 codeine medicatio n dizziness Not available Not available 09/30/2022 2670 RxNorm Not Available [facility] 3 00:57:07 841 chlorthal idone medicatio n dizziness Not available Not available 09/30/2022 2409 RxNorm Not Available [facility] 3 00:57:07 842 amlodipin e medicatio n edema Not available Not available 09/30/2022 96275 RxNorm Not Available [facility] 3 00:57:07 Medications Name Sig Start Date [...] TABLET BY MOUTH EVERY 8 HOURS NEEDED 01/16 completed Not Available Not Available Not Available amoxicillin 500 mg tablet TAKE 1 [...] 1 tablet every day by oral route. 10/16 /2018 completed Not Available Not Available Not Available bupropion HCl 100 mg tablet TAKE 1 TABLET BY MOUTH TWICE A DAY active Not Available Not Available No t Available terbinafine HCl 250 mg tablet 03/02 [...] BY MOUTH ONCE DAILY @ 3:00 PM 01/16 completed Not Available Not Available Not Available Kenalog 10 mg/mL suspension for injection In office injection administe red by the provider 07/16 completed [facility]: 0003- 0494- 20 Not Available Not Available [...] Not Available Not Available No t Available ergocalcife rol (vitamin D2) 1,250 mcg [...] Not Available Not Available No t Available ondansetron 4 mg disintegrat ing tablet TAKE 1 TABLET BY MOUTH EVERY 8 HOURS NEEDED FOR NAUSEA AND VOMITING active Not Available Not Available No t [...] oin monohydrate /macrocryst als 100 mg capsule Take 1 capsule every 12 hours by oral route for 5 days. 2024 active Not Available Not Available Not Avai lable pregabalin 50 mg capsule TAKE 1 CAPSULE BY MOUTH EVERY DAY active Not Available Not Available No t Available Zoloft 11/16 completed Not Available Not Available Not Available Aspir-81 2019 active Not Available Not Available Not Avai lable lidocaine (PF) 10 mg/mL (1 %) injection solution In office injection administe red by the provider 07/16 completed [facility]: 0409- 4276- 17 Not Available Not Available [...] Available Vitals Date Recorded Body height Body temperature Heart rate Oxygen saturation Oxygen saturation in Arterial blood by Pulse oximetry Systolic And Diastolic Provider Name and Address Organization Details Last Updated DateTime 5 154.94 cm 96.9 [degF] 65 /min 96 % 96 % 140/74 mm[Hg] FRANCISCO [place] [facility] [place] [employer] [facility] 5 11:07:28 Social History Question Answer Notes LastModified by Organization Details LastModified Time Tobacco Smoking Status Never Smoker Not Available [facility] 09/30/2022 00:43:11 Do You Have An Advance Directive? Yes MIGRATION.[id number] Information not available 09/30/2022 Do You Wear A Helmet When Biking? No MIGRATION.03022990907 Information not available 09/30/2022 Are You Blind Or Do You Have Difficulty Seeing? No MIGRATION.0301 [id number] Information not available 09/30/2022 What Is Your Level Of Caffeine Consumption? Moderate MIGRATION.030 116818 Information not available 09/30/2022 How Much Tobacco Do You Chew? None MIGRATION.030 153746 Information not available 09/30/2022 In The 14 Days Before Symptom Onset, Have You Had Close Contact With A Laboratory-confi rmed COVID-19 While That Case Was Ill? No MIGRATION.030 625140 Information not available 09/30/2022 In The 14 Days Before Symptom Onset, Have You Had Close Contact With A Person Who Is Under Investigation For COVID-19 While That Person Was Ill? No MIGRATION.030 129729 Information not available 09/30/2022 Are You Deaf Or Do You Have Serious Difficulty Hearing? Yes Wears Hearing Aids In Both Ears MIGRATION.030 550299 Information not available 09/30/2022 What Type Of Diet Are You Following? REGULAR MIGRATION.030 350370 Information not available 09/30/2022 Which Illicit Or Recreational Drugs Have You Used? None MIGRATION.030 136997 Information not available 09/30/2022 What Is The Highest Grade Or Level Of School You Have Completed Or The Highest Degree You Have Received? MW02267-4 MIGRATION.030 876601 Information not available 09/30/2022 Have There Been Any Changes To Your Family Or Social Situation? No MIGRATION.030 696193 Information not available 09/30/2022 What Is The Fluoride Status Of Your Home? Unknown MIGRATION.030 441079 Information not available 09/30/2022 Do You Use Insect Repellent Routinely? No MIGRATION.0301 742890 Information not available 09/30/2022 Where Do You Live? [place]House MIGRATION.030 223126 Information not available 09/30/2022 Do You Have A Medical Power Of Donor Floor Technician? No MIGRATION.0301 945198 Information not available 09/30/2022 What Was The Date Of Your Most Recent Tobacco Screening? 02/07/2025 [email or web address] Information not available 02/07/2025 Do You Have Any Pets? No MIGRATION.0301 579138 Information not available 09/30/2022 What Is Your Relationship Status? MIGRATION.0301 669526 Information not available 09/30/2022 Do You Use Your Seat Belt Or Car Seat Routinely? Yes MIGRATION.0301 442972 Information not available 09/30/2022 Do You Have Smoke And Carbon Monoxide Detectors In Your Home? Yes MIGRATION.0301 919598 Information not available 09/30/2022 Are You Passively Exposed To Smoke? No MIGRATION.0301 101053 Information not available 09/30/2022 Are There Any Smokers In Your House? No MIGRATION.0301 388933 Information not available 09/30/2022 Do You Use Sunscreen Routinely? No MIGRATION.0301 028678 Information not available 09/30/2022 Has Tobacco Cessation Counseling Been Provided? No N/A MIGRATION.0301 383429 Information not available 09/30/2022 Have You Recently Traveled Abroad? No MIGRATION.0301 674656 Information not available 09/30/2022 Do You Have Difficulty Walking Or Climbing Stairs? Yes Uses Walker MIGRATION.0301 212210 Information not available 09/30/2022 Do You Have Any Dietary Restrictions? No MIGRATION.0301 525463 Information not available 09/30/2022 Sex: Female Functional Status Question Answer Note LastModified by Organizat ion Details LastModified Time Do you use any illicit or recreational drugs? No MIGRATION.89677 16739 Information not available 09/30/2022 Do you or have you ever used any other forms of tobacco or nicotine? No MIGRATION.02835 37677 Information not available 09/30/2022 What is your level of alcohol consumption? None MIGRATION.94356 42259 Information not available 09/30/2022 Do you have transportation difficulties? Yes No longer drives MIGRATION.34295 55862 Information not available 09/30/2022 Are you able to walk? YESASSIST MIGRATION.81245 71923 Information not available 09/30/2022 Do you have difficulty doing errands alone? Yes Patient does not drive. MIGRATION.77755 54264 Information not available 09/30/2022 Are you able to care for yourself? Yes MIGRATION.73407 51057 Information not available 09/30/2022 What is your occupation? Retired MIGRATION.93084 76099 Information not available 09/30/2022 Do you have difficulty dressing or bathing? No MIGRATION.63103 20937 Information not available 09/30/2022 What is your exercise level? Occasional MIGRATION.27898 33633 Information not available 09/30/2022 Mental Status Question Answer Note LastModified by Organizat ion Details LastModified Time Do you feel stressed (tense, restless, nervous, or anxious, or unable to sleep at night)? UG5488-8 MIGRATION.24334888 26 Information not available 09/30/2022 Do you have difficulty concentrating, remembering or making decisions? No MIGRATION.20221265 26 Information not available 09/30/2022 Family History Relationship Description Onset Age of this Age Resolved Age Notes LastModified by Organization Details LastModified Time Father Cerebrovascu lar accident 63 MIGRATION.360 [id number] Not available 09/30/2022 00:45:35 Father Lupus erythematosu s MIGRATION.362 [id number] Not available 09/30/2022 00:45:35 Mother Cerebrovascu lar accident MIGRATION.393 8864639 Not available 09/30/2022 00:45:35 Mother Fibrositis 79 MIGRATION.463 [id number] Not available 09/30/2022 00:45:35 Brother Essential hypertension MIGRATION.845 [id number] Not available 09/30/2022 00:45:35 Brother Essential hypertension MIGRATION.187 8043885 Not available 09/30/2022 00:45:35 Medical History Condition [...] 50 mcg/0.25mL dose 1 completed Not Available [facility] 06/08/2023 02:23:53 COVID-19, mRNA, LNP-S, PF, 100 mcg/0.5mL dose or 50 mcg/0.25mL dose 1 completed Not Available [facility] 06/08/2023 02:23:53 Influenza, high-dose, quadrivalent, PF 1 completed Not Available [facility] 06/08/2023 02:23:53 Influenza, high-dose, trivalent, PF 3 completed Not Available [facility] 06/08/2023 02:23:53 pneumococcal polysaccharide PPV23 0 completed Not Available [facility] 06/08/2023 02:23:53 Pneumococcal conjugate PCV 13 6 completed Not Available [facility] 06/08/2023 02:23:53 Influenza, high-dose, quadrivalent, PF 3 completed Rohan Sharma MD [address] [facility] [facility] [address], [place], [address], [facility] [employer] 07/19/2023 11:52:28 Past Encounters Encounter ID Performer Location Encounter Start Date Encounter Closed Date Diagnosis/Indication Diagnosis SNOMED-CT Code Diagnosis ICD10 Code Diagnosis Note [id number] Rohan Sharma MD [facility] [address] [facility] [place] [address] 01/16/2025 09:51:32 01/16/2025 10:36:15 Essential hypertension 45778734 I10 under control Neuropathy 560172709 G62 .9 meds help Hypothyroidism 24065215 E03.9 under control Kidney disease 51527921 N08 seeing nephrology Arthritis 3169847 M19.90 tylenol Vertigo 229015873 R42 meclizine helps Cobalamin deficiency 190 093137 E53.8 on oral meds Depressive disorder 3548 9007 F32.A under control Bilateral hearing loss 74170437 H91.93 hearing aids Restless legs 52158916 G 25.81 meds help Abnormal gait 63008800 R 26.9 PT/OT HELPED Visual impairment 521171 003 H54.7 seen ophthalmol ogy, has MACULAR DEGENERATI ON Osteoarthritis 355572232 M19.90 otc tylenol Osteopenia 956762237 M85 .80 on caltrate Adult heal th examination 504991102 Z00.00 Colonoscop y- 08/2012Pne umovax- 07/16/2020 Prevnar 13- 11/12/2015M ammogram- 05/07/2020, no moreDexa- 05/07/2020F [place]- 4COVID- 09/2020, 10/2020 Edema 249043433 R60.9 much better Endometrium thickened 44 8402728 R93.89 does not want further w/u Urinary symptoms 9590669 08 R39.9 [id number] Rohan Sharma MD [facility] [address] [place] [address] 02/07/2025 10:29:57 02/07/2025 12:04:51 Chronic pain of left upper limb 1438948612 3176713 M25.512 G89.29 Arthritis 4724542 M19.90 Health Concerns Section Related Observation LastModified by Organization Detai ls LastModified Time None Recorded Concern Status LastModified by Organization Details LastModified Time None Recorded Payers Encounter Date Sequence Insurance Name Policy Number Policy Sher Covered Member ID Sher Member ID Guarantor Name 02/07/2025 1 [facility] (MEDICARE REPLACEMENT/A DVANTAGE - PPO) [id number] Tanesha Dubon [id number] Tanesha Dubon Notes Date Note Type Note Provider Name and Address Organization Details Recorded Time 5 text/html Patient is a 84y/o female who is here for a Face to Face examination for the determination of a wheelchair. Patient is accompanied by daughter at this time. Patient is unable to perform ADLs independently and ambulate appropriately. Neither a cane or walker are adequate devices to assist this patient with their MRADLs. The use of this wheelchair will improve the patients ability to participate in MRADLs. The Patient is willing to use a wheelchair and will use it frequently in the home. Mobility-Related Activities of Daily Living (MRADLs): Does the patient have a mobility limitation causing an inability to perform any of the following mobility-related activities of daily living in the home? YESToileting-requires assistanceFeeding- independentDressing -assistanceGrooming- assistanceBathing-assist ance Are there other conditions that limit the patients ability to perform mobility-related activities of daily living in the home?Answer: arthritis, hearing, neuropathy, osteoarthritis, vertigo Wheelchair Propulsion:Type of Wheelchair Needed & Justification: Lightweight Wheelchair- The Patient is unable to self-propel themselves in a standard wheelchair, but can propel themselves in a lightweight chair. ROBERTO Macdonald-C [address] [facility], [facility] [address], [place], [address], [facility] [place] [employer] [facility] 02/07/2025 11:44:45 OBGyn Episode No OBEpisode recorded.
--- OUTSIDE RECORDS SUMMARY | 2025-02-07 11:18 | XMS_ITS | Continuity of Care Document ---
Author Organization [facility] Address [address] [place] [address] Phone Care Team Providers Care Clinic Administrator Name Role Phone Aguero OD, Alden Unavailable Unavailable Procedures Procedure Date Eye Exam & Treatment Eye Exam & Treatment Eye Exam & Treatment Office Consultation Office/outpatient Visit, Est BF Plastic Sphcyl [place] To +/-4d .12-2d Frames Deluxe Tax - Medical Eye Exam & Treatment Refraction Advance Directives Directive Yes / No Effective Date File Name No Information Encounters Encounter Description Practice Location Reason(s) For Visit Diagnoses Date Provider Providers Copied on Encounter [facility], [address] [place] [address] [address], [place], [place], [address], [place] tel:[phone] [facility] No Information 7-201 0 Aguero OD Alden. [address] , [address], [place], [address], [place]. tel:[phone] [facility], [address], [place], [place], [address], [place] tel:[phone] [facility] No Information 1-200 9 Aguero OD Alden. [address], [address], [place], [address], [place]. tel:[phone] [facility], [address], [place], [place], [address], [place] tel:[phone] SEC [facility] No Information 3-200 8 Aguero OD Alden. [facility] [facility] [address], [place], [address], [place]. tel:[phone] Office Consultation [facility], [address] [place] [address] [address], [place], [place], [address], [place] tel:[phone] SEC [place] [facility] No Information 5[address] Junie Romo. [address], [address], [place], [place], [address], [place]. tel:[phone] Referring Provider: Alden Aguero OD A, [address] [place] [address] [address], [place], [address]. tel:[phone] Office/outpati ent Visit, Est [facility], [address] [place] [address] [address], [place], [place], [address], [place] tel:[phone] [facility] No Information 0 8-200 7 Aguero OD Alden. [address] [place] [address] , [address], [place], [address], [place]. tel:[phone] [facility], [address] [place] [address] [address], [place], [place], [address], [place] tel:[phone] [facility] No Information 7-200 7 [facility] [employer] . [address] [facility] [facility], [address], [place], [place], [address], [place]. tel:[phone] Referring Provider: Alden Aguero OD A, [address] [place] [address] [address], [place], [address]. tel:[phone] sulting Provider: Kee Lloyd, [address] [facility], [place], [address]. tel:[phone] [facility], [address], [place], [place], [address], [place] tel:[phone] [facility] No Information 7-200 7 Aguero OD Alden. [address] [address], [address], [place], [address], [place]. tel:[phone] Family History Family Member Type Diagnosis Age At Onset No Information Payers Payer name Insurance type Covered republican ID Authoriza tion(s) No Information Social History [...]
--- OUTSIDE RECORDS SUMMARY | 2025-02-07 11:19 | XMS_ITS ---
Author Organization [facility] Address [address] [place] [address] Care Team Providers Care Director Telehealth Name Role Phone Joe Cecil Murdock [phone] Social History Sex Assigned At : Social History Observation Description Sex Assigned At Female Encounters Encounter Location Date Provider Diagnosis [facility] [address] [facility] [address] [place] [address] 08/25/2024 Cecil Diaz Plan Of Treatment Next Appt Details Provider Name:Ju casey, 03/19/2025 04:00:00 PM, [address], [place], [address], Progress Notes * ELSIE WILLAMSDOB:[birth year] (84 yo F)Acc No.[id number]:08/25/2024 Progress Notes Patient: ELSIE ROBBINS Provider: Marnie KOO MD, Tomasz.Brooks.C.P, F.A.S.N. :1940 A ge:83 Y S ex:Female Date:08/25/2024 Address:[address] [place] [address] Subjective: * Chief Complaints: * * Medical History: Objective: * Vitals: Assessment: Plan: * Treatment: * Billing Information: * Visit Code: * Procedure Codes: * Electronic signature of Yossi Diaz MD on 02/07/2025 at 11:18 AM CDT Sign off status: Pending * Provider: Marnie KOO MD, F.Brooks.C.P, F.A.S.N. Date: 0 08/25/2024 Generated for Printing/Faxing/eTransmitting on: 0 02/07/2025 11:18 AM CDT
== END 2025-02-07 11:12 | disposition home or self-care (01) ==
PROVIDERS: PCP Internal Medicine
DX: M19.012 Primary osteoarthritis, left shoulder (principal)
CPT/HCPCS: 73030

== ENCOUNTER 2025-03-14 08:51 | Outpatient (CLI) | payer MEDICARE, SELFPAY ==
--- OUTSIDE RECORDS SUMMARY | 2025-03-14 09:04 | XMS_ITS | Continuity of Care Document ---
Author Organization [facility] Address [address] [place] [address] Phone Care Team Providers Care Data Warehousing Engineer Name Role Phone Aguero OD, Alden Unavailable Unavailable Procedures Procedure Date Eye Exam & Treatment Eye Exam & Treatment Eye Exam & Treatment Office Consultation Office/outpatient Visit, Est BF Plastic Sphcyl [place] To +/-4d .12-2d Frames Deluxe Tax - Medical Eye Exam & Treatment Refraction Advance Directives Directive Yes / No Effective Date File Name No Information Encounters Encounter Description Practice Location Reason(s) For Visit Diagnoses Date Provider Providers Copied on Encounter [facility], [address] [place] [address] [address], [place], [place], [address], [place] tel:[phone] [facility] No Information 7-201 0 Aguero OD Alden. [address] , [address], [place], [address], [place]. tel:[phone] [facility], [address], [place], [place], [address], [place] tel:[phone] [facility] No Information 1-200 9 Aguero OD Alden. [address], [place], [address], [place]. tel:[phone] [facility], [address], [place], [place], [address], [place] tel:[phone] [facility] No Information 3-200 8 Aguero OD Alden. [facility] [facility] [address], [address], [place], [address], [place]. tel:[phone] Office Consultation [facility], [address] [place] [address] [address], [place], [place], [address], [place] tel:[phone] SEC [place] [facility] No Information 5200 7 Junie Romo. [address], [address], [place], [place], [address], [place]. tel:[phone] Referring Provider: Alden Aguero OD A, [address] [place] [address] [address], [place], [address]. tel:[phone] Office/outpati ent Visit, Est [facility], [address] [place] [address] [address], [place], [place], [address], [place] tel:[phone] [facility] No Information 0 8-200 7 Aguero OD Alden. [address] [place] [address] , [address], [place], [address], [place]. tel:[phone] [facility], [address] [place] [address] [address], [place], [place], [address], [place] tel:[phone] [facility] No Information 7-200 7 [facility] [employer] . [address] [facility], [address], [place], [place], [address], [place]. tel:[phone] Referring Provider: Alden Aguero OD A, [address] [place] [address] [address], [place], [address]. tel:[phone] sulting Provider: Kee Lloyd, [address] [facility], [place], [address]. tel:[phone] [facility], [address], [place], [place], [address], [place] tel:[phone] [facility] No Information 7-200 7 Aguero OD Alden. [address] [facility] [address], [place], [address], [place]. tel:[phone] Family History Family Member Type Diagnosis Age [...]
--- OUTSIDE RECORDS SUMMARY | 2025-03-14 09:04 | XMS_ITS ---
Author Organization [facility] Address [address] [place] [address] Care Team Providers Care Budder Name Role Phone CalvinAliceJumaribel Murdock [phone] Social History Sex Assigned At : Social History Observation Description Sex Assigned At Female Problems Problem Type SNOMED Code ICD Code Onset Dates Problem Status W/U Status Risk Notes Problem Essential hypertension (I10) Active confirmed Problem Hypothyroidism (16161223) Hypothyroidism, unspecified (E03.9) Active confirmed Encounters Encounter Location Date Provider Diagnosis [facility] [address] [facility] [address] [place] [address] 11/20/2024 Ju Delvalle Chronic kidney disea se, [...] PM, [address], [place], [address], Progress Notes * ELSIE WILLAMSDOB:[birth year] (84 yo F)Acc No.[id number]:11/20/2024 Progress Notes Patient: ELSIE ROBBINS Provider: Brooks DELVALLE M.D :1940 A ge:83 Y S ex:Female Date:11/20/2024 Address:[facility] [place] [address] Subjective: * Chief Complaints: * * Medical History: Objective: * Vitals: Assessment: * Assessment: 1. C hronic kidney disease, stage 3b - N18.32 (Primary) 2 . E ssential hypertension - I10 3 . H ypothyroidism, unspecified - E03.9 4 . 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 * Procedure Codes: * Electronic signature of Jinny Delvalle MD on 03/14/2025 at 09:04 AM CDT Sign off status: Pending * Provider: Brooks DELVALLE M.D Date: 11/20/2024 Generated for Dali trinidad/Amna/Luissmitting on: 0 03/14/2025 09:04 AM CDT
--- OUTSIDE RECORDS SUMMARY | 2025-03-14 09:04 | XMS_ITS | Clinical Summary ---
Author Organization [facility] Address [address] [place] [place] [address] Care Team Providers Care Director Of Property Management Name Role Phone Rito Thakur MD Primary Care Provider [phone] Source Comments [facility],non-owned Affiliates and Associated Physician Practices is amultiple site organization consisting of ambulatory clinics and hospital sitesin [place], [place], [place] and [place]. This disclosure is being madepursuant to the Care Everywhere program and may not contain all information available regarding this patient. Last updated 18.[facility] [employer] Allergies Active Allergy Reactions Criticality Noted Date [...] on file Legal Sex Female 10:26 AM [employer] Gender Identity Not on file Sexual Orientation Not on file Last Filed Vital Signs Vital Sign Reading Time Taken Comments Blood Pressure 152/78 09/14/2012 11:16 AM [employer] Pulse 82 09/14/2012 11:16 AM [employer] Temperature - - Respiratory Rate 20 09/14/2012 11:16 AM [employer] Oxygen Saturation - - Inhaled Oxygen Concentration - - Weight 96.2 kg (212 lb) 09/14/2012 11:16 AM [employer] Height - - Body Mass Index - [...] season) 2024 DEPRESSION SCREENING 08/02/2024 INFLUENZA VACCINE (#1) 2025 HEPATITIS B VACCINE Aged Out No [...] topic Insurance MANAGED MEDICARE ADV Care Teams Director Of Property Management Relationship Specialty Start Date End Date Rito Thakur MD PCP - General Internal Medicine 08/08/12
--- OUTSIDE RECORDS SUMMARY | 2025-03-14 09:04 | XMS_ITS ---
Author Organization [facility] Address [address] [place] [address] Care Team Providers Care Angle Furnaceman Name Role Phone Ju Delvalle [phone] Social History Sex Assigned At : Social History Observation Description Sex Assigned At Female Encounters Encounter Location Date Provider Diagnosis [facility] [place] [facility] [address] [place] [address] 06/12/2024 Ju Delvalle Plan Of Treatment Next Appt Details Provider Name:Ju casey, 03/19/2025 04:00:00 PM, [address], [place], [address], Progress Notes * ELSIE WILLAMSDOB:[birth year] (84 yo F)Acc No.[id number]:06/12/2024 Progress Notes Patient: ELSIE ROBBINS Provider: Brooks DELVALLE M.D :1940 A ge:83 Y S ex:Female Date:06/12/2024 Address:[address] [place] [address] Subjective: * Chief Complaints: * * Medical History: Objective: * Vitals: Assessment: Plan: * Treatment: * Billing Information: * Visit Code: * Procedure Codes: * Electronic signature of Jinny Delvalle MD on 03/14/2025 at 09:04 AM CDT Sign off status: Pending * Provider: Brooks DELVALLE M.D Date: 08/12/2023 Generated for Dali trin[place]/Amna/Luissmitting on: 0 03/14/2025 09:04 AM CDT
--- OUTSIDE RECORDS SUMMARY | 2025-03-14 09:04 | XMS_ITS | Patient Health Record ---
Author Organization [facility] Address [address] [place] [address] Care Team Providers Care It Web Development Consultant Name Role Phone Ju Simpson Unavailable [phone] Ceicl Diaz Unavailable [phone] Reason For Referral No Information Medications Medication SIG (Take, Route, Frequency, Duration) Notes Start Date End Date Status Furosemide 80 MG TAKE 1 1/2 TABLETS B Y MOUTH ONCE DAILY FOR 30 DAYS *TAKE 1/2 TABLET AT 3:00 PM*; Duration: 90 Active Furosemide 40 MG TAKE 1 TABLET BY ASHISH TH EVERY DAY; Duration: 90 Active Vitamin D (Ergocalciferol) 1.25 MG (16522 UT) TAKE 1 CAPSULE BY MOUTH ONCE WEEKLY; Duration: 90 Active Social History Sex Assigned At : Social History Observation Description Sex Assigned At Female Problems Problem Type SNOMED Code ICD Code Onset Dates Problem Status W/U Status Risk Notes Problem Anemia (317327491) Anemia, unspecified (D64.9) Active confirmed Problem Hypothyroidism (19439397) Hypothyroidism, unspecified (E03.9) Active confirmed Problem Vitamin D deficiency (26558744) Vitamin D deficiency, unspecified (E55.9) Active confirmed Problem Mood disorder (65102470) Mood disorder due to known physiological condition, 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) Active confirmed Problem Anxiety disorder (886268180) Anxiety disorder, unspecified (F41.9) Active confirmed Problem Urinary tract infectious disease (disorder) (35016124) Urinary tract infection, site not specified (N39.0) Active confirmed Problem Edema (42477992) Edema, unspecified (R60.9) Active confirmed Problem Essential hypertension (82170919) Essential hypertension (I10) Active confirmed Problem Chronic kidney disease stage 3A (disorder) (955028374) Chronic kidney disease, stage 3a (N18.31) Active confirmed Problem Chronic kidney disease stage 3B (disorder) (332946007) Chronic kidney disease, stage 3b (N18.32) Active confirmed Encounters Encounter Location Date Provider Diagnosis [facility] [address] [facility] [address] [place] [address] 11/20/2024 Ju Simpson Chronic kidney disea se, [...] PM, [address], [place], [address],
--- OUTSIDE RECORDS SUMMARY | 2025-03-14 09:05 | XMS_ITS ---
Author Organization [facility] Address [address] [place] [address] Care Team Providers Care Chemical Technician Name Role Phone Joe Cecil Murdock [phone] Social History Sex Assigned At : Social History Observation Description Sex Assigned At Female Encounters Encounter Location Date Provider Diagnosis [facility] [address] [facility] [address] [place] [address] 08/25/2024 Cecil Diaz Plan Of Treatment Next Appt Details Provider Name:Ju casey, 03/19/2025 04:00:00 PM, [address], [place], [address], Progress Notes * ELSIE WILLAMSDOB:[birth year] (84 yo F)Acc No.[id number]:08/25/2024 Progress Notes Patient: ELSIE ROBBINS Provider: Marnie KOO MD, Tomasz.Brooks.C.P, F.A.S.N. :1940 A ge:83 Y S ex:Female Date:08/25/2024 Address:[address] [place] [address] Subjective: * Chief Complaints: * * Medical History: Objective: * Vitals: Assessment: Plan: * Treatment: * Billing Information: * Visit Code: * Procedure Codes: * Electronic signature of Yossi Diaz MD on 03/14/2025 at 09:04 AM CDT Sign off status: Pending * Provider: Marnie KOO MD, F.Brooks.C.P, F.A.S.N. Date: 0 08/25/2024 Generated for Printing/Faxing/eTransmitting on: 0 03/14/2025 09:04 AM CDT
[2025-03-14 09:22] LABS: Hematocrit 40.1 % (37.0-47.0); Hemoglobin 12.6 g/dL (12.0-15.0); Immature Granulocyte Percent A 0.4 % (0-0.5); Immature Platelet Fraction Pct 3.3 % (0.9-11.2); Lymphocytes Absolute Auto 1.91 K/mm3 (0.9-3.2); Mean Corpuscular HGB Conc 31.4 g/dl (32-36); Mean Corpuscular Hemoglobin 32.0 pg (26-34); Mean Corpuscular Volume 101.8 fl (80-100); Nucleated Red Blood Cells Absolute Auto 0.000 K/mm3 (0.0-0.012); Nucleated Red Blood Cells Perc 0.0 % (0.0-0.2); Platelet Count Result 133 k/mm3 (150-375); Red Blood Count 3.94 M/mm3 (4.2-5.4); White Blood Count 5.4 K/mm3 (4.5-10.0)
[2025-03-14 09:41] LABS: Iron 88 ug/dL (37-170)
[2025-03-14 09:42] LABS: Albumin Level 4.2 g/dL (3.5-5.1); Anion Gap 9 mmol/L (4-12); Blood Urea Nitrogen 46 mg/dL (7-17); Calcium 9.6 mg/dL (8.4-10.2); Carbon Dioxide 24 mmol/L (22-30); Chloride 109 mmol/L (98-107); Estimated Glomerular Filt Rate 35; Glucose 89 mg/dL (65-110); Potassium 4.3 mmol/L (3.4-5.0); Sodium 142 mmol/L (137-145); Uric Acid 8.0 mg/dL (2.5-7.5)
[2025-03-14 09:50] LABS: Percent Iron Saturation 40 % (20-50)
[2025-03-14 09:59] LABS: Parathyroid Intact 129.1 pg/mL (14.5-75.2)
[2025-03-14 10:17] LABS: Free T4 Free Thyroxine 1.57 ng/dL (0.78-2.19); Thyroid Stimulating Hormone 0.304 uIU/mL (0.465-4.680)
[2025-03-14 10:20] LABS: Free T3 4.40 pg/mL (2.34-5.61)
[2025-03-14 10:35] LABS: Ferritin 212.00 ng/mL (11.1-264)
[2025-03-14 10:56] LABS: Vitamin B12 > 1000.0 pg/mL (239-931)
== END 2025-03-14 08:52 | disposition home or self-care (01) ==
LOC: ANHLAB 08:57
PROVIDERS: PCP Internal Medicine; Visit Provider Internal Medicine Nephrology
DX: I12.9 Hypertensive chronic kidney disease with stage 1 through stage 4 chronic kidney disease, or unspecified chronic kidney disease (principal); D63.1 Anemia in chronic kidney disease; N18.30 Chronic kidney disease, stage 3 unspecified; R60.9 Edema, unspecified; E55.9 Vitamin D deficiency, unspecified
CPT/HCPCS: 36415; 80069; 82306; 82607; 82728; 82746; 83540; 83550; 83970; 84439; 84443; 84481; 84550; 85025; 85055